=== PATIENT | male | born 1990 | race Caucasian/White ===

== ENCOUNTER 2024-09-14 10:10 | Emergency (ER) | payer MEDICAID, SELFPAY ==
[2024-09-14 10:18] VITALS: PULSE 103; RESP 18; BMI 21.5
[2024-09-14 11:02] VITALS: RESP 20; TEMP 37.2; O2SAT 111
[2024-09-14] MEDS: HALOPERIDOL LACT INJ 5 MG/ML VIAL 10 MG IM (11:17)
[2024-09-14] MEDS: SODIUM CHLORIDE 0.9% 1000 ML 1,000 ML 999 ML IV (11:17)
[2024-09-14 11:19] VITALS: BP 116/91; RESP 20; TEMP 37.2; O2SAT 99
[2024-09-14 11:25] LABS: Basophils # (Auto) 0.1 Thou/mm3 (0.0-0.2); Basophils % (Auto) 2 % (0-2.5); Eosinophils % (Auto) 0 % (0-10); Hematocrit 41.4 % (41.0-53.0); Hemoglobin 14.3 g/dL (13.5-16.0); Immature Granulocytes % (Auto) 0 % (0-0); Immature Granulocytes Auto 0.01 Thou/mm3 (0.00-0.00); Lymphocytes # (Auto) 3.3 Thou/mm3 (1.0-4.8); Lymphocytes % (Auto) 43 % (10-50); Mean Corpuscular HGB Conc 34.5 g/dl (31.0-37.0); Mean Corpuscular Hemoglobin 30.3 pg (25.0-35.0); Mean Corpuscular Volume 88 fL (80-100); Monocytes # (Auto) 0.4 Thou/mm3 (0.0-0.8); Monocytes % (Auto) 5 % (0-12); Neutrophils # (Auto) 3.8 Thou/mm3 (1.8-7.7); Neutrophils % (Auto) 50 % (37-80); Nucleated Red Blood Cell % 0 /100 WBC (0); Platelet Count 365 Thou/mm3 (140-440); RDW Standard Deviation 45.9 fL (35.1-43.9); Red Blood Count 4.72 Miln/mm3 (4.50-5.90); White Blood Count 7.6 Thou/mm3 (3.8-10.6)
[2024-09-14 11:54] LABS: Alanine Aminotransferase 53 U/L (10-49); Albumin, Serum 4.9 gm/dL (3.5-5.0); Albumin/Globulin Ratio 1.5 (1.2-2.2); Alkaline Phosphatase 125 U/L (46-116); Anion Gap 15 (7-16); Aspartate Amino Transferase 69 U/L (0-34); BUN/Creatinine Ratio 14 Ratio (12-20); Bilirubin,Total 0.7 mg/dL (0.3-1.2); Blood Urea Nitrogen 10 mg/dL (9-23); Calcium 9.8 mg/dL (8.3-10.6); Calcium (Corrected) 9.8 mg/dL (8.5-10.1); Carbon Dioxide 19.5 mMol/L (20.0-31.0); Chloride 100 mMol/L (98-107); Creatinine (Component) 0.7 mg/dL (0.6-1.3); Estimated Creatinine Clearance 141.7 mL/min (>60); Globulin 3.2 gm/dL (2.3-3.5); Glucose 130 mg/dL (74-106); Lipase 22 U/L (12-53); Osmolality,Calculated 269 (275-295); Potassium 4.8 mMol/L (3.4-5.1); Sodium 134 mMol/L (136-145); Total Protein 8.1 gm/dL (5.7-8.2); eGFR > 60 See Note
--- NOTE | 2024-09-14 12:03 | PD.EDADULT ---
ED General RME/HPI General Chief complaint: Nausea/Vomiting/Diarrhea Stated complaint: VOMITING Time Seen by Provider: 09/14/24 10:34 Arrival date/time: 09/14/24 10:10 RME / HPI RME / HPI narrative: Mr. Shook presents to the emergency department with a history of cyclic/cannabis induced hyperemesis, insulin-dependent diabetes, chronic prescription opioid dependence, who presents to the emergency department with recurrence of his nausea and vomiting. He notes a significant number of emesis that is uncountable. Emesis is bilious and nonbloody, not coffee-ground. He has an implantable glucose device and his blood sugars have been ranging from 100-120 today. He states he is stopping marijuana as well. Related Data Home Medications ?Medication ?Instructions ?Recorded ?Confirmed insulin glargine 100 unit/mL (3 5 unit subcut BID 03/22/23 09/14/24 mL) subcutaneous pen (Basaglar KwikPen U-100 Insulin) insulin aspart U-100 100 unit/mL See Rx Instructions .Route .COMPLEX 05/23/23 09/14/24 (3 mL) subcutaneous pen (Novolog FlexPen U-100 Insulin aspart) Allergies Allergy/AdvReac Type Severity Reaction Status Date / Time ketorolac [From Toradol] Allergy Verified 08/04/24 12:53 tramadol Allergy Verified 08/04/24 12:53 Review of Systems Review of Systems Systems Reviewed: All systems reviewed, normal except as documented ED Exam Narrative Physical exam: GENERAL APPEARANCE: AxOx4, generally well-appearing, no acute distress. HEENT: NC, AT. MMM. EOMI, clear conjunctiva, oropharynx clear. NECK: Supple without lymphadenopathy. No stiffness or restricted ROM. HEART: Normal rate and regular rhythm, normal S1/S1, no m/r/g LUNGS: CTAB, moving air well. No crackles or wheezes are heard. ABDOMEN: Soft, nontender, nondistended with good bowel sounds heard. BACK: No midline C/T/L spine pain or deformity, No CVAT, no obvious deformity. EXTREMITIES: Without cyanosis, clubbing or edema. MUSCULOSKELETAL: FROM of all major joints, no chest tenderness NEUROLOGICAL: Grossly nonfocal. Alert and oriented, moving all 4 extremities. CN not formally tested but appear grossly intact. Observed to ambulate with normal gait. Skin: Warm and dry without any rash. Course Course Course Narrative: Patient remained clinically stable here in the emergency department without signs of acute distress, he was given an IM shot of Haldol, with resolution of his nausea and vomiting. He expressed dissatisfaction for not receiving pain medications and is signing out AMA. Advised him the dangers as we do not know his electrolyte profile or any critical derangements at this point and expresses understanding of the risks. Quality Measures none Orders Category Date Time Status EKG (ED ONLY) *Do not use* NOW Care 09/14/24 10:54 Active EKG (ED Only) Stat Exams 09/14/24 10:53 Ordered CBC Stat Lab 09/14/24 11:05 Completed Comprehensive Metabolic Panel Stat Lab 09/14/24 11:05 Completed Lipase Stat Lab 09/14/24 11:05 Completed Urinalysis Stat Lab 09/14/24 10:53 Ordered Urine Culture Stat Lab 09/14/24 10:53 Ordered Haloperidol Lactate [Haldol Inj] Med 09/14/24 11:02 Discontinued 10 mg IM X1 ONE Sodium Chloride 0.9% 1000 ml [Ns] 1,000 ml Med 09/14/24 11:02 Discontinued IV 999 mls/hr Vital Signs Vital signs: Vital Signs Temperature 99 F 09/14/24 11:02 Respiratory Rate 20 09/14/24 11:02 Pulse Oximetry (%) 111 H 09/14/24 11:02 Oxygen Delivery Method Room Air 09/14/24 11:02 [facility] Patient data External records reviewed:: [facility] previous records Clinical information provided by:: patient Social determinants that could affect healthcare access:: substance use Patient has the following chronic illnesses:: Cannabis induced hyperemesis, insulin-dependent diabetes How is presenting disease/condition affected by chronic disease/condition?: exacerbated by Evaluation data The following diagnostics were reviewed and interpreted by me:: other (specify) (Patient AMA) Lab and/or radiology exams considered but not ordered:: Patient AMA Interpretation Summary: Patient AMA Medications Medications considered but not ordered:: Patient AMA Medication administrations:: Medication Administration History Discontinued Medications Haloperidol Lactate (Haloperidol Lact Inj 5 Mg/Ml Vial) 10 mg IM X1 ONE Stop: 09/14/24 11:03 Last Admin: 09/14/24 11:17 Dose: 10 mg Documented By: ARF Sodium Chloride (Ns) 1,000 mls @ 999 mls/hr IV .Q1H1M ONE Stop: 09/14/24 12:02 Last Admin: 09/14/24 11:17 Dose: 999 mls/hr Documented By: ARF Above Consultations Consultation(s) initiated? (list below): No Diagnosis Differential Diagnosis ED Complaint MDM: Cannabis induced hyperemesis, acute dehydration, KWABENA, hyperglycemia Most likely diagnosis given after review of the tests above:: Workup in progress Admission Indicated Admission indicated?: not indicated (Patient AMA) Explain why admission is indicated or not indicated:: Patient AMA Admission Request Was there a request for admission?: No Disposition Plan Disposition Plan: other (specify) (Patient AMA) Medical Decision Making Differential Diagnosis Differential Diagnosis: Cannabis induced hyperemesis, acute dehydration, KWABENA, hyperglycemia Lab Data 09/14/24 11:05 09/14/24 11:05 Labs: Lab Results 09/14/24 Range/Units 11:05 WBC 7.6 (3.8-10.6) Thou/mm3 RBC 4.72 (4.50-5.90) Miln/mm3 Hgb 14.3 (13.5-16.0) g/dL Hct 41.4 (41.0-53.0) % MCV 88 (80-100) fL MCH 30.3 (25.0-35.0) pg MCHC 34.5 (31.0-37.0) g/dl RDW Std Deviation 45.9 H (35.1-43.9) fL Plt Count 365 D (140-440) Thou/mm3 Neut % (Auto) 50 (37-80) % Lymph % (Auto) 43 (10-50) % [place] % (Auto) 5 (0-12) % Eos % (Auto) 0 (0-10) % Baso % (Auto) 2 (0-2.5) % Neut # (Auto) 3.8 (1.8-7.7) Thou/mm3 Lymph # (Auto) 3.3 (1.0-4.8) Thou/mm3 [place] # (Auto) 0.4 (0.0-0.8) Thou/mm3 Eos # (Auto) 0.0 (0.0-0.5) Thou/mm3 Baso # (Auto) 0.1 (0.0-0.2) Thou/mm3 Immature Gran # (Auto) 0.01 H (0.00-0.00) Thou/mm3 Absolute Nucleated RBC 0.00 (0.00-0.00) Thou/mm3 Immature Gran % 0 (0-0) % Nucleated RBC % 0 (0) /100 WBC Sodium 134 L (136-145) mMol/L Potassium 4.8 (3.4-5.1) mMol/L Chloride 100 (98-107) mMol/L Carbon Dioxide 19.5 L (20.0-31.0) mMol/L Anion Gap 15 (7-16) BUN 10 (9-23) mg/dL Creatinine 0.7 (0.6-1.3) mg/dL Estim Creat Clear Calc 141.7 (>60) mL/min eGFR > 60 (60 - ) See Note BUN/Creatinine Ratio 14 (12-20) Ratio Glucose 130 H (74-106) mg/dL Calculated Osmolality 269 L (275-295) Calcium 9.8 (8.3-10.6) mg/dL Corrected Calcium 9.8 (8.5-10.1) mg/dL Total Bilirubin 0.7 (0.3-1.2) mg/dL AST 69 H (0-34) U/L ALT 53 H (10-49) U/L Alkaline Phosphatase 125 H (46-116) U/L Total Protein 8.1 (5.7-8.2) gm/dL Albumin 4.9 (3.5-5.0) gm/dL Globulin 3.2 (2.3-3.5) gm/dL Albumin/Globulin Ratio 1.5 (1.2-2.2) Lipase 22 (12-53) U/L Discharge Plan Plan Patient Disposition: Left Against Medical Advice Prescriptions/Referrals Prescriptions/Med Rec: No Action insulin glargine [Basaglar KwikPen U-100 Insulin] 100 unit/mL (3 mL) insulin pen 5 unit SUBCUT BID Patient Comments: INJECT 30 UNITS SUBCUTANEOUSLY EVERY DAY AT BEDTIME insulin aspart U-100 [Novolog FlexPen U-100 Insulin] 100 unit/mL (3 mL) Insulin Pen See Rx Instructions .ROUTE .COMPLEX Rx Instructions: Flex pen Problem List Clinical Impression: Cannabinoid hyperemesis syndrome, Cyclic vomiting syndrome Patient/Caregiver Discharge Instructions Print Language: South African
== END 2024-09-14 12:01 | disposition left against medical advice (07) ==
PROVIDERS: Emergency Provider Emergency Medicine
DX: R11.15 Cyclical vomiting syndrome unrelated to migraine (principal); F12.90 Cannabis use, unspecified, uncomplicated
CPT/HCPCS: 36415; 80053; 81001; 83690; 85025; 87086; 96372; 99283; J1630; J7030

== ENCOUNTER 2024-09-17 15:48 | Emergency (ER) | payer MEDICAID, SELFPAY ==
[2024-09-17 15:52] VITALS: BP 140/96; PULSE 98; RESP 19; TEMP 36.9; O2SAT 100
--- NOTE | 2024-09-17 16:02 | XR_ITS ---
Examination: AP chest single view Technique one AP portable upright chest single view Exam date and time: September 17, 2024 1645 hours Comparison October 17, 2023 INDICATIONS: Onset shortness of breath today FINDINGS: Normal heart size Lungs are clear. The osseous structures are intact IMPRESSION: No active disease
--- NOTE | 2024-09-17 16:02 | EKG_ITS ---
[facility] Test Date: 2024-09-17 Pat Name: KARIS SORENSON Department: Room: - Gender: Male [employer]: : 1990 Requested By: Kush Pedro Order Number: [id number] Reading MD: Kush Pedro Measurements Intervals [place] Rate: 107 P: 73 ND: 124 QRS: 72 QRSD: 85 T: 28 QT: 338 QTc: 451 Interpretive Statements SINUS TACHYCARDIA NONSPECIFIC T-WAVE ABNORMALITY ABNORMAL RHYTHM ECG Compared to ECG 08/02/2024 21:46:17 T-wave abnormality now present Sinus rhythm no longer present /store/S0/[id number].pdf
--- NOTE | 2024-09-17 16:02 | XR_ITS ---
Examination: CT brain head without contrast. 2-D sagittal coronal reconstructions Date and time of exam:September 17, 2024 1844 hours Comparison December 23, 2023 INDICATIONS: Altered mental status today, history head injury December 23, 2023 after falling CTDI: vol (mGy):47.2 DLP: (mGycm):1034 Technique: Multiple CT axial sections of the brain have been obtained, 5 mm slice thickness. Contrast has not been administered. 2-D sagittal, coronal reconstructions have been obtained Low dose protocols were performed. One or more of the following dose reduction techniques were used; automated exposure control, adjustment of the mA and/or KV according to patient size, use of iterative reconstruction technique. Findings: No significant ventricular enlargement. Intra-axial or extra-axial hemorrhage density is not seen. No mass effect or midline shift Basal cisterns are not remarkable. Fourth ventricle is midline. Cranial vault intact. Impression: Negative for acute hemorrhage, mass effect or midline shift Advise clinical correlation follow-up accordingly
[2024-09-17 16:26] LABS: Base Excess -2 (-3-3); HCO3 23 mEq/L (20-26); Inspired Oxygen, FIO2 21 %; O2 Saturation 97 % (91-98); PCO2 37 mmHg (32.0-48.0); PO2 95 mmHg (83-108); pH, Arterial 7.39 (7.35-7.45)
[2024-09-17 16:28] VITALS: BMI 22.3
--- NOTE | 2024-09-17 16:33 | PD.EDALCOH ---
ED Alcohol RME/HPI General Chief Complaint: Altered Mental Status Stated Complaint: AMS Time Seen by Provider: 09/17/24 15:51 Arrival date/time: 09/17/24 15:48 RME / HPI RME / HPI narrative: This section includes all my notes and documentations, including HPI, PE, MDM, Procedure Notes, and PLAN. Kush Brantley MD HPI: 33 year old male with history of chronic back pain, s/p back surgery, IDDM, cannabis induced hyperemesis, opioid dependence, depression, anxiety, alcohol abuse presents to the ED BIBA from home for altered mental status today. Per medics report, on scene patient was a GCS of 12 and at baseline is a GCS of 15. Patients girlfriend stated the patient was vomiting last night and this morning was not acting his usual self. Mother also reports patient has been more depressed recently. While in the ED patient reports he last drank 3 days ago and denies any suicidal ideation. No other complaints reported. 1735: Obtained additional history from patients mother Emily. States patient was recently at rehab facility after back surgery 4 months ago and has been home for 2 weeks. States since arriving home patient is drinking a 2L bottle of [place] whiskey daily. Additionally reports patient had made a comments on being done with life and mother expressed concerns of patient possibly harming himself. ROS: Can't obtain from the patient due to current clinical condition. Physical Exam: General: Obtunded. Eyes: Conjunctivae and lids clear. EOMI. PERRL. ENT: No nasal congestion. Neck: Supple. Heart: Sinus tachycardia noted. Lungs: No respiratory distress. Good air movement. No rhonchi, wheezing, rales. Abdomen: Soft. Legs: No clubbing, cyanosis, edema. Skin: Warm and dry. Neuro: Obtunded. Cranial Nerves II-XII grossly intact. No peripheral motor deficits. I ordered IV fluid and thiamine and diagnostic tests. At 6 PM on 09/17/2024, the care of the patient was transferred to Dr. Escalante. Kush Brantley MD Related Data Home Medications ?Medication ?Instructions ?Recorded ?Confirmed insulin glargine 100 unit/mL (3 5 unit subcut BID 03/22/23 09/18/24 mL) subcutaneous pen (Basaglar KwikPen U-100 Insulin) insulin aspart U-100 100 unit/mL See Rx Instructions .Route .COMPLEX 05/23/23 09/18/24 (3 mL) subcutaneous pen (Novolog FlexPen U-100 Insulin aspart) gabapentin 600 mg tablet 600 mg TID 09/18/24 09/18/24 Allergies Allergy/AdvReac Type Severity Reaction Status Date / Time ketorolac [From Toradol] Allergy Verified 08/04/24 12:53 tramadol Allergy Verified 08/04/24 12:53 ED Exam Narrative Physical exam: As noted in HPI Course Quality Measures none Orders Category Date Time Status EKG (ED ONLY) *Do not use* NOW Care 09/17/24 16:02 Completed Saline [Insert IV] NOW Care 09/17/24 16:[address] head/brain wo con Stat Exams 09/17/24 16:02 Completed EKG (ED Only) Stat Exams 09/17/24 16:02 Draft XR chest 1V portable Stat Exams 09/17/24 16:02 Completed ABG [Arterial Blood Gas] Stat Lab 09/17/24 16:39 Ordered Acetaminophen Stat Lab 09/17/24 16:23 Completed Alcohol, Blood Medical Stat Lab 09/17/24 16:23 Completed Ammonia Stat Lab 09/17/24 16:23 Completed Amylase Stat Lab 09/17/24 16:23 Completed CBC Stat Lab 09/17/24 16:23 Completed CK [Creatine Kinase] Stat Lab 09/17/24 16:23 Completed CMP [Comprehensive Metabolic Panel] Stat Lab 09/17/24 16:23 Completed Drug Screen,Urine Stat Lab 09/17/24 17:44 Completed Lipase Stat Lab 09/17/24 16:23 Completed Magnesium Stat Lab 09/17/24 16:23 Completed PT [Prothrombin Time with INR] Stat Lab 09/17/24 16:23 Completed PTT [Partial Thromboplastin Time] Stat Lab 09/17/24 16:23 Completed Salicylate Stat Lab 09/17/24 16:23 Completed Troponin I Stat Lab 09/17/24 16:23 Completed UA [Urinalysis] Stat Lab 09/17/24 17:44 Completed LORazepam [Ativan Inj] Med 09/17/24 23:42 Discontinued 2 mg IVP X1 ONE LORazepam [Ativan Inj] Med 09/18/24 05:03 Discontinued 2 mg IVP X1 ONE LORazepam [Ativan Inj] Med 09/18/24 07:47 Discontinued 2 mg IVP X1 ONE NALOXONE INJ (Syringe) [Narcan Inj (Syringe)] Med 09/17/24 16:04 Discontinued 0.4 mg IV X1 ONE Ondansetron Inj [Zofran Inj] Med 09/17/24 16:00 Discontinued 4 mg IV X1 ONE Ondansetron Inj [Zofran Inj] Med 09/17/24 23:42 Discontinued 4 mg IV X1 ONE Sodium Chloride 0.9% 1000 ml [Ns] 1,000 ml Med 09/17/24 16:00 Discontinued IV 999 mls/hr Sodium Chloride 0.9% 1000 ml [Ns] 1,000 ml Med 09/17/24 17:48 Discontinued IV 999 mls/hr Sodium Chloride 0.9% 1000 ml [Ns] 1,000 ml Med 09/17/24 17:49 Discontinued IV 999 mls/hr Thiamine Inj [Vitamin B-1 Inj] 100 mg Med 09/17/24 16:02 Discontinued Sodium Chloride 0.9% [Ns] 100 ml IV X1 Late Tray Request Routine Oth 09/18/24 08:36 Active Vital Signs Vital signs: Vital Signs Temperature 98.5 F 09/17/24 15:52 Pulse Rate 98 09/17/24 15:52 Respiratory Rate 19 09/17/24 15:52 Blood Pressure 140/96 H 09/17/24 15:52 Pulse Oximetry (%) 100 09/17/24 15:52 Oxygen Delivery Method Nasal Cannula 09/17/24 15:52 Oxygen Flow Rate 4 09/17/24 15:52 Discharge Plan Plan Patient Disposition: HOME (Self Care) Prescriptions/Referrals Prescriptions/Med Rec: No Action insulin glargine [Basaglar KwikPen U-100 Insulin] 100 unit/mL (3 mL) insulin pen 5 unit SUBCUT BID Patient Comments: INJECT 30 UNITS SUBCUTANEOUSLY EVERY DAY AT BEDTIME insulin aspart U-100 [Novolog FlexPen U-100 Insulin] 100 unit/mL (3 mL) Insulin Pen See Rx Instructions .ROUTE .COMPLEX Rx Instructions: Flex pen gabapentin 600 mg tablet 600 mg TID Patient Comments: take 1 tablet by mouth three times a day Referrals: Peter Gottlieb MD [Primary Care Provider] - In 1 week Problem List Clinical Impression: Alcohol abuse, Alcohol use disorder, Alcoholic intoxication Patient/Caregiver Discharge Instructions Discharge Activity: activity as tolerated Education Materials: Addiction Ask These Questions, Addiction: Getting Help Print Language: Persian Stand Alone Forms: Colleen Award Info., Patient Portal Info Letter Alcohol MDM Narrative MDM Narrative: ITammie am scribing for and in the presence of Dr. Brantley. Patient data External records reviewed:: [facility] previous records (I reviewed ED Visit on 09/14/2024 and patient left against medical advise ) Clinical information provided by:: patient and EMS Social determinants that could affect healthcare access:: alcohol use Patient has the following chronic illnesses:: chronic back pain, s/p back surgery, IDDM, cannabis induced hyperemesis, opioid dependence, depression, anxiety, alcohol abuse How is presenting disease/condition affected by chronic disease/condition?: exacerbated by Evaluation data The following diagnostics were reviewed and interpreted by me:: lab results, radiology exam(s) and EKG tracing(s) (My interpretation of the EKG is: Sinus tachycardia (107 bpm) with nonspecific ST-T changes. Kush Brantley MD) Lab and/or radiology exams considered but not ordered:: None Interpretation Summary: Ordering Physician: Kush Brantley MD Date of Service: 09/17/24 Procedure(s): XR chest 1V portable Accession Number(s): [id number] cc: Kush Brantley MD; Mateo Zhang MD~ Examination: AP chest single view Technique one AP portable upright chest single view Exam date and time: September 17, 2024 1645 hours Comparison October 17, 2023 INDICATIONS: Onset shortness of breath today FINDINGS: Normal heart size Lungs are clear. The osseous structures are intact IMPRESSION: No active disease Dictated By: Mateo Zhang MD Signed By: <Electronically signed by Mateo Zhang MD in OV> 09/17/24 1723 Medications / Prescriptions Medications or Prescriptions considered but not ordered:: None Medication administrations:: Medication Administration History Discontinued Medications Sodium Chloride (Ns) 1,000 mls @ 999 mls/hr IV .Q1H1M ONE Stop: 09/17/24 17:00 Last Infusion: 09/17/24 19:00 Dose: Infused Documented By: Admin: 09/17/24 16:43 Dose: 999 mls/hr Documented By: AM Thiamine HCl 100 mg/ Sodium (Chloride) 101 mls @ 202 mls/hr IV X1 ONE Stop: 09/17/24 16:31 Last Infusion: 09/17/24 19:00 Dose: Infused Documented By: Admin: 09/17/24 16:55 Dose: 202 mls/hr Documented By: AM Sodium Chloride (Ns) 1,000 mls @ 999 mls/hr IV .Q1H1M ONE Stop: 09/17/24 18:48 Last Infusion: 09/17/24 19:30 Dose: Infused Documented By: Admin: 09/17/24 18:23 Dose: 999 mls/hr Documented By: BEULAH Sodium Chloride (Ns) 1,000 mls @ 999 mls/hr IV .Q1H1M ONE Stop: 09/17/24 18:49 Last Infusion: 09/17/24 19:30 Dose: Infused Documented By: Admin: 09/17/24 18:24 Dose: 999 mls/hr Documented By: BEULAH Lorazepam (Lorazepam 2 Mg/Ml Vial) 2 mg IVP X1 ONE Stop: 09/17/24 23:43 Last Admin: 09/17/24 23:48 Dose: 2 mg Documented By: CALISTA Lorazepam (Lorazepam 2 Mg/Ml Vial) 2 mg IVP X1 ONE Stop: 09/18/24 05:04 Last Admin: 09/18/24 05:07 Dose: 2 mg Documented By: CALISTA Comments: VIAL WAS SCANNED BUT SAID ERROR WHEN SCANNING. VIAL WAS THEN DISCARDED BEFORE IT COULD BE SCANNED AGAIN. Lorazepam (Lorazepam 2 Mg/Ml Vial) 2 mg IVP X1 ONE Stop: 09/18/24 07:48 Last Admin: 09/18/24 07:56 Dose: 2 mg Documented By: RAJIV Naloxone HCl (Naloxone Inj 1 Mg/Ml Syringe 2 Ml) 0.4 mg IV X1 ONE Stop: 09/17/24 16:05 Last Admin: 09/17/24 16:55 Dose: 0.4 mg Documented By: AM Ondansetron HCl (Ondansetron Inj 2 Mg/Ml Inj 2 Ml) 4 mg IV X1 ONE; Protocol Stop: 09/17/24 16:01 Last Admin: 09/17/24 16:55 Dose: 4 mg Documented By: AM Ondansetron HCl (Ondansetron Inj 2 Mg/Ml Inj 2 Ml) 4 mg IV X1 ONE; Protocol Stop: 09/17/24 23:43 Last Admin: 09/17/24 23:48 Dose: 4 mg Documented By: CALISTA See above Consultations Consultation(s) initiated? (list below): No Diagnosis Most likely diagnosis given after review of the tests above:: Alcohol intoxication Admission Indicated Admission indicated?: not indicated Explain why admission is indicated or not indicated:: Patient signed out to Dr. Escalante pending head CT, labs, and final disposition. Admission Request Was there a request for admission?: No Disposition Plan Disposition Plan: other (specify) (Signed out to Dr. Escalante. )
[2024-09-17 16:34] LABS: Allen Test Performed/OK; Puncture Site Right Radial
[2024-09-17] MEDS: SODIUM CHLORIDE 0.9% 1000 ML 1,000 ML 999 ML IV ×3 (16:43→18:24)
[2024-09-17 16:54] LABS: Basophils # (Auto) 0.1 Thou/mm3 (0.0-0.2); Basophils % (Auto) 1 % (0-2.5); Eosinophils % (Auto) 0 % (0-10); Hematocrit 46.1 % (41.0-53.0); Hemoglobin 16.2 g/dL (13.5-16.0); Immature Granulocytes % (Auto) 0 % (0-0); Immature Granulocytes Auto 0.02 Thou/mm3 (0.00-0.00); Lymphocytes # (Auto) 3.9 Thou/mm3 (1.0-4.8); Lymphocytes % (Auto) 53 % (10-50); Mean Corpuscular HGB Conc 35.1 g/dl (31.0-37.0); Mean Corpuscular Hemoglobin 30.8 pg (25.0-35.0); Mean Corpuscular Volume 88 fL (80-100); Monocytes # (Auto) 0.3 Thou/mm3 (0.0-0.8); Monocytes % (Auto) 4 % (0-12); Neutrophils % (Auto) 41 % (37-80); Nucleated Red Blood Cell % 0 /100 WBC (0); Platelet Count 301 Thou/mm3 (140-440); RDW Standard Deviation 45.3 fL (35.1-43.9); Red Blood Count 5.26 Miln/mm3 (4.50-5.90); White Blood Count 7.2 Thou/mm3 (3.8-10.6)
[2024-09-17] MEDS: ONDANSETRON INJ 2 MG/ML INJ 2 ML 4 MG IV ×2 (16:55→23:48)
[2024-09-17] MEDS: THIAMINE INJ 100 MG in SODIUM CHLORIDE 0.9% 100 ML 202 MG IV (16:55)
[2024-09-17] MEDS: NALOXONE INJ 1 MG/ML SYRINGE 2 ML 0.4 MG IV (16:55)
[2024-09-17 17:14] LABS: Ammonia < 10 uMol/L (11-32)
[2024-09-17 17:21] LABS: INR 1.1 (0.9-1.3); Partial Thromboplastin Time 26.4 Seconds (22.0-36.0); Prothrombin Time 12.4 Seconds (9.0-12.2)
[2024-09-17 17:27] LABS: Acetaminophen < 2.0 mcg/mL (10.0-20.0); Alanine Aminotransferase 75 U/L (10-49); Albumin, Serum 5.2 gm/dL (3.5-5.0); Albumin/Globulin Ratio 1.4 (1.2-2.2); Alkaline Phosphatase 129 U/L (46-116); Amylase 42 U/L (30-118); Anion Gap 14 (7-16); Aspartate Amino Transferase 133 U/L (0-34); BUN/Creatinine Ratio 9 Ratio (12-20); Bilirubin,Total 0.5 mg/dL (0.3-1.2); Blood Urea Nitrogen 8 mg/dL (9-23); Calcium 9.3 mg/dL (8.3-10.6); Calcium (Corrected) 9.3 mg/dL (8.5-10.1); Carbon Dioxide 23.7 mMol/L (20.0-31.0); Chloride 101 mMol/L (98-107); Creatine Kinase 301 U/L (34-171); Creatinine (Component) 0.9 mg/dL (0.6-1.3); Estimated Creatinine Clearance 117.6 mL/min (>60); Globulin 3.6 gm/dL (2.3-3.5); Glucose 140 mg/dL (74-106); Lipase 37 U/L (12-53); Magnesium 2.2 mg/dL (1.6-2.6); Osmolality,Calculated 277 (275-295); Potassium 5.6 mMol/L (3.4-5.1); Salicylate < 3.0 mg/dL; Sodium 139 mMol/L (136-145); Total Protein 8.8 gm/dL (5.7-8.2); Troponin I < 0.002 ng/mL (0.0-0.045); eGFR > 60 See Note
[2024-09-17 17:47] LABS: Alcohol, Blood Medical 486.5 mg/dL (0-10.0)
[2024-09-17 18:03] LABS: Collection Type, Urine Clean Catch; Squamous Epithelial Cell,Urine 0 /hpf (0-5)
[2024-09-17 18:15] VITALS: BP 133/88; PULSE 104; RESP 19; TEMP 37; O2SAT 97
[2024-09-17 18:27] LABS: Bilirubin,Urine Negative (Negative); Blood,Urine Negative (Negative); Clarity,Urine Clear (Clear/Hazy); Color,Urine Yellow (Lt Yel-Yel); Glucose, Urine Negative (Negative); Hyaline Casts,Urine < 1 /hpf (0-1); Ketones,Urine 1+ (Negative); Leukocyte Esterase,Urine Negative (Negative); Nitrite,Urine Negative (Negative); Protein,Urine 1+ (Neg - Trace); RBC,Urine 1 /hpf (0-3); Specific Gravity,Urine 1.026 (1.001-1.035); Urobilinogen,Urine Negative mg/dL (0.0-1.0); WBC,Urine 1 /hpf (0-5)
[2024-09-17 18:35] LABS: Amphetamine/Methamp Scrn,U Negative (Negative); Barbiturate Screen,Urine Negative (Negative); Benzodiazepines Screen,Urine Negative (Negative); Benzoylecgonine Screen, Ur Negative (Negative); Fentanyl Screen,Urine Negative (Negative); Opiate Screen,Urine Negative (Negative); THC Screen,Urine Negative (Negative)
--- NOTE | 2024-09-17 18:58 | EDNOTE_ITS ---
Emergency Room Addendum Addendum Narrative: 6:[address] Escalante's note: This patient was left over to me and I went there and examined the patient myself. Patient is alert awake oriented to person and place but speaks very slowly probably secondary to his alcohol level which is at 486. He denies taking any overdose of medications but he does feel suicidal and he says that he drinks to kill himself. When I told him that he had to stay here overnight and be evaluated by the psych team, he said that he is not suicidal anymore. His female friend is here and she witnessed that he change his mind immediately after he was informed that he needed to stay in the hospital. Looking at his old history, patient is a diabetic and he has been here for DKA. Today he is not in DKA because his ABG is normal and also his CO2 and anion gap are all within normal limits. He denies using illicit drugs. He is getting 2 bags of normal saline IV wide open. He will be in observation status until in the morning to have evaluation by the social security benefits interviewer. At 11:38 PM, the nurse tells me that the patient is vomiting and also he is very agitated and tremors. I ordered 4 mg of Zofran IV and also 2 mg of Ativan IV.
[2024-09-17 20:01] VITALS: BP 122/87; PULSE 99; RESP 18; O2SAT 97
[2024-09-17 22:22] VITALS: PULSE 100; RESP 18; TEMP 37; O2SAT 97
--- NOTE | 2024-09-17 22:23 | PC.NURSE ---
PT KEEPS TAKING OFF BP CUFF AND CHEST LEADS AND ASKING WHY HES HERE. PRIMARY RN SAVANAH MADE AWARE.
[2024-09-17] MEDS: LORazepam 2 MG/ML VIAL IVP (23:48)
--- NOTE | 2024-09-17 23:52 | PC.NURSE ---
Pt noted to be having tremors, is restless, and vomiting. MD ordered zofran and ativan.
[2024-09-17 23:57] VITALS: BP 120/79; PULSE 90; RESP 18; O2SAT 96
[2024-09-18 02:31] VITALS: BP 126/88; PULSE 77; RESP 18; O2SAT 98
--- NOTE | 2024-09-18 04:30 | PC.NURSE ---
Pt able to eat a sandwich and drink water. Pt still unsure of why he was brought here to the hospital. Re-explained to pt as well as the plan of care- for pt to talk to social media intern.
[2024-09-18 04:33] VITALS: PULSE 91; RESP 19; TEMP 36.8; O2SAT 99
--- NOTE | 2024-09-18 05:00 | PC.NURSE ---
Pt noted to be having tremors once again, c/o nausea, is restless. MD Escalante informed and additional dose of ativan ordered. Pt stating he needs to have BM, bedside commode set up in room.
[2024-09-18] MEDS: LORazepam 2 MG/ML VIAL IVP ×2 (05:07→07:56)
[2024-09-18 06:05] VITALS: BP 125/79; PULSE 104; RESP 17; O2SAT 97
--- NOTE | 2024-09-18 06:54 | EDNOTE_ITS ---
Emergency Room Addendum Addendum Narrative: 0600: Care assumed from Dr. Escalante, the previous shift emergency physician. Past medical, surgical, social and family history reviewed. Vitals and home medications reviewed. I will assume the care of the patient at this time, pending mental health evaluation. Please refer to the emergency department record for history and examination from initial visit.? EMS notes reviewed by me. Patient was BIBA for altered mental status. Nursing notes reviewed by me. Vital signs reviewed by me. [facility] medical records reviewed by me. Per EMR review, patient has history of chronic back pain, s/p back surgery, IDDM, cannabis induced hyperemesis, opioid dependence, depression, anxiety, alcohol abuse. Patients mother reported the patient is drinking 2L of Zect[place]. 0925: Notified by our 7th grade social studies teacher that the patient has been evaluated and at this time is denying any SI or HI. States patient will be provided with resources. We reviewed all the results, analysis, and treatment plans. Patient is amenable to discharge. Strict return precautions were outlined. Patient was discharged in stable condition. DISPOSITION: Home DIAGNOSIS: Alcohol abuse, alcohol intoxication
[2024-09-18 07:29] VITALS: BP 131/82; PULSE 110; RESP 18; TEMP 37.1; O2SAT 98
--- NOTE | 2024-09-18 07:42 | PC.NURSE ---
pt appears to be withdrawing at this time. Pt shaking visibly and diaphoretic as well as tachy on tele. Requested Ativan from provider who gave a verbal order for 2mg
[2024-09-18 10:09] VITALS: BP 132/80; PULSE 102; RESP 16; TEMP 36.9
--- NOTE | 2024-09-18 17:03 | PC.CC ---
Pt Shemar Shook is a 33 yr old male to ED for AMS. Pt reporting SI to ED attending at time of assessment. Pt held in ED overnight for evaluation this AM. ASW met with pt at bedside, introducing self and role in pt care. At time of encounter pt is noted to be sitting on gurney. Pt presents with flat affect, fails to keep eye contact, speaks in clear even tone. Pt appears to be unkempt with greasy hair, is unshaven. At this time pt is denying SI/HI. Pt is denying A/VH. Pt denies ever being on 5150 hold and denies voluntary/involuntary psychiatric hospitalization. Pt denies any MH hx other than anxiety. Pt reports that he was dx with anxiety 1 yr ago. Pt denies being enrolled in traditional services. Pt denies being prescribed medication for hx of anxiety. Pt confirms long hx of alcoholism. Pt denies drinking in the last 6 days. Pt denied consuming alcohol even after ASW informed pt of his alcohol level from his labs. ASW assessed if pt is interested in community resources for AOD services. Pt confirmed that he is interested. Pt lives at home alone. Per pt he is currently unemployed following a back injury requiring surgical intervention. Pt identifies his mother Emily Fallon [phone] as surrogate DM and main support person. [id number]-Case consulted with TEACHER COUNSELOR Janeen Carrasquillo, pt will be cleared with resources. ASW completed [facility] AOD referral. ASW provided pt with AOD resource pamphlet. ASW provided pt with Community resource guide for local AOD and MH services. Pt receptive to resources provided at this time.
--- NOTE | 2024-09-22 19:32 | PC.CC ---
Pts chart accessed to update crisis log.
== END 2024-09-18 10:07 | disposition home or self-care (01) ==
PROVIDERS: Emergency Medicine; Emergency Provider Emergency Medicine; PCP Family Medicine
DX: F10.129 Alcohol abuse with intoxication, unspecified (principal); R06.02 Shortness of breath; Y90.8 Blood alcohol level of 240 mg/100 ml or more
CPT/HCPCS: 36415; 36600; 70450; 71045; 80053; 80307; 80320; 80329; 81001; 82140; 82150; 82550; 82803; 83690; 83735; 84484; 85025; 85610; 85730; 93005; 96127; 96365; 96366; 96375; 99284; J2060; J2310; J2405; J3411; J7030; J7050; G0480

== ENCOUNTER 2024-09-18 15:26 | Inpatient (IN) | payer MEDICAID, SELFPAY ==
[2024-09-18 15:43] VITALS: BP 145/85; PULSE 105; RESP 21; TEMP 37.1; O2SAT 97
--- NOTE | 2024-09-18 16:14 | EDNOTE_ITS ---
ED Psych RME/HPI General Chief Complaint: Psychiatric Symptoms Stated Complaint: 5150 Time Seen by Provider: 09/18/24 18:16 Arrival date/time: 09/18/24 15:26 Limitations: no limitations RME / HPI RME / HPI Narrative: 33 year old male with history of chronic back pain, s/p back surgery, IDDM, cannabis induced hyperemesis, opioid dependence, depression, anxiety, alcohol abuse presents to the ED BIB [facility] on a 5150 hold for danger to self. Per officer, mother on scene reported the patient was making suicidal statements. While in the ED patient declines SI or HI. States he drank too much . When asked who called 911 he responds my mom . No other complaints reported. I took over the care from Dr. Cabrera at 6 PM on 09/18/2024, see his notes for complete H&P and ED course. Treatment by me included Ativan periodically for alcohol withdrawal. He remained stable. At 6 AM on 09/19/2024, the care of the patient was transferred to Dr. Cabrera. Kush Brantley MD Related Data Home Medications ?Medication ?Instructions ?Recorded ?Confirmed insulin glargine 100 unit/mL (3 5 unit subcut BID 03/22/23 09/18/24 mL) subcutaneous pen (Basaglar KwikPen U-100 Insulin) insulin aspart U-100 100 unit/mL See Rx Instructions .Route .COMPLEX 05/23/23 09/18/24 (3 mL) subcutaneous pen (Novolog FlexPen U-100 Insulin aspart) gabapentin 600 mg tablet 600 mg TID 09/18/24 09/18/24 Allergies Allergy/AdvReac Type Severity Reaction Status Date / Time ketorolac [From Toradol] Allergy Verified 08/04/24 12:53 tramadol Allergy Verified 08/04/24 12:53 Review of Systems Review of Systems Systems Reviewed: All systems reviewed, normal except as documented Past Medical History Past Medical History NEUROLOGIC: Positive Seizures CARDIAC: Positive Cardiac Disorders and Hypertension GASTROINTESTINAL: Positive Gastrointestinal Disorders and Pancreatitis ENDOCRINE: Positive Diabetes Mellitus Type 1 PSYCHO/SOCIAL: Positive Depression and Anxiety Family History FAMILY HISTORY: Negative Family Psychiatric Problems, Family Respiratory Disorders, Family Cardiac Disorders or Family Gastrointestinal Problems Surgical History SURGICAL: Positive Abdominal Surgery Social History SMOKING STATUS: Current every day smoker SUBSTANCE USE: does not use ED Exam General Limitations: Present no limitations General appearance: Present alert and appears intoxicated (patient has a nasal voice, mumbling speech ) Head Head exam: Present atraumatic, normocephalic and normal inspection Eye Eye exam: Present normal appearance, PERRL and EOMI ENT ENT exam: Present normal exam, normal oropharynx and mucous membranes moist Neck Neck exam: Present normal inspection, full ROM and trachea midline Chest Chest inspection: Present normal inspection and symmetric chest wall rise Respiratory Respiratory exam: Present normal lung sounds bilaterally Cardiovascular Cardiovascular exam: Present regular rate, normal rhythm and normal heart sounds Abdominal Exam Abdominal exam: Present soft and normal bowel sounds Extremities Exam Extremities exam: Present normal inspection and full ROM Back Exam Back exam: Present normal inspection and full ROM Neurological Exam Neurological exam: Present alert, oriented X3 and CN II-XII intact Psychiatric Psychiatric exam: Present normal mood; Absent homicidal ideation or suicidal ideation Skin Skin exam: Present warm, dry, intact and normal color Course Course Course Narrative: 1800: Patient signed out to Dr. Brantley pending medical clearance for mental health evaluation and placement if indicated. Quality Measures none Orders Category Date Time Status Saline [Insert IV] NOW Care 09/18/24 18:17 Active Straight [In and Out Catheter] X1 Care 09/18/24 18:17 Active Acetaminophen Stat Lab 09/18/24 16:41 Completed Alcohol, Blood Medical Stat Lab 09/18/24 16:41 Completed CBC Stat Lab 09/18/24 16:41 Completed CMP [Comprehensive Metabolic Panel] Stat Lab 09/18/24 16:41 Completed Drug Screen,Urine Stat Lab 09/18/24 17:33 Completed Magnesium Stat Lab 09/18/24 16:41 Completed Salicylate Stat Lab 09/18/24 16:41 Completed LORazepam [Ativan Inj] Med 09/19/24 00:12 Discontinued 2 mg IVP X1 ONE LORazepam [Ativan Inj] Med 09/19/24 04:13 Discontinued 2 mg IVP X1 ONE LORazepam [Ativan] Med 09/18/24 17:12 Discontinued 2 mg PO X1 ONE Ondansetron Inj [Zofran Inj] Med 09/18/24 18:18 Discontinued 4 mg IV X1 ONE Thiamine Inj [Vitamin B-1 Inj] 100 mg Med 09/18/24 18:18 Discontinued Sodium Chloride 0.9% [Ns] 100 ml IV X1 Vital Signs Vital signs: Vital Signs Temperature 98.8 F 09/18/24 15:43 Pulse Rate 105 H 09/18/24 15:43 Respiratory Rate 21 H 09/18/24 15:43 Blood Pressure 145/85 H 09/18/24 15:43 Pulse Oximetry (%) 97 09/18/24 15:43 Oxygen Delivery Method Room Air 09/18/24 15:43 Pulse ox is 97% on room air which is adequate. Psych MDM Narrative MDM Narrative:: Tammie Manrique am scribing for and in the presence of Dr. Cabrera. Patient data External records reviewed:: [facility] previous records (I reviewed ED visit from yesterday 09/17/2024) Clinical information provided by:: patient and law enforcement ([employer] ) Social determinants that could affect healthcare access:: alcohol use Patient has the following chronic illnesses:: chronic back pain, s/p back surgery, IDDM, cannabis induced hyperemesis, opioid dependence, depression, anxiety, alcohol abuse How is presenting disease/condition affected by chronic disease/condition?: exacerbated by Evaluation data The following diagnostics were reviewed and interpreted by me:: lab results Lab and/or radiology exams considered but not ordered:: None Interpretation Summary: CBC within normal limits. Remainder of labs pending on sign out. Medications / Prescriptions Medications or Prescriptions considered but not ordered:: None Medication administrations:: Medication Administration History Discontinued Medications Thiamine HCl 100 mg/ Sodium (Chloride) 101 mls @ 202 mls/hr IV X1 ONE Stop: 09/18/24 18:47 Last Infusion: 09/18/24 19:45 Dose: Infused Documented By: Admin: 09/18/24 19:10 Dose: 202 mls/hr Documented By: RD Lorazepam (Lorazepam 0.5 Mg Tablet) 2 mg PO X1 ONE Stop: 09/18/24 17:13 Last Admin: 09/18/24 17:41 Dose: 2 mg Documented By: TM Lorazepam (Lorazepam 2 Mg/Ml Vial) 2 mg IVP X1 ONE Stop: 09/19/24 00:13 Last Admin: 09/19/24 00:36 Dose: 2 mg Documented By: EE Lorazepam (Lorazepam 2 Mg/Ml Vial) 2 mg IVP X1 ONE Stop: 09/19/24 04:14 Ondansetron HCl (Ondansetron Inj 2 Mg/Ml Inj 2 Ml) 4 mg IV X1 ONE; Protocol Stop: 09/18/24 18:19 Last Admin: 09/18/24 19:10 Dose: 4 mg Documented By: MANUELITO See above Consultations Consultation(s) initiated? (list below): No Diagnosis Psych Differential Diagnosis: acute psychosis, suicidal ideation, bipolar disorder, depression, drug-induced psychotic disorder and acute anxiety Most likely diagnosis given after review of the tests above:: Alcohol intoxication Admission Indicated Admission indicated?: not indicated Admission Request Was there a request for admission?: No Disposition Plan Disposition Plan: other (specify) (Patient signed out pending medical clearance for mental health evaluation and placement if indicated. ) Discharge Plan Prescriptions/Referrals Prescriptions/Med Rec: No Action insulin glargine [Basaglar KwikPen U-100 Insulin] 100 unit/mL (3 mL) insulin pen 5 unit SUBCUT BID Patient Comments: INJECT 30 UNITS SUBCUTANEOUSLY EVERY DAY AT BEDTIME insulin aspart U-100 [Novolog FlexPen U-100 Insulin] 100 unit/mL (3 mL) Insulin Pen See Rx Instructions .ROUTE .COMPLEX Rx Instructions: Flex pen gabapentin 600 mg tablet 600 mg TID Patient Comments: take 1 tablet by mouth three times a day Referrals: No Primary/Family,Physician [Primary Care Provider] - In 1 week Problem List Clinical Impression: Alcohol withdrawal, Suicidal risk Patient/Caregiver Discharge Instructions Print Language: Icelandic
--- NOTE | 2024-09-18 16:40 | PC.CC ---
Pt Shemar Shook is a 33 yr old male to ED on 5150 hold placed by [facility] for DTS. From hold pts mother contacted local law enforcement advising that pt is making suicidal statements. Pts mother reporting that pt has a hx of anxiety/depression, PTSD and Bipolar disorder. Pt evaluated this AM by ASW and denied any SI/HI, admitted to hx of anxiety. Pt provided with resources [facility] AOD program. ASW faxed referral for AOD program services. Pt provided with resource guide for local MH services and local AOD services. At this time pt is pending medical clearance. Pt has a long hx of alcoholism and withdrawals.
[2024-09-18 16:49] LABS: Basophils # (Auto) 0.1 Thou/mm3 (0.0-0.2); Basophils % (Auto) 1 % (0-2.5); Eosinophils % (Auto) 0 % (0-10); Hematocrit 34.3 % (41.0-53.0); Hemoglobin 12.2 g/dL (13.5-16.0); Immature Granulocytes % (Auto) 0 % (0-0); Immature Granulocytes Auto 0.03 Thou/mm3 (0.00-0.00); Lymphocytes # (Auto) 2.8 Thou/mm3 (1.0-4.8); Lymphocytes % (Auto) 33 % (10-50); Mean Corpuscular HGB Conc 35.6 g/dl (31.0-37.0); Mean Corpuscular Hemoglobin 30.7 pg (25.0-35.0); Mean Corpuscular Volume 86 fL (80-100); Monocytes # (Auto) 0.7 Thou/mm3 (0.0-0.8); Monocytes % (Auto) 8 % (0-12); Neutrophils # (Auto) 4.8 Thou/mm3 (1.8-7.7); Neutrophils % (Auto) 57 % (37-80); Nucleated Red Blood Cell % 0 /100 WBC (0); Platelet Count 208 Thou/mm3 (140-440); RDW Standard Deviation 43.5 fL (35.1-43.9); Red Blood Count 3.97 Miln/mm3 (4.50-5.90); White Blood Count 8.3 Thou/mm3 (3.8-10.6)
[2024-09-18 17:06] LABS: Alanine Aminotransferase 44 U/L (10-49); Albumin, Serum 4.8 gm/dL (3.5-5.0); Albumin/Globulin Ratio 1.7 (1.2-2.2); Alkaline Phosphatase 113 U/L (46-116); Anion Gap 15 (7-16); Aspartate Amino Transferase 59 U/L (0-34); BUN/Creatinine Ratio 7 Ratio (12-20); Bilirubin,Total 1.1 mg/dL (0.3-1.2); Blood Urea Nitrogen 5 mg/dL (9-23); Calcium 9.5 mg/dL (8.3-10.6); Calcium (Corrected) 9.5 mg/dL (8.5-10.1); Carbon Dioxide 23.3 mMol/L (20.0-31.0); Chloride 100 mMol/L (98-107); Creatinine (Component) 0.7 mg/dL (0.6-1.3); Globulin 2.8 gm/dL (2.3-3.5); Glucose 214 mg/dL (74-106); Osmolality,Calculated 278 (275-295); Potassium 3.4 mMol/L (3.4-5.1); Sodium 138 mMol/L (136-145); Total Protein 7.6 gm/dL (5.7-8.2); eGFR > 60 See Note
[2024-09-18 17:25] VITALS: BP 138/89; PULSE 106; RESP 20; TEMP 36.9; O2SAT 96
[2024-09-18] MEDS: LORazepam 0.5 MG TABLET 2 MG PO (17:41)
[2024-09-18 17:58] LABS: Amphetamine/Methamp Scrn,U Negative (Negative); Barbiturate Screen,Urine Negative (Negative); Benzodiazepines Screen,Urine Negative (Negative); Benzoylecgonine Screen, Ur Negative (Negative); Fentanyl Screen,Urine Negative (Negative); Opiate Screen,Urine Negative (Negative); THC Screen,Urine Negative (Negative)
[2024-09-18 18:58] LABS: Acetaminophen < 2.0 mcg/mL (10.0-20.0); Alcohol, Blood Medical 318.8 mg/dL (0-10.0); Magnesium 1.8 mg/dL (1.6-2.6); Salicylate < 3.0 mg/dL
[2024-09-18] MEDS: THIAMINE INJ 100 MG in SODIUM CHLORIDE 0.9% 100 ML 202 MG IV (19:10)
[2024-09-18] MEDS: ONDANSETRON INJ 2 MG/ML INJ 2 ML 4 MG IV (19:10)
[2024-09-18 19:35] VITALS: BP 137/94; PULSE 99; RESP 17; TEMP 36.7; O2SAT 99
[2024-09-18 23:55] VITALS: BP 132/89; PULSE 109; RESP 17; TEMP 36.6; O2SAT 98
--- NOTE | 2024-09-19 00:27 | PC.NURSE ---
PT AWAKE AND WALKING IN THE ROOM, PT ASKING FOR FOOD. PT GIVEN A SANDWICH AND JELLO WITH CUP OF WATER. PT EATING ON SIDE OF BED WITHOUT ANY ISSUES.
[2024-09-19] MEDS: LORazepam 2 MG/ML VIAL IVP ×3 (00:36→09:39)
[2024-09-19 04:22] VITALS: BP 127/88; PULSE 197; RESP 19; TEMP 36.6; O2SAT 99
--- NOTE | 2024-09-19 06:45 | PC.NURSE ---
pt up and ambulating to the rest room with sitter following. pt ambulating slowly with a steady gait.
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
--- NOTE | 2024-09-19 09:35 | PC.NURSE ---
pt has n/v, not able to tolerate PO meds at this time.
[2024-09-19] MEDS: PHENobarbital Inj 130 MG, SODIUM CHLORIDE 0.9% FLUSH 12 ML IVP (09:47)
[2024-09-19] MEDS: TAMSULOSIN HCL 0.4 MG CAPSULE PO (10:45)
[2024-09-19] MEDS: GABAPENTIN 300 MG CAPSULE PO ×3 (10:45→22:17)
[2024-09-19] MEDS: FOLIC ACID 1 MG TABLET PO ×2 (10:45→20:14)
[2024-09-19] MEDS: MULTIVITAMINS TABLET 1 TAB PO (10:45)
--- NOTE | 2024-09-19 11:13 | PC.NURSE ---
hospitalist at bedside to see pt
[2024-09-19] MEDS: THIAMINE 100 MG TABLET PO ×2 (12:05→20:14)
[2024-09-19] MEDS: PANTOPRAZOLE 40 MG TABLET PO (12:05)
[2024-09-19 12:06] VITALS: BP 174/95; PULSE 103; RESP 19; TEMP 36.9; O2SAT 97
[2024-09-19] MEDS: chlordiazePOXIDE HCl 25 MG CAPSULE 50 MG PO ×2 (12:06→22:17)
[2024-09-19] MEDS: HEPARIN SOD INJ 5000 UNIT/ML VIAL SC ×2 (12:08→20:16)
[2024-09-19] MEDS: LORazepam 0.5 MG TABLET 1 MG PO ×2 (12:30→16:25)
[2024-09-19 12:37] VITALS: BP 143/88
--- NOTE | 2024-09-19 12:42 | PC.NURSE ---
pt waking up and fighting vent. called dr Carlson. new orders received to give versed 5mg ivp and increase drip to 5mg/hr
--- NOTE | 2024-09-19 13:23 | PC.NURSE ---
report given to mónica on med/tele floor. pt to go to room 356
--- NOTE | 2024-09-19 13:30 | ESHP_ITS ---
<Statement entered by Willam Deshpande DO - 09/19/24 17:30> Senior attestation: Patient was examined and case was reviewed with team including attending physician. Note reviewed, I agree with most of its contents and agree with the patient's care. Patient is a 33 year old male with history of chronic back pain s/p surgical repair, IDDM, polysubstance use, depression, and anxiety who presented to the ED with concerns of self harm, was placed on 5150 hold. Patient was initially discharged from ED a day prior with plans to follow up with alcohol rehab center on 09/21, however today returned and was found to have blood alcohol level of 318.8, although patient states his last drink was 3+ days ago. While in ED, patient began to develop symptoms of alcohol withdrawal, received medical management for these symptoms. Our team will admit the patient and begin librium with CIWA protocol for alcohol withdrawal concern, will start home gabapentin at reduced dose. Due to 5150 hold and concerns of suicide or self harm, will order one-to-one sitter and place suicidal precautions. Will start ISS for patient's history of diabetes mellitus. Willam Deshpande DO PGY-3 Documentation for date of: 09/19/24 HPI History of Present Illness Chief complaint: Alcohol withdrawal History of present illness: Mr. Shook is a 33-year-old male with past medical history of chronic back pain status post back surgery, insulin-dependent diabetes mellitus, cannabis induced hyperemesis, opiate dependence, depression, anxiety, alcohol use who was brought in by ambulance to [facility] on a 5150 hold for danger to self. Per EMS mother on scene reported that the patient was making suicidal statements, patient declined suicidal ideation or homicidal ideation in the ED. Patient's blood alcohol level on presentation to the ED was 318.8, patient was on hold in ED when he started having symptoms of alcohol withdrawal and medical management required for symptoms. Patient admits to alcohol use, per chart review patient drinking about 2 L of [place] whiskey daily for the last 2 weeks, patient reports his last drink was more than 3 days ago. He does report history of severe alcohol withdrawal in past, patient is anxious and tremulous in the ED and will be admitted for alcohol withdrawal. ED Course: ED Vitals: On presentation BP 145/85, P105, RR 21, temp 98.8, O2 sat 97 on room air ED Labs: ED labs significant for RBC 3.97, hemoglobin 12.2, hematocrit 34.3, BUN 5, glucose 214, AST 59, blood alcohol level 318 ED Imaging: No imaging done in ED ED Treatment: Patient placed on 5150 hold,Patient was given Ativan 2 mg 5 times in ED, thiamine and sodium chloride IV, Zofran 4 mg x 1 and phenobarbital IVP x 1 in ED Review of Systems Review of Systems Narrative Review of Systems: ROS: -CONSTITUTIONAL: Denies weight loss, fever and chills. Positive for anxiety. -HEENT: Denies changes in vision and hearing. -RESPIRATORY: Denies SOB and cough. -CV: Denies palpitations and Chest Pain. -GI: Denies abdominal pain,constipation and diarrhea. Positive for nausea and vomiting -: Denies dysuria and urinary frequency. -MSK: Denies myalgia and joint pain. -SKIN: Denies rash and pruritus. -NEUROLOGICAL: Denies headache and syncope. -PSYCHIATRIC: Denies anxiety and positive for depression. Currently on 5150 hold Exam Vital Signs Temp Pulse Resp BP Pulse Ox O2 Del Method 98.5 F 103 H 19 143/88 H 97 Room Air 09/19/24 12:06 09/19/24 12:06 09/19/24 12:06 09/19/24 12:37 09/19/24 12:06 09/19/24 12:06 Narrative Exam Physical Exam General: Awake and in no acute distress. Conversational and non-toxic appearing. Anxious at times, low affect. HEENT: Normocephalic, atraumatic, mucous membranes moist. Heart: Tachycardic, regular rhythm, no murmurs. Lungs: Clear to auscultation with no wheezing or crackles. Abdomen: Soft, nondistended, nontender, positive bowel sounds. Neurologic: Alert and oriented x3, no gross neurological deficit, and patient able to move all 4 extremities. Extremities: No edema. Skin: No rash or ecchymoses. Results: Labs 09/20/24 05:56 09/20/24 05:56 Labs: Short CBC 09/18/24 Range/Units 16:41 WBC 8.3 (3.8-10.6) Thou/mm3 Hgb 12.2 L D (13.5-16.0) g/dL Hct 34.3 L D (41.0-53.0) % Plt Count 208 D (140-440) Thou/mm3 BMP 09/18/24 16:41 Sodium 138 Potassium 3.4 D Chloride 100 Carbon Dioxide 23.3 BUN 5 L Creatinine 0.7 Glucose 214 H D Calcium 9.5 Liver Function 09/18/24 Range/Units 16:41 Total Bilirubin 1.1 D (0.3-1.2) mg/dL AST 59 H (0-34) U/L ALT 44 (10-49) U/L Alkaline Phosphatase 113 (46-116) U/L Albumin 4.8 (3.5-5.0) gm/dL Quality Measures Quality Measures VTE prophylaxis Medications Home Medications and Allergies Home Medications ?Medication ?Instructions ?Recorded ?Confirmed ?Type insulin glargine 100 unit/mL (3 5 unit subcut BID 03/22/23 09/18/24 History mL) subcutaneous pen (Basaglar KwikPen U-100 Insulin) insulin aspart U-100 100 unit/mL See Rx Instructions .Route .COMPLEX 05/23/23 09/18/24 History (3 mL) subcutaneous pen (Novolog FlexPen U-100 Insulin aspart) gabapentin 600 mg tablet 600 mg TID 09/18/24 09/18/24 History Allergies Allergy/AdvReac Type Severity Reaction Status Date / Time ketorolac [From Toradol] Allergy Verified 08/04/24 12:53 tramadol Allergy Verified 08/04/24 12:53 Visit Medications Acetaminophen (Acetaminophen 325 Mg Tablet) 650 mg PO Q6H PRN PRN Reason: pain and Fever >101.5 Stop: 10/19/24 11:18 Chlordiazepoxide HCl (Chlordiazepoxide Hcl 25 Mg Capsule) 50 mg PO BID SOTO Stop: 09/20/24 11:29 Last Admin: 09/19/24 12:06 Dose: 50 mg Dextrose (Dextrose 50%-Water Inj 50 Ml Syringe) 25 ml IV Q15MIN PRN PRN Reason: BG 50-70 responsive npo pt Stop: 10/19/24 13:14 Dextrose (Dextrose 50%-Water Inj 50 Ml Syringe) 50 ml IV Q15MIN PRN PRN Reason: BG <50 OR BG <70 & pt unresponsive Stop: 10/19/24 13:14 Folic Acid (Folic Acid 1 Mg Tablet) 1 mg PO BID [facility] Stop: 09/24/24 20:59 Gabapentin (Gabapentin 300 Mg Capsule) 300 mg PO TID [facility] Stop: 10/19/24 13:59 Glucagon (Glucagon Inj 1 Mg Vial) 1 mg IM Q15MIN PRN PRN Reason: BG <70, and no IV access Heparin Sodium (Porcine) (Heparin Sod Inj 5000 Unit/Ml Vial) 5,000 unit SC Q12HR [facility] Stop: 10/03/24 11:29 Last Admin: 09/19/24 12:08 Dose: 5,000 unit Magnesium Sulfate (Magnesium Sulfate Ivpb) 2 gm in 50 mls @ 25 mls/hr IV X1 ONE Stop: 09/19/24 14:42 Insulin Glargine (Insulin Glargine (Lantus) 5 Unit/0.05 Ml (Per 5 Units)) 5 unit SC BID [facility] Stop: 10/19/24 20:59 Insulin Human Lispro (Insulin Lispro (Admelog) 1 Unit/0.01 Ml Unit) 0 unit SC AC [facility]; Protocol Stop: 10/19/24 16:59 Lorazepam (Lorazepam 0.5 Mg Tablet) 0.5 mg PO Q4HR PRN PRN Reason: CIWA Score 2-6 Stop: 09/24/24 11:18 Lorazepam (Lorazepam 0.5 Mg Tablet) 1 mg PO Q4HR PRN PRN Reason: CIWA SCORE 7-11 Stop: 09/24/24 11:18 Last Admin: 09/19/24 12:30 Dose: 1 mg Lorazepam (Lorazepam 0.5 Mg Tablet) 2 mg PO Q4HR PRN PRN Reason: CIWA SCORE 12-15 Stop: 09/24/24 11:18 Lorazepam (Lorazepam 2 Mg/Ml Vial) 1 mg IV X1 PRN PRN Reason: Breakthrough Agitation Ondansetron HCl (Ondansetron Inj 2 Mg/Ml Inj 2 Ml) 4 mg IV Q6H PRN; Protocol PRN Reason: NAUSEA OR VOMITING Stop: 10/19/24 11:18 Pantoprazole Sodium (Pantoprazole 40 Mg Tablet) 40 mg PO QDAY [facility] Stop: 10/19/24 11:29 Last Admin: 09/19/24 12:05 Dose: 40 mg Sennosides (Senna Tablet) 1 tab PO QDAY PRN; Protocol PRN Reason: constipation Stop: 10/19/24 11:18 Thiamine HCl (Thiamine 100 Mg Tablet) 100 mg PO BID [facility] Stop: 09/24/24 11:29 Last Admin: 09/19/24 12:05 Dose: 100 mg Discontinued Medications Phenobarbital Sodium 130 mg/ (Sodium Chloride 12 ml) 0 mg IVP X1 ONE Stop: 09/19/24 08:19 Last Admin: 09/19/24 09:47 Dose: 130 mg Folic Acid (Folic Acid 1 Mg Tablet) 1 mg PO X1 ONE Stop: 09/19/24 08:18 Last Admin: 09/19/24 10:45 Dose: 1 mg Gabapentin (Gabapentin 300 Mg Capsule) 300 mg PO X1 ONE Stop: 09/19/24 08:20 Last Admin: 09/19/24 10:45 Dose: 300 mg Thiamine HCl 100 mg/ Sodium (Chloride) 101 mls @ 202 mls/hr IV X1 ONE Stop: 09/18/24 18:47 Last Infusion: 09/18/24 19:45 Dose: Infused Lorazepam (Lorazepam 0.5 Mg Tablet) 2 mg PO X1 ONE Stop: 09/18/24 17:13 Last Admin: 09/18/24 17:41 Dose: 2 mg Lorazepam (Lorazepam 2 Mg/Ml Vial) 2 mg IVP X1 ONE Stop: 09/19/24 00:13 Last Admin: 09/19/24 00:36 Dose: 2 mg Lorazepam (Lorazepam 2 Mg/Ml Vial) 2 mg IVP X1 ONE Stop: 09/19/24 04:14 Last Admin: 09/19/24 04:21 Dose: 2 mg Lorazepam (Lorazepam 2 Mg/Ml Vial) 2 mg IVP X1 ONE Stop: 09/19/24 09:21 Last Admin: 09/19/24 09:39 Dose: 2 mg Midazolam HCl (Midazolam Inj 1 Mg/Ml Vial 2 Ml) 5 mg IV X1 ONE Stop: 09/19/24 12:46 Last Admin: 09/19/24 12:49 Dose: Not Given Multivitamins (Multivitamins Tablet) 1 tab PO X1 ONE Stop: 09/19/24 09:46 Last Admin: 09/19/24 10:45 Dose: 1 tab Multivitamins/Minerals (Multivitamin 15 Ml Udc) 15 ml PO X1 ONE Stop: 09/19/24 08:18 Last Admin: 09/19/24 10:45 Dose: Not Given Ondansetron HCl (Ondansetron Inj 2 Mg/Ml Inj 2 Ml) 4 mg IV X1 ONE; Protocol Stop: 09/18/24 18:19 Last Admin: 09/18/24 19:10 Dose: 4 mg Potassium Chloride (Potassium Chloride 10% 20 Meq/15 Ml Udc) 20 meq PO X1 ONE Stop: 09/19/24 13:19 Tamsulosin HCl (Tamsulosin Hcl 0.4 Mg Capsule) 0.4 mg PO X1 ONE Stop: 09/19/24 08:20 Last Admin: 09/19/24 10:45 Dose: 0.4 mg Assessment & Plan Plan Assessment and plan: Summary: Mr. Shook is a 33-year-old male with past medical history of chronic back pain status post back surgery, insulin-dependent diabetes mellitus, cannabis induced hyperemesis, opiate dependence, depression, anxiety, alcohol use who was brought in by ambulance to [facility] on a 5150 hold for danger to self. Patient admitted for alcohol withdrawal management. # Alcohol withdrawal # Alcohol use # Transaminitis # Normocytic anemia -Per chart review, patient's mother reported that patient has been drinking 2 L of [place] whiskey on a daily basis for the last 2 weeks, patient CIWA score elevated in ED. -Patient was given Ativan 2 mg 5 times in ED, thiamine and sodium chloride IV, Zofran 4 mg x 1 and phenobarbital IVP x 1 in ED, blood alcohol level 318.8 on presentation in ED yesterday. Plan: -Started on Librium 50 mg twice daily, will transition to Librium 50 mg once tomorrow -CIWA protocol, Ativan as needed -Started on folic acid, thiamine and multivitamin -Encourage oral hydration -Monitor CIWA score -Seizure precautions, aspiration precautions -Referral to secondary social studies teacher # Suicidal ideation # 5150 DTS -Patient was placed on 5150 hold by EMS for suicidal ideation, patient denies any suicidal ideation in the ED. Plan: -One-to-one observation -Suicide precautions -Referral to secondary social studies teacher -Consider crisis evaluation once medically cleared # Insulin-dependent diabetes mellitus type 1 -Patient is on glargine 5 units twice daily at home, resumed -Lispro sliding scale -Hypoglycemia protocol in place -Follow hemoglobin A1c in a.m. -Carb consistent low diet # Chronic back pain # Depression # Anxiety -Patient is on gabapentin 600 mg 3 times daily at home -Started on gabapentin 300 mg 3 times daily -Patient is on no medication for depression and anxiety DVT prophylaxis: Heparin GI prophylaxis: Not indicated Diet: Carb consistent low, cardiac Lines: Peripheral IV Code status: Full code Case discussed with Attending Dr. Sparks and Dr. Deshpande PGY3. Bull Velazco PGY1 Attending Provider Attestation/Addendum Face to face evaluation was performed by me. I have personally seen and examined the patient. I discussed the assessment and plan with the entire medicine team. I reviewed available medical records, imaging studies, laboratory results. I agree with the above subjective data, objective findings, assessment and plan except as corrected by me or noted below Alcohol dependence syndrome with withdrawal, shaking, Suicidal ideations per admission/family. Sitter type 1 diabetes on insulin therapy history of depression -Admitted for alcohol withdrawal signs and symptoms. Continue sitter. Benzodiazepines scheduled and as needed. Plan to do crisis evaluation once medically stable. Monitor glucose levels and initiate insulin therapy
--- NOTE | 2024-09-19 14:09 | PC.NURSE ---
Noted on tele monitor at nurse's station that patient's tele monitor box was no longer transmitting, upon inspection box was found to be missing one battery
--- NOTE | 2024-09-19 14:19 | XR_ITS ---
Examination: Abdomen AP single view Technique: AP portable supine abdomen, single view Exam date and time: September 19, 2024 1445 hrs. Indications: Ingested foreign body today Findings: The film does not include the right lateral abdomen Surgical appearance clip in the left upper abdomen Orthopedic hardware No free air Impression: Anterior surgical clips left upper abdomen, clinical correlation advised Suspicious for pancreatic calcifications
[2024-09-19 14:20] VITALS: BMI 22.4
--- NOTE | 2024-09-19 14:22 | XR_ITS ---
Examination: AP lateral chest 2 views Technique: Upright AP lateral chest 2 views Exam date and time: September 19, 2024 1450 hrs. Indications: Ingested foreign body today. Findings: No opaque foreign body visualized Normal epiglottis Impression: No opaque foreign body visualized
--- NOTE | 2024-09-19 14:22 | XR_ITS ---
Examination: PA lateral chest 2 views Technique: Upright PA lateral chest 2 views Exam date and time: September 19, 2024 1445 hrs. Comparison September 17, 2024 Indications: Suspicion foreign body Findings: Normal heart size Lungs are clear. No opaque foreign body visualized Impression: No opaque foreign body visualized
[2024-09-19] MEDS: POTASSIUM CHLORIDE 10% 20 MEQ/15 ML UDC PO (15:18)
[2024-09-19] MEDS: Magnesium Sulfate 2 GM Ivpb 2 GM/50 ML BAG IV (15:18)
[2024-09-19] MEDS: SODIUM CHLORIDE 0.9% 1000 ML 1,000 ML 75 ML IV (15:20)
[2024-09-19 16:00] VITALS: BP 137/86; PULSE 90; RESP 18; TEMP 36.1; O2SAT 97
[2024-09-19 16:18] VITALS: PULSE 100; RESP 18; RESP 99
--- NOTE | 2024-09-19 17:22 | XR_ITS ---
Examination: Abdomen AP single view Technique: AP portable supine abdomen, single view Exam date and time: September 19, 2024 1728 hrs. Indications: History rectal foreign body Impression: No opaque foreign body in the rectum noted Orthopedic hardware lower lumbar spine Moderate air and stool throughout the colon Impression: No opaque foreign body seen
[2024-09-19] MEDS: INSULIN LISPRO (AdmeLOG) 1 UNIT/0.01 ML UNIT SC (17:43)
[2024-09-19 20:00] VITALS: BP 126/89; PULSE 106; RESP 18; TEMP 37; O2SAT 96
--- NOTE | 2024-09-19 20:10 | PC.NURSE ---
Dr. Robert notified regarding CIWA of 19 and Ativan PRN orders go until CIWA 15. He stated to give the 2mg of Ativan that is ordered PRN.
[2024-09-19] MEDS: LORazepam 0.5 MG TABLET 2 MG PO (20:13)
[2024-09-19] MEDS: ONDANSETRON INJ 2 MG/ML INJ 2 ML 4 MG IV (20:15)
[2024-09-19] MEDS: INSULIN GLARGINE (Lantus) 5 UNIT/0.05 ML (PER 5 UNITS) SC (22:18)
[2024-09-20] VITALS (8 sets, daily range): BP systolic 123–135; BP diastolic 87–95; PULSE 76–97; RESP 15–99; TEMP 36.6–36.9; O2SAT 96–99
[2024-09-20] MEDS: LORazepam 0.5 MG TABLET 2 MG PO (00:23)
[2024-09-20] MEDS: GABAPENTIN 300 MG CAPSULE PO ×3 (05:05→21:16)
[2024-09-20] MEDS: LORazepam 0.5 MG TABLET PO ×2 (05:06→13:30)
[2024-09-20 06:21] LABS: Basophils # (Auto) 0.1 Thou/mm3 (0.0-0.2); Basophils % (Auto) 1 % (0-2.5); Eosinophils # (Auto) 0.5 Thou/mm3 (0.0-0.5); Eosinophils % (Auto) 7 % (0-10); Hematocrit 32.8 % (41.0-53.0); Hemoglobin 11.3 g/dL (13.5-16.0); Immature Granulocytes % (Auto) 0 % (0-0); Immature Granulocytes Auto 0.01 Thou/mm3 (0.00-0.00); Lymphocytes # (Auto) 2.2 Thou/mm3 (1.0-4.8); Lymphocytes % (Auto) 34 % (10-50); Mean Corpuscular HGB Conc 34.5 g/dl (31.0-37.0); Mean Corpuscular Hemoglobin 30.5 pg (25.0-35.0); Mean Corpuscular Volume 88 fL (80-100); Monocytes # (Auto) 0.5 Thou/mm3 (0.0-0.8); Monocytes % (Auto) 8 % (0-12); Neutrophils # (Auto) 3.1 Thou/mm3 (1.8-7.7); Neutrophils % (Auto) 49 % (37-80); Nucleated Red Blood Cell % 0 /100 WBC (0); Platelet Count 154 Thou/mm3 (140-440); RDW Standard Deviation 43.7 fL (35.1-43.9); Red Blood Count 3.71 Miln/mm3 (4.50-5.90); White Blood Count 6.3 Thou/mm3 (3.8-10.6)
[2024-09-20 06:32] LABS: Anion Gap 8 (7-16); BUN/Creatinine Ratio 7 Ratio (12-20); Blood Urea Nitrogen < 5 mg/dL (9-23); Calcium 9.4 mg/dL (8.3-10.6); Carbon Dioxide 24.9 mMol/L (20.0-31.0); Chloride 104 mMol/L (98-107); Creatinine (Component) 0.7 mg/dL (0.6-1.3); Estimated Creatinine Clearance 131.4 mL/min (>60); Glucose 275 mg/dL (74-106); Osmolality,Calculated 281 (275-295); Potassium 3.8 mMol/L (3.4-5.1); Sodium 137 mMol/L (136-145); eGFR > 60 See Note
[2024-09-20 07:12] LABS: Glucose Estimated Average 134 mg/dL (80-131); Hemoglobin A1C 6.3 % Hgb (4.8-6.0)
[2024-09-20] MEDS: INSULIN LISPRO (AdmeLOG) 1 UNIT/0.01 ML UNIT SC ×3 (07:29→17:39)
[2024-09-20] MEDS: INSULIN GLARGINE (Lantus) 5 UNIT/0.05 ML (PER 5 UNITS) SC ×2 (09:19→20:34)
[2024-09-20] MEDS: HEPARIN SOD INJ 5000 UNIT/ML VIAL SC ×2 (09:19→20:35)
[2024-09-20] MEDS: MULTIVITAMINS TABLET 1 TAB PO (09:20)
[2024-09-20] MEDS: chlordiazePOXIDE HCl 25 MG CAPSULE 50 MG PO (09:20)
[2024-09-20] MEDS: FOLIC ACID 1 MG TABLET PO ×2 (09:20→20:35)
[2024-09-20] MEDS: THIAMINE 100 MG TABLET PO ×2 (09:21→20:35)
[2024-09-20] MEDS: PANTOPRAZOLE 40 MG TABLET PO (09:21)
--- NOTE | 2024-09-20 12:41 | ESPR_ITS ---
<Statement entered by Willam Deshpande DO - 09/20/24 15:10> Senior attestation: Patient was examined and case was reviewed with team including attending physician. Note reviewed, I agree with most of its contents and agree with the patient's care. Patient was medically cleared, pending CRISIS team evaluation. Following CRISIS evaluation, psychiatric hold has been continued and CRISIS team/case management seeking LPS psychiatric placement. Willam Deshpande DO PGY-3 Documentation for date of: 09/20/24 Subjective Subjective Interval history: Patient seen at bedside Overnight patient was given milligram Ativan and CIWA score was 19. Patient CIWA in a.m. was 2, patient received 50 mg of chlordiazepoxide. Discontinued Librium, patient medically clear for psychiatry evaluation. Patient's [address], possible placement at psychiatry facility. Will continue to monitor patient, will monitor CIWA protocol, continue suicide precautions. Continue one-to-one observation Exam Vital Signs Temp Pulse Resp BP Pulse Ox O2 Del Method 97.9 F 87 18 135/94 H 97 Room Air 09/20/24 11:59 09/20/24 11:59 09/20/24 11:59 09/20/24 11:59 09/20/24 11:59 09/20/24 11:59 Narrative Exam Physical Exam General: Awake and in no acute distress. Conversational and non-toxic appearing. Anxious at times, low affect. HEENT: Normocephalic, atraumatic, mucous membranes moist. Heart: Tachycardic, regular rhythm, no murmurs. Lungs: Clear to auscultation with no wheezing or crackles. Abdomen: Soft, nondistended, nontender, positive bowel sounds. Neurologic: Alert and oriented x3, no gross neurological deficit, and patient able to move all 4 extremities. Extremities: No edema. Skin: No rash or ecchymoses. Objective Labs 09/20/24 05:56 09/20/24 05:56 Labs: Laboratory Results - last 24 hr 09/20/24 05:56 WBC 6.3 RBC 3.71 L Hgb 11.3 L Hct 32.8 L MCV 88 MCH 30.5 MCHC 34.5 RDW Std Deviation 43.7 Plt Count 154 D Neut % (Auto) 49 Lymph % (Auto) 34 [place] % (Auto) 8 Eos % (Auto) 7 Baso % (Auto) 1 Neut # (Auto) 3.1 Lymph # (Auto) 2.2 [place] # (Auto) 0.5 Eos # (Auto) 0.5 Baso # (Auto) 0.1 Immature Gran # (Auto) 0.01 H Absolute Nucleated RBC 0.00 Immature Gran % 0 Nucleated RBC % 0 Sodium 137 Potassium 3.8 Chloride 104 Carbon Dioxide 24.9 Anion Gap 8 BUN < 5 L Creatinine 0.7 Estim Creat Clear Calc 131.4 eGFR > 60 BUN/Creatinine Ratio 7 L Glucose [address] Glu mg/dL 134 H Hemoglobin A1c 6.3 H Calculated Osmolality 281 Calcium 9.4 Magnesium 2.0 Quality Measures Quality Measures VTE prophylaxis Assessment & Plan Assessment Current Active Medications: Generic Name Dose Route Start Last Admin Trade Name Freq PRN Reason Stop Dose Admin Acetaminophen 650 mg 09/19/24 11:19 Acetaminophen 325 Mg Tablet PO 10/19/24 11:18 Q6H PRN pain and Fever >101.5 Dextrose 25 ml 09/19/24 13:15 Dextrose 50%-Water Inj 50 Ml Syringe IV 10/19/24 13:14 Q15MIN PRN BG 50-70 responsive npo pt Dextrose 50 ml 09/19/24 13:15 Dextrose 50%-Water Inj 50 Ml Syringe IV 10/19/24 13:14 Q15MIN PRN BG <50 OR BG <70 & pt unresponsive Folic Acid 1 mg 09/19/24 21:00 09/20/24 09:20 Folic Acid 1 Mg Tablet PO 09/24/24 20:59 1 mg BID SOTO Administration Gabapentin 300 mg 09/19/24 14:00 09/20/24 05:05 Gabapentin 300 Mg Capsule PO 10/19/24 13:59 300 mg TID SOTO Administration Glucagon 1 mg 09/19/24 13:15 Glucagon Inj 1 Mg Vial IM Q15MIN PRN BG <70, and no IV access Heparin Sodium (Porcine) 5,000 unit 09/19/24 11:30 09/20/24 09:19 Heparin Sod Inj 5000 Unit/Ml Vial SC 10/03/24 11:29 5,000 unit Q12HR SOTO Administration Insulin Glargine 5 unit 09/19/24 21:00 09/20/24 09:19 Insulin Glargine (Lantus) 5 Unit/0.05 Ml (Per 5 Units) SC 10/19/24 20:59 5 unit BID SOTO Administration Insulin Human Lispro 0 unit 09/19/24 17:00 09/20/24 11:21 Insulin Lispro (Admelog) 1 Unit/0.01 Ml Unit SC 10/19/24 16:59 2 unit AC SOTO Administration Protocol Lorazepam 0.5 mg 09/19/24 11:19 09/20/24 05:06 Lorazepam 0.5 Mg Tablet PO 09/24/24 11:18 0.5 mg Q4HR PRN Administration CIWA Score 2-6 Lorazepam 1 mg 09/19/24 11:19 09/19/24 16:25 Lorazepam 0.5 Mg Tablet PO 09/24/24 11:18 1 mg Q4HR PRN Administration CIWA SCORE 7-11 Lorazepam 2 mg 09/19/24 11:19 09/20/24 00:23 Lorazepam 0.5 Mg Tablet PO 09/24/24 11:18 2 mg Q4HR PRN Administration CIWA SCORE 12-15 Lorazepam 1 mg 09/19/24 11:19 Lorazepam 2 Mg/Ml Vial IV X1 PRN Breakthrough Agitation Multivitamins 1 tab 09/20/24 09:00 09/20/24 09:20 Multivitamins Tablet PO 10/20/24 08:59 1 tab QDAY SOTO Administration Ondansetron HCl 4 mg 09/19/24 11:19 09/19/24 20:15 Ondansetron Inj 2 Mg/Ml Inj 2 Ml IV 10/19/24 11:18 4 mg Q6H PRN Administration NAUSEA OR VOMITING Protocol Pantoprazole Sodium 40 mg 09/19/24 11:30 09/20/24 09:21 Pantoprazole 40 Mg Tablet PO 10/19/24 11:29 40 mg QDAY SOTO Administration Sennosides 1 tab 09/19/24 11:19 Senna Tablet PO 10/19/24 11:18 QDAY PRN constipation Protocol Thiamine HCl 100 mg 09/19/24 11:30 09/20/24 09:21 Thiamine 100 Mg Tablet PO 09/24/24 11:29 100 mg BID SOTO Administration Plan Assessment and plan: Summary: Mr. Shook is a 33-year-old male with past medical history of chronic back pain status post back surgery, insulin-dependent diabetes mellitus, cannabis induced hyperemesis, opiate dependence, depression, anxiety, alcohol use who was brought in by ambulance to [facility] on a 5150 hold for danger to self. Patient admitted for alcohol withdrawal management. # Alcohol withdrawal # Alcohol use # Transaminitis # Normocytic anemia -Per chart review, patient's mother reported that patient has been drinking 2 L of [place] whiskey on a daily basis for the last 2 weeks, patient CIWA score elevated in ED. -Patient was given Ativan 2 mg 5 times in ED, thiamine and sodium chloride IV, Zofran 4 mg x 1 and phenobarbital IVP x 1 in ED, blood alcohol level 318.8 on presentation in ED yesterday. -09/20 patient medically clear for psychiatric evaluation, per crisis evaluation patient's 5150 hold will be continued and possible placement to a psychiatric facility. Plan: -Last dose Librium 50 mg in a.m. given -CIWA protocol, Ativan as needed -Continue folic acid, thiamine and multivitamin -Encourage oral hydration -Monitor CIWA score -Seizure precautions, aspiration precautions -Referral to long term care social worker # Suicidal ideation # 5150 DTS -Patient was placed on 5150 hold by EMS for suicidal ideation, patient denies any suicidal ideation in the ED. -Patient medically clear for psychiatric evaluation,per crisis evaluation patient's 5150 hold will be continued and possible placement to a psychiatric facility. Plan: -Continue one-to-one observation -Continue suicide precautions -Referral to long term care social worker -Possible placement to a psychiatric facility # Insulin-dependent diabetes mellitus type 1 -Hemoglobin A1c 6.3 -Patient is on glargine 5 units twice daily at home, resumed -Scheduled lispro 3 units 3 times daily -Lispro sliding scale -Hypoglycemia protocol in place -Carb consistent low diet # Chronic back pain # Depression # Anxiety -Patient is on gabapentin 600 mg 3 times daily at home -Started on gabapentin 300 mg 3 times daily -Patient is on no medication for depression and anxiety DVT prophylaxis: Heparin GI prophylaxis: Not indicated Diet: Carb consistent low, cardiac Lines: Peripheral IV Code status: Full code Case discussed with Attending Dr. Sparks and Dr. Deshpande PGY3. Bull Velazco PGY1
--- NOTE | 2024-09-20 13:16 | PC.SS ---
Associate Pastor (ALAYNA) Nadia informed by Dr. Sparks that patient was medically cleared for mental health evaluation. SW met with patient [id number] to discuss mental health evaluation. SW introduced self, role and reason for visit. Patient appeared alert and oriented to self, place and situation. Patient was guarded, his mood was irritable and behavior was disinhibited. Patient's thought process was logical and linear. Patient reported that on 09/18/2024, he did not have a recollection of his actions due to [place] [employer]'s (PPD) officers slammed me to the ground; I hit myself in the head; and they handcuffed me. SW informed patient that based on [facility]-1801 written by [employer] Officer Radha Culp, patient's mother called due to making suicidal statements and gestures; in addition, Officer Radha Culp reported that patient expressively told him, I want to blow my brains out. Per Officer Radha Culp, patient suffers from PTSD, depression, bipolar disorder and anxiety. At the time, based on the information patient was psychiatrically detained for being a danger to self. Patient reported that he cannot understand how his actions were misinterpreted by his mother and officers. Patient reported that all he had call his mother for was to assist him with packing clothes for alcohol rehab at [facility]. Patient reported that he had spoken to Keith from [facility] and he was supposed to be accepted on 09/21/2024. Patient reported that he has only been diagnosed with PTSD and Anxiety. Patient was taking ativan, which was prescribed by Dr. Tripp and discontinued in March of 2024. Patient reported that he follows up with [facility] for his psychiatric care; his psychiatrist is Dr. Aguilar and has a therapist. Patient was scheduled for telehealth therapy on , 09/17/2024; however, he missed it due to being at the hospital. ALAYNA reviewed patient's chart and he has been in the ED: 09/14/2024 for vomiting; 09/17/2024 for AMS; 09/18/2024 for a 5150. Patient denied taking any current medication at this time. When SW asked about his alcohol usage; patient became defensive and reported, I only drink 4 to 5 whiskey drinks. Patient denied drinking daily. Although, patient's alcohol level on 09/18/2024 was high, which made Dr. Cabrera request for an inpatient admission for [facility]. Finally, patient self-admitted to abusing alcohol, specifically whiskey for the last four months. Patient reported that he is motivated to change the relationship with his son, Rashawn. Even though, he has no relationship with his son. Patient reported that he makes an attempt to text him daily with no response. Patient became tearful and reported, it breaks my heart that he does not speak to me. Patient reported that some of his other goals are to start a business, do laundry, read more books, travel the world. When asked about his finances, patient reported that his mother, Emily, father and step-father financially support him by paying for his rent, food, and utilities. Patient applied for SSDI and currently is waiting for Social Security Administration to make a decision. Patient reported that he became injured at work on 03/28/2020. 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 During this time, patient lost his job, income, his ex- filed for divorce, and lastly, lost the custody of his son. Patient denied being suicidal, homicidal, A/h or V/h. When asked patient about his possible discharge plan, he reported that he is wanting to go home, shower and attend [facility] tomorrow. Patient provided verbal consent for SW to speak to his mother, Emily for collateral information. At 1208 PM, ALAYNA obtained colleteral information from patient's mother, Emily. ALAYNA introduced self, role and reason for phone call. Emily reported that on 09/18/2024, she decided to call 9-- due to patient making suicidal statements, reporting that I do not have anything to live for; in addition to gesturing a gun under his chin and pulling the trigger. Emily reported that patient has been isolating for the last four months, refuses to go to dinner at her house, does not want to see his son, has groceries delivered at home, and has attempted to attend substance use rehab at least 5 times with no success. Patient will often leave AMA. What was concerning to Emily was the hopelessness in her son and finding a noose knot rope at home during the last 4 months. Emily reported that patient becomes impulsive when using alcohol, and since he resides alone, she is afraid that he will kill himself. Emily reported that after patient was unable to continue with his profession of being a welder repair, his world collapsed. Patient is now using alcohol to suppress his emotions. Emily denied any any knowledge of patient attempting suicide before. At 1311, ALAYNA met with RN-Jenny who reported that patient disappeared a tele monitor battery. He reported that if he would have swallowed it, then he would be foaming at the mouth. Patient is on a 1:1 for suicide risk. At 12:42 PM, ALAYNA discussed case with DANDRE-Janeen Carrasquillo. At this time, patient meets criteria for danger to self due to being impulsive with his actions, excessive alcohol use to suppress his emotions and feeling, unable to follow through with treatment, and not having a safe discharge plan. Patient meets criteria for 5150 hold for danger to self.
[2024-09-20] MEDS: SENNA TABLET 1 TAB PO (13:34)
--- NOTE | 2024-09-20 13:38 | ESDS_ITS ---
Addendum Discharge Addendum Date of report being addended: 09/20/24 Narrative: Face to face evaluation was performed by me. I have personally seen and examined the patient. I discussed the assessment and plan with the entire medicine team. I reviewed available medical records, imaging studies, laboratory results. I agree with the above subjective data, objective findings, assessment and plan except as corrected by me or noted below Alcohol dependence syndrome with withdrawal, shaking, Suicidal ideations per admission/family. Sitter type 1 diabetes on insulin therapy history of depression -Patient stable, alert and oriented. No shaking during our evaluation. He wants to go home so he can go to his tomorrow's appointment for possible alcohol rehabilitation admission. He states that if he misses tomorrow's appointment there is another 7-8 months old apparently. dairy machine operator farmworker following. Mother had concerns patient seems to be having high risk of uncontrolled depression and possible suicidal thoughts/ideation so crisis evaluation to be performed today patient seems to be medically appropriate for that. If he qualifies plan to do inpatient psychiatric admission, follow social services aide/crisis evaluation. If he is cleared from crisis evaluation standpoint then he can be discharged home and follow-up with his PCP as well as possible alcohol rehabilitation as he has appointment tomorrow.
--- NOTE | 2024-09-20 15:54 | PC.NURSE ---
Patient requested to speak to mental health professional or oncology social work. tax services intern spoke to patient at bedside.
--- NOTE | 2024-09-20 15:59 | PC.NURSE ---
Patient refused oral rehydration solution, patient is drink unsweetened ice tea patient states he feels like that's enough .
--- NOTE | 2024-09-20 17:31 | PC.NURSE ---
Noted on tele monitor at nurse's station that patient's tele monitor box was no longer transmitting, upon inspection box was found to be missing one battery.
[2024-09-20] MEDS: INSULIN LISPRO (AdmeLOG) 1 UNIT/0.01 ML UNIT 3 UNIT SC (17:38)
[2024-09-20] MEDS: LORazepam 0.5 MG TABLET 1 MG PO (20:35)
[2024-09-21] VITALS (7 sets, daily range): BP systolic 122–131; BP diastolic 82–90; PULSE 88–103; RESP 15–97; TEMP 36.5–36.8; O2SAT 96–100
[2024-09-21] MEDS: LORazepam 0.5 MG TABLET 2 MG PO ×3 (00:23→20:16)
--- NOTE | 2024-09-21 01:03 | PC.NURSE ---
Addendum entered by Juice Bonilla RN 09/21/24 01:32: Fax number is [phone]. Original Note: Anahi from [facility] called stating that they will be able to take this patient, Shemar Shook. They need two items faxed to them in order to facilitate this process: medical clearance and three CIWA scores that are 3 hours apart, which are each less than 8.
[2024-09-21 08:01] LABS: Basophils % (Auto) 1 % (0-2.5); Eosinophils # (Auto) 0.7 Thou/mm3 (0.0-0.5); Eosinophils % (Auto) 9 % (0-10); Hematocrit 33.9 % (41.0-53.0); Hemoglobin 11.7 g/dL (13.5-16.0); Immature Granulocytes % (Auto) 0 % (0-0); Immature Granulocytes Auto 0.02 Thou/mm3 (0.00-0.00); Lymphocytes # (Auto) 2.6 Thou/mm3 (1.0-4.8); Lymphocytes % (Auto) 34 % (10-50); Mean Corpuscular HGB Conc 34.5 g/dl (31.0-37.0); Mean Corpuscular Hemoglobin 30.5 pg (25.0-35.0); Mean Corpuscular Volume 88 fL (80-100); Monocytes # (Auto) 0.5 Thou/mm3 (0.0-0.8); Monocytes % (Auto) 7 % (0-12); Neutrophils # (Auto) 3.8 Thou/mm3 (1.8-7.7); Neutrophils % (Auto) 49 % (37-80); Nucleated Red Blood Cell % 0 /100 WBC (0); Platelet Count 144 Thou/mm3 (140-440); Red Blood Count 3.84 Miln/mm3 (4.50-5.90); White Blood Count 7.6 Thou/mm3 (3.8-10.6)
[2024-09-21] MEDS: HEPARIN SOD INJ 5000 UNIT/ML VIAL SC ×2 (08:18→20:16)
[2024-09-21] MEDS: INSULIN GLARGINE (Lantus) 5 UNIT/0.05 ML (PER 5 UNITS) SC ×2 (08:18→20:50)
[2024-09-21] MEDS: PANTOPRAZOLE 40 MG TABLET PO (08:19)
[2024-09-21] MEDS: MULTIVITAMINS TABLET 1 TAB PO (08:19)
[2024-09-21] MEDS: THIAMINE 100 MG TABLET PO ×2 (08:19→20:16)
[2024-09-21] MEDS: FOLIC ACID 1 MG TABLET PO ×2 (08:21→20:16)
[2024-09-21 08:28] LABS: Anion Gap 8 (7-16); BUN/Creatinine Ratio 13 Ratio (12-20); Blood Urea Nitrogen 8 mg/dL (9-23); Carbon Dioxide 26.3 mMol/L (20.0-31.0); Chloride 103 mMol/L (98-107); Creatinine (Component) 0.6 mg/dL (0.6-1.3); Estimated Creatinine Clearance 153.2 mL/min (>60); Glucose 160 mg/dL (74-106); Magnesium 1.8 mg/dL (1.6-2.6); Osmolality,Calculated 275 (275-295); Potassium 3.6 mMol/L (3.4-5.1); Sodium 137 mMol/L (136-145); eGFR > 60 See Note
[2024-09-21] MEDS: INSULIN LISPRO (AdmeLOG) 1 UNIT/0.01 ML UNIT SC ×4 (08:29→20:49)
[2024-09-21] MEDS: INSULIN LISPRO (AdmeLOG) 1 UNIT/0.01 ML UNIT 3 UNIT SC ×3 (08:29→18:00)
--- NOTE | 2024-09-21 09:56 | PC.SS ---
Addendum entered by AYAAN Gardner 09/21/24 13:03: Updated packet sent to LPS facilities via [email or web address]. Pending response. Original Note: SS update: patient is pending LPS placement as he is on a 5150 hold for DTS.
[2024-09-21] MEDS: LORazepam 0.5 MG TABLET 1 MG PO (10:19)
--- NOTE | 2024-09-21 11:42 | PC.SS ---
Addendum entered by AYAAN Gardner 09/21/24 15:30: Spoke with Krystal from [facility]- informed them patient still needs LPS placement. They will review packet. Provided them call back number . Addendum entered by AYAAN Gardner 09/21/24 11:46: Contacted [facility] for Psychiatry . Spoke with Yoli from [facility] informs no bed available at this time. Original Note: AYAAN faxed clinicals to [facility] for their review. .
[2024-09-21] MEDS: GABAPENTIN 300 MG CAPSULE PO ×2 (13:46→22:46)
--- NOTE | 2024-09-21 14:37 | PD.RESPRO ---
Documentation for date of: 09/21/24 Subjective Subjective Interval history: Overnight events, lab/imaging results, and notes reviewed. Patient examined bedside, reports feeling unhappy but states he does not have intentions of self-harm at this time. Patient was noted have mild tremors today, has received Ativan as part of CIWA protocol, will add librium 25mg BID. Patient has been medically cleared, CRISIS and case management team following, patient pending placement for psychiatric treatment. Exam Vital Signs Temp Pulse Resp BP Pulse Ox O2 Del Method 98.1 F 91 16 131/89 H 100 Room Air 09/21/24 08:00 09/21/24 08:00 09/21/24 08:00 09/21/24 08:00 09/21/24 08:00 09/21/24 08:00 Narrative Exam General: AOx3, cooperative, slight tearful in conversation HEENT: Atraumatic/normocephalic, SWATI Heart: RRR, S1 and S2 without clicks or murmurs Lungs: Clear on auscultation bilaterally, no difficulty breathing Abdomen: Soft, nontender. Skin: Intact, no cyanosis or edema noted Neuro: No focal neurological deficits noted Objective Labs 09/21/24 07:34 09/21/24 07:34 Labs: Laboratory Results - last 24 hr 09/21/24 07:34 WBC 7.6 RBC 3.84 L Hgb 11.7 L Hct 33.9 L MCV 88 MCH 30.5 MCHC 34.5 RDW Std Deviation 43.0 Plt Count 144 Neut % (Auto) 49 Lymph % (Auto) 34 Douglas % (Auto) 7 Eos % (Auto) 9 Baso % (Auto) 1 Neut # (Auto) 3.8 Lymph # (Auto) 2.6 Douglas # (Auto) 0.5 Eos # (Auto) 0.7 H Baso # (Auto) 0.0 Immature Gran # (Auto) 0.02 H Absolute Nucleated RBC 0.00 Immature Gran % 0 Nucleated RBC % 0 Sodium 137 Potassium 3.6 Chloride 103 Carbon Dioxide 26.3 Anion Gap 8 BUN 8 L Creatinine 0.6 Estim Creat Clear Calc 153.2 eGFR > 60 BUN/Creatinine Ratio 13 Glucose 160 H D Calculated Osmolality 275 Calcium 10.0 Magnesium 1.8 Quality Measures Quality Measures VTE prophylaxis (heparin subcutaneously) Assessment & Plan Assessment Current Active Medications: Generic Name Dose Route Start Last Admin Trade Name Freq PRN Reason Stop Dose Admin Acetaminophen 650 mg 09/19/24 11:19 Acetaminophen 325 Mg Tablet PO 10/19/24 11:18 Q6H PRN pain and Fever >101.5 Chlordiazepoxide HCl 25 mg 09/21/24 14:45 Chlordiazepoxide Hcl 25 Mg Capsule PO 09/22/24 09:00 BID SOTO Dextrose 25 ml 09/19/24 13:15 Dextrose 50%-Water Inj 50 Ml Syringe IV 10/19/24 13:14 Q15MIN PRN BG 50-70 responsive npo pt Dextrose 50 ml 09/19/24 13:15 Dextrose 50%-Water Inj 50 Ml Syringe IV 10/19/24 13:14 Q15MIN PRN BG <50 OR BG <70 & pt unresponsive Folic Acid 1 mg 09/19/24 21:00 09/21/24 08:21 Folic Acid 1 Mg Tablet PO 09/24/24 20:59 1 mg BID SOTO Administration Gabapentin 300 mg 09/19/24 14:00 09/21/24 13:46 Gabapentin 300 Mg Capsule PO 10/19/24 13:59 300 mg TID SOTO Administration Glucagon 1 mg 09/19/24 13:15 Glucagon Inj 1 Mg Vial IM Q15MIN PRN BG <70, and no IV access Heparin Sodium (Porcine) 5,000 unit 09/19/24 11:30 09/21/24 08:18 Heparin Sod Inj 5000 Unit/Ml Vial SC 10/03/24 11:29 5,000 unit Q12HR SOTO Administration Insulin Glargine 5 unit 09/19/24 21:00 09/21/24 08:18 Insulin Glargine (Lantus) 5 Unit/0.05 Ml (Per 5 Units) SC 10/19/24 20:59 5 unit BID SOTO Administration Insulin Human Lispro 0 unit 09/19/24 17:00 09/21/24 12:20 Insulin Lispro (Admelog) 1 Unit/0.01 Ml Unit SC 10/19/24 16:59 4 unit AC SOTO Administration Protocol Insulin Human Lispro 3 unit 09/20/24 17:00 09/21/24 12:19 Insulin Lispro (Admelog) 1 Unit/0.01 Ml Unit SC 10/20/24 16:59 3 unit AC SOTO Administration Lorazepam 0.5 mg 09/19/24 11:19 09/20/24 13:30 Lorazepam 0.5 Mg Tablet PO 09/24/24 11:18 0.5 mg Q4HR PRN Administration CIWA Score 2-6 Lorazepam 1 mg 09/19/24 11:19 09/21/24 10:19 Lorazepam 0.5 Mg Tablet PO 09/24/24 11:18 1 mg Q4HR PRN Administration CIWA SCORE 7-11 Lorazepam 2 mg 09/19/24 11:19 09/21/24 12:20 Lorazepam 0.5 Mg Tablet PO 09/24/24 11:18 2 mg Q4HR PRN Administration CIWA SCORE 12-15 Lorazepam 1 mg 09/19/24 11:19 Lorazepam 2 Mg/Ml Vial IV X1 PRN Breakthrough Agitation Multivitamins 1 tab 09/20/24 09:00 09/21/24 08:19 Multivitamins Tablet PO 10/20/24 08:59 1 tab QDAY SOTO Administration Ondansetron HCl 4 mg 09/19/24 11:19 09/19/24 20:15 Ondansetron Inj 2 Mg/Ml Inj 2 Ml IV 10/19/24 11:18 4 mg Q6H PRN Administration NAUSEA OR VOMITING Protocol Pantoprazole Sodium 40 mg 09/19/24 11:30 09/21/24 08:19 Pantoprazole 40 Mg Tablet PO 10/19/24 11:29 40 mg QDAY SOTO Administration Sennosides 1 tab 09/19/24 11:19 09/20/24 13:34 Senna Tablet PO 10/19/24 11:18 1 tab QDAY PRN Administration constipation Protocol Thiamine HCl 100 mg 09/19/24 11:30 09/21/24 08:19 Thiamine 100 Mg Tablet PO 09/24/24 11:29 100 mg BID SOTO Administration Plan Mr. Shook is a 33-year-old male with past medical history of chronic back pain status post back surgery, insulin-dependent diabetes mellitus, cannabis induced hyperemesis, opiate dependence, depression, anxiety, alcohol use who was brought in by ambulance to [facility] on a 5150 hold for danger to self. Patient admitted for alcohol withdrawal management. #Suicidal ideation #5150 Hold per CRISIS team -Patient was placed on 5150 hold by EMS for suicidal ideation, patient denies any suicidal ideation in the ED. -Patient medically clear for psychiatric evaluation,per crisis evaluation patient's 5150 hold will be continued and possible placement to a psychiatric facility. Plan: -Continue one-to-one observation -Continue suicide precautions -Referral to social sciences chair -Possible placement to a psychiatric facility per CRISIS team #Alcohol withdrawal #Alcohol use #Transaminitis #History of Normocytic anemia -Per chart review, patient's mother reported that patient has been drinking 2 L of [place] whiskey on a daily basis for the last 2 weeks, patient CIWA score elevated in ED. -Patient was given Ativan 2 mg 5 times in ED, thiamine and sodium chloride IV, Zofran 4 mg x 1 and phenobarbital IVP x 1 in ED, blood alcohol level 318.8 on presentation in ED -09/20 patient medically clear for psychiatric evaluation, per crisis evaluation patient's 5150 hold will be continued and possible placement to a psychiatric facility. Plan: -Librium 25mg BID added 09/21 -CIWA protocol, Ativan as needed -Continue folic acid, thiamine and multivitamin -Encourage oral hydration -Monitor CIWA score -Seizure precautions, aspiration precautions -Referral to social sciences chair #History of Insulin-dependent diabetes mellitus type 1 -Hemoglobin A1c 6.3 -Patient is on glargine 5 units twice daily at home, resumed -Scheduled lispro 3 units 3 times daily -Lispro sliding scale -Hypoglycemia protocol in place -Carb consistent low diet # Chronic back pain #History of Depression #History of Anxiety -Patient is on gabapentin 600 mg 3 times daily at home -Started on gabapentin 300 mg 3 times daily -Patient is on no medication for depression and anxiety DVT prophylaxis: Heparin GI prophylaxis: Not indicated Diet: Carb consistent low, cardiac Lines: Peripheral IV Code status: Full code Patient case discussed with attending physician Dr. Dianne Deshpande DO PGY-3 Attending Provider Attestation/Addendum I have discussed and was present for the essential components of the history, physical examination, diagnosis, and treatment plan with the resident. I agree with the patient's care as documented by the resident and amended herein by me. Jh Dean DO. Patient seen and evaluated this AM. Vital signs stable, patient afebrile overnight, CBC and BMP largely unremarkable. Nurse reports that the patient CIWA score was 15 this morning, patient was tremulous at time of bedside visit. Will restart Librium 25 mg twice daily and continue as needed Ativan. Patient remains on 5150 hold, pending inpatient psychiatric facility. The patient's mother was also at bedside. Patient was restarted on home gabapentin however reduce the dosage to 300 mg 3 times daily. Although this document has been carefully reviewed, there may still be some phonetic and other typographical errors. These errors are purely grammatical due to imperfections in the software program and should not be construed in any way to compromise the substance of the patient's medical care during this visit.
[2024-09-21] MEDS: chlordiazePOXIDE HCl 25 MG CAPSULE PO ×2 (16:24→22:46)
[2024-09-21] MEDS: ACETAMINOPHEN 325 MG TABLET 650 MG PO (16:24)
--- NOTE | 2024-09-21 18:20 | PC.CC ---
1817-ASW spoke with Beauty with [facility]-call made earlier by Krystal was to confirm pt still needed placement. Per Beauty at this time pt remains in queue pending review. Beauty states adult beds are available and call will be received if able to accommodate pt.
[2024-09-21] MEDS: NICOTINE PATCH 14 MG/24 HR PATCH.TD24 TOP (20:52)
[2024-09-22] VITALS (8 sets, daily range): BP systolic 114–136; BP diastolic 86–97; PULSE 91–107; RESP 18–99; TEMP 36.4–37.2; O2SAT 96–99; BMI 22.3
[2024-09-22] MEDS: ACETAMINOPHEN 325 MG TABLET 650 MG PO ×2 (00:58→15:14)
[2024-09-22] MEDS: LORazepam 0.5 MG TABLET PO ×3 (00:58→20:40)
[2024-09-22] MEDS: GABAPENTIN 300 MG CAPSULE PO ×3 (05:16→21:11)
[2024-09-22 05:44] LABS: Basophils # (Auto) 0.1 Thou/mm3 (0.0-0.2); Basophils % (Auto) 1 % (0-2.5); Eosinophils # (Auto) 0.6 Thou/mm3 (0.0-0.5); Eosinophils % (Auto) 6 % (0-10); Hematocrit 33.3 % (41.0-53.0); Hemoglobin 11.6 g/dL (13.5-16.0); Immature Granulocytes % (Auto) 0 % (0-0); Immature Granulocytes Auto 0.03 Thou/mm3 (0.00-0.00); Lymphocytes # (Auto) 2.7 Thou/mm3 (1.0-4.8); Lymphocytes % (Auto) 29 % (10-50); Mean Corpuscular HGB Conc 34.8 g/dl (31.0-37.0); Mean Corpuscular Hemoglobin 31.2 pg (25.0-35.0); Mean Corpuscular Volume 90 fL (80-100); Monocytes # (Auto) 0.6 Thou/mm3 (0.0-0.8); Monocytes % (Auto) 7 % (0-12); Neutrophils # (Auto) 5.5 Thou/mm3 (1.8-7.7); Neutrophils % (Auto) 58 % (37-80); Nucleated Red Blood Cell % 0 /100 WBC (0); Platelet Count 159 Thou/mm3 (140-440); RDW Standard Deviation 43.4 fL (35.1-43.9); Red Blood Count 3.72 Miln/mm3 (4.50-5.90); White Blood Count 9.5 Thou/mm3 (3.8-10.6)
[2024-09-22] MEDS: INSULIN LISPRO (AdmeLOG) 1 UNIT/0.01 ML UNIT 3 UNIT SC ×3 (08:14→16:46)
[2024-09-22] MEDS: INSULIN LISPRO (AdmeLOG) 1 UNIT/0.01 ML UNIT SC ×4 (08:15→20:46)
[2024-09-22] MEDS: INSULIN GLARGINE (Lantus) 5 UNIT/0.05 ML (PER 5 UNITS) SC ×2 (08:15→20:45)
[2024-09-22] MEDS: THIAMINE 100 MG TABLET PO ×2 (08:16→20:40)
[2024-09-22] MEDS: FOLIC ACID 1 MG TABLET PO ×2 (08:16→20:40)
[2024-09-22] MEDS: HEPARIN SOD INJ 5000 UNIT/ML VIAL SC ×2 (08:16→20:43)
[2024-09-22] MEDS: chlordiazePOXIDE HCl 25 MG CAPSULE PO (08:16)
[2024-09-22] MEDS: MULTIVITAMINS TABLET 1 TAB PO (08:16)
[2024-09-22] MEDS: PANTOPRAZOLE 40 MG TABLET PO (08:16)
[2024-09-22 09:15] LABS: Anion Gap 7 (7-16); BUN/Creatinine Ratio 13 Ratio (12-20); Blood Urea Nitrogen 12 mg/dL (9-23); Calcium 9.7 mg/dL (8.3-10.6); Carbon Dioxide 24.3 mMol/L (20.0-31.0); Chloride 99 mMol/L (98-107); Creatinine (Component) 0.9 mg/dL (0.6-1.3); Estimated Creatinine Clearance 102.2 mL/min (>60); Glucose 330 mg/dL (74-106); Magnesium 1.7 mg/dL (1.6-2.6); Osmolality,Calculated 273 (275-295); Sodium 130 mMol/L (136-145); eGFR > 60 See Note
--- NOTE | 2024-09-22 10:35 | CHAP ---
Spent time with patient giving rehabilitation counsellor and encouragement and prayer.
--- NOTE | 2024-09-22 11:18 | PC.SS ---
Updated packet sent to the following facilities: [facility] - [facility], [facility]
--- NOTE | 2024-09-22 11:51 | PC.SS ---
WINE CONSULTANT, Student contacted the following facilities: [facility]-In review [facility]- for review [facility]-No beds available at the time [facility]-At [facility] 18+-In review [facility]-In review [facility] - [facility]al Health-No answer [facility]-SS will re-fax [facility]-Left Voicemail [facility]-No beds available [facility]-No beds available [facility], [facility]-At capacity [facility]In review [facility]-At [facility] - [facility] Health-In review [facility] -Declined [facility]-In Review [facility]-No answer, not able to leave [facility], [facility]-SS will re-fax [facility]-For review [facility]-Left Voicemail [facility]-In review [facility]-In review
[2024-09-22] MEDS: SENNA TABLET 1 TAB PO (15:14)
--- NOTE | 2024-09-22 15:58 | PC.SS ---
Patient requested to speak with social worker psychiatric, provided patient with an update in regards to pending placement. Explained to the patient the process of the hold. Spoke to patient's mother, Emily Fallon as patient called her during this contact. Patient gave verbal consent to update his mother on the current status. Patient's hold to tomorrow, 09/23/24 at 12:42pm. If patient remains in house and no LPS placement has accepted, patient is to be re-evaluated tomorrow prior to hold expiring to determine if patient continues meeting criteria for a 5150 hold or if appropriate for safety plan.
--- NOTE | 2024-09-22 16:13 | ESPR_ITS ---
<Statement entered by John Mathur MD - 09/27/24 16:32> I reviewed above note and agree with findings and plans. I have also personally examined the patient with medicine team and went over assessment and plan with medical team including technology intern and resident physician. Documentation for date of: 09/22/24 Subjective Subjective Interval history: Overnight events, lab/imaging results, and notes reviewed. Patient examined bedside, does not have medical complains today but does express interest in leaving hospital. Reports he does not have any thoughts of self-harm, is asking to be able to walk around hospital or be provided with pencil/pen. Has been explained of the 5150 hold and placement for psychiatric evaluation/management, pending acceptance to facility at this time. 5150 hold noted to 09/23, CRISIS team will re-evaluate prior to hold expiration. Exam Vital Signs Temp Pulse Resp BP Pulse Ox O2 Del Method 98.6 F 107 H 20 114/88 H 99 Room Air 09/22/24 12:00 09/22/24 12:00 09/22/24 12:00 09/22/24 12:00 09/22/24 12:00 09/22/24 12:00 Narrative Exam General: AOx3, cooperative, slight tearful in conversation HEENT: Atraumatic/normocephalic, SWATI Heart: RRR, S1 and S2 without clicks or murmurs Lungs: Clear on auscultation bilaterally, no difficulty breathing Abdomen: Soft, nontender. Skin: Intact, no cyanosis or edema noted Neuro: No focal neurological deficits noted Objective Labs 09/22/24 05:18 09/22/24 08:13 Labs: Laboratory Results - last 24 hr 09/22/24 09/22/24 05:18 08:13 WBC 9.5 RBC 3.72 L Hgb 11.6 L Hct 33.3 L MCV 90 MCH 31.2 MCHC 34.8 RDW Std Deviation 43.4 Plt Count 159 Neut % (Auto) 58 Lymph % (Auto) 29 Johnson % (Auto) 7 Eos % (Auto) 6 Baso % (Auto) 1 Neut # (Auto) 5.5 Lymph # (Auto) 2.7 Johnson # (Auto) 0.6 Eos # (Auto) 0.6 H Baso # (Auto) 0.1 Immature Gran # (Auto) 0.03 H Absolute Nucleated RBC 0.00 Immature Gran % 0 Nucleated RBC % 0 Sodium 130 L Potassium 4.0 Chloride 99 Carbon Dioxide 24.3 Anion Gap 7 BUN 12 Creatinine 0.9 Estim Creat Clear Calc 102.2 eGFR > 60 BUN/Creatinine Ratio 13 Glucose 330 H D Calculated Osmolality 273 L Calcium 9.7 Magnesium 1.7 Quality Measures Quality Measures VTE prophylaxis (heparin subcutaneously) Assessment & Plan Assessment Current Active Medications: Generic Name Dose Route Start Last Admin Trade Name Freq PRN Reason Stop Dose Admin Acetaminophen 650 mg 09/19/24 11:19 09/22/24 15:14 Acetaminophen 325 Mg Tablet PO 10/19/24 11:18 650 mg Q6H PRN Administration pain and Fever >101.5 Dextrose 25 ml 09/19/24 13:15 Dextrose 50%-Water Inj 50 Ml Syringe IV 10/19/24 13:14 Q15MIN PRN BG 50-70 responsive npo pt Dextrose 50 ml 09/19/24 13:15 Dextrose 50%-Water Inj 50 Ml Syringe IV 10/19/24 13:14 Q15MIN PRN BG <50 OR BG <70 & pt unresponsive Folic Acid 1 mg 09/19/24 21:00 09/22/24 08:16 Folic Acid 1 Mg Tablet PO 09/24/24 20:59 1 mg BID SOTO Administration Gabapentin 300 mg 09/19/24 14:00 09/22/24 15:02 Gabapentin 300 Mg Capsule PO 10/19/24 13:59 300 mg TID SOTO Administration Glucagon 1 mg 09/19/24 13:15 Glucagon Inj 1 Mg Vial IM Q15MIN PRN BG <70, and no IV access Heparin Sodium (Porcine) 5,000 unit 09/19/24 11:30 09/22/24 08:16 Heparin Sod Inj 5000 Unit/Ml Vial SC 10/03/24 11:29 5,000 unit Q12HR SOTO Administration Insulin Glargine 5 unit 09/19/24 21:00 09/22/24 08:15 Insulin Glargine (Lantus) 5 Unit/0.05 Ml (Per 5 Units) SC 10/19/24 20:59 5 unit BID SOTO Administration Insulin Human Lispro 3 unit 09/20/24 17:00 09/22/24 11:58 Insulin Lispro (Admelog) 1 Unit/0.01 Ml Unit SC 10/20/24 16:59 3 unit AC SOTO Administration Insulin Human Lispro 0 unit 09/21/24 20:30 09/22/24 11:59 Insulin Lispro (Admelog) 1 Unit/0.01 Ml Unit SC 10/21/24 20:29 4 unit ACHS SOTO Administration Protocol Lorazepam 0.5 mg 09/19/24 11:19 09/22/24 05:15 Lorazepam 0.5 Mg Tablet PO 09/24/24 11:18 0.5 mg Q4HR PRN Administration CIWA Score 2-6 Lorazepam 1 mg 09/19/24 11:19 09/21/24 10:19 Lorazepam 0.5 Mg Tablet PO 09/24/24 11:18 1 mg Q4HR PRN Administration CIWA SCORE 7-11 Lorazepam 2 mg 09/19/24 11:19 09/21/24 20:16 Lorazepam 0.5 Mg Tablet PO 09/24/24 11:18 2 mg Q4HR PRN Administration CIWA SCORE 12-15 Lorazepam 1 mg 09/19/24 11:19 Lorazepam 2 Mg/Ml Vial IV X1 PRN Breakthrough Agitation Multivitamins 1 tab 09/20/24 09:00 09/22/24 08:16 Multivitamins Tablet PO 10/20/24 08:59 1 tab QDAY SOTO Administration Ondansetron HCl 4 mg 09/19/24 11:19 09/19/24 20:15 Ondansetron Inj 2 Mg/Ml Inj 2 Ml IV 10/19/24 11:18 4 mg Q6H PRN Administration NAUSEA OR VOMITING Protocol Pantoprazole Sodium 40 mg 09/19/24 11:30 09/22/24 08:16 Pantoprazole 40 Mg Tablet PO 10/19/24 11:29 40 mg QDAY SOTO Administration Sennosides 1 tab 09/19/24 11:19 09/22/24 15:14 Senna Tablet PO 10/19/24 11:18 1 tab QDAY PRN Administration constipation Protocol Thiamine HCl 100 mg 09/19/24 11:30 09/22/24 08:16 Thiamine 100 Mg Tablet PO 09/24/24 11:29 100 mg BID SOTO Administration Plan Mr. Shook is a 33-year-old male with past medical history of chronic back pain status post back surgery, insulin-dependent diabetes mellitus, cannabis induced hyperemesis, opiate dependence, depression, anxiety, alcohol use who was brought in by ambulance to [facility] on a 5150 hold for danger to self. Patient admitted for alcohol withdrawal management. #Suicidal ideation #5150 Hold per CRISIS team -Patient was placed on 5150 hold by EMS for suicidal ideation, patient denies any suicidal ideation in the ED. -Patient medically clear for psychiatric evaluation,per crisis evaluation patient's 5150 hold will be continued and possible placement to a psychiatric facility. Plan: -Continue one-to-one observation -Continue suicide precautions -Referral to vp digital marketing social media and crm -Possible placement to a psychiatric facility per CRISIS team #Alcohol withdrawal #Alcohol use #Transaminitis #History of Normocytic anemia -Per chart review, patient's mother reported that patient has been drinking 2 L of Cando whiskey on a daily basis for the last 2 weeks, patient CIWA score elevated in ED. -Patient was given Ativan 2 mg 5 times in ED, thiamine and sodium chloride IV, Zofran 4 mg x 1 and phenobarbital IVP x 1 in ED, blood alcohol level 318.8 on presentation in ED -09/20 patient medically clear for psychiatric evaluation, per crisis evaluation patient's 5150 hold will be continued and possible placement to a psychiatric facility. Plan: -Librium 25mg BID added 09/21 and complete on 09/22 -CIWA protocol, Ativan as needed -Continue folic acid, thiamine and multivitamin -Encourage oral hydration -Monitor CIWA score -Seizure precautions, aspiration precautions -Referral to vp digital marketing social media and crm #History of Insulin-dependent diabetes mellitus type 1 -Hemoglobin A1c 6.3 -Patient is on glargine 5 units twice daily at home, resumed -Scheduled lispro 3 units 3 times daily -Lispro sliding scale -Hypoglycemia protocol in place -Carb consistent low diet #Chronic back pain #History of Depression #History of Anxiety -Patient is on gabapentin 600 mg 3 times daily at home -Started on gabapentin 300 mg 3 times daily -Patient is on no medication for depression and anxiety DVT prophylaxis: Heparin GI prophylaxis: Not indicated Diet: Carb consistent low, cardiac Lines: Peripheral IV Code status: Full code Patient case discussed with attending physician Dr. Kareen Deshpande, DO PGY-3
[2024-09-23] VITALS: BP 126/91; PULSE 94; RESP 18; TEMP 36.3; O2SAT 97
--- NOTE | 2024-09-23 00:58 | PC.NURSE ---
Patient refusing Ativan at this time and is just demanding food and asks to speak to the charge nurse. Charge nurse made aware and will be going to see the patient.
[2024-09-23 04:00] VITALS: BP 134/90; PULSE 86; RESP 19; TEMP 36.5; O2SAT 96
[2024-09-23] MEDS: LIDOCAINE 5% 1 PATCH TOP (05:29)
[2024-09-23 07:36] LABS: Anion Gap 8 (7-16); BUN/Creatinine Ratio 18 Ratio (12-20); Blood Urea Nitrogen 14 mg/dL (9-23); Calcium 9.6 mg/dL (8.3-10.6); Carbon Dioxide 25.2 mMol/L (20.0-31.0); Chloride 100 mMol/L (98-107); Creatinine (Component) 0.8 mg/dL (0.6-1.3); Estimated Creatinine Clearance 114.9 mL/min (>60); Glucose 259 mg/dL (74-106); Osmolality,Calculated 275 (275-295); Sodium 133 mMol/L (136-145); eGFR > 60 See Note
[2024-09-23] MEDS: INSULIN LISPRO (AdmeLOG) 1 UNIT/0.01 ML UNIT 3 UNIT SC ×2 (07:38→11:59)
[2024-09-23] MEDS: INSULIN LISPRO (AdmeLOG) 1 UNIT/0.01 ML UNIT SC ×2 (07:38→12:00)
[2024-09-23 08:00] VITALS: BP 121/86; PULSE 93; RESP 18; TEMP 36.1; O2SAT 98
--- NOTE | 2024-09-23 09:10 | CHAP ---
Visited briefly with patient giving encouragement and prayer.
[2024-09-23 09:55] LABS: Basophils # (Auto) 0.1 Thou/mm3 (0.0-0.2); Basophils % (Auto) 1 % (0-2.5); Eosinophils # (Auto) 0.4 Thou/mm3 (0.0-0.5); Eosinophils % (Auto) 4 % (0-10); Hematocrit 33.4 % (41.0-53.0); Hemoglobin 11.5 g/dL (13.5-16.0); Immature Granulocytes % (Auto) 0 % (0-0); Immature Granulocytes Auto 0.04 Thou/mm3 (0.00-0.00); Lymphocytes # (Auto) 2.7 Thou/mm3 (1.0-4.8); Lymphocytes % (Auto) 29 % (10-50); Mean Corpuscular HGB Conc 34.4 g/dl (31.0-37.0); Mean Corpuscular Hemoglobin 31.3 pg (25.0-35.0); Mean Corpuscular Volume 91 fL (80-100); Monocytes # (Auto) 0.8 Thou/mm3 (0.0-0.8); Monocytes % (Auto) 9 % (0-12); Neutrophils # (Auto) 5.2 Thou/mm3 (1.8-7.7); Neutrophils % (Auto) 57 % (37-80); Nucleated Red Blood Cell % 0 /100 WBC (0); Platelet Count 172 Thou/mm3 (140-440); RDW Standard Deviation 44.2 fL (35.1-43.9); Red Blood Count 3.68 Miln/mm3 (4.50-5.90); White Blood Count 9.3 Thou/mm3 (3.8-10.6)
[2024-09-23] MEDS: INSULIN GLARGINE (Lantus) 5 UNIT/0.05 ML (PER 5 UNITS) SC (10:22)
[2024-09-23] MEDS: FOLIC ACID 1 MG TABLET PO (10:22)
[2024-09-23] MEDS: THIAMINE 100 MG TABLET PO (10:22)
[2024-09-23] MEDS: PANTOPRAZOLE 40 MG TABLET PO (10:22)
[2024-09-23] MEDS: MULTIVITAMINS TABLET 1 TAB PO (10:22)
[2024-09-23 11:00] VITALS: BP 127/95; PULSE 97; RESP 18; TEMP 36.4; O2SAT 98
[2024-09-23] MEDS: LORazepam 0.5 MG TABLET 1 MG PO (11:37)
--- NOTE | 2024-09-23 12:27 | PC.SS ---
Patient is a 33- year-old male admitted for alcohol withdrawal. Patient is currently on a 5150 hold for DTS, no accepting LPS facility at this time. Patient?s hold to on 09/23/24 at 1242. The purpose of this contact is to re-evaluate the patient for mental health. David met with patient [id number] to complete assessment. ASW introduced self, role, and reason for assessment. ASW disclosed limits of confidentiality to the patient. Patient appeared alert and oriented to self, place, and situation. During this encounter, the patient was pleasant and cooperative. Patient made appropriate eye contact throughout the assessment. Today, the patient is currently denying Suicidal Ideation and Homicidal Ideation. Patient denies having Visual Hallucinations and Audio Hallucinations. Patient reported he is feeling better today. Patient reports being remorseful of the actions that brought him in to the ED, however patient has poor recollection of what occurred due to high alcohol level. Patient became tearful during encounter. Patient informs he has a history with alcohol use. Patient informs he was scheduled to go in on 09/21/24, with [facility], however was admitted at the hospital. Patient has a history of anxiety and PTSD. Patient prescribed with Ativan prescribed by PCP and was discontinued in March 2024. Patient informs he follows up with psychiatrist and therapist outpatient with [facility]. Patient was asked what the discharge plan would look like if able to go home today. Patient informs he would go home and shower. Patient reports being independent with everyday living activities. Patient has stable housing. Confirmed demographic information on face sheet. ASW discussed safety planning with patient to which the patient was open to. ASW spoke with patient?s mother, Emily Fallon, with patient gave verbal consent and she informed she was unable to safety plan with the patient at this time. Patient informs support network is his girlfriend, Jennifer Antunez, however indicated Jennifer unavailable at this time away with family due to the Holiday. Upon clinical consultation with RANCH MANAGER, KARLAJaneen Carrasquillo patient does not meet criteria for 5150-hold. Discharge plan includes of the patient being discharged back to his residence, transportation to be provided and appropriate services in place with outpatient services once discharged from the hospital. Patient was referred to [facility] with soonest available appointment for 09/30/24 at 1pm. Patient was also referred to [facility]. Copy of referrals placed in patient?s chart. Patient was provided with all of the information to referred services. In addition, the patient was provided with community resources along with crisis contact number and warm line information. Patient was explained of the importance to follow up with mental health and AOD services. Patient is cleared to discharge with referred services in place and resources provided. Bed side nurse and Dr. Deshpande were updated on the discharge plan.
--- NOTE | 2024-09-23 14:08 | PC.NURSE ---
pt last ciwa scored at a 10. dr Deshpande informed. ok for discharge per DR Deshpande.
[2024-09-23] MEDS: GABAPENTIN 300 MG CAPSULE PO (14:12)
[2024-09-23 14:56] VITALS: BP 128/81; PULSE 99; RESP 18; TEMP 36.4; O2SAT 98
--- NOTE | 2024-09-23 16:13 | PC.NURSE ---
pt ask for his blood sugar to be check post discharge instructions. blood sugar was [address] made aware. placed orders for insulin coverage. pt refused coverage and continues to leave hospital. risk and benefits explained.
--- NOTE | 2024-09-23 16:26 | ESDS_ITS ---
<Statement entered by John Mathur MD - 09/27/24 16:33> I reviewed above note and agree with findings and plans. I have also personally examined the patient with medicine team and went over assessment and plan with medical team including chief internal auditor and resident physician. Planned Discharge Date 09/23/24 DS: Providers Provider Date of admission: 09/19/24 11:19 Primary care physician: Physician No Primary/Family Admitting Provider: Baljit Sparks MD Attending Provider on Admission: John Mathur MD Consults: 09/19/24 15:43 Health [facility] Referral - Nutrition Routine Comment: Positive screening for nutrition needs. [facility] Referral - Transportation Routine Comment: Positive screening for transportation needs. 09/20/24 11:09 Referral Psych Eval Urgent Comment: Medically Clear for Discharge Attending Provider on DC: John Mathur MD Discharging Provider: Willam Deshpande DO DS: Diagnosis Problem List Completed Was Problem List Reviewed/Reconciled?: Yes Hospital Course Hospital Course Hospital course: Patient is a 33 year old male with history of chronic back pain s/p surgical repair, IDDM, polysubstance use, depression, and anxiety who presented to the ED with concerns of self harm, was placed on 5150 hold prior to evalulation of hospital team. Patient was initially discharged from ED a day prior with plans to follow up with alcohol rehab center on 09/21, however returned and was found to have blood alcohol level of 318.8, although patient states his last drink was 3+ days prior. While in ED, patient began to develop symptoms of alcohol withdrawal, received medical management for these symptoms. Of note, patient's mother reported to hospital staff that she was unable to help care for patient. Patient was admitted and started on librium with WA protocol for alcohol withdrawal concern, home gabapentin at reduced dose was started for history of pain. Due to 5150 hold and concerns of suicide and/or self harm, one-to-one sitter and suicidal precautions were initiated. Patient was also started on ISS with standing home insulin doses for his history of diabetes mellitus. [facility] Crisis Team along with social worker health services / case management team continued to follow up with patient and through hospital course continued 5150 as seen fit given risks of suicide or self harm. Attempts were made to place patient in [facility] psychiatric evaluation/management facilities, however patient was unsuccessful in acquiring placement. Through hospital course, patient's CIWA and alcohol withdrawal symptoms continued to improve, and librium was tapered off. On 09/23/2024, [facility] social worker health services and case management evaluated patient and deemed that a 5150 hold was no longer necessary. Patient was agreeable to discharge home, was provided with substance abuse and mental health resources case management. At time of discharge orders, patient was clinically stable with glucose < 250, however after discharge while waiting for transportation, patient was noted to eat snacks and had requested an additional finger stick glucose, which was read at 371. Patient was explained risks of untreated hyperglycemia, offered insulin lispro x1 with glucose recheck, however declined and preferred to go home where he states he has his insulin medication, advised to take his insulin medication immediately. Patient was advised to follow up with PCP within 1 week, follow up with psychologist and/or psychiatrist, and counseled on substance cessation. Patient was advised to seek immediate medical attention and call [phone] if he had any thoughts of self harm, suicide, harm to others, or any other clinical symptoms. Patient was agreeable to plan. Problem list: #Suicidal ideation, 5150 hold per CRISIS team #Alcohol withdrawal #History of alcohol use #History of transaminitis #History of insulin-dependent diabetes mellitus #History of back pain #History of depression #History of anxiety Patient case discussed with attending physician Dr. Kareen Deshpande, DO PGY-3 Status at Discharge Overall status at discharge: patient is back to baseline Time Spent with Patient Time attestation: Total time spent providing and/or coordinating discharge services: Time spent: Greater than 30 minutes Exam Vital Signs Temp Pulse Resp BP Pulse Ox O2 Del Method 97.5 F 99 18 128/81 98 Room Air 09/23/24 14:56 09/23/24 14:56 09/23/24 14:56 09/23/24 14:56 09/23/24 14:56 09/23/24 14:56 Narrative Exam General: AOx3, cooperative, slight tearful in conversation HEENT: Atraumatic/normocephalic, SWATI Heart: RRR, S1 and S2 without clicks or murmurs Lungs: Clear on auscultation bilaterally, no difficulty breathing Abdomen: Soft, nontender. Skin: Intact, no cyanosis or edema noted Neuro: No focal neurological deficits noted Discharge Plan Plan Patient Disposition: HOME (Self Care) Patient condition on transfer: Stable Prescriptions/Referrals Prescriptions/Med Rec: Continued insulin glargine [Basaglar KwikPen U-100 Insulin] 100 unit/mL (3 mL) insulin pen 5 unit SUBCUT BID Patient Comments: INJECT 30 UNITS SUBCUTANEOUSLY EVERY DAY AT BEDTIME insulin aspart U-100 [Novolog FlexPen U-100 Insulin] 100 unit/mL (3 mL) Insulin Pen See Rx Instructions .ROUTE .COMPLEX Rx Instructions: Flex pen gabapentin 600 mg tablet 600 mg TID Patient Comments: take 1 tablet by mouth three times a day Referrals: No Primary/Family,Physician [Primary Care Provider] - Patient/Caregiver Discharge Instructions Discharge Activity: activity as tolerated Other Discharge Activity Instructions:: Advised follow up with PCP within 1 week of discharge Advised patient to follow up with his psychologist Resources provided by Crisis, case management, and social work team. Advised to follow up with substance abuse and mental health resources and referrals Counseled on substance cessation Advised to seek immediate medical attention for any thoughts of self harm, or any new or worsening clinical symptoms. Education Materials: ED Alcohol Withdrawal Print Language: Arabic Stand Alone Forms: Colleen Award Info., Patient Portal Info Letter Discharge Order Discharge Orders: Discharge (Routine); Ordered 09/23/24 Ordered By: Willam Deshpande Quality Discharge Quality Measures VTE prophylaxis (Heparin subcutaneously)
== END 2024-09-23 15:26 | disposition home or self-care (01) | DRG 773 ==
LOC: SERX 09-19 08:27 → SERHOLD 09-19 12:02 → S3NX 09-19 13:50
PROVIDERS: Emergency Medicine; Student in an Organized Health Care Education/Training Program; Admitting Provider Internal Medicine; Emergency Provider Emergency Medicine; Visit Provider Internal Medicine
DX: F10.239 Alcohol dependence with withdrawal, unspecified (principal); E10.9 Type 1 diabetes mellitus without complications; G89.29 Other chronic pain; M54.9 Dorsalgia, unspecified; F32.A Depression, unspecified; F41.9 Anxiety disorder, unspecified; Y90.8 Blood alcohol level of 240 mg/100 ml or more; F11.20 Opioid dependence, uncomplicated; R45.851 Suicidal ideations; D64.9 Anemia, unspecified; F17.200 Nicotine dependence, unspecified, uncomplicated; Z79.4 Long term (current) use of insulin; Z79.899 Other long term (current) drug therapy
CPT/HCPCS: 36415; 70360; 71046; 74018; 80048; 80053; 80307; 80320; 80329; 83036; 83735; 85025; 93225; 96127; 96365; 96372; 96375; 96376; 99285; A4216; J1643; J1815; J2060; J2405; J2560; J3411; J3475; J7030; J7050; A9270; G0480; J1644

== ENCOUNTER → 2025-08-25 | Outpatient (CLI) | payer OTHER, SELFPAY ==
--- NOTE | 2025-08-25 07:30 | XR_ITS ---
Examination: CT lumbar spine, without contrast. 2-D sagittal reconstructions. 2-D coronal reconstructions. 3-D reconstructions. Date and time of exam: August 25, 2025, 0746 hours, comparison November 18, 2023 INDICATIONS: Lower back pain with numbness in the legs beginning 4 years ago CTDI: vol (mGy): 12.7 DLP: (mGycm): 447 Technique: Multiple 1.25 mm axial sections of the lumbar spine without intravenous contrast have been obtained. 2-D sagittal and coronal reconstructions have been obtained. 3-D reconstructions have been obtained. Low dose protocols were performed. One or more of the following dose reduction techniques were used; automated exposure control, adjustment of the mA and/or KV according to patient size, use of iterative reconstruction technique. Findings: Transpedicular lumbar fusion L4-S1 with anatomic alignment Moderate osteopenia No lumbar fracture Lytic area involving the T11 vertebral body, axial image 17, involving the left posterior vertebral body pedicle and transverse process measuring at least 30 mm in AP dimension No focal lumbar disc protrusion IMPRESSION: Transpedicular lumbar fusion L4-S1 with anatomic alignment Large osteolytic lesion T11 vertebral body, recommend MRI thoracic spine follow-up pre and postcontrast
--- NOTE | 2025-08-25 08:45 | XR_ITS ---
EXAMINATION: Ultrasound bilateral hips 6 months TECHNIQUE: Grayscale sonographic images soft tissue hips Date and time: August 25, 2025, 0805 hours INDICATIONS: Hip joint pain and popping 6 months FINDINGS: No hip effusions, no soft tissue mass cystic or solid noted IMPRESSION: Negative examination
== END | disposition home or self-care (01) ==
DX: M89.58 Osteolysis, other site (principal); R10.20 Pelvic and perineal pain unspecified side
CPT/HCPCS: 72131; 76882

== ENCOUNTER 2025-08-26 06:30 | Emergency (ER) | payer OTHER, SELFPAY ==
[2025-08-26 06:36] VITALS: PULSE 87; RESP 16; O2SAT 96; BMI 20.7
[2025-08-26 06:40] VITALS: BP 116/77; PULSE 77; RESP 16; TEMP 37; O2SAT 100
--- NOTE | 2025-08-26 06:46 | PD.EDFALL ---
ED Fall Injury RME/HPI General Chief Complaint: Head Injury Stated Complaint: BACK PAIN Time Seen by Provider: 08/26/25 06:46 Arrival date/time: 08/26/25 06:30 Related Data Home Medications ?Medication ?Instructions ?Recorded ?Confirmed insulin glargine 100 unit/mL (3 5 unit subcut BID 03/22/23 09/18/24 mL) subcutaneous pen (Basaglar KwikPen U-100 Insulin) insulin aspart U-100 100 unit/mL See Rx Instructions .Route .COMPLEX 05/23/23 09/18/24 (3 mL) subcutaneous pen (Novolog FlexPen U-100 Insulin aspart) gabapentin 600 mg tablet 600 mg TID 09/18/24 09/18/24 Allergies Allergy/AdvReac Type Severity Reaction Status Date / Time ketorolac (From Toradol) Allergy Verified 08/26/25 06:35 tramadol Allergy Verified 08/26/25 06:35 Course Quality Measures none Orders Category Date Time Status EKG (ED ONLY) *Do not use* NOW Care 08/26/25 06:48 Completed IV [Insert IV] NOW Care 08/26/25 06:[address] cervical spine wo con Stat Exams 08/26/25 06:[address] chest abdomen pelvis wo Stat Exams 08/26/25 06:[address] head/brain wo con Stat Exams 08/26/25 06:[address] lumbar spine wo con Stat Exams 08/26/25 06:[address] thoracic spine wo con Stat Exams 08/26/25 06:49 Completed EKG (ED Only) Stat Exams 08/26/25 06:48 Ordered US abdomen limited Stat Exams 08/26/25 08:14 Completed XR chest 1V portable Stat Exams 08/26/25 06:48 Completed XR shoulder RT min 2V Stat Exams 08/26/25 07:25 Completed Alcohol, Blood Medical Stat Lab 08/26/25 07:07 Completed Amylase Stat Lab 08/26/25 07:07 Completed Bilirubin,Direct Stat Lab 08/26/25 07:07 Completed CBC Stat Lab 08/26/25 07:07 Completed CK [Creatine Kinase] Stat Lab 08/26/25 07:07 Completed CMP [Comprehensive Metabolic Panel] Stat Lab 08/26/25 07:07 Completed D-Dimer Stat Lab 08/26/25 07:07 Completed Drug Screen,Urine Stat Lab 08/26/25 08:16 Completed Lipase Stat Lab 08/26/25 07:07 Completed Magnesium Stat Lab 08/26/25 07:07 Completed PT [Prothrombin Time with INR] Stat Lab 08/26/25 07:07 Completed PTT [Partial Thromboplastin Time] Stat Lab 08/26/25 07:07 Completed TSH [Thyroid Stimulating Hormone] Stat Lab 08/26/25 07:07 Completed Troponin I Stat Lab 08/26/25 07:07 Completed UA, C/S IF [Urinalysis, C/S if Indicated] Stat Lab 08/26/25 08:15 Completed Morphine* Inj Med 08/26/25 07:10 Discontinued 4 mg IV X1 ONE Ondansetron Odt [Zofran Odt] Med 08/26/25 08:14 Discontinued 4 mg PO X1 ONE Ringers Lactated 1000 ml [Lactated Ringers] 1,000 ml Med 08/26/25 08:15 Active IV 500 mls/hr Sodium Chloride 0.9% 1000 ml [Ns] 1,000 ml Med 08/26/25 06:48 Discontinued IV 999 mls/hr Vital Signs Vital signs: Vital Signs Temperature 98.6 F 08/26/25 06:40 Pulse Rate 77 08/26/25 06:40 Respiratory Rate 16 08/26/25 06:40 Blood Pressure 116/77 08/26/25 06:40 Pulse Oximetry (%) 100 08/26/25 06:40 Oxygen Delivery Method Room Air 08/26/25 06:40 Fall MDM Narrative MDM Narrative:: This section includes all my notes and documentations, including HPI, PE, and ED course. Kush Brantley MD HPI: 34-year-old male here after falling at home about an hour ago. In the bathroom, he had severe back pain. Which probably caused him to pass out and/or fall. He hit the back of his head on the wall or floor. Woke up about an hour later on the floor in supine position. ROS: All negative except as documented in HPI. Physical Exam: General: Alert and oriented. No acute distress. Eyes: Conjunctivae and lids clear. EOMI. PERRL. ENT: In the occipital area, quarter sized scalp hematoma noted. Neck: Supple. No tenderness. Heart: RRR. Lungs: No respiratory distress. Good air movement. No rhonchi, wheezing, rales. Chest: No tenderness. Abdomen: Soft and nontender. Normal bowel sounds. No distension. No rebound or guarding. Back: No tenderness. Skin: Warm and dry. Neuro: Alert and oriented X 3. Cranial Nerves II-XII grossly intact. No peripheral motor deficits. Musculoskeletal: All major joints and bones are not tender with no limited ROM. I reviewed EMS and half-way notes. I reviewed all diagnostic test results: My interpretation of the EKG is sinus rhythm with no acute ST?T changes. My interpretation of the chest x-ray is: NAD. My review of the CT reports is: NAD. Blood tests and urine tests remarkable for serum alcohol 286.9. At this point, diagnoses include: Alcohol intoxication Fall Scalp contusion Chronic low back pain Treatment here included: IVF Zofran 4 mg IV Morphine 4 mg IV He felt much better. Recommended outpatient care. Patient discharged to [facility] who is present. Based on my best medical judgment, made decision no further evaluation or treatment indicated at this time. Patient understands and agrees to the discharge instructions customized and printed, see below. Discharge instructions from Dr. Brantley: 1. After extensive evaluation, fortunately there is no very serious injury.? Such as brain injury or broken neck or broken back or other broken bone or internal organ injury. Your diagnoses include alcohol intoxication and scalp contusion, and chronic low back pain. 2. Activity as tolerated.? Expect to have aches and pain for a couple of weeks, maybe worse in the next couple of days before improving. 3. Ibuprofen and Tylenol as needed. 4. See a private doctor on 08/27/2025 for recheck and repeat exam to make sure we didn't miss any serious underlying injury. Ask to review all test results and official radiology reports, to make sure you receive all necessary follow-ups and monitoring. Ask for help with MRI of your back. Ask for help to quit alcohol, to prevent more serious even fatal injuries and illnesses. 5. Seek immediate medical care with severe and persistent headache, persistent vomiting, being extremely drowsy when you should be completely alert and awake, or with any concerns. Kush Brantley MD Patient data External records reviewed:: [facility] previous records and EMS form Clinical information provided by:: patient and EMS Social determinants that could affect healthcare access:: alcohol use Patient has the following chronic illnesses:: Chronic alcohol use Chronic low back pain How is presenting disease/condition affected by chronic disease/condition?: exacerbated by Evaluation data The following diagnostics were reviewed and interpreted by me:: lab results, radiology exam(s) and EKG tracing(s) (My interpretation of the EKG is: Sinus rhythm (79 bpm) with nonspecific ST-T changes. Kush Brantley MD) Lab and/or radiology exams considered but not ordered:: None Interpretation Summary: I reviewed all diagnostic test results: My interpretation of the EKG is sinus rhythm with no acute ST?T changes. My interpretation of the chest x-ray is: NAD. My review of the CT reports is: NAD. Blood tests and urine tests remarkable for serum alcohol 286.9. Medications / Prescriptions Medications or Prescriptions considered but not ordered:: None Medication administrations:: Medication Administration History Lactated Ringer's (Lactated Ringers) 1,000 mls @ 500 mls/hr IV .Q2H ONE Stop: 08/26/25 10:14 Last Admin: 08/26/25 09:04 Dose: 500 mls/hr Documented By: BY Discontinued Medications Sodium Chloride (Ns) 1,000 mls @ 999 mls/hr IV .Q1H1M ONE Stop: 08/26/25 07:48 Last Infusion: 08/26/25 08:20 Dose: Infused Documented By: Admin: 08/26/25 07:19 Dose: 999 mls/hr Documented By: BY Morphine Sulfate (Morphine Sulf Inj 4 Mg/Ml Vial) 4 mg IV X1 ONE Stop: 08/26/25 07:11 Last Admin: 08/26/25 07:17 Dose: 4 mg Documented By: BY Ondansetron HCl (Ondansetron Odt 4 Mg Tabrap) 4 mg PO X1 ONE; Protocol Stop: 08/26/25 08:15 Last Admin: 08/26/25 09:04 Dose: 4 mg Documented By: BY Treatment here included: IVF Zofran 4 mg IV Morphine 4 mg IV Consultations Consultation(s) initiated? (list below): No Diagnosis Fall Differential Diagnosis: syncope, compression fracture, concussion with loss of consciousness and concussion without loss of consciousness Most likely diagnosis given after review of the tests above:: At this point, diagnoses include: Alcohol intoxication Fall Scalp contusion Chronic low back pain Admission Indicated Admission indicated?: not indicated Explain why admission is indicated or not indicated:: With significant improvement and no condition needing emergent intervention, there was no indication for admission. Admission Request Was there a request for admission?: No Disposition Plan Disposition Plan: Discharge Discharge Attestation Discharge Attestation: The patient and all family members were given an opportunity to ask questions and understood the discharge instructions. Discharge instructions specifically effects, indications for sooner follow up or return to the emergency department, and the expected course of current diagnosis. Patient condition: Stable Discharge Plan Plan Patient Disposition: HOME (Self Care) Prescriptions/Referrals Prescriptions/Med Rec: No Action insulin glargine [Basaglar KwikPen U-100 Insulin] 100 unit/mL (3 mL) insulin pen 5 unit SUBCUT BID Patient Comments: INJECT 30 UNITS SUBCUTANEOUSLY EVERY DAY AT BEDTIME insulin aspart U-100 [Novolog FlexPen U-100 Insulin] 100 unit/mL (3 mL) Insulin Pen See Rx Instructions .ROUTE .COMPLEX Rx Instructions: Flex pen gabapentin 600 mg tablet 600 mg TID Patient Comments: take 1 tablet by mouth three times a day Referrals: Peter Gottlieb MD [Primary Care Provider, Family Practice] - In 1 week Problem List Clinical Impression: Alcohol intoxication, Fall, Scalp contusion, Chronic low back pain Patient/Caregiver Discharge Instructions Discharge Activity: activity as tolerated Education Materials: ED Chronic Pain, ED Alcohol Intoxication, ED Head Injury (Adult) Additional Instructions: Discharge instructions from Dr. Brantley: 1. After extensive evaluation, fortunately there is no very serious injury.? Such as brain injury or broken neck or broken back or other broken bone or internal organ injury. Your diagnoses include alcohol intoxication and scalp contusion, and chronic low back pain. 2. Activity as tolerated.? Expect to have aches and pain for a couple of weeks, maybe worse in the next couple of days before improving. 3. Ibuprofen and Tylenol as needed. 4. See a private doctor on 08/27/2025 for recheck and repeat exam to make sure we didn't miss any serious underlying injury. Ask to review all test results and official radiology reports, to make sure you receive all necessary follow-ups and monitoring. Ask for help with MRI of your back. Ask for help to quit alcohol, to prevent more serious even fatal injuries and illnesses. 5. Seek immediate medical care with severe and persistent headache, persistent vomiting, being extremely drowsy when you should be completely alert and awake, or with any concerns. Print Language: [place] Island[place] Stand Alone Forms: [facility] Award Info., Patient Portal Info Letter
--- NOTE | 2025-08-26 06:48 | XR_ITS ---
EXAMINATION: AP chest single view TECHNIQUE: AP portable semiupright chest single view Date and time: August 26, 2025, 0655 hours, comparison 09/19/2024 INDICATIONS: Patient fell today with injury to the chest, chest pain back pain FINDINGS: Normal heart size No pneumothorax. Clavicles visualized ribs appear intact IMPRESSION: No pneumothorax pulmonary contusion or hemothorax
--- NOTE | 2025-08-26 06:48 | XR_ITS ---
Examination: CT chest, without intravenous contrast. CT abdomen, without intravenous contrast. CT pelvis, without intravenous contrast. 2-D sagittal and coronal reconstructions. 3-D reconstructions. Date and time of exam: August 26, 2025, 0822 hours INDICATIONS: Ground-level fall today with injury to the chest and abdomen, chest pain abdomen pain CTDI vol (mgy) 4.38 DLP (MGycm) 335 Technique: Multiple CT images, 3.0 mm slice thickness, obtained chest, abdomen, pelvis, with the high-resolution 64 slice scanner.. Sagittal and coronal 2-D reconstructions are obtained. 3-D reconstructions Low dose protocols were performed. One or more of the following dose reduction techniques were used; automated exposure control, adjustment of the mA and/or KV according to patient size, use of iterative reconstruction technique. Findings: Thoracic aorta pulmonary arteries appear intact No hemopericardium No pneumothorax pulmonary contusion or hemothorax The manubrium and the body of the sternum intact No thoracic or lumbar vertebral body compression fracture Large osteolytic lesion T11 again noted, please see the CT lumbar spine report August 25, 2025 Ribs appear intact Severe diffuse fatty infiltration throughout the liver, no focal liver splenic or renal lacerations Minute bilateral renal calcifications Pancreatic calcifications Aorta intact, no free blood in the abdomen Cholelithiasis Negative for pneumoperitoneum Urinary bladder intact Large amounts of stool in the rectum Hips bones of the pelvis intact Lumbar fusion L4-L5 with anatomic alignment IMPRESSION: Thoracic aorta pulmonary arteries intact No pneumothorax pulmonary contusion or hemothorax Severe diffuse fatty infiltration throughout the liver No abdominal parenchymal laceration, no perinephric hematoma Cholelithiasis Numerous pancreatic calcifications seen with prior episodes of pancreatitis Abdominal aorta intact No free blood in the abdomen or pelvis Urinary bladder intact Osseous structures appear intact
--- NOTE | 2025-08-26 06:49 | XR_ITS ---
Examination: CT cervical spine without contrast 2-D sagittal reconstructions 2-D coronal reconstructions 3-D reconstructions. Exam date and time: August 26, 2025, 0814 hours INDICATIONS: Patient fell this morning with injury to the neck, neck pain CTDI:vol (mGy) 14.2 DLP: (mGycm) 331 Technique: Multiple 2 mm axial sections of the cervical spine have been obtained. The coronal and sagittal reconstructions have been obtained. 3-D reconstructions have been obtained. Low dose protocols were performed. One or more of the following dose reduction techniques were used; automated exposure control, adjustment of the mA and/or KV according to patient size, use of iterative reconstruction technique. Findings: Axial sections demonstrate intact base of the skull. C1 exhibit satisfactory relationship to the odontoid. No acute cervical vertebral body fracture seen. Alignment posterior spinous processes satisfactory. Impression: No acute cervical fracture.
--- NOTE | 2025-08-26 06:49 | XR_ITS ---
Examination: CT brain head without contrast. 2-D sagittal coronal reconstructions Date and time of exam: August 26, 2025, 0814 hours INDICATIONS: Ground-level fall today with injury to head, head pain neck pain CTDI: vol (mGy): 49 DLP: (mGycm): 961 Technique: Multiple CT axial sections of the brain have been obtained, 5 mm slice thickness. Contrast has not been administered. 2-D sagittal, coronal reconstructions have been obtained Low dose protocols were performed. One or more of the following dose reduction techniques were used; automated exposure control, adjustment of the mA and/or KV according to patient size, use of iterative reconstruction technique. Findings: No significant ventricular enlargement. Intra-axial or extra-axial hemorrhage density is not seen. No mass effect or midline shift Basal cisterns are not remarkable. Fourth ventricle is midline. Cranial vault intact. Impression: Negative for acute hemorrhage, mass effect or midline shift
--- NOTE | 2025-08-26 06:49 | XR_ITS ---
Examination: CT lumbar spine, without contrast. 2-D sagittal reconstructions. 2-D coronal reconstructions. 3-D reconstructions. Date and time of exam: August 26, 2025, 0824 hours INDICATIONS: Ground-level fall today with injury to the lower back, lower back pain CTDI: vol (mGy): 14.6 DLP: (mGycm): 526 Technique: Multiple 1.25 mm axial sections of the lumbar spine without intravenous contrast have been obtained. 2-D sagittal and coronal reconstructions have been obtained. 3-D reconstructions have been obtained. Low dose protocols were performed. One or more of the following dose reduction techniques were used; automated exposure control, adjustment of the mA and/or KV according to patient size, use of iterative reconstruction technique. Findings: Adequate alignment lumbar vertebral bodies on the lateral view No lumbar vertebral body compression fracture. Lumbar fusion L4-L5 with anatomic alignment Lumbar pedicles, laminae, transverse and posterior spinous processes intact Again noted large osteolytic lesion T11 involving the left posterior aspect of the vertebral body extending into the pedicle and lamina IMPRESSION: No acute lumbar fracture Again noted large osteolytic lesion T11 vertebral body, recommend elective MRI thoracic spine follow-up pre and postcontrast
--- NOTE | 2025-08-26 06:49 | XR_ITS ---
Examination: CT thoracic spine, without contrast. 2-D sagittal reconstructions. 2-D coronal reconstructions. 3-D reconstructions. Date and time of exam: August 26, 2025, 0824 hours INDICATIONS: Patient fell today with injury to the mid back, mid back pain CTDI: vol (mGy): 19.6 DLP: (mGycm): 770 Technique: Multiple 1.25 mm axial sections of the thoracic spine without intravenous contrast have been obtained. 2-D sagittal and coronal reconstructions have been obtained. 3-D reconstructions have been obtained. Low dose protocols were performed. One or more of the following dose reduction techniques were used; automated exposure control, adjustment of the mA and/or KV according to patient size, use of iterative reconstruction technique. Findings: Satisfactory line midthoracic vertebral bodies No thoracic vertebral body compression fracture Thoracic pedicles laminae and posterior spinous processes appear intact Again noted large osteolytic lesion involving the posterior left T11 vertebral body extending into the left pedicle and lamina IMPRESSION: No acute thoracic fracture Again noted large osteolytic lesion involving the posterior left T11 vertebral body extending into the left pedicle and lamina, recommend elective MRI thoracic spine follow-up, pre and postcontrast
[2025-08-26] MEDS: MORPHINE SULF INJ 4 MG/ML VIAL IV (07:17)
[2025-08-26] MEDS: SODIUM CHLORIDE 0.9% 1000 ML 1,000 ML 999 ML IV (07:19)
--- NOTE | 2025-08-26 07:25 | XR_ITS ---
Examination: Shoulder, right, 3 views Technique: Shoulder AP internal rotation, AP external rotation, Y view shoulder, 3 views Exam date and time : August 26, 2025, 0749 hours INDICATIONS: Patient fell today with into the shoulder, shoulder pain. FINDINGS: Moderate osteopenia No shoulder fracture or dislocation. Mild shoulder calcific tendinitis IMPRESSION: No acute shoulder fracture
[2025-08-26 07:28] VITALS: BP 101/72; PULSE 71; RESP 16; O2SAT 99
--- NOTE | 2025-08-26 07:29 | PC.NURSE ---
patient is refusing a straight cath at this time
[2025-08-26 07:33] LABS: Basophils # (Auto) 0.1 Thou/mm3 (0.0-0.2); Basophils % (Auto) 1 % (0-2.5); Lymphocytes % (Auto) 32 % (10-50); Mean Corpuscular Volume 88 fL (80-100); Neutrophils % (Auto) 57 % (37-80); Nucleated Red Blood Cell # 0.00 Thou/mm3 (0.00-0.00); Nucleated Red Blood Cell % 0 /100 WBC (0)
[2025-08-26 07:35] LABS: Eosinophils # (Auto) 0.0 Thou/mm3 (0.0-0.5); Eosinophils % (Auto) 0 % (0-10); Hematocrit 33.2 % (41.0-53.0); Hemoglobin 11.7 g/dL (13.5-16.0); Immature Granulocytes Auto 0.03 Thou/mm3 (0.00-0.00); Lymphocytes # (Auto) 1.8 Thou/mm3 (1.0-4.8); Mean Corpuscular HGB Conc 35.2 g/dl (31.0-37.0); Mean Corpuscular Hemoglobin 31.0 pg (25.0-35.0); Monocytes # (Auto) 0.5 Thou/mm3 (0.0-0.8); Monocytes % (Auto) 9 % (0-12); Neutrophils # (Auto) 3.2 Thou/mm3 (1.8-7.7); RDW Standard Deviation 41.1 fL (35.1-43.9); Red Blood Count 3.78 Miln/mm3 (4.50-5.90); White Blood Count 5.7 Thou/mm3 (3.8-10.6)
[2025-08-26 08:06] LABS: Alanine Aminotransferase 86 U/L (10-49); Albumin, Serum 5.1 gm/dL (3.5-5.0); Albumin/Globulin Ratio 1.8 (1.2-2.2); Alcohol, Blood Medical 286.9 mg/dL (0-10.0); Alkaline Phosphatase 106 U/L (46-116); Anion Gap 25 (7-16); Aspartate Amino Transferase 340 U/L (0-34); BUN/Creatinine Ratio 11 Ratio (12-20); Bilirubin,Direct 1.6 mg/dL (0.0-0.3); Bilirubin,Total 2.1 mg/dL (0.3-1.2); Blood Urea Nitrogen 8 mg/dL (9-23); Calcium 9.6 mg/dL (8.3-10.6); Calcium (Corrected) 9.6 mg/dL (8.5-10.1); Carbon Dioxide 18.7 mMol/L (20.0-31.0); Chloride 92 mMol/L (98-107); Creatine Kinase 131 U/L (34-171); Creatinine (Component) 0.7 mg/dL (0.6-1.3); Estimated Creatinine Clearance 135.7 mL/min (>60); Globulin 2.9 gm/dL (2.3-3.5); Glucose 167 mg/dL (74-106); Magnesium 1.7 mg/dL (1.6-2.6); Osmolality,Calculated 274 (275-295); Potassium 3.5 mMol/L (3.4-5.1); Sodium 136 mMol/L (136-145); Thyroid Stimulating Hormone 2.14 uIU/mL (0.55-4.78); Total Protein 8.0 gm/dL (5.7-8.2); Troponin I < 0.002 ng/mL (0.0-0.045); eGFR > 60 See Note
--- NOTE | 2025-08-26 08:14 | XR_ITS ---
Examination: Abdomen sonogram, Limited Date and time of exam: August 26, 2025, 0847 hours INDICATIONS: Abdominal pain beginning several days ago Technique: Real-time kay scale transabdominal sonographic images of the upper abdomen obtained. Findings: Cholelithiasis, normal gallbladder wall 0.2 cm Normal common bile duct 0.4 cm Pancreatic head 2.3 cm Liver 19 cm fatty infiltration Normal hepatopetal portal venous flow Patent IVC IMPRESSION: Cholelithiasis, negative for cholecystitis
[2025-08-26 08:31] LABS: Collection Type, Urine Clean Catch
[2025-08-26 08:59] LABS: INR 1.1 (0.9-1.3); Partial Thromboplastin Time 26.0 Seconds (22.0-36.0); Prothrombin Time 11.8 Seconds (9.0-12.2)
[2025-08-26 09:03] LABS: Bacteria,Urine Rare; Bilirubin,Urine 2+ (Negative); Blood,Urine Negative (Negative); Clarity,Urine Clear (Clear/Hazy); Color,Urine Drk-Yellow (Lt Yel-Yel); Culture Indicated,Urine Not Indicated; Glucose, Urine 3+ (Negative); Hyaline Casts,Urine < 1 /hpf (0-1); Ketones,Urine 4+ (Negative); Leukocyte Esterase,Urine Negative (Negative); Nitrite,Urine Negative (Negative); PH,Urine 6.5 (5.0-7.0); Protein,Urine 2+ (Neg - Trace); RBC,Urine 2 /hpf (0-3); Specific Gravity,Urine 1.033 (1.001-1.035); Squamous Epithelial Cell,Urine < 1 /hpf (0-5); Urobilinogen,Urine OVER mg/dL (0.0-1.0); WBC,Urine 1 /hpf (0-5)
[2025-08-26] MEDS: ONDANSETRON ODT 4 MG TABRAP PO (09:04)
[2025-08-26] MEDS: RINGERS LACTATED 1000 ML 1,000 ML 500 ML IV (09:04)
[2025-08-26 09:07] LABS: Amylase 50 U/L (30-118); Lipase 61 U/L (12-53)
[2025-08-26 09:16] LABS: D-Dimer 752 ng/mL (<600)
[2025-08-26 09:20] LABS: Amphetamine/Methamp Scrn,U Negative (Negative); Barbiturate Screen,Urine Negative (Negative); Benzodiazepines Screen,Urine Negative (Negative); Benzoylecgonine Screen, Ur Negative (Negative); Fentanyl Screen,Urine Negative (Negative); Opiate Screen,Urine Positive (Negative); THC Screen,Urine Negative (Negative)
[2025-08-26 09:32] LABS: Platelet Count 72 Thou/mm3 (140-440)
[2025-08-26 09:33] LABS: Slide Review Platelets confirmed
[2025-08-26 10:05] VITALS: BP 113/79; PULSE 82; RESP 18; O2SAT 98
== END 2025-08-26 10:03 | disposition home or self-care (01) ==
PROVIDERS: Emergency Provider Emergency Medicine; PCP Family Medicine
DX: S00.03XA Contusion of scalp, initial encounter (principal); W22.01XA Walked into wall, initial encounter; Y90.9 Presence of alcohol in blood, level not specified; W19.XXXA Unspecified fall, initial encounter; F10.129 Alcohol abuse with intoxication, unspecified; G89.29 Other chronic pain; Y92.009 Unspecified place in unspecified non-institutional (private) residence as the place of occurrence of the external cause
CPT/HCPCS: 36415; 70450; 71045; 71250; 72125; 72128; 72131; 73030; 74176; 76705; 80053; 80307; 80320; 81001; 82150; 82248; 82550; 83690; 83735; 84443; 84484; 85025; 85379; 85610; 85730; 93005; 96360; 99285; J2270; J7030; J7120; Q0162; G0480

== ENCOUNTER 2025-08-28 13:25 | Inpatient (IN) | payer MEDICAID, SELFPAY ==
[2025-08-28] VITALS (23 sets, daily range): BP systolic 110–161; BP diastolic 65–119; PULSE 81–125; RESP 11–98; TEMP 36.8–37.2; O2SAT 90–100; BMI 19.5
--- NOTE | 2025-08-28 13:48 | EDNOTE_ITS ---
<Statement entered by Jaqui San MD - 08/29/25 14:20> As co-signing physician, I was present and available for consult prn. I concur with the plan and care as documented by the midlevel provider. Nausea/Vomit./Diarrhea-RME/HPI General Chief complaint: Nausea/Vomiting/Diarrhea Stated complaint: N/VOMTING,WEAKNESS Time Seen by Provider: 08/28/25 13:31 Arrival date/time: 08/28/25 13:25 34-year-old male patient with significant history of diabetes mellitus, came in for evaluation regarding generalized body weakness. Patient has been having worsening generalized body weakness, nausea vomiting, cannot take anything down for the last 3 days. Patient also complained he had difficulty ambulating due to generalized weakness. Cannot take anything down due to vomiting. Also complained of abdominal pain, described as dull ache, severity moderate diffuse in character. No diarrhea no constipation. Patient gave himself insulin this morning. According to EMS patient blood sugar was noted about 300 prior to ER visit. He was admitted here before for DKA. Last alcohol intake was 3 days ago. Related Data Home Medications ?Medication ?Instructions ?Recorded ?Confirmed insulin glargine 100 unit/mL (3 5 unit subcut BID 02/2609/18/24 mL) subcutaneous pen (Basaglar KwikPen U-100 Insulin) insulin aspart U-100 100 unit/mL See Rx Instructions . Route .COMPLEX 05/23/23 09/18/24 (3 mL) subcutaneous pen (Novolog FlexPen U-100 Insulin aspart) gabapentin 600 mg tablet 600 mg TID 09/18/24 09/18/24 Allergies Allergy/AdvReac Type Severity Reaction Status Date / Time ketorolac (From Toradol) Allergy Verified 08/26/25 06:35 tramadol Allergy Verified 08/26/25 06:35 Review of Systems Review of Systems Narrative Review of Systems: Review of system reviewed and within normal limits except mentioned in HPI ED Exam Narrative Physical exam: VITAL SIGNS: Reviewed. GENERAL APPEARANCE: Alert and interactive, follows commands, no acute distress, HEAD AND FACE: Non-traumatic. ENT: PERRL, pink conjunctivitis, eyelid no trauma, Mucous membrane dry NECK: Supple, nontender, no nuchal rigidity. CHEST: No tenderness, no crepitus, no paradoxical movement, no retractions. LUNGS: Clear, well ventilated, symmetric, no rales, no wheezing, no ronchi, no stridor, good breath sounds bilaterally. HEART: Tachycardic, no murmur, no gallops. ABDOMEN: Soft, positive bowel sounds, nondistended, no guarding, diffuse tenderness, no rebound, no masses, RECTAL: Deferred. GENITAL: Deferred. NEUROLOGICAL: Gross motor function intact sensory function intact, Appropriate for age. MUSCULOSKELETAL: low back nontender, full range of motion. EXTREMITIES: Nontender, full range of motion. SKIN: Color pink, dry, no rash, no lacerations, no abrasions, no contusions. LYMPHATICS: Deferred. Course Quality Measures none Orders Category Date Time Status Admit to Inpatient Status Routine Admission 08/28/25 17:19 Active Patient Condition Routine Admission 08/28/25 17:19 Ordered Aspiration precautions NOW Care 08/28/25 17:21 Active Bedside Blood Glucose Q1H Care 08/28/25 17:28 Active Bedside Blood Glucose STAT Care 08/28/25 13:45 Active COVID-19 Screening Questionnaire NOW Care 08/28/25 15:29 Active Manager Interventional Q4H Care 08/28/25 17:28 Active Manager Interventional STAT Care 08/28/25 13:45 Active DKA Protocol QSHIFT Care 08/28/25 13:45 Active Decision to Admit X1 Care 08/28/25 15:29 Completed EKG (ED ONLY) *Do not use* NOW Care 08/28/25 13:45 Completed In and Out Catheter X1 Care 08/28/25 13:45 Active Insert IV STAT Care 08/28/25 13:45 Active Intake and Output Q1H Care 08/28/25 17:30 Ordered Intake and Output Q1H Care 08/28/25 18:30 Ordered Intake and Output Q1H Care 08/28/25 19:30 Ordered Intake and Output Q1H Care 08/28/25 20:30 Ordered Intake and Output Q1H Care 08/28/25 21:30 Ordered Intake and Output Q1H Care 08/28/25 22:30 Ordered Intake and Output Q1H Care 08/28/25 23:30 Ordered Intake and Output Routine Care 08/28/25 13:45 Ordered NPO NOW Care 08/28/25 17:21 Active Notify provider NEEDED Care 08/28/25 13:45 Active Notify provider NEEDED Care 08/28/25 17:19 Active Seizure precautions NEEDED Care 08/28/25 17:21 Active Strict Intake and Output Routine Care 08/28/25 17:20 Ordered Referral Registered Dietitian Routine Cons 08/28/25 13:45 Active Diet NPO (NOW) Diet 08/28/25 17:21 Active EKG (ED Only) Stat Exams 08/28/25 13:45 Ordered US gall bladder Stat Exams 08/28/25 15:19 Completed Alcohol, Blood Medical Stat Lab 08/28/25 15:20 Completed Arterial Blood Gas Stat Lab 08/28/25 15:10 Completed Beta Hydroxybutyrate DAILY Lab 08/30/25 09:00 Ordered Beta Hydroxybutyrate DAILY Lab 08/31/25 09:00 Ordered Beta Hydroxybutyrate DAILY Lab 09/01/25 09:00 Ordered Beta Hydroxybutyrate Stat Lab 08/28/25 13:50 Completed Blood Culture (Lab) Stat Lab 08/28/25 15:20 Received CBC Stat Lab 08/28/25 13:50 Completed Comprehensive Metabolic Panel Stat Lab 08/28/25 13:50 Completed Glycohemoglobin w (eAG) Stat Lab 08/28/25 13:50 Completed Lactate (Lactic Acid) Q4H Lab 08/28/25 21:30 Ordered Lactate (Lactic Acid) Q4 Lab 08/29/25 01:30 Ordered Lactate (Lactic Acid) Q4 Lab 08/29/25 04:30 Ordered Lactate (Lactic Acid) Q4 Lab 08/29/25 08:30 Ordered Lactate (Lactic Acid) Q4H Lab 08/29/25 12:30 Ordered Lactate (Lactic Acid) Q4 Lab 08/29/25 16:30 Ordered Lactate (Lactic Acid) Q4 Lab 08/29/25 20:30 Ordered Lactate (Lactic Acid) Q4 Lab 08/30/25 00:30 Ordered Lactate (Lactic Acid) Q4H Lab 08/30/25 04:30 Ordered Lactate (Lactic Acid) Q4H Lab 08/30/25 08:30 Ordered Lactate (Lactic Acid) Q4H Lab 08/30/25 12:30 Ordered Lactate (Lactic Acid) Q4H Lab 08/30/25 16:30 Ordered Lactate (Lactic Acid) Stat Lab 08/28/25 13:50 Completed Lactic Acid, 3 HR Stat Lab 08/28/25 17:30 Completed Lipase Stat Lab 08/28/25 15:20 Completed Magnesium Q4H Lab 08/28/25 21:30 Ordered Magnesium Q4H Lab 08/29/25 01:30 Ordered Magnesium Q4H Lab 08/29/25 04:30 Ordered Magnesium Q4H Lab 08/29/25 08:30 Ordered Magnesium Q4H Lab 08/29/25 12:30 Ordered Magnesium Q4H Lab 08/29/25 16:30 Ordered Magnesium Q4H Lab 08/29/25 20:30 Ordered Magnesium Q4H Lab 08/30/25 00:30 Ordered Magnesium Q4H Lab 08/30/25 04:30 Ordered Magnesium Q4H Lab 08/30/25 08:30 Ordered Magnesium Q4H Lab 08/30/25 12:30 Ordered Magnesium Q4H Lab 08/30/25 16:30 Ordered Magnesium Stat Lab 08/28/25 13:50 Completed Phosphorous Q4H Lab 08/29/25 01:30 Ordered Phosphorous Q4H Lab 08/29/25 04:30 Ordered Phosphorous Q4H Lab 08/29/25 08:30 Ordered Phosphorous Q4H Lab 08/29/25 12:30 Ordered Phosphorous Q4H Lab 08/29/25 16:30 Ordered Phosphorous Q4H Lab 08/29/25 20:30 Ordered Phosphorous Q4H Lab 08/30/25 00:30 Ordered Phosphorous Q4H Lab 08/30/25 04:30 Ordered Phosphorous Q4H Lab 08/30/25 08:30 Ordered Phosphorous Q4H Lab 08/30/25 12:30 Ordered Phosphorous Q4H Lab 08/30/25 16:30 Ordered Phosphorous Stat Lab 08/28/25 13:50 Completed Renal Function Panel Q4H Lab 08/28/25 21:30 Ordered Renal Function Panel Q4H Lab 08/29/25 01:30 Ordered Renal Function Panel Q4H Lab 08/29/25 04:30 Ordered Renal Function Panel Q4H Lab 08/29/25 08:30 Ordered Renal Function Panel Q4H Lab 08/29/25 12:30 Ordered Renal Function Panel Q4H Lab 08/29/25 16:30 Ordered Renal Function Panel Q4H Lab 08/29/25 20:30 Ordered Renal Function Panel Q4H Lab 08/30/25 00:30 Ordered Renal Function Panel Q4H Lab 08/30/25 04:30 Ordered Renal Function Panel Q4H Lab 08/30/25 08:30 Ordered Renal Function Panel Q4H Lab 08/30/25 12:30 Ordered Renal Function Panel Q4H Lab 08/30/25 16:30 Ordered Urinalysis, C/S if Indicated Stat Lab 08/28/25 15:41 Completed Acetaminophen Tab [Tylenol Tab] Med 08/28/25 17:19 Active 650 mg PO Q6H PRN Dextrose 5%-Lactated Ringers [D5-Lr] 1,000 ml Med 08/28/25 13:45 Active Pot Chl Additive [KCl Additive] 40 meq IV 250 mls/hr Dextrose 5%-Lactated Ringers [D5-Lr] 1,000 ml Med 08/28/25 13:45 Active IV 250 mls/hr Dextrose 5%-Water [D5w] 500 ml Med 08/28/25 17:34 Discontinued Sodium Bicarb 8.4% 50ml Vial* 88.23 meq IV 100 mls/hr Dextrose 5%-Water [D5w] 500 ml Med 08/28/25 17:46 Discontinued Sodium Bicarb 8.4% 50ml Vial* 88.23 meq IV 999 mls/hr Dextrose 50% Syr [D50w Syringe Abboject] Med 08/28/25 13:45 Active 25 ml IV [id number] PRN Famotidine Inj [Pepcid Inj] Med 08/28/25 13:48 Discontinued 20 mg IVP X1 ONE Folic Acid Med 08/28/25 21:00 Active 1 mg PO BID Heparin Inj Med 08/28/25 17:30 Active 5,000 unit SC Q12HR Insulin Reg 100 Units/100 ml [Myxredlin] Med 08/28/25 14:44 Active 100 unit in 100 ml IV 0.1 unit/kg/hr KCL 20 mEq/L in D5-LR Med 08/28/25 13:45 Active 20 meq in 1,000 ml IV 250 mls/hr LORazepam [Ativan Inj] Med 08/28/25 14:50 Discontinued 2 mg IVP X1 ONE Magnesium Sulfate 2 GM Ivpb [Magnesium Sulfate Ivpb] Med 08/28/25 13:45 Active 2 gm in 50 ml IV 25 mls/hr Metoclopramide Inj [Reglan Inj] Med 08/28/25 17:19 Active 10 mg IVP Q6H PRN Metoclopramide Inj [Reglan Inj] Med 08/28/25 14:50 Discontinued 10 mg IVP X1 ONE Midazolam Inj [Versed Inj] Med 08/28/25 17:37 Active 1 mg IVP Q4H PRN Midazolam Inj [Versed Inj] Med 08/28/25 17:37 Active 2 mg IVP Q4H PRN Midazolam Inj [Versed Inj] Med 08/28/25 17:37 Active 5 mg IVP Q4H PRN Morphine* Inj Med 08/28/25 14:50 Discontinued 4 mg IVP X1 ONE Ondansetron Inj [Zofran Inj] Med 08/28/25 13:48 Discontinued 4 mg IVP X1 ONE PHENobarbital Inj 130 mg Med 08/28/25 14:50 Discontinued Sodium Chloride 0.9% Flush [NS Flush] 12 ml IVP X1 POT PHOS 15 mMol in NS 250 ML [Pot Phos 15 mMol in NS Med 08/28/25 13:45 Active 250 ml] 15 mmol in 250 ml IV PRN POTASSIUM CHL 10 mEq IVPB [Kcl Ivpb] Med 08/28/25 13:45 Active 10 meq in 100 ml IV 100 mls/hr POTASSIUM CHL 10 mEq IVPB [Kcl Ivpb] Med 08/28/25 13:45 Active 10 meq in 100 ml IV PRN Pantoprazole Inj [Protonix Inj] Med 08/29/25 09:00 Active 40 mg IVP QDAY Ringers Lactated 1000 ml [Lactated Ringers] 1,000 ml Med 08/28/25 13:45 Active Pot Chl Additive [KCl Additive] 20 meq IV 250 mls/hr Ringers Lactated 1000 ml [Lactated Ringers] 1,000 ml Med 08/28/25 13:45 Active Pot Chl Additive [KCl Additive] 40 meq IV 250 mls/hr Ringers Lactated 1000 ml [Lactated Ringers] 1,000 ml Med 08/28/25 13:48 Discontinued IV 999 mls/hr Ringers Lactated 1000 ml [Lactated Ringers] 1,000 ml Med 08/28/25 13:48 Discontinued IV 999 mls/hr Ringers Lactated 1000 ml [Lactated Ringers] 1,000 ml Med 08/28/25 14:43 Discontinued IV 999 mls/hr Sodium Bicarb 8.4% SYR Med 08/28/25 13:45 Active 50 ml IV Q4HR PRN Sodium Chloride 0.9% 250 ml [Ns] 250 ml Med 08/28/25 13:45 Active Sod Phos Additive [NaPhos Additive] 15 mmol IV 62.5 mls/hr Thiamine [Vitamin B-1] Med 08/28/25 21:00 Active 100 mg PO BID Code Status Routine Oth 08/28/25 17:19 Ordered EKG (RT) Routine RT 08/28/25 17:24 Ordered Oxygen Delivery PRN RT 08/28/25 17:19 Active Vital Signs Vital signs: Vital Signs Temperature 98.2 F 08/28/25 13:29 Pulse Rate 120 H 08/28/25 13:29 Respiratory Rate 20 08/28/25 13:29 Blood Pressure 110/65 08/28/25 13:29 Pulse Oximetry (%) 98 08/28/25 13:29 Oxygen Delivery Method Room Air 08/28/25 13:29 Nausea/Vomiting/Diarrhea MDM Narrative MDM Narrative:: 34-year-old male patient with significant history of diabetes mellitus, came in for evaluation regarding generalized body weakness. Patient has been having worsening generalized body weakness, nausea vomiting, cannot take anything down for the last 3 days. Patient also complained he had difficulty ambulating due to generalized weakness. Cannot take anything down due to vomiting. Also complained of abdominal pain, described as dull ache, severity moderate diffuse in character. No diarrhea no constipation. Patient gave himself insulin this morning. According to EMS patient blood sugar was noted about 300 prior to ER visit. He was admitted here before for DKA. Last alcohol intake was 3 days ago. CIWAA score 18 Patient's laboratory workup is significant for diabetic ketoacidosis. Lactic acid was also noted to be 6.0, total bili 5.1, AST of 220, ALT of 86, alkaline phos of 117 total protein 9.2. Beta-hydroxybutyrate was noted to be above 6.4. I personally reviewed and interpreted the x-ray of this patient. There is no acute abnormalities found, no infiltrates no pneumothorax no hemothorax normal chest x-ray. Review of other structures was without significant abnormal findings also. I additionally reviewed the radiologist report and agree with the interpretation. Patient was given total of 3 L IV LR, IV Pepcid, Reglan, Zofran, phenobarbital IV for alcohol withdrawal, Ativan, and morphine. Patient was started on insulin drip. I did an ultrasound of the gallbladder and showed cholelithiasis with no sign of acute cholecystitis however common bile duct is dilated 0.8. On multiple evaluation patient was noted to be drowsy and sleepy after patient received Ativan or morphine. Discussed the case with hospitalist, and admitted the patient to ICU. Patient data External records reviewed:: None Clinical information provided by:: patient Social determinants that could affect healthcare access:: alcohol use Patient has the following chronic illnesses:: Chronic alcoholism, diabetes mellitus, poor medication compliance How is presenting disease/condition affected by chronic disease/condition?: exacerbated by Evaluation data The following diagnostics were reviewed and interpreted by me:: lab results, radiology exam(s) and EKG tracing(s) Lab and/or radiology exams considered but not ordered:: None Interpretation Summary: See MDM Medications / Prescriptions Medications / Prescriptions considered but not ordered:: None Medication administrations:: Medication Administration History Acetaminophen (Acetaminophen 325 Mg Tablet) 650 mg PO Q6H PRN PRN Reason: Fever >100.4 or pain 1-3 Stop: 09/27/25 17:18 Dextrose (Dextrose 50%-Water Inj 50 Ml Syringe) 25 ml IV PRNMRX1 PRN PRN Reason: Blood Sugar - Low Folic Acid (Folic Acid 1 Mg Tablet) 1 mg PO BID [facility] Stop: 09/02/25 20:59 Heparin Sodium (Porcine) (Heparin Sod Inj 5000 Unit/Ml Vial) 5,000 unit SC Q12HR [facility] Stop: 09/11/25 17:29 Last Admin: 08/28/25 18:05 Dose: 5,000 unit Documented By: MARIFER Co-signed By: HERMELINDA Potassium Chloride (Kcl Ivpb) 10 meq in 100 mls @ 100 mls/hr IV .Q1H PRN PRN Reason: IF POTASSIUM LESS THAN 3.3 Stop: 09/27/25 13:44 Magnesium Sulfate (Magnesium Sulfate Ivpb) 2 gm in 50 mls @ 25 mls/hr IV .Q2H PRN PRN Reason: PER DKA PROTOCOL Stop: 09/27/25 13:44 Dextrose/Lactated Ringer's (D5-Lr) 1,000 mls @ 250 mls/hr IV .Q4H PRN PRN Reason: PER PROTOCOL Stop: 09/27/25 13:44 Potassium Chloride 20 meq/ (Lactated Ringer's) 1,010 mls @ 250 mls/hr IV .Q4H3M PRN PRN Reason: K LEVEL 3.3 TO 5.3mM/L Stop: 09/27/25 13:44 Last Infusion: 08/28/25 19:08 Dose: 0 mls/hr Documented By: Admin: 08/28/25 18:55 Dose: 250 mls/hr Documented By: VL Potassium Chloride 40 meq/ (Lactated Ringer's) 1,020 mls @ 250 mls/hr IV .Q4H5M PRN PRN Reason: K LEVEL < 3.3 mM/L Stop: 09/27/25 13:44 Potassium Chloride 40 meq/ (Dextrose/Lactated Ringer's) 1,020 mls @ 250 mls/hr IV .Q4H5M PRN PRN Reason: K LEVEL < 3.3mM/L Stop: 09/27/25 13:44 Last Admin: 08/28/25 19:09 Dose: 250 mls/hr Documented By: CVL Potassium Cl/Dextrose/Lact Ringer's (Kcl 20 Meq/L In D5-Lr) 20 meq in 1,000 mls @ 250 mls/hr IV .Q4H PRN PRN Reason: K LEVEL 3.3 TO 5.3 mM/L Potassium Chloride (Kcl Ivpb) 10 meq in 100 mls @ 50 mls/hr IV PRN PRN PRN Reason: K LEVEL 3.3 to 5.3 & BG > 200 Stop: 09/27/25 13:44 Potassium Phosphate (Pot Phos 15 Mmol In Ns 250 Ml) 15 mmol in 250 mls @ 62.5 mls/hr IV PRN PRN PRN Reason: Phosphate <= 1mg/dL Stop: 09/27/25 13:44 Sodium Phosphate 15 mmol/ (Sodium Chloride) 255 mls @ 62.5 mls/hr IV .Q4H5M PRN PRN Reason: Phosphate <= 1mg/dL and K> than 5.3 Stop: 09/27/25 13:44 Insulin Human Regular (Myxredlin) 100 unit in 100 mls @ 6.169 mls/hr IV .[id number] PRN; Protocol PRN Reason: PER PROTOCOL Stop: 09/27/25 14:43 Last Titration: 08/28/25 18:40 Dose: 0.1 unit/kg/hr, 6.169 mls/hr Documented By: MARIFER Co-signed By: MI Titration: 08/28/25 17:39 Dose: 0.025 unit/kg/hr, 1.542 mls/hr Documented By: VL Co-signed By: KUNAL Titration: 08/28/25 16:14 Dose: 0.1 unit/kg/hr, 6.169 mls/hr Documented By: VL Co-signed By: KUNAL Admin: 08/28/25 15:08 Dose: 0.1 unit/kg/hr, 6.169 mls/hr Documented By: VL Co-signed By: MI Magnesium Sulfate (Magnesium Sulfate Ivpb) 4 gm in 50 mls @ 12.5 mls/hr IV X1 ONE Stop: 08/28/25 23:27 Last Admin: 08/28/25 20:00 Dose: 12.5 mls/hr Documented By: NAFISA Potassium Phosphate (Pot Phos 15 Mmol In Ns 250 Ml) 15 mmol in 250 mls @ 62.5 mls/hr IV Q4H [facility] Stop: 08/29/25 03:54 Metoclopramide HCl (Metoclopramide Inj 5 Mg/Ml Vial 2 Ml) 10 mg IVP Q6H PRN; Protocol PRN Reason: NAUSEA OR VOMITING Stop: 09/27/25 17:18 Midazolam HCl (Midazolam Inj 1 Mg/Ml Vial 2 Ml) 5 mg IVP Q4H PRN PRN Reason: CIWA 12-15 Stop: 09/02/25 17:36 Midazolam HCl (Midazolam Inj 1 Mg/Ml Vial 2 Ml) 1 mg IVP Q4H PRN PRN Reason: CIWA 2-6 Stop: 09/02/25 17:36 Midazolam HCl (Midazolam Inj 1 Mg/Ml Vial 2 Ml) 2 mg IVP Q4H PRN PRN Reason: CIWA 7-11 Stop: 09/02/25 17:36 Pantoprazole Sodium (Pantoprazole Inj 40 Mg Vial) 40 mg IVP QDAY [facility] Stop: 09/28/25 08:59 Sodium Bicarbonate (Sodium Bicarb Inj 8.4% Syr 50 Ml Syringe) 50 ml IV Q4HR PRN PRN Reason: For ph <= to 7.0 Stop: 09/27/25 13:44 Thiamine HCl (Thiamine 100 Mg Tablet) 100 mg PO BID [facility] Stop: 09/02/25 20:59 Discontinued Medications Phenobarbital Sodium 130 mg/ (Sodium Chloride 12 ml) 0 mg IVP X1 ONE Stop: 08/28/25 14:51 Last Admin: 08/28/25 15:52 Dose: 130 mg Documented By: VL Famotidine (Famotidine Inj 10 Mg/Ml Vial 2 Ml) 20 mg IVP X1 ONE Stop: 08/28/25 13:49 Last Admin: 08/28/25 13:57 Dose: 20 mg Documented By: VL Lactated Ringer's (Lactated Ringers) 1,000 mls @ 999 mls/hr IV .Q1H1M ONE Stop: 08/28/25 14:48 Last Infusion: 08/28/25 14:46 Dose: Infused Documented By: Admin: 08/28/25 13:56 Dose: 999 mls/hr Documented By: VL Lactated Ringer's (Lactated Ringers) 1,000 mls @ 999 mls/hr IV .Q1H1M ONE Stop: 08/28/25 14:48 Last Infusion: 08/28/25 15:52 Dose: Infused Documented By: Admin: 08/28/25 14:46 Dose: 999 mls/hr Documented By: VL Lactated Ringer's (Lactated Ringers) 1,000 mls @ 999 mls/hr IV .Q1H1M ONE Stop: 08/28/25 15:43 Last Infusion: 08/28/25 16:54 Dose: Infused Documented By: Admin: 08/28/25 15:53 Dose: 999 mls/hr Documented By: VL Sodium Bicarbonate 88.23 meq/ (Dextrose) 588.23 mls @ 100 mls/hr IV .Q5H53M [facility] Stop: 08/28/25 23:26 Last Admin: 08/28/25 18:09 Dose: Not Given Documented By: MARIFER Non-Admin Reason: Cancelled by Provider Sodium Bicarbonate 88.23 meq/ (Dextrose) 588.23 mls @ 999 mls/hr IV .Q36M [facility] Stop: 08/28/25 18:21 Last Infusion: 08/28/25 18:40 Dose: Infused Documented By: Admin: 08/28/25 17:59 Dose: 999 mls/hr Documented By: MARIFER Lorazepam (Lorazepam 2 Mg/Ml Vial) 2 mg IVP X1 ONE Stop: 08/28/25 14:51 Last Admin: 08/28/25 14:58 Dose: 2 mg Documented By: VL Metoclopramide HCl (Metoclopramide Inj 5 Mg/Ml Vial 2 Ml) 10 mg IVP X1 ONE; Protocol Stop: 08/28/25 14:51 Last Admin: 08/28/25 14:55 Dose: 10 mg Documented By: VL Morphine Sulfate (Morphine Sulf Inj 4 Mg/Ml Vial) 4 mg IVP X1 ONE Stop: 08/28/25 14:51 Last Admin: 08/28/25 14:59 Dose: 4 mg Documented By: VL Ondansetron HCl (Ondansetron Inj 2 Mg/Ml Inj 2 Ml) 4 mg IVP X1 ONE; Protocol Stop: 08/28/25 13:49 Last Admin: 08/28/25 13:56 Dose: 4 mg Documented By: MARIFER See MDM Consultations Consultation(s) initiated? (list below): No Diagnosis Nausea Differential Diagnosis: gastroenteritis, dehydration and other (Diabetic ketoacidosis, alcohol withdrawal symptoms) Most likely diagnosis given after review of the tests above:: Diverticulitis acidosis, alcohol withdrawal syndrome Admission Indicated Admission indicated?: not indicated Admission Request Was there a request for admission?: No Disposition Plan Disposition Plan: Admit Critical Care Time Critical Care Time Critical Care Time: Yes Total Critical Care Time (min.): 45 Attestation: Critical Care Time The very real possibility of a deterioration of this patient's condition required the highest level of my preparedness for sudden, emergent intervention for the following systems: Cardiac and Metabolic. I provided critical care s ervices, which included medication orders, frequent re-evaluations of the patient's condition and response to treatment, ordering and reviewing test results, and discussing the case with various consultants including: nursing staff, hospitalist, and more. The critical care time associated with the care of this patient was 45 minutes. Discharge Plan Plan Patient Disposition: Admit Acute Care w/in Hospital Problem List Clinical Impression: Diabetic ketoacidosis, Withdrawal symptoms, alcohol, Transaminitis
[2025-08-28] MEDS: ONDANSETRON INJ 2 MG/ML INJ 2 ML 4 MG IVP (13:56)
[2025-08-28] MEDS: RINGERS LACTATED 1000 ML 1,000 ML 999 ML IV ×3 (13:56→15:53)
[2025-08-28] MEDS: FAMOTIDINE INJ 10 MG/ML VIAL 2 ML 20 MG IVP (13:57)
[2025-08-28 14:16] LABS: Lactate (Lactic Acid) 6.0 mMol/L (0.4-2.0)
[2025-08-28 14:17] LABS: Basophils # (Auto) 0.0 Thou/mm3 (0.0-0.2); Basophils % (Auto) 0 % (0-2.5); Eosinophils # (Auto) 0.0 Thou/mm3 (0.0-0.5); Eosinophils % (Auto) 0 % (0-10); Hematocrit 35.6 % (41.0-53.0); Hemoglobin 12.0 g/dL (13.5-16.0); Immature Granulocytes Auto 0.07 Thou/mm3 (0.00-0.00); Lymphocytes # (Auto) 0.7 Thou/mm3 (1.0-4.8); Lymphocytes % (Auto) 7 % (10-50); Mean Corpuscular HGB Conc 33.7 g/dl (31.0-37.0); Mean Corpuscular Hemoglobin 30.9 pg (25.0-35.0); Mean Corpuscular Volume 92 fL (80-100); Monocytes # (Auto) 0.9 Thou/mm3 (0.0-0.8); Monocytes % (Auto) 10 % (0-12); Neutrophils # (Auto) 7.7 Thou/mm3 (1.8-7.7); Neutrophils % (Auto) 82 % (37-80); Nucleated Red Blood Cell # 0.00 Thou/mm3 (0.00-0.00); Nucleated Red Blood Cell % 0 /100 WBC (0); Platelet Count 108 Thou/mm3 (140-440); RDW Standard Deviation 44.2 fL (35.1-43.9); Red Blood Count 3.88 Miln/mm3 (4.50-5.90); White Blood Count 9.3 Thou/mm3 (3.8-10.6)
[2025-08-28 14:21] LABS: Beta Hydroxybutyrate > 6.4 mmol/L (<0.6)
[2025-08-28 14:35] LABS: Glucose Estimated Average 169 mg/dL (80-131); Hemoglobin A1C 7.5 % Hgb (4.8-6.0)
[2025-08-28 14:37] LABS: Alanine Aminotransferase 86 U/L (10-49); Alkaline Phosphatase 117 U/L (46-116); Anion Gap 32 (7-16); Aspartate Amino Transferase 220 U/L (0-34); BUN/Creatinine Ratio 10 Ratio (12-20); Bilirubin,Total 5.1 mg/dL (0.3-1.2); Blood Urea Nitrogen 15 mg/dL (9-23); Calcium 10.9 mg/dL (8.3-10.6); Chloride 85 mMol/L (98-107); Creatinine (Component) 1.5 mg/dL (0.6-1.3); Estimated Creatinine Clearance 59.4 mL/min (>60); Glucose 333 mg/dL (74-106); Magnesium 2.1 mg/dL (1.6-2.6); Osmolality,Calculated 269 (275-295); Phosphorous 4.2 mg/dL (2.4-5.1); Potassium 4.2 mMol/L (3.4-5.1); Sodium 127 mMol/L (136-145); Total Protein 9.2 gm/dL (5.7-8.2); eGFR > 60 See Note
[2025-08-28 14:40] LABS: Carbon Dioxide < 10.0 mMol/L (20.0-31.0)
[2025-08-28 14:48] LABS: Albumin, Serum 5.9 gm/dL (3.5-5.0); Albumin/Globulin Ratio 1.8 (1.2-2.2); Calcium (Corrected) 10.9 mg/dL (8.5-10.1); Globulin 3.3 gm/dL (2.3-3.5)
[2025-08-28] MEDS: METOCLOPRAMIDE INJ 5 MG/ML VIAL 2 ML 10 MG IVP (14:55)
[2025-08-28] MEDS: LORazepam 2 MG/ML VIAL IVP (14:58)
[2025-08-28] MEDS: MORPHINE SULF INJ 4 MG/ML VIAL IVP (14:59)
[2025-08-28] MEDS: INSULIN REG 100 UNITS/100 ML 100 UNIT/100 ML BAG 6.169 UNIT IV (15:08)
[2025-08-28 15:18] LABS: Base Excess -19 (-3-3); HCO3 7 mEq/L (20-26); Inspired Oxygen, FIO2 21 %; O2 Saturation 50 % (91-98); PCO2 19 mmHg (32.0-48.0)
--- NOTE | 2025-08-28 15:19 | XR_ITS ---
Examination: Abdomen sonogram, Limited Date and time of exam: August 28, 2025, 1652 hours INDICATIONS: Elevated total bilirubin on laboratory examination today. Technique: Real-time kay scale transabdominal sonographic images of the upper abdomen obtained. Findings: Gallbladder sagittal dimension 11 cm No gallstones Normal gallbladder wall 0.2 cm Common bile duct abnormally enlarged 0.8 cm although no definite stones Pancreatic head 1.9 cm Liver 18.9 cm fatty rotation irregular contour Normal hepatopetal portal venous flow Patent IVC IMPRESSION: Abnormally enlarged common bile duct 0.8 cm, consider MRCP follow-up to exclude common bile duct stones and/or stricture
[2025-08-28 15:22] LABS: Allen Test Not Performed; PO2 31 mmHg (83-108); Puncture Site Right Radial; pH, Arterial 7.19 (7.35-7.45)
[2025-08-28 15:45] LABS: Collection Type, Urine Clean Catch; Squamous Epithelial Cell,Urine 0 /hpf (0-5)
[2025-08-28] MEDS: PHENobarbital Inj 130 MG, SODIUM CHLORIDE 0.9% FLUSH 12 ML IVP (15:52)
[2025-08-28 16:03] LABS: Alcohol, Blood Medical < 3.0 mg/dL (0-10.0)
[2025-08-28 16:04] LABS: Bilirubin,Urine Negative (Negative); Blood,Urine 3+ (Negative); Color,Urine Yellow (Lt Yel-Yel); Culture Indicated,Urine Not Indicated; Glucose, Urine 4+ (Negative); Hyaline Casts,Urine 1 /hpf (0-1); Ketones,Urine 4+ (Negative); Leukocyte Esterase,Urine Negative (Negative); Nitrite,Urine Negative (Negative); PH,Urine 6.0 (5.0-7.0); Protein,Urine 1+ (Neg - Trace); RBC,Urine 71 /hpf (0-3); Specific Gravity,Urine 1.016 (1.001-1.035); Urobilinogen,Urine 2.0 mg/dL (0.0-1.0); WBC,Urine < 1 /hpf (0-5)
[2025-08-28 16:14] LABS: Clarity,Urine Hazy (Clear/Hazy)
--- NOTE | 2025-08-28 16:20 | PC.NURSE ---
PATIENT WAS BIBA FROM HOME FOR NAUSEA/VOMITING AND ABDOMINAL PAIN FOR THE PAST 2-3 DAYS. PATIENT IS TYPE 1 DIABETIC, INSULIN DEPENDENT. HAD NOT BEEN TAKING HIS INSULIN RECENTLY. PATIENT WAS JUST IN ED TWO DAYS AGO FOR FALL AFTER HE WAS INTOXICATED. PATIENT WAS DISCHARGED AND TODAY HAD WELFARE CHECK SENT TO HIS HOUSE. PATIENT WAS TACHYPNEIC ON ARRIVAL TO ED. PATIENT'S BLOOD SUGAR WAS 353. PATIENT WAS PLACE ON DKA PROTOCOL. PATIENT STARTED ON INSULIN DRIP. PATIENT STATED HIS LAST DRINK WAS 3 DAYS AGO. PATIENT'S VITAL SIGNS NOW STABLE. PATIENT WAS EVALUATED BY ICU TEAM OF RESIDENTS, PER ICU RESIDENTS PATIENT HAD ULTRASOUND OF GALLBLADDER WHEN HE WAS HERE TWO DAYS AGO. PATIENT WILL NEED REPEAT ULTRASOUND OF GALLBLADDER BEFORE BEING CONSIDERED FOR ADMISSION TO ICU, PATIENT MAY NEED TRANSFER FOR ERCP. PATIENT IS AWARE OF PLAN OF CARE. VITALS ARE STABLE. PLAN OF CARE ONGOING
[2025-08-28 16:28] LABS: Lipase 119 U/L (12-53)
[2025-08-28 17:08] LABS: Reflex Lactate? Y
--- NOTE | 2025-08-28 17:08 | PC.NURSE ---
CALLED PHARMACY TO BRING MAINTENANCE FLUIDS FOR DKA PROTOCOL.
--- NOTE | 2025-08-28 17:35 | ESHP_ITS ---
<Statement entered by Mike Davalos MD - 08/28/25 19:08> I have reviewed the note and agree with the resident's assessment & plan with exceptions as below. I have personally reviewed labs, imaging, home meds/prior records, examined the patient, formulated and discussed management plan with my attending. 34-year-old male with past medical history of chronic back pain status post back surgery, IDDM, depression, anxiety, and alcohol use was admitted to the ICU on 08/28/2025 due to DKA. Patient stated that around 3 days ago he started having intractable nausea and vomiting as well as diarrhea. He stated that his last administered dose of insulin was yesterday as he lost his insulin supply today. Patient was also recently seen in the hospital in the ER on 08/26/2025 due to alcohol intoxication. Initially patient was normotensive and afebrile, mildly tachycardic. Initial labs were relevant for high anion gap metabolic acidosis with bicarb of less than 10, beta-hydroxybutyrate of greater than 6.4, ABG pH 7.19, pCO2 19, and HCO3 of 7. On assessment patient did not seem tachypneic and was breathing comfortably therefore did not require immediate intubation at the time. Patient is alcohol levels were less than 3 and states his last drink was delayed that he came in on 08/26/2025. Patient's bilirubin was 2.1 on 08/26/2025 and today was 5.1 with some icteric sclera, at that time abdominal ultrasound also showed cholelithiasis there for new gallbladder ultrasound was ordered today, no fever or RUQ pain. Otherwise no other complaints at this time. In summary: Patient will be admitted to the ICU for management of DKA #DKA #Lactic acidosis Initial anion gap of 32, bicarb less than 10, potassium 4.2, lactic acid 6 ABG showed pH of 7.19, pCO2 19, pO2 31, and HCO3 of 7. Beta hydroxy was greater than 6.4 Lipase was 119 Plan: Patient was started on DKA protocol 1 500 mL liter bag of sodium bicarb bolus x 1 Follow-up on repeat labs #Hyperbilirubinemia #Transaminitis #Enlarged common bile duct Patient's common bile duct was 0.8 cm on gallbladder ultrasound Alkaline phosphatase slightly elevated to 117, AST 220, ALT 86 Patient did not have any clinical signs of cholangitis without any fevers, right upper quadrant pain, or hemodynamic instability, but did have icteric sclera Could be secondary to biliary system distention in the setting of starvation versus alcohol use Plan: Will get repeat imaging in 48 hours once patient started on p.o. intake If patient deteriorates or spikes any fevers will consider starting Zosyn versus meropenem Monitor closely for now Mike Davalos PGY2 Disclaimer: Even though this this note was dictated by speech recognition and even though it was carefully revised there may still be minor errors in jewelry model maker due to voice recognition software. Documentation for date of: 08/28/25 HPI History of Present Illness Chief complaint: Generalized Weakness History of present illness: Mr. Shook is a 34 year old male with a history of insulin-dependent T2DM, chronic back pain s/p back surgery x2, cannabis induced hyperemesis, opiate dependence, depression, anxiety, and alcohol use disorder who presented to [facility] ED on 08/28 for generalized weakness and nausea/vomiting. Patient was admitted to ICU for management of DKA and alcohol withdrawal. Patient was seen after administration of morphine for his back pain, so some history was obtained via chart review and patient's stepfather at bedside as the patient could not clearly give proper history. According to the patient's stepfather, the patient had been having generalized weakness for about a year, however it did acutely worsen over the past 3 days. Additionally, the patient stepfather noted that starting about 4 months ago, the patient had been losing a significant amount of weight. According to the patient, about 4 months ago he was about 170 pounds, but now he is about 130 pounds. The patient does not feel as if anything significantly changed around this time, and notes that he does seem to be eating small bites as needed. The patient does endorse a history of alcohol use, but is unsure of how much he drinks. Patient believes that his last drink was about 3 days ago on 08/25. The patient is noted to have had a recent fall at home on 08/26, which resulted in severe back pain, prompting him to have loss of consciousness. The patient does also note worsening nausea/vomiting as well as epigastric abdominal pain in addition to his back pain. Patient noted that he does take insulin at home and took his insulin this morning, however he often forgets to take his insulin at home. ED course: Initial vitals were significant for heart rate of 120. Initial labs significant for hemoglobin 12.0, platelet count 108, sodium 127, chloride 85, bicarb less than 10, anion gap 25, creatinine 1.5, glucose 333, hemoglobin A1c 7.5, lactic acid 6.0, corrected calcium 10.9, total bilirubin 5.1, AST 220, ALT 86, alk phos 117, and lipase 119 Beta-hydroxybutyrate noted to be over 6.4 ABG significant for pH 7.19, pCO2 19, pO2 31, and bicarb 7 Urinalysis shows 4+ glucose, 4+ ketones, 3+ blood, and 71 urine RBC Ethyl alcohol less than 3.0 Patient was given ondansetron 4 mg IVP x 1 for nausea/vomiting, but then later required metoclopramide 10 mg IVP x 1 CIWA score noted to be 18 Patient was given lorazepam 2 mg IVP x 1 and morphine sulfate 4 mg IVP x 1 Patient was given 3 L LR bolus and started on regular insulin drip at 0.1 units/kg/h Past Surgical History: Spinal surgery x 2 Current Medication(s): Pending med rec Allergies: Per EMR, tramadol Family History: Non-contributory Review of Systems Review of Systems Systems Reviewed: All systems reviewed, normal except as documented Exam Vital Signs Temp Pulse Resp BP Pulse Ox O2 Del Method 98.7 F 92 19 135/98 H 100 Room Air 08/28/25 16:01 08/28/25 16:01 08/28/25 16:01 08/28/25 16:01 08/28/25 16:08/28/25 16:01 Narrative Exam Physical Exam: General: Sleepy, no acute distress. Oriented to self and location but believed time to be 2025. Skin: Warm, dry, intact. Head: Normocephalic, atraumatic. Eye: Slightly icteric conjunctiva, PERRL. Throat: Oral mucosa dry. No obvious lesions in oropharynx. Cardiovascular: Regular rate and rhythm, no murmur, +S1/S2. Respiratory: Lungs are clear to auscultation, respirations unlabored, no crackles, no wheezing. Gastrointestinal: Soft, nontender, non-distended. No guarding or rebound tenderness. Extremities: No edema, no cyanosis, no clubbing. Lower extremities lacking in muscle mass. Results: Labs 08/30/25 04:55 08/30/25 04:55 Labs: Short CBC 08/28/25 Range/Units 13:50 WBC 9.3 D (3.8-10.6) Thou/mm3 Hgb 12.0 L (13.5-16.0) g/dL Hct 35.6 L (41.0-53.0) % Plt Count 108 L D (140-440) Thou/mm3 BMP 08/28/25 13:50 Sodium 127 L Potassium 4.2 D Chloride 85 L Carbon Dioxide < 10.0 L* BUN 15 Creatinine 1.5 H D Glucose 333 H D Calcium 10.9 H Liver Function 08/28/25 Range/Units 13:50 Total Bilirubin 5.1 H D (0.3-1.2) mg/dL AST 220 H (0-34) U/L ALT 86 H (10-49) U/L Alkaline Phosphatase 117 H (46-116) U/L Albumin 5.9 H D (3.5-5.0) gm/dL Urine 08/28/25 Range/Units 15:41 Urine Color Yellow (Lt Yel-Yel) Urine Clarity Hazy (Clear/Hazy) Urine pH 6.0 (5.0-7.0) Ur Specific [place] 1.016 (1.001-1.035) Urine Protein 1+ A (Neg - Trace) Urine Glucose (UA) 4+ A (Negative) ABG Interpretation ABG results: 08/28/25 15:10 ABG pH 7.19 L* ABG pCO2 19 L* ABG pO2 31 L* ABG HCO3 7 L* ABG O2 Saturation 50 L ABG Base Excess -19 L Quality Measures Quality Measures VTE prophylaxis Medications Home Medications and Allergies Home Medications ?Medication ?Instructions ?Recorded ?Confirmed ?Type insulin glargine 100 unit/mL (3 20 unit subcut BID 08/29/25 History mL) subcutaneous pen (Basaglar KwikPen U-100 Insulin) insulin aspart U-100 100 unit/mL See Rx Instructions . Route .COMPLEX 05/23/23 08/29/25 History (3 mL) subcutaneous pen (Novolog FlexPen U-100 Insulin aspart) gabapentin 600 mg tablet 600 mg PO TID 09/18/2408/29 History fluoxetine 20 mg capsule 20 mg PO DAILY 08/29/2512/22 History lamotrigine 25 mg tablet 25 mg PO Q12H 08/29/2508/29 History tamsulosin 0.4 mg capsule 0.4 mg PO Q24H 08/29/2512/22 History Allergies Allergy/AdvReac Type Severity Reaction Status Date / Time ketorolac (From Toradol) Allergy Verified 08/26/25 06:35 tramadol Allergy Verified 08/26/25 06:35 Visit Medications Dextrose (Dextrose 50%-Water Inj 50 Ml Syringe) 25 ml IV [id number] PRN PRN Reason: Blood Sugar - Low Potassium Chloride (Kcl Ivpb) 10 meq in 100 mls @ 100 mls/hr IV .Q1H PRN PRN Reason: IF POTASSIUM LESS THAN 3.3 Stop: 09/27/25 13:44 Magnesium Sulfate (Magnesium Sulfate Ivpb) 2 gm in 50 mls @ 25 mls/hr IV .Q2H PRN PRN Reason: PER DKA PROTOCOL Stop: 09/27/25 13:44 Dextrose/Lactated Ringer's (D5-Lr) 1,000 mls @ 250 mls/hr IV .Q4H PRN PRN Reason: PER PROTOCOL Stop: 09/27/25 13:44 Potassium Chloride 20 meq/ (Lactated Ringer's) 1,010 mls @ 250 mls/hr IV .Q4H3M PRN PRN Reason: K LEVEL 3.3 TO 5.3mM/L Stop: 09/27/25 13:44 Potassium Chloride 40 meq/ (Lactated Ringer's) 1,020 mls @ 250 mls/hr IV .Q4H5M PRN PRN Reason: K LEVEL < 3.3 mM/L Stop: 09/27/25 13:44 Potassium Chloride 40 meq/ (Dextrose/Lactated Ringer's) 1,020 mls @ 250 mls/hr IV .Q4H5M PRN PRN Reason: K LEVEL < 3.3mM/L Stop: 09/27/25 13:44 Potassium Cl/Dextrose/Lact Ringer's (Kcl 20 Meq/L In D5-Lr) 20 meq in 1,000 mls @ 250 mls/hr IV .Q4H PRN PRN Reason: K LEVEL 3.3 TO 5.3 mM/L Potassium Chloride (Kcl Ivpb) 10 meq in 100 mls @ 50 mls/hr IV PRN PRN PRN Reason: K LEVEL 3.3 to 5.3 & BG > 200 Stop: 09/27/25 13:44 Potassium Phosphate (Pot Phos 15 Mmol In Ns 250 Ml) 15 mmol in 250 mls @ 62.5 mls/hr IV PRN PRN PRN Reason: Phosphate <= 1mg/dL Stop: 09/27/25 13:44 Sodium Phosphate 15 mmol/ (Sodium Chloride) 255 mls @ 62.5 mls/hr IV .Q4H5M PRN PRN Reason: Phosphate <= 1mg/dL and K> than 5.3 Stop: 09/27/25 13:44 Insulin Human Regular (Myxredlin) 100 unit in 100 mls @ 6.169 mls/hr IV .[id number] PRN; Protocol PRN Reason: PER PROTOCOL Stop: 09/27/25 14:43 Last Titration: 08/28/25 16:14 Dose: 0.1 unit/kg/hr, 6.169 mls/hr Sodium Bicarbonate (Sodium Bicarb Inj 8.4% Syr 50 Ml Syringe) 50 ml IV Q4HR PRN PRN Reason: For ph <= to 7.0 Stop: 09/27/25 13:44 Discontinued Medications Phenobarbital Sodium 130 mg/ (Sodium Chloride 12 ml) 0 mg IVP X1 ONE Stop: 08/28/25 14:51 Last Admin: 08/28/25 15:52 Dose: 130 mg Famotidine (Famotidine Inj 10 Mg/Ml Vial 2 Ml) 20 mg IVP X1 ONE Stop: 08/28/25 13:49 Last Admin: 08/28/25 13:57 Dose: 20 mg Lactated Ringer's (Lactated Ringers) 1,000 mls @ 999 mls/hr IV .Q1H1M ONE Stop: 08/28/25 14:48 Last Infusion: 08/28/25 14:46 Dose: Infused Lactated Ringer's (Lactated Ringers) 1,000 mls @ 999 mls/hr IV .Q1H1M ONE Stop: 08/28/25 14:48 Last Infusion: 08/28/25 15:52 Dose: Infused Lactated Ringer's (Lactated Ringers) 1,000 mls @ 999 mls/hr IV .Q1H1M ONE Stop: 08/28/25 15:43 Last Infusion: 08/28/25 16:54 Dose: Infused Lorazepam (Lorazepam 2 Mg/Ml Vial) 2 mg IVP X1 ONE Stop: 08/28/25 14:51 Last Admin: 08/28/25 14:58 Dose: 2 mg Metoclopramide HCl (Metoclopramide Inj 5 Mg/Ml Vial 2 Ml) 10 mg IVP X1 ONE; Protocol Stop: 08/28/25 14:51 Last Admin: 08/28/25 14:55 Dose: 10 mg Morphine Sulfate (Morphine Sulf Inj 4 Mg/Ml Vial) 4 mg IVP X1 ONE Stop: 08/28/25 14:51 Last Admin: 08/28/25 14:59 Dose: 4 mg Ondansetron HCl (Ondansetron Inj 2 Mg/Ml Inj 2 Ml) 4 mg IVP X1 ONE; Protocol Stop: 08/28/25 13:49 Last Admin: 08/28/25 13:56 Dose: 4 mg Assessment & Plan Plan Mr. Shook is a 34 year old male with a history of insulin-dependent T2DM, chronic back pain s/p back surgery x2, cannabis induced hyperemesis, opiate dependence, depression, anxiety, and alcohol use disorder who presented to [facility] ED on 08/28 for generalized weakness and nausea/vomiting. Patient was admitted to ICU for management of DKA and alcohol withdrawal. NEURO #Alcohol withdrawal Patient noted to have a significant history of alcohol use disorder that required hospitalization in the past. Patient is unsure how much alcohol he drinks currently, but notes that his last alcohol drink was about 3 days ago on 08/25. In ED, the patient was noted to have CIWA score of 18, prompting administration of Ativan and phenobarbital. On admission, patient was noted to have significant bilateral upper extremity tremors. Dx: Ethyl alcohol less than 3.0 on 08/28 Rx: CIWA protocol with midazolam every 4 hours as needed dose dependent on CIWA score Seizure precautions as needed Thiamine 100 mg p.o. twice daily, stop date 09/02 Folic acid 1 mg p.o. twice daily, stop date 09/02 student services dean referral for alcohol use disorder CXR ordered 08/28 to rule out possible aspiration #Acute encephalopathy 2/2 opiates Patient's mentation noted to be altered and poorly responsive compared to his baseline as per german. Likely secondary to opiate given in ED as per patient seemed drowsy, but possible contributions from DKA and alcohol withdrawal. Rx: Will continue to monitor, plan to intubate if GCS less than 8 and/or if significant respiratory distress with impending respiratory fatigue CARDIO #No active problems PULM #No active problems GI #Enlarged common bile duct #Hyperbilirubinemia Patient noted to have epigastric abdominal pain and history of cholelithiasis without cholecystitis. Icteric sclera noted on admission. Lower suspicion for choledocolithiasis as cause of enlarged CBD given US gallbladder negative for gallstones and patient did not present with a septic picture. DDx: Starvation induced CBD dilation, Choledocolithiasis Dx: Ultrasound gallbladder taken 08/28 noted abnormally enlarged CBD 0.8 cm Rx: Will order repeat ultrasound gallbladder on 08/30 RRx: If patient condition deteriorates, will order MRCP to further investigate dilated CBD & start Zosyn vs meropenem #Transaminitis Patient does have a history of alcohol abuse. Initial labs to support an alcoholic hepatitis picture given AST to AST at a 2:1 ratio. DDx: Alcoholic hepatitis, viral hepatitis Dx: Initial labs showed AST 220, ALT 86, ALP 117, and lipase 119 MELD Score (calculated from coagulation panel 08/26): 18 points - 6% estimated 3 month mortality Maddrey Score (calculated from coagulation panel 08/26): 3.3 points - good prognosis Ultrasound gallbladder taken 08/28 does show a liver measuring 18.9 cm with fatty infiltration and irregular contour Rx: Continue to monitor RRx: If worsening, will consider viral hepatitis panel, noted that panel from 09/2022 negative NEPHRO #HAGMA, likely 2/2 DKA and #Lactic acidosis, likely 2/2 starvation #Pseudohyponatremia, likely 2/2 hyperglycemic hyperosmolarity DDx: Ethylene glycol toxicity, salicylate toxicity Dx: Initial labs on admission significant for sodium 127, chloride 85, bicarb less than 10, anion gap 25, and lactic acid 6.0 Sodium corrected for hyperglycemia estimated to be 133 Patient endorsed losing 40 pounds over the last 4 months without any endorsed changes in diet, however patient does endorse generalized poor appetite, which is possible source of lactic acidosis Beta-hydroxybutyrate noted to be over 6.4 on 08/28 ABG 08/28 significant for pH 7.19, pCO2 19, pO2 31, and bicarb 7 Rx: 1 L sodium bicarb given on 08/28 Will continue to monitor Referral to registered dietitian ordered on 08/28 Thiamine 100 mg p.o. twice daily, stop date 09/02 Folic acid 1 mg p.o. twice daily, stop date 09/02 #KWABENA, likely prerenal Dx: Patient noted to have creatinine of 1.5 on admission on 08/28, noted that his baseline creatinine is 0.7 Rx: Patient was given 3 L LR in ED Will continue to monitor with renal function labs every 4 hours RRx: If renal function continues to worsen despite adequate hydration, will consider nephrology consultation URO #No active problems HEME #Anemia, chronic, normocytic DDx: Mixed anemia, anemia of chronic disease, iron deficiency anemia Dx: Hemoglobin on admission 08/28 noted to be 12.0, which appears to be baseline for the patient MCV on admission noted to be 92 Rx: Will continue to monitor with daily labs Will transfuse if hemoglobin less than 7 per protocol Patient to follow-up outpatient after resolution of acute illness ENDO #DKA #Insulin dependent T2DM Patient does have a history of insulin-dependent type 2 diabetes mellitus and does take insulin at home, however he is not always compliant. Patient does endorse worsening of his generalized weakness over the past 3 days. Dx: Beta-hydroxybutyrate noted to be over 6.4 on 08/28 Initial labs on 08/28 noted glucose of 333 and hemoglobin A1c of 7.5% Anion gap of 25 on 08/28 on admission Urinalysis shows 4+ glucose, 4+ ketones, 3+ blood, and 71 urine RBC Rx: DKA protocol 500 mL of sodium HCO3 bolus x 1 on 08/28 Will trend beta-hydroxybutyrate daily Will trend renal function every 4 hours Patient NPO #Hypercalcemia DDx: Hypercalcemia secondary to hemoconcentration, hyperparathyroidism, hypercalcemia of malignancy (less likely given only minor increase of serum calcium) Dx: Corrected calcium 10.9 on initial labs 08/28 Rx: Will continue to monitor Will recommend further outpatient workup if patient remains stable ID #No active problems MSK #Chronic back pain Patient does have a history of chronic back pain and has received surgery to his spine twice. Rx: Will continue to monitor Acetaminophen 650 mg as needed for pain 1-3 RRx: If patient's pain becomes intolerable, we will consider stronger analgesics, will avoid tramadol given allergy noted on EMR SKIN #No active problems DVT prophylaxis: Heparin GI prophylaxis: Protonix Diet: NPO Gaffney: N/A Lines: Peripheral IV Antibiotics: N/A CODE STATUS: FULL Vent Status: N/A Reason for ICU care: DKA Patient plan of care was discussed with the attending commissioner public works, Dr. Wood and senior resident Dr. Bragg (PGY-2). Ac Flannery, PGY-1 Attending Provider Attestation/Addendum Patient was last seen on date of service. I was contacted by the above resident in regards to the patient being admitted to the ICU which is appropriate. Patient with multiple metabolic derangements including presence of diabetic ketoacidosis likely lactic acidosis secondary to alcohol use. Patient with component of hepatitis likely secondary to alcohol use no imaging suggestive of CBD dilation a potential etiology related to include choledocholithiasis though no stone was identified. CBD dilation should be further evaluated if he does not improve with serial imaging in coming days or if biochemical markers of liver function testing show worsening despite cessation of alcohol exposure patient is not a candidate for steroids for alcoholic hepatitis at this point but is need antibiotics for biliary infection. I remain available overnight for any questions or concerns that may arise and we will see the patient formally tomorrow during rounds with housestaff.
[2025-08-28 17:37] LABS: Lactic Acid, 3 HR 2.7 mMol/L (0.4-2.0)
--- NOTE | 2025-08-28 17:41 | PC.NURSE ---
PER JONATAN BOJORQUEZ GIVE SODIUM BICARB FLUID THAT IS ORDERED BEFORE STARTING THE LR/POTASSIUM MAINTENANCE FLUIDS
[2025-08-28] MEDS: Sodium Bicarb 8.4% 50ml Vial* 88.23 MEQ in DEXTROSE 5%-WATER 500 ML 999 MEQ IV (17:59)
[2025-08-28] MEDS: HEPARIN SOD INJ 5000 UNIT/ML VIAL SC (18:05)
--- NOTE | 2025-08-28 18:21 | XR_ITS ---
EXAMINATION: AP chest single view TECHNIQUE: AP portable upright chest single view Date and time: August 28, 2025, 1833 hours, comparison August 26, 2025 INDICATIONS: Difficulty breathing tachypnea nausea vomiting today FINDINGS: Normal heart size The lungs are clear. The osseous structures are intact IMPRESSION: No active disease
[2025-08-28 18:42] LABS: Albumin, Serum 4.8 gm/dL (3.5-5.0); Anion Gap 25 (7-16); BUN/Creatinine Ratio 18 Ratio (12-20); Blood Urea Nitrogen 16 mg/dL (9-23); Calcium 9.5 mg/dL (8.3-10.6); Calcium (Corrected) 9.5 mg/dL (8.5-10.1); Chloride 96 mMol/L (98-107); Creatinine (Component) 0.9 mg/dL (0.6-1.3); Estimated Creatinine Clearance 99.0 mL/min (>60); Glucose 130 mg/dL (74-106); Magnesium 1.6 mg/dL (1.6-2.6); Osmolality,Calculated 267 (275-295); Phosphorous 1.1 mg/dL (2.4-5.1); Potassium 3.3 mMol/L (3.4-5.1); Sodium 132 mMol/L (136-145); eGFR > 60 See Note
[2025-08-28 18:54] LABS: Carbon Dioxide 11.3 mMol/L (20.0-31.0)
[2025-08-28] MEDS: POT CHL ADDITIVE 20 MEQ in RINGERS LACTATED 1000 ML 1,000 ML 250 MEQ IV (18:55)
[2025-08-28 18:59] LABS: Phosphorous 1.1 mg/dL (2.4-5.1)
[2025-08-28] MEDS: POT CHL ADDITIVE 40 MEQ in DEXTROSE 5%-LACTATED RINGERS 1,000 ML 250 MEQ IV ×2 (19:09→23:04)
[2025-08-28] MEDS: Magnesium Sulfate 4 GM Ivpb 4 GM/50 ML BAG IV (20:00)
[2025-08-28] MEDS: POT PHOS 15 mMol in NS 250 ML 15 MMOL/250 ML BAG 62.5 MMOL IV ×2 (20:11→23:04)
[2025-08-28] MEDS: THIAMINE 100 MG TABLET PO (20:26)
[2025-08-28] MEDS: FOLIC ACID 1 MG TABLET PO (20:26)
[2025-08-28 20:30] LABS: INR 1.3 (0.9-1.3); Prothrombin Time 14.0 Seconds (9.0-12.2)
[2025-08-28 21:50] LABS: Base Excess, Venous 2 (-3-3); Lactate (Lactic Acid) 2.2 mMol/L (0.4-2.0); O2 Saturation, Venous 101 % (96-97); PCO2, Venous 21 mmHg (36-56); PO2, Venous 174 mmHg (15-58); pH, Venous 7.64 (7.33-7.66)
[2025-08-28 22:21] LABS: Albumin, Serum 4.5 gm/dL (3.5-5.0); Anion Gap 16 (7-16); BUN/Creatinine Ratio 8 Ratio (12-20); Blood Urea Nitrogen 7 mg/dL (9-23); Calcium 9.3 mg/dL (8.3-10.6); Calcium (Corrected) 9.3 mg/dL (8.5-10.1); Carbon Dioxide 18.8 mMol/L (20.0-31.0); Chloride 95 mMol/L (98-107); Creatinine (Component) 0.9 mg/dL (0.6-1.3); Estimated Creatinine Clearance 99.0 mL/min (>60); Glucose 182 mg/dL (74-106); Magnesium 2.3 mg/dL (1.6-2.6); Osmolality,Calculated 263 (275-295); Potassium 3.4 mMol/L (3.4-5.1); Sodium 130 mMol/L (136-145); eGFR > 60 See Note
[2025-08-28 22:31] LABS: Phosphorous 0.8 mg/dL (2.4-5.1)
[2025-08-29] VITALS (19 sets, daily range): BP systolic 106–136; BP diastolic 73–96; PULSE 75–107; RESP 6–100; TEMP 36.6–36.9; O2SAT 97–100
[2025-08-29 00:48] LABS: Reflex Lactate? Y
[2025-08-29 01:40] LABS: Albumin, Serum 4.7 gm/dL (3.5-5.0); BUN/Creatinine Ratio 11 Ratio (12-20); Blood Urea Nitrogen 9 mg/dL (9-23); Calcium 9.4 mg/dL (8.3-10.6); Calcium (Corrected) 9.4 mg/dL (8.5-10.1); Carbon Dioxide 22.7 mMol/L (20.0-31.0); Creatinine (Component) 0.8 mg/dL (0.6-1.3); Estimated Creatinine Clearance 111.4 mL/min (>60); Glucose 115 mg/dL (74-106); Magnesium 2.2 mg/dL (1.6-2.6); Phosphorous 1.0 mg/dL (2.4-5.1); eGFR > 60 See Note
[2025-08-29] MEDS: METOCLOPRAMIDE INJ 5 MG/ML VIAL 2 ML 10 MG IVP (01:43)
[2025-08-29] MEDS: MIDAZOLAM INJ 1 MG/ML VIAL 2 ML IVP ×2 (01:43→08:33)
[2025-08-29 01:45] LABS: Lactate (Lactic Acid) 2.3 mMol/L (0.4-2.0)
[2025-08-29 01:51] LABS: Anion Gap 16 (7-16); Chloride 95 mMol/L (98-107); Osmolality,Calculated 267 (275-295); Potassium 3.6 mMol/L (3.4-5.1); Sodium 134 mMol/L (136-145)
[2025-08-29] MEDS: KCL 20 mEq/L in D5-LR 20 MEQ/1,000 ML BAG 250 MEQ IV (03:20)
[2025-08-29] MEDS: POTASSIUM CHL 10 mEq IVPB 10 MEQ/100 ML BAG 50 MEQ IV (03:23)
[2025-08-29] MEDS: POT PHOS 15 mMol in NS 250 ML 15 MMOL/250 ML BAG 62.5 MMOL IV ×3 (04:03→11:13)
[2025-08-29 04:43] LABS: Reflex Lactate? Y
[2025-08-29] MEDS: MORPHINE SULF INJ 4 MG/ML VIAL 1 MG IVP (05:12)
[2025-08-29 05:35] LABS: Lactate (Lactic Acid) 2.1 mMol/L (0.4-2.0)
[2025-08-29] MEDS: RINGERS LACTATED 500 ML 500 ML 999 ML IV ×2 (05:48→14:21)
[2025-08-29] MEDS: ONDANSETRON INJ 2 MG/ML INJ 2 ML 4 MG IVP (05:54)
[2025-08-29 05:58] LABS: Basophils # (Auto) 0.0 Thou/mm3 (0.0-0.2); Basophils % (Auto) 0 % (0-2.5); Eosinophils # (Auto) 0.0 Thou/mm3 (0.0-0.5); Eosinophils % (Auto) 0 % (0-10); Hematocrit 29.7 % (41.0-53.0); Hemoglobin 10.7 g/dL (13.5-16.0); Immature Granulocytes Auto 0.02 Thou/mm3 (0.00-0.00); Lymphocytes # (Auto) 1.2 Thou/mm3 (1.0-4.8); Lymphocytes % (Auto) 15 % (10-50); Mean Corpuscular HGB Conc 36.0 g/dl (31.0-37.0); Mean Corpuscular Hemoglobin 31.2 pg (25.0-35.0); Mean Corpuscular Volume 87 fL (80-100); Monocytes # (Auto) 0.7 Thou/mm3 (0.0-0.8); Monocytes % (Auto) 10 % (0-12); Neutrophils # (Auto) 5.5 Thou/mm3 (1.8-7.7); Neutrophils % (Auto) 74 % (37-80); Nucleated Red Blood Cell # 0.03 Thou/mm3 (0.00-0.00); Nucleated Red Blood Cell % 0 /100 WBC (0); Platelet Count 101 Thou/mm3 (140-440); RDW Standard Deviation 39.4 fL (35.1-43.9); Red Blood Count 3.43 Miln/mm3 (4.50-5.90); White Blood Count 7.5 Thou/mm3 (3.8-10.6)
[2025-08-29 06:06] LABS: Albumin, Serum 4.8 gm/dL (3.5-5.0); Anion Gap 16 (7-16); BUN/Creatinine Ratio 7 Ratio (12-20); Blood Urea Nitrogen < 5 mg/dL (9-23); Calcium 9.5 mg/dL (8.3-10.6); Calcium (Corrected) 9.5 mg/dL (8.5-10.1); Carbon Dioxide 25.3 mMol/L (20.0-31.0); Chloride 93 mMol/L (98-107); Creatinine (Component) 0.7 mg/dL (0.6-1.3); Estimated Creatinine Clearance 127.3 mL/min (>60); Glucose 113 mg/dL (74-106); Magnesium 1.8 mg/dL (1.6-2.6); Osmolality,Calculated 266 (275-295); Phosphorous 1.2 mg/dL (2.4-5.1); Potassium 3.4 mMol/L (3.4-5.1); Sodium 134 mMol/L (136-145); eGFR > 60 See Note
[2025-08-29 07:57] LABS: Base Excess, Venous 5 (-3-3); Lactate (Lactic Acid) 2.0 mMol/L (0.4-2.0); O2 Saturation, Venous 100 % (96-97); PCO2, Venous 37 mmHg (36-56); PO2, Venous 168 mmHg (15-58); pH, Venous 7.50 (7.33-7.66)
[2025-08-29 08:06] LABS: Beta Hydroxybutyrate 2.3 mmol/L (<0.6)
[2025-08-29] MEDS: Magnesium Sulfate 2 GM Ivpb 2 GM/50 ML BAG IV (08:09)
[2025-08-29] MEDS: POT CHL ADDITIVE 20 MEQ in DEXTROSE 5%-LACTATED RINGERS 1,000 ML 250 MEQ IV (08:13)
[2025-08-29] MEDS: FOLIC ACID 1 MG TABLET PO ×2 (08:16→20:21)
[2025-08-29] MEDS: TAMSULOSIN HCL 0.4 MG CAPSULE PO (08:16)
[2025-08-29] MEDS: HEPARIN SOD INJ 5000 UNIT/ML VIAL SC ×2 (08:16→20:22)
[2025-08-29] MEDS: THIAMINE 100 MG TABLET PO ×2 (08:16→20:21)
--- NOTE | 2025-08-29 08:21 | ESPR_ITS ---
<Statement entered by Mike Davalos MD - 08/29/25 17:38> I have reviewed the note and agree with the resident's assessment & plan with exceptions as below. I have personally reviewed labs, imaging, home meds/prior records, examined the patient, formulated and discussed management plan with my attending Patient was seen and examined at bedside this morning. No acute overnight events. Patient's anion gap closed and lactic acid down trended after additional 500 cc bolus overnight. Patient does not have any further episodes of nausea or vomiting. His gap is closed 23 transition to insulin degludec subcu 10 units daily and along with insulin lispro 2 units 3 times daily with meals and sliding scale on top. Lactic did slightly uptrend, gave another 500 cc bolus of LR and if continues to uptrend consider tach deficiency as patient does have a history of alcohol use and also has been having poor nutrition. LFTs and T bilirubin down trended and patient does not have any right upper quadrant pain or did not spike any fevers. Sclera still mildly icteric. Would recommend gallbladder ultrasound tomorrow if not the next day. At this time patient was stable enough to be downgraded to medical floors. Mike Davalos PGY2 Disclaimer: Even though this this note was dictated by speech recognition and even though it was carefully revised there may still be minor errors in black top spreader machine operator due to voice recognition software. Documentation for date of: 08/29/25 Subjective Subjective Interval history: Mr. Shook is a 34 year old male with a history of insulin-dependent T2DM, chronic back pain s/p back surgery x2, cannabis induced hyperemesis, opiate dependence, depression, anxiety, and alcohol use disorder who presented to [facility] ED on 08/28 for generalized weakness and nausea/vomiting. Patient was admitted to ICU for management of DKA and alcohol withdrawal. Patient was seen after administration of morphine for his back pain, so some history was obtained via chart review and patient's stepfather at bedside as the patient could not clearly give proper history. According to the patient's stepfather, the patient had been having generalized weakness for about a year, however it did acutely worsen over the past 3 days. Additionally, the patient stepfather noted that starting about 4 months ago, the patient had been losing a significant amount of weight. According to the patient, about 4 months ago he was about 170 pounds, but now he is about 130 pounds. The patient does not feel as if anything significantly changed around this time, and notes that he does seem to be eating small bites as needed. The patient does endorse a history of alcohol use, but is unsure of how much he drinks. Patient believes that his last drink was about 3 days ago on 08/25. The patient is noted to have had a recent fall at home on 08/26, which resulted in severe back pain, prompting him to have loss of consciousness. The patient does also note worsening nausea/vomiting as well as epigastric abdominal pain in addition to his back pain. Patient noted that he does take insulin at home and took his insulin this morning, however he often forgets to take his insulin at home. ED course: Initial vitals were significant for heart rate of 120. Initial labs significant for hemoglobin 12.0, platelet count 108, sodium 127, chloride 85, bicarb less than 10, anion gap 25, creatinine 1.5, glucose 333, hemoglobin A1c 7.5, lactic acid 6.0, corrected calcium 10.9, total bilirubin 5.1, AST 220, ALT 86, alk phos 117, and lipase 119 Beta-hydroxybutyrate noted to be over 6.4 ABG significant for pH 7.19, pCO2 19, pO2 31, and bicarb 7 Urinalysis shows 4+ glucose, 4+ ketones, 3+ blood, and 71 urine RBC Ethyl alcohol less than 3.0 Patient was given ondansetron 4 mg IVP x 1 for nausea/vomiting, but then later required metoclopramide 10 mg IVP x 1 CIWA score noted to be 18 Patient was given lorazepam 2 mg IVP x 1 and morphine sulfate 4 mg IVP x 1 Patient was given 3 L LR bolus and started on regular insulin drip at 0.1 units/kg/h Past Surgical History: Spinal surgery x 2 Current Medication(s): Pending med rec Allergies: Per EMR, tramadol Family History: Non-contributory Interval History: 08/29/2025 No acute events overnight. Anion gap decreased to 16, however consistently remained at 16 overnight. Potassium phosphate was started and patient was given 500 mL of LR in light of electrolyte abnormalities overnight. Patient feels better this morning and is much more coherent with his speech. The patient mentions how he is usually very consistent with his insulin at home, and takes 20 units of long-acting insulin and has a short acting insulin on board, usually taking up to 70 units total daily. Patient does not report any pain this morning and does not seem to be in any acute distress. The patient still feels weak but does endorse improvement in his nausea and vomiting. The other complaint the patient has today is that he would really like to have something to eat. When asked about if he has had any changes in his diet given the concern for his 40 pound weight loss over the last 4 months, the patient noted that he did try a carnivore diet about 4 months ago, and continued for 2 months until reverting back to his regular high-protein diet due to significant constipation on a carnivore diet. During this 4-month period, the patient does not note any decrease in appetite and has only recently been experiencing his nausea and vomiting has made it difficult to eat. Will plan to downgrade the patient today if patient is able to achieve closing of his anion gap x 2 in addition to tolerating oral intake. Can discontinue Protonix if tolerating oral diet over the next 24 hours. The patient required 14 units of insulin over the past 24 hours, so insulin degludec 10 units was given subcutaneously in preparation for downgrading the patient to medical floors. Will continue to recommend ultrasound of his gallbladder to be repeated on 08/30 as well as recommending physical therapy to work with the patient given reported frequent falls at home and generalized weakness. Exam Vital Signs Temp Pulse Resp BP Pulse Ox O2 Del Method 98.2 F 88 17 120/84 100 Room Air 08/29/25 08:00 08/29/25 08:00 08/29/25 08:00 08/29/25 08:00 08/29/25 08:00 08/29/25 08:00 Narrative Exam Physical Exam: General: Alert, no acute distress. Skin: Warm, dry, intact. Head: Normocephalic, atraumatic. Eye: Icteric conjunctiva, PERRL. Throat: Oral mucosa dry. No obvious lesions in oropharynx. Cardiovascular: Regular rate and rhythm, no murmur, +S1/S2. Respiratory: Lungs are clear to auscultation, respirations unlabored, no crackles, no wheezing. Gastrointestinal: Soft, nontender, non-distended. No guarding or rebound tenderness. Extremities: No edema, no cyanosis, no clubbing. 2+ radial pulse bilaterally, 2+ pedal pulse bilaterally. Lower extremities lacking in muscle mass. Neuro: No focal deficits observed. Conversant, moving all extremities. No overt cerebellar signs/incoordination. Psychiatric: Cooperative, appropriate affect. Objective Labs 08/30/25 04:55 08/30/25 04:55 Labs: Laboratory Results - last 24 hr 08/28/25 08/28/25 08/28/25 13:50 15:10 15:20 WBC 9.3 D RBC 3.88 L Hgb 12.0 L Hct 35.6 L MCV 92 MCH 30.9 MCHC 33.7 RDW Std Deviation 44.2 H Plt Count 108 L D Neut % (Auto) 82 H Lymph % (Auto) 7 L Mcduff[place] % (Auto) 10 Eos % (Auto) 0 Baso % (Auto) 0 Neut # (Auto) 7.7 Lymph # (Auto) 0.7 L Mcduffie # (Auto) 0.9 H Eos # (Auto) 0.0 Baso # (Auto) 0.0 Immature Gran # (Auto) 0.07 H Absolute Nucleated RBC 0.00 Immature Gran % 1 H Nucleated RBC % 0 PT 14.0 H INR 1.3 Puncture Site Right Radial ABG pH 7.19 L* ABG pCO2 19 L* ABG pO2 31 L* ABG HCO3 7 L* ABG O2 Saturation 50 L ABG Base Excess -19 L VBG pH VBG pCO2 VBG pO2 VBG O2 Sat (Emmanuel) VBG Base Excess FiO2 21 Sodium 127 L Potassium 4.2 D Chloride 85 L Carbon Dioxide < 10.0 L* Anion Gap 32 H BUN 15 Creatinine 1.5 H D Estim Creat Clear Calc 59.4 L eGFR > 60 BUN/Creatinine Ratio 10 L Glucose [address] Glu mg/dL 169 H Hemoglobin A1c 7.5 H Calculated Osmolality 269 L Lactic Acid 6.0 H* Calcium 10.9 H Corrected Calcium 10.9 H Phosphorus 4.2 Magnesium 2.1 Total Bilirubin 5.1 H D Direct Bilirubin AST 220 H ALT 86 H Alkaline Phosphatase 117 H Total Protein 9.2 H Albumin 5.9 H D Globulin 3.3 Albumin/Globulin Ratio 1.8 Lipase 119 H D Beta-Hydroxybutyrate/Acetoacetate > 6.4 H Ur Collection Type Urine Color Urine Clarity Urine pH Ur Specific [place] Urine Protein Urine Glucose (UA) Urine Ketones Urine Blood Urine Nitrite Urine Bilirubin Urine Urobilinogen (Auto) Ur Leukocyte Esterase Urine RBC Urine WBC Ur Squamous Epith Cells Urine Bacteria Hyaline Casts Ur Culture Indicated? Ethyl Alcohol < 3.0 08/28/25 08/28/25 08/28/25 15:41 17:30 17:30 WBC RBC Hgb Hct MCV MCH MCHC RDW Std Deviation Plt Count Neut % (Auto) Lymph % (Auto) [place]duff[place] % (Auto) Eos % (Auto) Baso % (Auto) Neut # (Auto) Lymph # (Auto) Mcduffie # (Auto) Eos # (Auto) Baso # (Auto) Immature Gran # (Auto) Absolute Nucleated RBC Immature Gran % Nucleated RBC % PT INR Puncture Site ABG pH ABG pCO2 ABG pO2 ABG HCO3 ABG O2 Saturation ABG Base Excess VBG pH VBG pCO2 VBG pO2 VBG O2 Sat (Emmanuel) VBG Base Excess FiO2 Sodium 132 L Potassium 3.3 L D Chloride 96 L Carbon Dioxide 11.3 L* Anion Gap 25 H BUN 16 Creatinine 0.9 D Estim Creat Clear Calc 99.0 eGFR > 60 BUN/Creatinine Ratio 18 Glucose [address] Glu mg/dL Hemoglobin A1c Calculated Osmolality 267 L Lactic Acid 2.7 H Calcium 9.5 Corrected Calcium 9.5 Phosphorus 1.1 L 1.1 L Magnesium 1.6 Total Bilirubin Direct Bilirubin AST ALT Alkaline Phosphatase Total Protein Albumin 4.8 D Globulin Albumin/Globulin Ratio Lipase Beta-Hydroxybutyrate/Acetoacetate Ur Collection Type Clean Catch Urine Color Yellow Urine Clarity Hazy Urine pH 6.0 Ur Specific [place] 1.016 Urine Protein 1+ A Urine Glucose (UA) 4+ A Urine Ketones 4+ A Urine Blood 3+ A Urine Nitrite Negative Urine Bilirubin Negative Urine Urobilinogen (Auto) 2.0 Ur Leukocyte Esterase Negative Urine RBC 71 H Urine WBC < 1 Ur Squamous Epith Cells 0 Urine Bacteria None Hyaline Casts 1 Ur Culture Indicated? Not Indicated Ethyl Alcohol 08/28/25 08/29/25 08/29/25 21:40 01:31 PST 05:22 WBC 7.5 RBC 3.43 L Hgb 10.7 L Hct 29.7 L MCV 87 MCH 31.2 MCHC 36.0 RDW Std Deviation 39.4 Plt Count 101 L Neut % (Auto) 74 Lymph % (Auto) 15 [place]duff[place] % (Auto) 10 Eos % (Auto) 0 Baso % (Auto) 0 Neut # (Auto) 5.5 Lymph # (Auto) 1.2 [place]duffie # (Auto) 0.7 Eos # (Auto) 0.0 Baso # (Auto) 0.0 Immature Gran # (Auto) 0.02 H Absolute Nucleated RBC 0.03 H Immature Gran % 0 Nucleated RBC % 0 PT INR Puncture Site ABG pH ABG pCO2 ABG pO2 ABG HCO3 ABG O2 Saturation ABG Base Excess VBG pH 7.64 VBG pCO2 21 L VBG pO2 174 H VBG O2 Sat (Emmanuel) 101 H VBG Base Excess 2 FiO2 Sodium 130 L 134 L 134 L Potassium 3.4 3.6 3.4 Chloride 95 L 95 L 93 L Carbon Dioxide 18.8 L 22.7 25.3 Anion Gap 16 16 16 BUN 7 L 9 < 5 L Creatinine 0.9 0.8 0.7 Estim Creat Clear Calc 99.0 111.4 127.3 eGFR > 60 > 60 > 60 BUN/Creatinine Ratio 8 L 11 L 7 L Glucose 182 H D 115 H D [address] Glu mg/dL Hemoglobin A1c Calculated Osmolality 263 L 267 L 266 L Lactic Acid 2.2 H 2.3 H 2.1 H Calcium 9.3 9.4 9.5 Corrected Calcium 9.3 9.4 9.5 Phosphorus 0.8 L* 1.0 L 1.2 L Magnesium 2.3 2.2 1.8 Total Bilirubin Direct Bilirubin AST ALT Alkaline Phosphatase Total Protein Albumin 4.5 4.7 4.8 Globulin Albumin/Globulin Ratio Lipase Beta-Hydroxybutyrate/Acetoacetate Ur Collection Type Urine Color Urine Clarity Urine pH Ur Specific [place] Urine Protein Urine Glucose (UA) Urine Ketones Urine Blood Urine Nitrite Urine Bilirubin Urine Urobilinogen (Auto) Ur Leukocyte Esterase Urine RBC Urine WBC Ur Squamous Epith Cells Urine Bacteria Hyaline Casts Ur Culture Indicated? Ethyl Alcohol 08/29/25 07:41 WBC RBC Hgb Hct MCV MCH MCHC RDW Std Deviation Plt Count Neut % (Auto) Lymph % (Auto) [place]duff[place] % (Auto) Eos % (Auto) Baso % (Auto) Neut # (Auto) Lymph # (Auto) [place]duffie # (Auto) Eos # (Auto) Baso # (Auto) Immature Gran # (Auto) Absolute Nucleated RBC Immature Gran % Nucleated RBC % PT INR Puncture Site ABG pH ABG pCO2 ABG pO2 ABG HCO3 ABG O2 Saturation ABG Base Excess VBG pH 7.50 VBG pCO2 37 D VBG pO2 168 H VBG O2 Sat (Emmanuel) 100 H VBG Base Excess 5 H FiO2 Sodium Potassium Chloride Carbon Dioxide Anion Gap BUN Creatinine Estim Creat Clear Calc eGFR BUN/Creatinine Ratio Glucose Estimated Ave Glu mg/dL Hemoglobin A1c Calculated Osmolality Lactic Acid 2.0 Calcium Corrected Calcium Phosphorus Magnesium Total Bilirubin Cancelled Direct Bilirubin Cancelled AST Cancelled ALT Cancelled Alkaline Phosphatase Cancelled Total Protein Cancelled Albumin Cancelled Globulin Albumin/Globulin Ratio Lipase Beta-Hydroxybutyrate/Acetoacetate 2.3 H Ur Collection Type Urine Color Urine Clarity Urine pH Ur Specific [place] Urine Protein Urine Glucose (UA) Urine Ketones Urine Blood Urine Nitrite Urine Bilirubin Urine Urobilinogen (Auto) Ur Leukocyte Esterase Urine RBC Urine WBC Ur Squamous Epith Cells Urine Bacteria Hyaline Casts Ur Culture Indicated? Ethyl Alcohol ABG Interpretation ABG results: 08/28/25 08/28/25 08/29/25 15:10 21:40 07:41 ABG pH 7.19 L* ABG pCO2 19 L* ABG pO2 31 L* ABG HCO3 7 L* ABG O2 Saturation 50 L ABG Base Excess -19 L VBG pH 7.64 7.50 VBG pCO2 21 L 37 D VBG pO2 174 H 168 H VBG Base Excess 2 5 H Quality Measures Quality Measures VTE prophylaxis Assessment & Plan Assessment Current Active Medications: Generic Name Dose Route Start Last Admin Trade Name Freq PRN Reason Stop Dose Admin Acetaminophen 650 mg 08/28/25 17:19 Acetaminophen 325 Mg Tablet PO 09/27/25 17:18 Q6H PRN Fever >100.4 or pain 1-3 Dextrose 25 ml 08/28/25 13:45 Dextrose 50%-Water Inj 50 Ml Syringe IV [id number] PRN Blood Sugar - Low Folic Acid 1 mg 08/28/25 21:00 08/29/25 08:16 Folic Acid 1 Mg Tablet PO 09/02/25 20:59 1 mg BID SOTO Administration Heparin Sodium (Porcine) 5,000 unit 08/28/25 17:30 08/29/25 08:16 Heparin Sod Inj 5000 Unit/Ml Vial SC 09/11/25 17:29 5,000 unit Q12HR SOTO Administration Potassium Chloride 10 meq in 100 mls @ 100 mls/hr 08/28/25 13:45 Kcl Ivpb IV 09/27/25 13:44 .Q1H PRN IF POTASSIUM LESS THAN 3.3 Magnesium Sulfate 2 gm in 50 mls @ 25 mls/hr 08/28/25 13:45 Magnesium Sulfate Ivpb IV 09/27/25 13:44 .Q2H PRN PER DKA PROTOCOL Dextrose/Lactated Ringer's 1,000 mls @ 250 mls/hr 08/28/25 13:45 D5-Lr IV 09/27/25 13:44 .Q4H PRN PER PROTOCOL Potassium Chloride 20 meq/ 1,010 mls @ 250 mls/hr 08/28/25 13:45 08/28/25 19:08 Lactated Ringer's IV 09/27/25 13:44 0 mls/hr .Q4H3M PRN Infusion K LEVEL 3.3 TO 5.3mM/L Potassium Chloride 40 meq/ 1,020 mls @ 250 mls/hr 08/28/25 13:45 Lactated Ringer's IV 09/27/25 13:44 .Q4H5M PRN K LEVEL < 3.3 mM/L Potassium Chloride 40 meq/ 1,020 mls @ 250 mls/hr 08/28/25 13:45 08/28/25 23:04 Dextrose/Lactated Ringer's IV 09/27/25 13:44 250 mls/hr .Q4H5M PRN Administration K LEVEL < 3.3mM/L Potassium Chloride 10 meq in 100 mls @ 50 mls/hr 08/28/25 13:45 08/29/25 03:23 Kcl Ivpb IV 09/27/25 13:44 50 mls/hr PRN PRN Administration K LEVEL 3.3 to 5.3 & BG > 200 Potassium Phosphate 15 mmol in 250 mls @ 62.5 mls/hr 08/28/25 13:45 Pot Phos 15 Mmol In Ns 250 Ml IV 09/27/25 13:44 PRN PRN Phosphate <= 1mg/dL Sodium Phosphate 15 mmol/ 255 mls @ 62.5 mls/hr 08/28/25 13:45 Sodium Chloride IV 09/27/25 13:44 .Q4H5M PRN Phosphate <= 1mg/dL and K> than 5.3 Insulin Human Regular 100 unit in 100 mls @ 6.169 mls/hr 08/28/25 14:44 08/29/25 06:00 Myxredlin IV 09/27/25 14:43 0.05 unit/kg/hr .[id number] PRN 3.084 mls/hr PER PROTOCOL Titration Protocol 0.1 UNIT/KG/HR Potassium Phosphate 15 mmol in 250 mls @ 62.5 mls/hr 08/29/25 06:08 08/29/25 08:09 Pot Phos 15 Mmol In Ns 250 Ml IV 08/29/25 14:07 62.5 mls/hr Q4H SOTO Administration Potassium Chloride 20 meq/ 1,010 mls @ 250 mls/hr 08/29/25 07:56 08/29/25 08:13 Dextrose/Lactated Ringer's IV 250 mls/hr .Q4H3M PRN Administration K LEVEL 3.3 TO 5.3 mM/L Metoclopramide HCl 10 mg 08/28/25 17:19 08/29/25 01:43 PDT Metoclopramide Inj 5 Mg/Ml Vial 2 Ml IVP 09/27/25 17:18 10 mg Q6H PRN Administration NAUSEA OR VOMITING Protocol Midazolam HCl 5 mg 08/29/25 04:27 Midazolam Inj 1 Mg/Ml Vial 2 Ml IVP 09/02/25 17:36 Q2H PRN CIWA 12-15 Midazolam HCl 1 mg 08/29/25 04:27 Midazolam Inj 1 Mg/Ml Vial 2 Ml IVP 09/02/25 17:36 Q2H PRN CIWA 2-6 Midazolam HCl 2 mg 08/29/25 04:27 Midazolam Inj 1 Mg/Ml Vial 2 Ml IVP 09/02/25 17:36 Q2H PRN CIWA 7-11 Pantoprazole Sodium 40 mg 08/29/25 09:00 08/29/25 08:16 Pantoprazole Inj 40 Mg Vial IVP 09/28/25 08:59 40 mg QDAY SOTO Administration Sodium Bicarbonate 50 ml 08/28/25 13:45 Sodium Bicarb Inj 8.4% Syr 50 Ml Syringe IV 09/27/25 13:44 Q4HR PRN For ph <= to 7.0 Tamsulosin HCl 0.4 mg 08/29/25 09:00 08/29/25 08:16 Tamsulosin Hcl 0.4 Mg Capsule PO 09/28/25 08:59 0.4 mg QDAY SOTO Administration Thiamine HCl 100 mg 08/28/25 21:00 08/29/25 08:16 Thiamine 100 Mg Tablet PO 09/02/25 20:59 100 mg BID SOTO Administration Plan Mr. Shook is a 34 year old male with a history of insulin-dependent T2DM, chronic back pain s/p back surgery x2, cannabis induced hyperemesis, opiate dependence, depression, anxiety, and alcohol use disorder who presented to [facility] ED on 08/28 for generalized weakness and nausea/vomiting. Patient was admitted to ICU for management of DKA and alcohol withdrawal. NEURO #Alcohol withdrawal Patient noted to have a significant history of alcohol use disorder that required hospitalization in the past. Patient is unsure how much alcohol he drinks currently, but notes that his last alcohol drink was about 3 days ago on 08/25. In ED, the patient was noted to have CIWA score of 18, prompting administration of Ativan and phenobarbital. On admission, patient was noted to have significant bilateral upper extremity tremors. Dx: Ethyl alcohol less than 3.0 on 08/28 CXR ordered 08/28 to rule out possible aspiration, negative for acute findings Rx: CIWA protocol with midazolam every 2 hours as needed dose dependent on CIWA score Seizure precautions as needed Thiamine 100 mg p.o. twice daily, stop date 09/02 Folic acid 1 mg p.o. twice daily, stop date 09/02 supervisor gate services referral for alcohol use disorder Will recommend PT evaluation given recurrent falls at home and generalized weakness #Acute encephalopathy 2/2 opiates, resolved Patient's mentation noted to be altered and poorly responsive compared to his baseline as per stepfather. Likely secondary to opiate given in ED as per patient seemed drowsy, but possible contributions from DKA and alcohol withdrawal. Rx: Will continue to monitor, plan to intubate if GCS less than 8 and/or if significant respiratory distress with impending respiratory fatigue RRx: Encephalopathy resolved 08/29 in the AM after opiate dose minimized CARDIO #No active problems PULM #No active problems GI #Enlarged common bile duct #Hyperbilirubinemia, improving Patient noted to have epigastric abdominal pain and history of cholelithiasis without cholecystitis. Icteric sclera noted on admission. Lower suspicion for choledocolithiasis as cause of enlarged CBD given US gallbladder negative for gallstones and patient did not present with a septic picture. DDx: Starvation induced CBD dilation, Choledocolithiasis Dx: Ultrasound gallbladder taken 08/28 noted abnormally enlarged CBD 0.8 cm Rx: Will order repeat ultrasound gallbladder on 08/30 RRx: If patient condition deteriorates, will order MRCP to further investigate dilated CBD & start Zosyn vs meropenem #Transaminitis, improving Patient does have a history of alcohol abuse. Initial labs to support an alcoholic hepatitis picture given AST to AST at a 2:1 ratio. DDx: Alcoholic hepatitis, viral hepatitis Dx: Initial labs showed AST 220, ALT 86, ALP 117, and lipase 119 MELD Score (calculated from coagulation panel 08/26): 18 points - 6% estimated 3 month mortality Maddrey Score (calculated from coagulation panel 08/26): 3.3 points - good prognosis Ultrasound gallbladder taken 08/28 does show a liver measuring 18.9 cm with fatty infiltration and irregular contour Rx: Continue to monitor RRx: If worsening, will consider viral hepatitis panel, noted that panel from 09/2022 negative NEPHRO #HAGMA, likely 2/2 DKA, resolved and #Lactic acidosis, likely 2/2 starvation, resolved #Pseudohyponatremia, likely 2/2 hyperglycemic hyperosmolarity DDx: Ethylene glycol toxicity, salicylate toxicity Dx: Initial labs on admission significant for sodium 127, chloride 85, bicarb less than 10, anion gap 25, and lactic acid 6.0 Sodium corrected for hyperglycemia estimated to be 133 Patient endorsed losing 40 pounds over the last 4 months without any endorsed changes in diet, however patient does endorse generalized poor appetite, which is possible source of lactic acidosis Beta-hydroxybutyrate noted to be over 6.4 on 08/28 ABG 08/28 significant for pH 7.19, pCO2 19, pO2 31, and bicarb 7 Rx: 1 L sodium bicarb given on 08/28 Will continue to monitor Referral to registered dietitian ordered on 08/28 Thiamine 100 mg p.o. twice daily, stop date 09/02 Folic acid 1 mg p.o. twice daily, stop date 09/02 #KWABENA, likely prerenal, resolved Dx: Patient noted to have creatinine of 1.5 on admission on 08/28, noted that his baseline creatinine is 0.7 Rx: Patient was given 3 L LR in ED Will continue to monitor with renal function labs every 4 hours Patient was given 1 L LR overnight 08/28 RRx: If renal function continues to worsen despite adequate hydration, will consider nephrology consultation URO #BPH? Patient reports that he takes tamsulosin daily at home, however he does not endorse any difficulty with urination and states that he has never had his prostate examined. Patient is not entirely sure why he is on tamsulosin. Rx: Tamsulosin 0.[address] chest/abdomen/pelvis on 08/26 showed urinary bladder intact without abnormalities of prostate noted HEME #Anemia, chronic, normocytic DDx: Mixed anemia, anemia of chronic disease, iron deficiency anemia Dx: Hemoglobin on admission 08/28 noted to be 12.0, which appears to be baseline for the patient MCV on admission noted to be 92 Rx: Will continue to monitor with daily labs Will transfuse if hemoglobin less than 7 per protocol Patient to follow-up outpatient after resolution of acute illness ENDO #DKA, improving #Insulin dependent T2DM Patient does have a history of insulin-dependent type 2 diabetes mellitus and does take insulin at home, however he is not always compliant. Patient does endorse worsening of his generalized weakness over the past 3 days. Dx: Beta-hydroxybutyrate noted to be over 6.4 on 08/28 Initial labs on 08/28 noted glucose of 333 and hemoglobin A1c of 7.5% Anion gap of 25 on 08/28 on admission Urinalysis shows 4+ glucose, 4+ ketones, 3+ blood, and 71 urine RBC Rx: DKA protocol 500 mL of sodium HCO3 bolus x 1 on 08/28 Will trend beta-hydroxybutyrate daily Will trend renal function every 4 hours Patient on consistent carbohydrate low diet Insulin degludec 10 units sub-Q daily, first dose administered 11:12 on 08/29 Insulin lispro 2 units sub-Q three times daily with meals Metoclopramide 10 mg IVP every 6 hours as needed for nausea/vomitting RRx: Patient received 14 units of insulin via insulin gtt Will discontinue insulin gtt 2 hours after administering insulin degludec and anion gap closes x2 #Hypercalcemia DDx: Hypercalcemia secondary to hemoconcentration, hyperparathyroidism, hypercalcemia of malignancy (less likely given only minor increase of serum calcium) Dx: Corrected calcium 10.9 on initial labs 08/28 Rx: Will continue to monitor Will recommend further outpatient workup if patient remains stable ID #No active problems MSK #Chronic back pain Patient does have a history of chronic back pain and has received surgery to his spine twice. Rx: Will continue to monitor Acetaminophen 650 mg as needed for pain 1-3 Morphine 1 mg IVP x1 was given on 08/28 overnight RRx: If patient's pain becomes intolerable, we will consider stronger analgesics, will avoid tramadol given allergy noted on EMR SKIN #No active problems DVT prophylaxis: Heparin GI prophylaxis: Protonix Diet: Carbohydrate consistent low Gaffney: N/A Lines: Peripheral IV Antibiotics: N/A CODE STATUS: FULL Vent Status: N/A Reason for ICU care: DKA Patient plan of care was discussed with the attending cardiac surgeon, Dr. Wood and senior resident Dr. Bragg (PGY-2). Ac Flannery, PGY-1 Attending Provider Attestation/Addendum Patient seen and examined with the above resident, Ac Flannery DO. I agree with the findings, assessment, and plan of care as document except for any differences below. Patient admitted yesterday with combination of alcohol intoxication/withdrawal with metabolic encephalopathy including presence of diabetic ketoacidosis. Patient with ability to be transitioned off insulin drip this afternoon and tolerating p.o. diet. He has returned back to baseline with clearance of underlying lactic acidosis secondary to alcohol metabolism. Patient's renal failure continues to improve after aggressive volume resuscitation. Patient remains hemodynamically stable will be transferred to medicine for ongoing management prior to discharge in the coming 24 to 48 hours. Patient also with significant calling lithiasis and ductal dilation but no evidence of cholangitis or pancreatitis suggesting passing of the stone into the common bile duct and out into the GI tract. LFTs likely elevated secondary to alcohol abuse and mild alcoholic hepatitis not warranting steroid therapy. Patient biochemistry analysis if fails to improve should warrant further investigation by imaging with MRCP but this can be delineated by the medicine team. Total critical care time: I personally spent 40 minutes for review of physiologic parameters, directing plan of care throughout the day, coordination of care with other specialties, and counseling patient at bedside. This is exclusive of time spent teaching of staff or performing any separate billable procedures. Patient remains at significant risk for further morbidity and mortality warranting close monitoring and care only available in the ICU. Critical care services required for diabetic ketoacidosis, alcohol withdrawal syndrome/intoxication, lactic acidosis/metabolic acidosis, acute kidney injury secondary to prerenal azotemia, and alcoholic hepatitis.
[2025-08-29 08:29] LABS: Reflex Lactate? Y
[2025-08-29 08:35] LABS: Alanine Aminotransferase 51 U/L (10-49); Albumin, Serum 4.2 gm/dL (3.5-5.0); Alkaline Phosphatase 76 U/L (46-116); Anion Gap 12 (7-16); Aspartate Amino Transferase 145 U/L (0-34); BUN/Creatinine Ratio 8 Ratio (12-20); Bilirubin,Direct 2.6 mg/dL (0.0-0.3); Bilirubin,Total 3.4 mg/dL (0.3-1.2); Blood Urea Nitrogen < 5 mg/dL (9-23); Calcium 8.9 mg/dL (8.3-10.6); Calcium (Corrected) 8.9 mg/dL (8.5-10.1); Carbon Dioxide 25.8 mMol/L (20.0-31.0); Chloride 96 mMol/L (98-107); Creatinine (Component) 0.6 mg/dL (0.6-1.3); Estimated Creatinine Clearance 148.5 mL/min (>60); Glucose 102 mg/dL (74-106); Magnesium 1.6 mg/dL (1.6-2.6); Osmolality,Calculated 265 (275-295); Phosphorous 1.4 mg/dL (2.4-5.1); Potassium 3.4 mMol/L (3.4-5.1); Sodium 134 mMol/L (136-145); Total Protein 6.3 gm/dL (5.7-8.2); eGFR > 60 See Note
--- NOTE | 2025-08-29 10:34 | PC.SS ---
Addendum entered by AYAAN Vogel 08/29/25 10:37: SS update: new patient from yesterday, DKA, alert and oriented, will possibly downgrade today. Original Note: Patient is a 34 year old male presenting to the hospital for DKA. MARKETING TRAINEE made contact with patient at bedside. MARKETING TRAINEE introduced self, role, and reason for visit. Patient confirmed demographic information. Patient stated that in case he is unable to make medical decisions on his own he would like his mother Emily Fallon to make them PH: [phone]. Patient stated that he has a cane and does not use any other DME. Patient stated that he has type 1 diabetes, his PCP is Dr. Bull CASTILLO last appointment was 3 months ago, his workers comp. doctor is Dr. Lopez last appointment was six weeks ago and his next appointment is 08/31/25. Patient?s pharmacy is [facility] on [address]. Patient stated that once medically clear he would like to return home. Patient stated that he may need transportation, SS will stand by if additional needs come up. PCP: Dr. Bull CASTILLO Decision maker: Emily [phone] d/c: home
[2025-08-29] MEDS: INSULIN DEGLUDEC 5 UNIT/0.05 ML (PER 5 UNITS) 10 UNIT SC (11:12)
[2025-08-29 13:14] LABS: Lactate (Lactic Acid) 2.6 mMol/L (0.4-2.0)
[2025-08-29 13:53] LABS: Albumin, Serum 3.9 gm/dL (3.5-5.0); Anion Gap 13 (7-16); BUN/Creatinine Ratio 7 Ratio (12-20); Blood Urea Nitrogen < 5 mg/dL (9-23); Calcium 8.6 mg/dL (8.3-10.6); Calcium (Corrected) 8.7 mg/dL (8.5-10.1); Carbon Dioxide 27.4 mMol/L (20.0-31.0); Chloride 94 mMol/L (98-107); Creatinine (Component) 0.7 mg/dL (0.6-1.3); Estimated Creatinine Clearance 127.3 mL/min (>60); Glucose 145 mg/dL (74-106); Magnesium 1.8 mg/dL (1.6-2.6); Osmolality,Calculated 268 (275-295); Phosphorous 1.8 mg/dL (2.4-5.1); Potassium 3.3 mMol/L (3.4-5.1); Sodium 134 mMol/L (136-145); eGFR > 60 See Note
--- NOTE | 2025-08-29 14:33 | ESPR_ITS ---
<Statement entered by Missael Turk MD - 08/29/25 16:12> Mr. Shook is a 34-year-old male with past medical history of insulin-dependent type 2 diabetes, of chronic back pain s/s/p back surgery, depression, anxiety, and alcohol use disorder was admitted to the ICU on 08/28/25 for management of DKA and was started on insulin drip. Patient is now off of insulin drip and blood glucose is 145. Patient is noncompliant with his insulin. In the ICU patient was given degludec 10 units with lispro 2 AC as well as sliding scale. For alcohol withdrawal patient was started on CIWA protocol and initial CIWA on admission was 18 however this morning patient CIWA is less than 3. Patient was seen and examined by me personally. I have directly supervised and reviewed documentation by the team resident and agree with its findings. ------- Plan of care was discussed with the attending, Dr. Burke Turk, PGY-2 Documentation for date of: 08/29/25 Subjective Subjective Interval history: Mr. Shook is a 34 year old male with a history of insulin-dependent T2DM, chronic back pain s/p back surgery x2, cannabis induced hyperemesis, opiate dependence, depression, anxiety, and alcohol use disorder who presented to [facility] ED on 08/28 for generalized weakness and nausea/vomiting. Patient was admitted to ICU for management of DKA and alcohol withdrawal. In the ED, patient initially had an a gap of 25 and glucose of 333. AST 220 ALT 86. Beta hydroxybutyrate was over 6.4. ABG showed a pH of 7.19 pCO2 19, pO2 31, and bicarb 7. The patient had a CIWA score of 18 and was given lorazepam. He received a 3 L LR bolus and was started on DKA protocol with a regular insulin drip at 0.1 units/kg/h. The patient's anion gap closed and he is stable to downgrade to floors. He mentions that he takes insulin at home when he has access to it. He did have elevated bilirubin and a liver ultrasound showed an enlarged common bile duct. His lactic acid is 2.6 on downgrade and he will get 1 more liter of LR. Patient mentions that he had 325 mL of whiskey the day before admission, and since then had not had a drink in 6 months. Exam Vital Signs Temp Pulse Resp BP Pulse Ox O2 Del Method 98 F 95 13 113/76 100 Room Air 08/29/25 12:00 08/29/25 14:00 08/29/25 14:00 08/29/25 14:00 08/29/25 14:00 08/29/25 12:00 Narrative Exam General: Awake and in no acute distress. Conversational and non-toxic appearing. Neurologic: GCS 15. Alert and oriented x3, no gross neurological deficit, and patient able to move all 4 extremities. HEENT: Normocephalic, atraumatic, mucous membranes moist. Pupils reactive to light. Heart: Regular rate and rhythm, normal S1 and S2, no murmurs. Lungs: Clear to auscultation bilaterally with no wheezing or crackles. Abdomen: Soft, nondistended, nontender, positive bowel sounds. No guarding or rebound tenderness. Extremities: No edema. 2+ radial and dorsalis pedis pulses bilaterally. Skin: Warm. Dry. No rash or ecchymoses. Objective Labs 08/29/25 05:22 08/29/25 12:51 Labs: Laboratory Results - last 24 hr 08/28/25 08/28/25 08/28/25 13:50 15:20 15:41 WBC RBC Hgb Hct MCV MCH MCHC RDW Std Deviation Plt Count Neut % (Auto) Lymph % (Auto) [place] % (Auto) Eos % (Auto) Baso % (Auto) Neut # (Auto) Lymph # (Auto) [place] # (Auto) Eos # (Auto) Baso # (Auto) Immature Gran # (Auto) Absolute Nucleated RBC Immature Gran % Nucleated RBC % PT 14.0 H INR 1.3 VBG pH VBG pCO2 VBG pO2 VBG O2 Sat (Emmanuel) VBG Base Excess Sodium Potassium Chloride Carbon Dioxide Anion Gap BUN Creatinine Estim Creat Clear Calc eGFR BUN/Creatinine Ratio Glucose Calculated Osmolality Lactic Acid Calcium Corrected Calcium Phosphorus Magnesium Total Bilirubin Direct Bilirubin AST ALT Alkaline Phosphatase Total Protein Albumin Lipase 119 H D Beta-Hydroxybutyrate/Acetoacetate Ur Collection Type Clean Catch Urine Color Yellow Urine Clarity Hazy Urine pH 6.0 Ur Specific [place] 1.016 Urine Protein 1+ A Urine Glucose (UA) 4+ A Urine Ketones 4+ A Urine Blood 3+ A Urine Nitrite Negative Urine Bilirubin Negative Urine Urobilinogen (Auto) 2.0 Ur Leukocyte Esterase Negative Urine RBC 71 H Urine WBC < 1 Ur Squamous Epith Cells 0 Urine Bacteria None Hyaline Casts 1 Ur Culture Indicated? Not Indicated Ethyl Alcohol < 3.0 08/28/25 08/28/25 08/28/25 17:30 17:30 21:40 WBC RBC Hgb Hct MCV MCH MCHC RDW Std Deviation Plt Count Neut % (Auto) Lymph % (Auto) [place] % (Auto) Eos % (Auto) Baso % (Auto) Neut # (Auto) Lymph # (Auto) [place] # (Auto) Eos # (Auto) Baso # (Auto) Immature Gran # (Auto) Absolute Nucleated RBC Immature Gran % Nucleated RBC % PT INR VBG pH 7.64 VBG pCO2 21 L VBG pO2 174 H VBG O2 Sat (Emmanuel) 101 H VBG Base Excess 2 Sodium 132 L 130 L Potassium 3.3 L D 3.4 Chloride 96 L 95 L Carbon Dioxide 11.3 L* 18.8 L Anion Gap 25 H 16 BUN 16 7 L Creatinine 0.9 D 0.9 Estim Creat Clear Calc 99.0 99.0 eGFR > 60 > 60 BUN/Creatinine Ratio 18 8 L Glucose 130 H D 182 H D Calculated Osmolality 267 L 263 L Lactic Acid 2.7 H 2.2 H Calcium 9.5 9.3 Corrected Calcium 9.5 9.3 Phosphorus 1.1 L 1.1 L 0.8 L* Magnesium 1.6 2.3 Total Bilirubin Direct Bilirubin AST ALT Alkaline Phosphatase Total Protein Albumin 4.8 D 4.5 Lipase Beta-Hydroxybutyrate/Acetoacetate Ur Collection Type Urine Color Urine Clarity Urine pH Ur Specific [place] Urine Protein Urine Glucose (UA) Urine Ketones Urine Blood Urine Nitrite Urine Bilirubin Urine Urobilinogen (Auto) Ur Leukocyte Esterase Urine RBC Urine WBC Ur Squamous Epith Cells Urine Bacteria Hyaline Casts Ur Culture Indicated? Ethyl Alcohol 08/29/25 08/29/25 08/29/25 01:31 PST 05:22 07:41 WBC 7.5 RBC 3.43 L Hgb 10.7 L Hct 29.7 L MCV 87 MCH 31.2 MCHC 36.0 RDW Std Deviation 39.4 Plt Count 101 L Neut % (Auto) 74 Lymph % (Auto) 15 [place] % (Auto) 10 Eos % (Auto) 0 Baso % (Auto) 0 Neut # (Auto) 5.5 Lymph # (Auto) 1.2 [place] # (Auto) 0.7 Eos # (Auto) 0.0 Baso # (Auto) 0.0 Immature Gran # (Auto) 0.02 H Absolute Nucleated RBC 0.03 H Immature Gran % 0 Nucleated RBC % 0 PT INR VBG pH 7.50 VBG pCO2 37 D VBG pO2 168 H VBG O2 Sat (Emmanuel) 100 H VBG Base Excess 5 H Sodium 134 L 134 L 134 L Potassium 3.6 3.4 3.4 Chloride 95 L 93 L 96 L Carbon Dioxide 22.7 25.3 25.8 Anion Gap 16 16 12 BUN 9 < 5 L < 5 L Creatinine 0.8 0.7 0.6 Estim Creat Clear Calc 111.4 127.3 148.5 eGFR > 60 > 60 > 60 BUN/Creatinine Ratio 11 L 7 L 8 L Glucose 115 H D 113 H 102 Calculated Osmolality 267 L 266 L 265 L Lactic Acid 2.3 H 2.1 H 2.0 Calcium 9.4 9.5 8.9 Corrected Calcium 9.4 9.5 8.9 Phosphorus 1.0 L 1.2 L 1.4 L Magnesium 2.2 1.8 1.6 Total Bilirubin 3.4 H D Direct Bilirubin AST ALT Alkaline Phosphatase Total Protein Albumin 4.7 4.8 Lipase Beta-Hydroxybutyrate/Acetoacetate Ur Collection Type Urine Color Urine Clarity Urine pH Ur Specific [place] Urine Protein Urine Glucose (UA) Urine Ketones Urine Blood Urine Nitrite Urine Bilirubin Urine Urobilinogen (Auto) Ur Leukocyte Esterase Urine RBC Urine WBC Ur Squamous Epith Cells Urine Bacteria Hyaline Casts Ur Culture Indicated? Ethyl Alcohol 08/29/25 08/29/25 08/29/25 07:41 07:41 07:41 WBC RBC Hgb Hct MCV MCH MCHC RDW Std Deviation Plt Count Neut % (Auto) Lymph % (Auto) [place] % (Auto) Eos % (Auto) Baso % (Auto) Neut # (Auto) Lymph # (Auto) [place] # (Auto) Eos # (Auto) Baso # (Auto) Immature Gran # (Auto) Absolute Nucleated RBC Immature Gran % Nucleated RBC % PT INR VBG pH VBG pCO2 VBG pO2 VBG O2 Sat (Emmanuel) VBG Base Excess Sodium Potassium Chloride Carbon Dioxide Anion Gap BUN Creatinine Estim Creat Clear Calc eGFR BUN/Creatinine Ratio Glucose Calculated Osmolality Lactic Acid Calcium Corrected Calcium Phosphorus Magnesium Total Bilirubin Cancelled Direct Bilirubin 2.6 H Cancelled AST 145 H Cancelled ALT 51 H Alkaline Phosphatase Total Protein Albumin Lipase Beta-Hydroxybutyrate/Acetoacetate Ur Collection Type Urine Color Urine Clarity Urine pH Ur Specific [place] Urine Protein Urine Glucose (UA) Urine Ketones Urine Blood Urine Nitrite Urine Bilirubin Urine Urobilinogen (Auto) Ur Leukocyte Esterase Urine RBC Urine WBC Ur Squamous Epith Cells Urine Bacteria Hyaline Casts Ur Culture Indicated? Ethyl Alcohol 08/29/25 08/29/25 08/29/25 07:41 07:41 07:41 WBC RBC Hgb Hct MCV MCH MCHC RDW Std Deviation Plt Count Neut % (Auto) Lymph % (Auto) [place] % (Auto) Eos % (Auto) Baso % (Auto) Neut # (Auto) Lymph # (Auto) [place] # (Auto) Eos # (Auto) Baso # (Auto) Immature Gran # (Auto) Absolute Nucleated RBC Immature Gran % Nucleated RBC % PT INR VBG pH VBG pCO2 VBG pO2 VBG O2 Sat (Emmanuel) VBG Base Excess Sodium Potassium Chloride Carbon Dioxide Anion Gap BUN Creatinine Estim Creat Clear Calc eGFR BUN/Creatinine Ratio Glucose Calculated Osmolality Lactic Acid Calcium Corrected Calcium Phosphorus Magnesium Total Bilirubin Direct Bilirubin AST ALT Cancelled Alkaline Phosphatase 76 D Cancelled Total Protein 6.3 Cancelled Albumin 4.2 D Lipase Beta-Hydroxybutyrate/Acetoacetate Ur Collection Type Urine Color Urine Clarity Urine pH Ur Specific [place] Urine Protein Urine Glucose (UA) Urine Ketones Urine Blood Urine Nitrite Urine Bilirubin Urine Urobilinogen (Auto) Ur Leukocyte Esterase Urine RBC Urine WBC Ur Squamous Epith Cells Urine Bacteria Hyaline Casts Ur Culture Indicated? Ethyl Alcohol 08/29/25 08/29/25 07:41 12:51 WBC RBC Hgb Hct MCV MCH MCHC RDW Std Deviation Plt Count Neut % (Auto) Lymph % (Auto) [place] % (Auto) Eos % (Auto) Baso % (Auto) Neut # (Auto) Lymph # (Auto) [place] # (Auto) Eos # (Auto) Baso # (Auto) Immature Gran # (Auto) Absolute Nucleated RBC Immature Gran % Nucleated RBC % PT INR VBG pH VBG pCO2 VBG pO2 VBG O2 Sat (Emmanuel) VBG Base Excess Sodium 134 L Potassium 3.3 L Chloride 94 L Carbon Dioxide 27.4 Anion Gap 13 BUN < 5 L Creatinine 0.7 Estim Creat Clear Calc 127.3 eGFR > 60 BUN/Creatinine Ratio 7 L Glucose 145 H Calculated Osmolality 268 L Lactic Acid 2.6 H Calcium 8.6 Corrected Calcium 8.7 Phosphorus 1.8 L Magnesium 1.8 Total Bilirubin Direct Bilirubin AST ALT Alkaline Phosphatase Total Protein Albumin Cancelled 3.9 Lipase Beta-Hydroxybutyrate/Acetoacetate 2.3 H Ur Collection Type Urine Color Urine Clarity Urine pH Ur Specific [place] Urine Protein Urine Glucose (UA) Urine Ketones Urine Blood Urine Nitrite Urine Bilirubin Urine Urobilinogen (Auto) Ur Leukocyte Esterase Urine RBC Urine WBC Ur Squamous Epith Cells Urine Bacteria Hyaline Casts Ur Culture Indicated? Ethyl Alcohol ABG Interpretation ABG results: 08/28/25 08/28/25 08/29/25 15:10 21:40 07:41 ABG pH 7.19 L* ABG pCO2 19 L* ABG pO2 31 L* ABG HCO3 7 L* ABG O2 Saturation 50 L ABG Base Excess -19 L VBG pH 7.64 7.50 VBG pCO2 21 L 37 D VBG pO2 174 H 168 H VBG Base Excess 2 5 H Quality Measures Quality Measures VTE prophylaxis Assessment & Plan Assessment Current Active Medications: Generic Name Dose Route Start Last Admin Trade Name Freq PRN Reason Stop Dose Admin Acetaminophen 650 mg 08/28/25 17:19 Acetaminophen 325 Mg Tablet PO 09/27/25 17:18 Q6H PRN Fever >100.4 or pain 1-3 Dextrose 25 ml 08/29/25 10:47 Dextrose 50%-Water Inj 50 Ml Syringe IV 09/28/25 10:46 Q15MIN PRN BG 50-70 responsive npo pt Dextrose 50 ml 08/29/25 10:47 Dextrose 50%-Water Inj 50 Ml Syringe IV 09/28/25 10:46 Q15MIN PRN BG <50 OR BG <70 & pt unresponsive Folic Acid 1 mg 08/28/25 21:00 08/29/25 08:16 Folic Acid 1 Mg Tablet PO 09/02/25 20:59 1 mg BID SOTO Administration Glucagon 1 mg 08/29/25 10:47 Glucagon Inj 1 Mg Vial IM Q15MIN PRN BG <70, and no IV access Heparin Sodium (Porcine) 5,000 unit 08/28/25 17:30 08/29/25 08:16 Heparin Sod Inj 5000 Unit/Ml Vial SC 09/11/25 17:29 5,000 unit Q12HR SOTO Administration Potassium Chloride 10 meq in 100 mls @ 100 mls/hr 08/28/25 13:45 Kcl Ivpb IV 09/27/25 13:44 .Q1H PRN IF POTASSIUM LESS THAN 3.3 Magnesium Sulfate 2 gm in 50 mls @ 25 mls/hr 08/28/25 13:45 Magnesium Sulfate Ivpb IV 09/27/25 13:44 .Q2H PRN PER DKA PROTOCOL Dextrose/Lactated Ringer's 1,000 mls @ 250 mls/hr 08/28/25 13:45 D5-Lr IV 09/27/25 13:44 .Q4H PRN PER PROTOCOL Potassium Chloride 20 meq/ 1,010 mls @ 250 mls/hr 08/28/25 13:45 08/28/25 19:08 Lactated Ringer's IV 09/27/25 13:44 0 mls/hr .Q4H3M PRN Infusion K LEVEL 3.3 TO 5.3mM/L Potassium Chloride 40 meq/ 1,020 mls @ 250 mls/hr 08/28/25 13:45 Lactated Ringer's IV 09/27/25 13:44 .Q4H5M PRN K LEVEL < 3.3 mM/L Potassium Chloride 40 meq/ 1,020 mls @ 250 mls/hr 08/28/25 13:45 08/28/25 23:04 Dextrose/Lactated Ringer's IV 09/27/25 13:44 250 mls/hr .Q4H5M PRN Administration K LEVEL < 3.3mM/L Potassium Chloride 10 meq in 100 mls @ 50 mls/hr 08/28/25 13:45 08/29/25 03:23 Kcl Ivpb IV 09/27/25 13:44 50 mls/hr PRN PRN Administration K LEVEL 3.3 to 5.3 & BG > 200 Potassium Phosphate 15 mmol in 250 mls @ 62.5 mls/hr 08/28/25 13:45 Pot Phos 15 Mmol In Ns 250 Ml IV 09/27/25 13:44 PRN PRN Phosphate <= 1mg/dL Sodium Phosphate 15 mmol/ 255 mls @ 62.5 mls/hr 08/28/25 13:45 Sodium Chloride IV 09/27/25 13:44 .Q4H5M PRN Phosphate <= 1mg/dL and K> than 5.3 Insulin Human Regular 100 unit in 100 mls @ 6.169 mls/hr 08/28/25 14:44 08/29/25 13:13 Myxredlin IV 09/27/25 14:43 0 unit/kg/hr .[id number] PRN 0 mls/hr PER PROTOCOL Titration Protocol 0.1 UNIT/KG/HR Potassium Chloride 20 meq/ 1,010 mls @ 250 mls/hr 08/29/25 07:56 08/29/25 13:00 Dextrose/Lactated Ringer's IV Infused .Q4H3M PRN Infusion K LEVEL 3.3 TO 5.3 mM/L Lactated Ringer's 500 mls @ 999 mls/hr 08/29/25 14:12 08/29/25 14:21 Lactated Ringers IV 08/29/25 14:42 999 mls/hr .Q31M ONE Administration Potassium Phosphate 15 mmol in 250 mls @ 62.5 mls/hr 08/29/25 14:15 Pot Phos 15 Mmol In Ns 250 Ml IV 08/29/25 22:14 Q4H [facility] Insulin Degludec 10 unit 08/29/25 11:00 08/29/25 11:12 Insulin Degludec 5 Unit/0.05 Ml (Per 5 Units) SC 09/28/25 10:59 10 unit QDAY SOTO Administration Insulin Human Lispro 0 unit 08/29/25 11:30 08/29/25 11:13 Insulin Lispro (Admelog) 1 Unit/0.01 Ml Unit SC 09/28/25 11:29 Not Given AC [facility] Protocol Insulin Human Lispro 2 unit 08/29/25 12:00 08/29/25 11:13 Insulin Lispro (Admelog) 1 Unit/0.01 Ml Unit SC 09/28/25 11:59 Not Given TIDWM SOTO Metoclopramide HCl 10 mg 08/28/25 17:19 08/29/25 01:43 PDT Metoclopramide Inj 5 Mg/Ml Vial 2 Ml IVP 09/27/25 17:18 10 mg Q6H PRN Administration NAUSEA OR VOMITING Protocol Midazolam HCl 5 mg 08/29/25 04:27 Midazolam Inj 1 Mg/Ml Vial 2 Ml IVP 09/02/25 17:36 Q2H PRN CIWA 12-15 Midazolam HCl 1 mg 08/29/25 04:27 08/29/25 08:33 Midazolam Inj 1 Mg/Ml Vial 2 Ml IVP 09/02/25 17:36 1 mg Q2H PRN Administration CIWA 2-6 Midazolam HCl 2 mg 08/29/25 04:27 Midazolam Inj 1 Mg/Ml Vial 2 Ml IVP 09/02/25 17:36 Q2H PRN CIWA 7-11 Pantoprazole Sodium 40 mg 08/29/25 09:00 08/29/25 08:16 Pantoprazole Inj 40 Mg Vial IVP 09/28/25 08:59 40 mg QDAY SOTO Administration Sodium Bicarbonate 50 ml 08/28/25 13:45 Sodium Bicarb Inj 8.4% Syr 50 Ml Syringe IV 09/27/25 13:44 Q4HR PRN For ph <= to 7.0 Tamsulosin HCl 0.4 mg 08/29/25 09:00 08/29/25 08:16 Tamsulosin Hcl 0.4 Mg Capsule PO 09/28/25 08:59 0.4 mg QDAY SOTO Administration Thiamine HCl 100 mg 08/28/25 21:00 08/29/25 08:16 Thiamine 100 Mg Tablet PO 09/02/25 20:59 100 mg BID SOTO Administration Plan Summary: Mr. Shook is a 34 year old male with a history of insulin-dependent T2DM, chronic back pain s/p back surgery x2, cannabis induced hyperemesis, opiate dependence, depression, anxiety, and alcohol use disorder who presented to [facility] ED on 08/28 for generalized weakness and nausea/vomiting. Patient was admitted to ICU for management of DKA and alcohol withdrawal. His anion gap resolved and he was downgraded to floors on 08/29/2025. #Alcohol withdrawal * Patient noted to have a significant history of alcohol use disorder that required hospitalization in the past. Patient mentions that his last alcoholic drink was the day before admission. * He also mentions that he had been drinking 4-6 beers daily after a back injury 5 years ago, but has not had a drink in the last 6 months. * In ED, the patient was noted to have CIWA score of 18, prompting administration of Ativan and phenobarbital. On admission, patient was noted to have significant bilateral upper extremity tremors. Plan: * CIWA protocol: Versed 1 mg for CIWA score 2-6, 2 mg for CIWA score 7-11, 5 mg for CIWA score 12-15. * Seizure precautions as needed * Thiamine 100 mg p.o. twice daily, stop date 09/02, follow-up lab result * Folic acid 1 mg p.o. twice daily, stop date 09/02 * director dental services referral for alcohol use disorder #Enlarged common bile duct #Hyperbilirubinemia (Improving) #Transaminitis (Improving) * Patient noted to have epigastric abdominal pain and history of cholelithiasis without cholecystitis. * Icteric sclera noted on admission. Sclera anicteric on downgrade. * Lower suspicion for choledocolithiasis as cause of enlarged CBD given US gallbladder negative for gallstones and patient did not present with a septic picture. * Patient mentions that due to vomiting he has not eaten in about 80 hours, consider starvation induced CBD dilation * Ultrasound gallbladder taken 08/28 noted abnormally enlarged CBD 0.8 cm * Patient does have a history of alcohol abuse. Initial labs to support an alcoholic hepatitis picture given AST to AST at a 2:1 ratio. Initial labs showed AST 220, ALT 86, ALP 117, and lipase 119. * MELD score 17 on downgrade, 6% 3-month mortality Plan: * MRCP ordered #HAGMA, likely 2/2 DKA (Resolved) and #Lactic acidosis, likely 2/2 starvation ketoacidosis vs. Thiamine deficiency #Pseudohyponatremia, likely 2/2 hyperglycemic hyperosmolarity * Initial labs on admission significant for sodium 127, chloride 85, bicarb less than 10, anion gap 25, and lactic acid 6.0. Sodium corrected for hyperglycemia estimated to be 133. * Patient endorsed losing 40 pounds over the last 4 months without any endorsed changes in diet, however patient does endorse generalized poor appetite, which is possible source of lactic acidosis * Beta-hydroxybutyrate noted to be over 6.4 on 08/28, decreased to 2.3. * ABG 08/28 significant for pH 7.19, pCO2 19, pO2 31, and bicarb 7 * Suspicion for thiamine deficiency leading to lactic acidosis in the presence of alcohol use * Patient is still currently-low neutropenic, expected to improve given that his blood sugar is in the 100s Plan: * 1 L sodium bicarb given on 08/28 * Referral to registered dietitian ordered on 08/28 * Thiamine 100 mg p.o. twice daily, stop date 09/02, pending Lab Value * Folic acid 1 mg p.o. twice daily, stop date 09/02 #DKA, (Improving) #Insulin dependent T2DM * Patient does have a history of insulin-dependent type 2 diabetes mellitus and does take insulin at home, however he is not always compliant. * Sugars in the mid 100s * Lactic acid 2.6 on downgrade * BHB downtrending * Initial labs on 08/28 noted glucose of 333 and hemoglobin A1c of 7.5% * Anion gap of 25 on 08/28 on admission, resolved * Urinalysis shows 4+ glucose, 4+ ketones, 3+ blood, and 71 urine RBC Plan: * Insulin sliding scale * Insulin degludec 10 units sub-Q daily, first dose administered 11:12 on 08/29 * Insulin lispro 2 units sub-Q three times daily with meals * Will trend beta-hydroxybutyrate daily * Patient on consistent carbohydrate low diet * Metoclopramide 10 mg IVP every 6 hours as needed for nausea/vomitting #Hypercalcemia (Resolved) * Corrected calcium 10.9 on initial labs 08/28 * Current calcium 8.6 Plan: * Will continue to monitor #Chronic Back Pain * Patient does have a history of chronic back pain and has received surgery to his spine twice. Plan: * Follow-up thoracic MRI * Acetaminophen 650 mg as needed for pain 1-3 * If patient's pain becomes intolerable, we will consider stronger analgesics, will avoid tramadol given allergy noted on EMR #KWABENA, likely prerenal (Resolved) * Patient noted to have creatinine of 1.5 on admission on 08/28, noted that his baseline creatinine is 0.7 * Patient was given 3 L LR in ED * Patient's creatinine is back to baseline Plan: * Continue to monitor with daily labs #Anemia, chronic, normocytic * Hemoglobin on admission 08/28 noted to be 12.0, which appears to be baseline for the patient * MCV on admission noted to be 92 * Hemoglobin 10.7 on downgrade Plan: * Will continue to monitor with daily labs * Will transfuse if hemoglobin less than 7 per protocol * Patient to follow-up outpatient after resolution of acute illness #BPH? * Patient reports that he takes tamsulosin daily at home, however he does not endorse any difficulty with urination and states that he has never had his prostate examined. Patient is not entirely sure why he is on tamsulosin. Plan: * Tamsulosin 0.4 mg daily * CT chest/abdomen/pelvis on 08/26 showed urinary bladder intact without abnormalities of prostate noted #Acute encephalopathy secondary to opiates, (Resolved) * Patient's mentation noted to be altered and poorly responsive compared to his baseline as per stepfather. * Likely secondary to opiate given in ED as per patient seemed drowsy, but consider possible contributions from DKA and alcohol withdrawal. Plan: * Will continue to monitor, plan to intubate if GCS less than 8 and/or if significant respiratory distress with impending respiratory fatigue * Encephalopathy resolved 08/29 in the AM after opiate dose minimized Hospital Maintenance: DVT ppx: Heparin GI ppx: Protonix Diet: Carb consistent IV lines: Peripheral Code status: Full code Dispo: Downgraded to floors on 08/29/2025. MRCP and MRI of thoracic spine ordered. Will continue to monitor for alcohol withdrawal and lactic acidosis. Patient was seen and discussed with my attending physician Dr. Burke STALLINGS and my senior resident Dr. Burke STALLINGS PGY-2. James Funez DO PGY-1. Attending Provider Attestation/Addendum I Shahram Turk MD reviewed the note and agree with the resident's assessment & plan with modifications/additions/exceptions as below. I have personally reviewed labs, imaging, home meds/prior records, examined the patient, formulated and discussed management plan with the IM team. 34-year-old male with history of type I DM, EtOH use disorder with evidence of pancreatitis and pancreatic calcifications, cannabis induced hyperemesis, chronic back pain with prior fusion depression, anxiety presented to ED with generalized weakness nausea and vomiting along with 40 pound unintentional weight loss over the past 4 months and progressively worsening lower back pain. Patient noted to be in DKA and was admitted to ICU and was subsequently transition to basal and preprandial insulin following resolution of DKA. Extensive imaging performed revealed osteolytic lesion in T11 and mildly enlarged CBD. In the setting of significantly elevated T. bili and LFTs and presence of lactic acidosis will get MRCP for evaluation of possible malignancy versus CBD occlusion. Will also obtain MRI thoracic spine for further delineation of lytic lesion. If no significant findings reveal, will do stanley scan to evaluate for potential malignancy. Patient was also noted to be in alcohol withdrawal and admission and is currently on CIWA protocol.
[2025-08-29 16:10] LABS: Reflex Lactate? Y
[2025-08-29] MEDS: INSULIN LISPRO (AdmeLOG) 1 UNIT/0.01 ML UNIT SC (17:21)
[2025-08-29] MEDS: INSULIN LISPRO (AdmeLOG) 1 UNIT/0.01 ML UNIT 2 UNIT SC ×2 (17:22→20:32)
--- NOTE | 2025-08-29 18:07 | PC.NURSE ---
Pt expressed desire for sleep aid, stated many medications that did not work in the past. MD notified.
[2025-08-29] MEDS: DiphenhydrAMINE ELIX 25 MG/10 ML UDC 12.5 MG PO (20:20)
--- NOTE | 2025-08-29 20:30 | PC.NURSE ---
Patient refused bed alarm, states he's been ambulating fine with no issue. Safety issue discussed, expressed full understanding. Call light at bedside.
--- NOTE | 2025-08-30 | XR_ITS ---
MRI abdomen, without contrast. MRCP Date and time of exam: 08/30/2025 at 3:01 p.m. INDICATION: Dilated CBD. History of chronic back pain, surgery, IDDM, depression, anxiety, alcohol and DKA. Technique: Multiple axial and coronal images of the abdomen have been obtained with the Siemens 1.5T MRI scanner. Images obtained included T1 weighted transverse images, T2-weighted transverse images, T2-weighted transverse images fat-suppressed, T2 weighted haste fat suppressed transverse images, T1 weighted images, in and out of phase images, T2-weighted coronal images, breath hold, T2 weighted haze coronal images as well as T2 weighted coronal thick slab images, MRCP. COMPARISON: Gallbladder ultrasound 08/28/2025. CT CT chest abdomen and pelvis 08/26/2025 Findings: LOWER THORAX: Unremarkable. Normal heart size. No pericardial effusion. No pleural effusions. ABDOMEN: Image quality is partially degraded by patient motion. Redemonstration of diffuse hepatomegaly and signal changes consistent with severe hepatic steatosis, correlating with severe hepatic steatosis on prior CT. No liver mass identified. Very distended gallbladder is redemonstrated. No gallbladder wall thickening. Trace nonspecific pericholecystic fluid. Small dependently layering calculi are present, calcified on prior CT. No significant bile duct dilatation is observed. The common bile duct in the pancreatic head measures 3.5 mm (image 26, series 4001). No evidence for choledocholithiasis. The pancreas is heterogeneous, consistent with chronic pancreatitis sequela. Multiple pancreatic calcifications are seen to better advantage on prior CT. At the pancreatic body, there is irregular and ductal dilatation to approximately 8 mm which could be due to postinflammatory stricture or calcification. No contour deforming pancreatic mass. Elsewhere, no diffuse main pancreatic ductal dilatation. There are very small peripheral cystic changes are present which could represent sidebranch IPMNs, measuring under centimeter in size. No infiltrative mass. No evidence for acute pancreatitis. No regional organized fluid collections. The spleen is small and round in appearance with very T2 hypointense signal which could be due to hemosiderin deposition. Similar but very small nodule located posterior to the spleen could represent a very small accessory spleen (image 17, series 4001). The adrenal glands and kidneys appear normal by MRI. No hydronephrosis or mass. Very small bilateral renal calculi are seen to better advantage on prior CT. Normal caliber abdominal aorta. urner syndrome noted. No ascites. No bowel dilatation concerning for obstruction. No acute inflammatory thickening of bowel. OTHER: No acute osseous abnormality. Bilateral pedicle screw and ricco fixation and interbody devices are present at L4-L5. IMPRESSION: No evidence for abnormal bile duct dilatation. No evidence for choledocholithiasis or mass along the course of the common bile duct. Distended gallbladder with very small calculi but no evidence for acute cholecystitis. 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 No evidence for acute pancreatitis, infiltrative mass or organized collection. A follow-up MRCP in 1 year could be obtained to ensure stability. Redemonstration of hepatomegaly and severe hepatic steatosis.
[2025-08-30 05:40] LABS: Basophils # (Auto) 0.0 Thou/mm3 (0.0-0.2); Basophils % (Auto) 0 % (0-2.5); Eosinophils # (Auto) 0.1 Thou/mm3 (0.0-0.5); Eosinophils % (Auto) 1 % (0-10); Hematocrit 25.2 % (41.0-53.0); Hemoglobin 9.0 g/dL (13.5-16.0); Immature Granulocytes Auto 0.02 Thou/mm3 (0.00-0.00); Lymphocytes # (Auto) 1.4 Thou/mm3 (1.0-4.8); Lymphocytes % (Auto) 23 % (10-50); Mean Corpuscular HGB Conc 35.7 g/dl (31.0-37.0); Mean Corpuscular Hemoglobin 31.3 pg (25.0-35.0); Mean Corpuscular Volume 88 fL (80-100); Monocytes # (Auto) 1.0 Thou/mm3 (0.0-0.8); Monocytes % (Auto) 15 % (0-12); Neutrophils # (Auto) 3.9 Thou/mm3 (1.8-7.7); Neutrophils % (Auto) 61 % (37-80); Nucleated Red Blood Cell # 0.08 Thou/mm3 (0.00-0.00); Nucleated Red Blood Cell % 1 /100 WBC (0); Platelet Count 106 Thou/mm3 (140-440); RDW Standard Deviation 41.2 fL (35.1-43.9); Red Blood Count 2.88 Miln/mm3 (4.50-5.90); White Blood Count 6.4 Thou/mm3 (3.8-10.6)
[2025-08-30 06:00] VITALS: BP 122/85; PULSE 71; RESP 20; TEMP 36.3; O2SAT 97; BMI 18.9
[2025-08-30 06:06] LABS: Alanine Aminotransferase 45 U/L (10-49); Albumin, Serum 4.0 gm/dL (3.5-5.0); Albumin/Globulin Ratio 1.9 (1.2-2.2); Alkaline Phosphatase 76 U/L (46-116); Anion Gap 14 (7-16); Aspartate Amino Transferase 132 U/L (0-34); BUN/Creatinine Ratio 8 Ratio (12-20); Bilirubin,Total 3.8 mg/dL (0.3-1.2); Blood Urea Nitrogen < 5 mg/dL (9-23); Calcium 9.2 mg/dL (8.3-10.6); Calcium (Corrected) 9.2 mg/dL (8.5-10.1); Carbon Dioxide 27.4 mMol/L (20.0-31.0); Chloride 93 mMol/L (98-107); Creatinine (Component) 0.6 mg/dL (0.6-1.3); Estimated Creatinine Clearance 148.5 mL/min (>60); Globulin 2.1 gm/dL (2.3-3.5); Glucose 144 mg/dL (74-106); Osmolality,Calculated 268 (275-295); Potassium 3.3 mMol/L (3.4-5.1); Sodium 134 mMol/L (136-145); Total Protein 6.1 gm/dL (5.7-8.2); eGFR > 60 See Note
[2025-08-30] MEDS: INSULIN LISPRO (AdmeLOG) 1 UNIT/0.01 ML UNIT SC ×2 (07:29→11:49)
[2025-08-30] MEDS: INSULIN LISPRO (AdmeLOG) 1 UNIT/0.01 ML UNIT 2 UNIT SC ×3 (07:30→17:59)
[2025-08-30 07:59] VITALS: PULSE 79; RESP 20; RESP 98
[2025-08-30] MEDS: HEPARIN SOD INJ 5000 UNIT/ML VIAL SC ×2 (08:11→20:07)
[2025-08-30] MEDS: INSULIN DEGLUDEC 5 UNIT/0.05 ML (PER 5 UNITS) 10 UNIT SC (08:11)
[2025-08-30] MEDS: THIAMINE 100 MG TABLET PO ×2 (08:13→20:06)
[2025-08-30] MEDS: FOLIC ACID 1 MG TABLET PO ×2 (08:13→20:06)
[2025-08-30] MEDS: TAMSULOSIN HCL 0.4 MG CAPSULE PO (08:13)
[2025-08-30 09:39] LABS: Lactate (Lactic Acid) 1.4 mMol/L (0.4-2.0)
[2025-08-30 10:00] VITALS: BMI 18.9
--- NOTE | 2025-08-30 11:32 | PC.SS ---
SS follow up note; SS me with patient and patient's family at bedside to discuss discharge plan. Patient does not want to discharge to SNF, however family is wanting patient to discharge to SNF. After further speaking with patient he is agreeable to discharge to SNF. SS informed patient's family that SS will submit for Acute rehab and SNF. SS was contacted patient's worker comp case maker, Janeen who provided her contact information [phone]. as well as Anika who is the one who will approve for auth, [id number], . SS will submit via [employer] platform and provide choices to patient's mother.
--- NOTE | 2025-08-30 12:43 | PC.SS ---
Addendum entered by Leann Rosas 08/30/25 13:53: SS followed up with patients mother, Emily to present SNF and Acute rehab choices. Patient's mother, Emily reported she would like patient to discharge to Acute Rehab. SS informed patient's mother, Emily that the only Acute Rehab facility that accepted was [facility]. Mother agreeable to have patient discharge [facility]. SS Contacted [employer] and she informed SS she will submit for auth. SS will stand by for further needs. Original Note: SS sent out SNF and Acute Rehab and SNF facilities. SS will follow up with patient's mother and provide SNF choices.
[2025-08-30 14:00] VITALS: BP 111/74; PULSE 83; RESP 18; TEMP 36.2; O2SAT 96
--- NOTE | 2025-08-30 14:41 | ESPR_ITS ---
<Statement entered by Missael Turk MD - 08/30/25 16:04> Pt is seen at bedside, does not have any no complaints. Pt underwent PT evaluation and was recommended SNF however patient initially refused to go to SNF but after discussion with family patient agreed. Authorization for SNF is pending. Due to elevated T. bili 3.8 and gallbladder ultrasound on nov showed abnormally enlarged common bile duct and recommended further imaging therefore MRCP was ordered. Blood glucose today is 144 therefore we will continue degludec 10 units daily with lispro 2 units 3 times daily with meals. Patient was seen and examined by me personally. I have directly supervised and reviewed documentation by the team resident and agree with its findings. ------- Plan of care was discussed with the attending, Dr. Cady Turk, PGY-2 Documentation for date of: 08/30/25 Subjective Subjective Interval history: Patient seen and examined at bedside. Glucose was just below [address] engineer freight hours, patient received 2 units of lispro at the time. Glucose was 157 befor the patient ate breakfast this morning. Will continue current insulin regimen. Patient going for MRCP today. PT saw the patient and recommended SNF upon discharge. Exam Vital Signs Temp Pulse Resp BP Pulse Ox O2 Del Method 97.4 F 71 20 122/85 H 97 Room Air 08/30/25 06:00 08/30/25 06:00 08/30/25 06:00 08/30/25 06:00 08/30/25 06:00 08/30/25 06:00 Narrative Exam General: Awake and in no acute distress. Conversational and non-toxic appearing. Neurologic: GCS 15. Alert and oriented x3, no gross neurological deficit, and patient able to move all 4 extremities. HEENT: Normocephalic, atraumatic, mucous membranes moist. Pupils reactive to light. Heart: Regular rate and rhythm, normal S1 and S2, no murmurs. Lungs: Clear to auscultation bilaterally with no wheezing or crackles. Abdomen: Soft, nondistended, nontender, positive bowel sounds. No guarding or rebound tenderness. Extremities: No edema. 2+ radial and dorsalis pedis pulses bilaterally. Skin: Warm. Dry. No rash or ecchymoses. Objective Labs 08/30/25 04:55 08/30/25 04:55 Labs: Laboratory Results - last 24 hr 08/29/25 08/30/25 08/30/25 16:32 04:55 09:32 WBC 6.4 RBC 2.88 L Hgb 9.0 L Hct 25.2 L MCV 88 MCH 31.3 MCHC 35.7 RDW Std Deviation 41.2 Plt Count 106 L Neut % (Auto) 61 Lymph % (Auto) 23 [place] % (Auto) 15 H Eos % (Auto) 1 Baso % (Auto) 0 Neut # (Auto) 3.9 Lymph # (Auto) 1.4 [place] # (Auto) 1.0 H Eos # (Auto) 0.1 Baso # (Auto) 0.0 Immature Gran # (Auto) 0.02 H Absolute Nucleated RBC 0.08 H Immature Gran % 0 Nucleated RBC % 1 H Sodium Cancelled 134 L Potassium Cancelled 3.3 L Chloride Cancelled 93 L Carbon Dioxide Cancelled 27.4 Anion Gap Cancelled 14 BUN Cancelled < 5 L Creatinine Cancelled 0.6 Estim Creat Clear Calc Cancelled 148.5 eGFR Cancelled > 60 BUN/Creatinine Ratio Cancelled 8 L Glucose Cancelled 144 H Calculated Osmolality Cancelled 268 L Lactic Acid 1.4 Calcium Cancelled 9.2 Corrected Calcium Cancelled 9.2 Phosphorus Cancelled Magnesium Cancelled Total Bilirubin 3.8 H AST 132 H ALT 45 Alkaline Phosphatase 76 Total Protein 6.1 Albumin Cancelled 4.0 Globulin 2.1 L Albumin/Globulin Ratio 1.9 ABG Interpretation ABG results: 08/28/25 08/28/25 08/29/25 15:10 21:40 07:41 ABG pH 7.19 L* ABG pCO2 19 L* ABG pO2 31 L* ABG HCO3 7 L* ABG O2 Saturation 50 L ABG Base Excess -19 L VBG pH 7.64 7.50 VBG pCO2 21 L 37 D VBG pO2 174 H 168 H VBG Base Excess 2 5 H Quality Measures Quality Measures VTE prophylaxis Assessment & Plan Assessment Current Active Medications: Generic Name Dose Route Start Last Admin Trade Name Freq PRN Reason Stop Dose Admin Acetaminophen 650 mg 08/28/25 17:19 Acetaminophen 325 Mg Tablet PO 09/27/25 17:18 Q6H PRN Fever >100.4 or pain 1-3 Dextrose 25 ml 08/29/25 10:47 Dextrose 50%-Water Inj 50 Ml Syringe IV 09/28/25 10:46 Q15MIN PRN BG 50-70 responsive npo pt Dextrose 50 ml 08/29/25 10:47 Dextrose 50%-Water Inj 50 Ml Syringe IV 09/28/25 10:46 Q15MIN PRN BG <50 OR BG <70 & pt unresponsive Folic Acid 1 mg 08/28/25 21:00 08/30/25 08:13 Folic Acid 1 Mg Tablet PO 09/02/25 20:59 1 mg BID SOTO Administration Glucagon 1 mg 08/29/25 10:47 Glucagon Inj 1 Mg Vial IM Q15MIN PRN BG <70, and no IV access Heparin Sodium (Porcine) 5,000 unit 08/28/25 17:30 08/30/25 08:11 Heparin Sod Inj 5000 Unit/Ml Vial SC 09/11/25 17:29 5,000 unit Q12HR SOTO Administration Insulin Degludec 10 unit 08/29/25 11:00 08/30/25 08:11 Insulin Degludec 5 Unit/0.05 Ml (Per 5 Units) SC 09/28/25 10:59 10 unit QDAY SOTO Administration Insulin Human Lispro 0 unit 08/29/25 11:30 08/30/25 11:49 Insulin Lispro (Admelog) 1 Unit/0.01 Ml Unit SC 09/28/25 11:29 1 unit AC SOTO Administration Protocol Insulin Human Lispro 2 unit 08/29/25 12:00 08/30/25 11:49 Insulin Lispro (Admelog) 1 Unit/0.01 Ml Unit SC 09/28/25 11:59 2 unit TIDWM SOTO Administration Metoclopramide HCl 10 mg 08/28/25 17:19 08/29/25 01:43 PDT Metoclopramide Inj 5 Mg/Ml Vial 2 Ml IVP 09/27/25 17:18 10 mg Q6H PRN Administration NAUSEA OR VOMITING Protocol Midazolam HCl 5 mg 08/29/25 04:27 Midazolam Inj 1 Mg/Ml Vial 2 Ml IVP 09/02/25 17:36 Q2H PRN CIWA 12-15 Midazolam HCl 1 mg 08/29/25 04:27 08/29/25 08:33 Midazolam Inj 1 Mg/Ml Vial 2 Ml IVP 09/02/25 17:36 1 mg Q2H PRN Administration CIWA 2-6 Midazolam HCl 2 mg 08/29/25 04:27 Midazolam Inj 1 Mg/Ml Vial 2 Ml IVP 09/02/25 17:36 Q2H PRN CIWA 7-11 Pantoprazole Sodium 40 mg 08/29/25 09:00 08/30/25 08:12 Pantoprazole Inj 40 Mg Vial IVP 09/28/25 08:59 40 mg QDAY SOTO Administration Tamsulosin HCl 0.4 mg 08/29/25 09:00 08/30/25 08:13 Tamsulosin Hcl 0.4 Mg Capsule PO 09/28/25 08:59 0.4 mg QDAY SOTO Administration Thiamine HCl 100 mg 08/28/25 21:00 08/30/25 08:13 Thiamine 100 Mg Tablet PO 09/02/25 20:59 100 mg BID SOTO Administration Plan Summary: Mr. Shook is a 34 year old male with a history of insulin-dependent T2DM, chronic back pain s/p back surgery x2, cannabis induced hyperemesis, opiate dependence, depression, anxiety, and alcohol use disorder who presented to [facility] ED on 08/28 for generalized weakness and nausea/vomiting. Patient was admitted to ICU for management of DKA and alcohol withdrawal. His anion gap resolved and he was downgraded to floors on 08/29/2025. #Alcohol withdrawal * Patient noted to have a significant history of alcohol use disorder that required hospitalization in the past. Patient mentions that his last alcoholic drink was the day before admission. * He also mentions that he had been drinking 4-6 beers daily after a back injury 5 years ago, but has not had a drink in the last 6 months. * In ED, the patient was noted to have CIWA score of 18, prompting administration of Ativan and phenobarbital. On admission, patient was noted to have significant bilateral upper extremity tremors. * Patient's CIWA score has been 0-1 Plan: * CIWA protocol: Versed 1 mg for CIWA score 2-6, 2 mg for CIWA score 7-11, 5 mg for CIWA score 12-15. * Seizure precautions as needed * Thiamine 100 mg p.o. twice daily, stop date 09/02, follow-up lab result * Folic acid 1 mg p.o. twice daily, stop date 09/02 * animal services officer referral for alcohol use disorder #Enlarged common bile duct #Fatty Liver likely secondary to alcohol use #Hyperbilirubinemia #Transaminitis (Improving) * Patient noted to have epigastric abdominal pain and history of cholelithiasis without cholecystitis. * Icteric sclera noted on admission. Sclera anicteric on downgrade. * Lower suspicion for choledocolithiasis as cause of enlarged CBD given US gallbladder negative for gallstones and patient did not present with a septic picture. * Patient mentions that due to vomiting he had not eaten in about 80 hours prior to coming to the hospital, consider starvation induced CBD dilation * Ultrasound gallbladder taken 08/28 noted abnormally enlarged CBD 0.8 cm * Also showed the liver to be 18.9 cm with fatty infiltration and irregular contour, consider alcoholic use * Patient does have a history of alcohol abuse. Initial labs to support an alcoholic hepatitis picture given AST to AST at a 2:1 ratio. Initial labs showed AST 220, ALT 86, ALP 117, and lipase 119. Plan: * MRCP ordered #HAGMA, likely 2/2 DKA (Resolved) and #Lactic acidosis, likely 2/2 starvation ketoacidosis vs. Thiamine deficiency #Pseudohyponatremia, likely 2/2 hyperglycemic hyperosmolarity * Initial labs on admission significant for sodium 127, chloride 85, bicarb less than 10, anion gap 25, and lactic acid 6.0. Sodium corrected for hyperglycemia estimated to be 133. * Patient endorsed losing 40 pounds over the last 4 months without any endorsed changes in diet, however patient does endorse generalized poor appetite, which is possible source of lactic acidosis * Beta-hydroxybutyrate noted to be over 6.4 on 08/28, decreased to 2.3. * ABG 08/28 significant for pH 7.19, pCO2 19, pO2 31, and bicarb 7 * Suspicion for thiamine deficiency leading to lactic acidosis in the presence of alcohol use * Anion gap and lactic acidosis have resolved * Sodium still slightly low at 134 despite a glucose around 140-160, likely due to decreased oral intake and recent nausea and vomiting Plan: * Referral to registered dietitian ordered on 08/28 * Thiamine 100 mg p.o. twice daily, stop date 09/02, pending Lab Value * Folic acid 1 mg p.o. twice daily, stop date 09/02 #DKA, (Resolved) #Insulin dependent T2DM * Patient does have a history of insulin-dependent type 2 diabetes mellitus and does take insulin at home, however he is not always compliant. * Sugars in the mid 100s * Lactic acid 2.6 on downgrade * BHB downtrending * Initial labs on 08/28 noted glucose of 333 and hemoglobin A1c of 7.5% * Anion gap of 25 on 08/28 on admission, resolved * Urinalysis shows 4+ glucose, 4+ ketones, 3+ blood, and 71 urine RBC Plan: * Insulin sliding scale * Insulin degludec 10 units sub-Q daily, first dose administered 11:12 on 08/29 * Insulin lispro 2 units sub-Q three times daily with meals * Patient on consistent carbohydrate low diet with snacks * Metoclopramide 10 mg IVP every 6 hours as needed for nausea/vomitting #Hypercalcemia (Resolved) * Corrected calcium 10.9 on initial labs 08/28 Plan: * Will continue to monitor #Chronic Back Pain * Patient does have a history of chronic back pain and has received surgery to his spine twice. Plan: * Acetaminophen 650 mg as needed for pain 1-3 * If patient's pain becomes intolerable, we will consider stronger analgesics, will avoid tramadol given allergy noted on EMR #KWABENA, likely prerenal (Resolved) * Patient noted to have creatinine of 1.5 on admission on 08/28, noted that his baseline creatinine is 0.7 * Patient was given 3 L LR in ED * Patient's creatinine is back to baseline Plan: * Continue to monitor with daily labs #Anemia, chronic, normocytic * Hemoglobin on admission 08/28 noted to be 12.0, which appears to be baseline for the patient * MCV on admission noted to be 92 * Hemoglobin 10.7 on downgrade Plan: * Will continue to monitor with daily labs * Will transfuse if hemoglobin less than 7 per protocol * Patient to follow-up outpatient after resolution of acute illness #Prostatic injury * Patient reports that he takes tamsulosin daily at home, however he does not endorse any difficulty with urination and states that he has never had his prostate examined. * Patient mentioned that an unspecific event occurred during a surgical procedure on his back involving his prostate that requires him to now take tamsulosin Plan: * Tamsulosin 0.4 mg daily * CT chest/abdomen/pelvis on 08/26 showed urinary bladder intact without abnormalities of prostate noted #Acute encephalopathy secondary to opiates, (Resolved) * Patient's mentation noted to be altered and poorly responsive compared to his baseline as per stepfather. * Likely secondary to opiate given in ED as per patient seemed drowsy, but consider possible contributions from DKA and alcohol withdrawal. Plan: * Will continue to monitor, plan to intubate if GCS less than 8 and/or if significant respiratory distress with impending respiratory fatigue * Encephalopathy resolved 08/29 in the AM after opiate dose minimized Hospital Maintenance: DVT ppx: Heparin GI ppx: Protonix Diet: Carb consistent with snacks IV lines: Peripheral Code status: Full code Dispo: Downgraded to floors on 08/29/2025. MRCP today. Will continue to monitor for alcohol withdrawal. Lactic acidosis resolved. Continuing current insulin regimen. Patient was seen and discussed with my attending physician Dr. Cady HENRY and my senior resident Dr. Burke STALLINGS PGY-2. James Funez DO PGY-1. Attending Provider Attestation/Addendum Hilaria, Maria Lazar DO, attest that I was physically present for the gillette portions of the service and evaluated the patient with the resident and I reviewed and discussed the case with the resident and agree with the resident's findings and plans of care as documented above Patient seen and evaluated this afternoon. Patient states he is feeling well. Patient states he has had numbness in his feet due to his work injury. Back pain has been unchanged. He denies any saddle anesthesia or bowel/bladder incontinence otherwise. BG is well controlled. Patient states he used to weight 200+ lbs and had required 20units of basaglar with sliding scale. However, patient has been noncompliant with his home insulin. He states he is feeling well otherwise. Patient was able to ambulate out his door without issue. However, physical therapist had recommended SNF, which patient's family wishes for him to go to. Patient is otherwise pending MRCP at this time due to hyperbilirubinemia and dilated CBD noted on abdominal US. He denies any pain in his abdomen otherwise.
[2025-08-30] MEDS: HYDROcodone/APAP 5/325 TABLET 1 TAB PO (19:35)
[2025-08-30 22:00] VITALS: BP 100/67; PULSE 98; RESP 18; TEMP 37; O2SAT 97
[2025-08-31] MEDS: HYDROcodone/APAP 5/325 TABLET 1 TAB PO (03:07)
[2025-08-31 05:42] LABS: Basophils # (Auto) 0.0 Thou/mm3 (0.0-0.2); Basophils % (Auto) 0 % (0-2.5); Eosinophils # (Auto) 0.1 Thou/mm3 (0.0-0.5); Eosinophils % (Auto) 1 % (0-10); Hematocrit 26.5 % (41.0-53.0); Hemoglobin 9.2 g/dL (13.5-16.0); Immature Granulocytes Auto 0.04 Thou/mm3 (0.00-0.00); Lymphocytes # (Auto) 1.3 Thou/mm3 (1.0-4.8); Lymphocytes % (Auto) 20 % (10-50); Mean Corpuscular HGB Conc 34.7 g/dl (31.0-37.0); Mean Corpuscular Hemoglobin 31.2 pg (25.0-35.0); Mean Corpuscular Volume 90 fL (80-100); Monocytes # (Auto) 1.3 Thou/mm3 (0.0-0.8); Monocytes % (Auto) 20 % (0-12); Neutrophils # (Auto) 3.8 Thou/mm3 (1.8-7.7); Neutrophils % (Auto) 58 % (37-80); Nucleated Red Blood Cell # 0.03 Thou/mm3 (0.00-0.00); Nucleated Red Blood Cell % 1 /100 WBC (0); Platelet Count 132 Thou/mm3 (140-440); RDW Standard Deviation 44.5 fL (35.1-43.9); Red Blood Count 2.95 Miln/mm3 (4.50-5.90); White Blood Count 6.5 Thou/mm3 (3.8-10.6)
[2025-08-31 06:00] VITALS: BP 113/84; PULSE 85; RESP 20; TEMP 36.7; O2SAT 98
[2025-08-31 06:14] LABS: Alanine Aminotransferase 48 U/L (10-49); Albumin, Serum 4.2 gm/dL (3.5-5.0); Albumin/Globulin Ratio 1.9 (1.2-2.2); Alkaline Phosphatase 92 U/L (46-116); Anion Gap 12 (7-16); Aspartate Amino Transferase 136 U/L (0-34); BUN/Creatinine Ratio 12 Ratio (12-20); Bilirubin,Total 4.2 mg/dL (0.3-1.2); Blood Urea Nitrogen 7 mg/dL (9-23); Calcium 9.6 mg/dL (8.3-10.6); Calcium (Corrected) 9.6 mg/dL (8.5-10.1); Carbon Dioxide 26.6 mMol/L (20.0-31.0); Chloride 93 mMol/L (98-107); Creatinine (Component) 0.6 mg/dL (0.6-1.3); Estimated Creatinine Clearance 144.3 mL/min (>60); Globulin 2.2 gm/dL (2.3-3.5); Glucose 182 mg/dL (74-106); Osmolality,Calculated 267 (275-295); Potassium 3.9 mMol/L (3.4-5.1); Sodium 132 mMol/L (136-145); Total Protein 6.4 gm/dL (5.7-8.2); eGFR > 60 See Note
[2025-08-31] MEDS: TAMSULOSIN HCL 0.4 MG CAPSULE PO (08:37)
[2025-08-31] MEDS: INSULIN DEGLUDEC 5 UNIT/0.05 ML (PER 5 UNITS) 10 UNIT SC (08:37)
[2025-08-31] MEDS: FOLIC ACID 1 MG TABLET PO (08:37)
[2025-08-31] MEDS: HEPARIN SOD INJ 5000 UNIT/ML VIAL SC (08:38)
[2025-08-31] MEDS: INSULIN LISPRO (AdmeLOG) 1 UNIT/0.01 ML UNIT SC ×2 (08:38→12:12)
[2025-08-31] MEDS: INSULIN LISPRO (AdmeLOG) 1 UNIT/0.01 ML UNIT 2 UNIT SC ×2 (08:39→12:12)
[2025-08-31] MEDS: THIAMINE 100 MG TABLET PO (08:41)
[2025-08-31 11:05] VITALS: PULSE 82; RESP 19; RESP 98
--- NOTE | 2025-08-31 11:48 | PC.SS ---
SS follow up note; PT evaluated patient and reported patient is cleared from PT on their stand point. Patient is independently with all ADL's. Patient will discharge home with HH. SS was informed by PT
[2025-08-31 11:51] VITALS: BP 109/73; PULSE 92; RESP 16; TEMP 36.6; O2SAT 98
--- NOTE | 2025-08-31 11:54 | PC.SS ---
SS follow up note; PT evaluated patient and reported patient is cleared from PT on their stand point. Patient is independently with all ADL's. Patient will discharge home with HH. SS was informed by PT if patient could have a Rollator walker. SS submitted DME referral for Rollator walker through [facility]. SS will assist patient with transportation.
--- NOTE | 2025-08-31 13:26 | PC.PT ---
Patient will be D/C from PT services 11/29 patient is now xI and at his PLOF. Patient is safe to ambulate to the bathroom and in the halls with no staff and no AD. RN made aware.
--- NOTE | 2025-08-31 14:35 | ESDS_ITS ---
<Statement entered by Maria Lazar DO - 08/31/25 17:28> I, Maria Lazar DO, attest that I was physically present for the gillette portions of the service and evaluated the patient with the resident and I reviewed and discussed the case with the resident and agree with the resident's findings and plans of care as documented above Planned Discharge Date 08/31/25 DS: Providers Provider Date of admission: 08/28/25 17:53 Primary care physician: Physician No Primary/Family Admitting Provider: Arnol Wood MD Attending Provider on Admission: Maria Lazar DO Consults: 08/28/25 13:45 Referral Registered Dietitian Routine Comment: 08/29/25 13:20 PT [Referral Physical Therapy] Routine Comment: Generalized weakness, multiple falls at home x1mo Physician Instructions: Attending Provider on DC: Maria Lazar DO Discharging Provider: James Funez DO DS: Diagnosis Discharge Diagnosis (1) Withdrawal symptoms, alcohol: Status: Acute (2) Diabetic ketoacidosis: Status: Acute (3) Chronic low back pain: Status: Acute Problem List Completed Was Problem List Reviewed/Reconciled?: Yes Hospital Course Hospital Course Hospital course: Hospital Course: Mr. Shook is a 34 year old male with a history of insulin-dependent T2DM, chronic back pain s/p back surgery x2, cannabis induced hyperemesis, opiate dependence, depression, anxiety, and alcohol use disorder who presented to [facility] ED on 08/28 for generalized weakness and nausea/vomiting. Patient was admitted to ICU for management of DKA and alcohol withdrawal. A CIWA protocol was put in place. In the ED, patient initially had an anion gap of 25 and glucose of 333. AST 220 ALT 86. Beta hydroxybutyrate was over 6.4. ABG showed a pH of 7.19 pCO2 19, pO2 31, and bicarb 7. The patient had a CIWA score of 18 and was given lorazepam. He received a 3 L LR bolus and was started on DKA protocol with a regular insulin drip at 0.1 units/kg/h. The patient's anion gap closed and his lactic acidosis resolved. He was downgraded to floors. He did have elevated bilirubin and a liver ultrasound showed an enlarged common bile duct. MRCP was performed and showed severe hepatic steatosis, a distended gallbladder with stones not obstructing the cystic duct, chronic pancreatitis sequelae, and trace Mike cholecystic fluid. A follow-up MRCP was recommended in a year to follow-up. The patient worked with PT and was able to ambulate on his own. Sugars were brought under control with degludec and insulin sliding scale, which he will be discharged on. Vitals are stable upon discharge. Problem List: #Acute Alcohol withdrawal #Enlarged common bile duct #Fatty Liver likely secondary to alcohol use #Hyperbilirubinemia #Transaminitis (Improving) #HAGMA, likely 2/2 DKA (Resolved) and #Lactic acidosis, likely 2/2 starvation ketoacidosis vs. Thiamine deficiency #Pseudohyponatremia, likely 2/2 hyperglycemic hyperosmolarity #DKA, (Resolved) #Insulin dependent T2DM #Hypercalcemia (Resolved) #Chronic Back Pain #KWABENA, likely prerenal (Resolved) #Anemia, chronic, normocytic #Prostatic injury #Acute encephalopathy secondary to opiates, (Resolved) Discharge Instructions: - Take your insulin as follows for the indicated blood glucose levels * 150-200 mg/dL: 1 unit * 201-250 mg/dL: 2 units * 251-300 mg/dL: 3 units * Greater than 300 mg/dL: 4 units - Take your insulin degludec 10 units daily - Take your folic acid 1 mg tablet twice a day - Take your thiamine 100 mg tablet twice a day - Stop taking gabapentin - Continue taking all of your other home medications as prescribed - Follow-up with your PCP within 1 to 2 weeks of discharge - If you do not have a PCP then you can contact the [facility] - Return to the ER if you have any worsening symptoms. The patient was seen and discussed with my attending physician Dr. Cady HENRY and my senior resident Dr. Burke STALLINGS PGY-2. James Funez DO PGY-1 Time Spent with Patient Time attestation: Total time spent providing and/or coordinating discharge services: More than 50% Time spent: Greater than 30 minutes Exam Vital Signs Temp Pulse Resp BP Pulse Ox O2 Del Method 98 F 92 16 109/73 98 Room Air 08/31/25 11:51 08/31/25 11:51 08/31/25 11:51 08/31/25 11:51 08/31/25 11:51 08/31/25 11:51 Narrative Exam General: Awake and in no acute distress. Conversational and non-toxic appearing. Neurologic: GCS 15. Alert and oriented x3, no gross neurological deficit, and patient able to move all 4 extremities. HEENT: Normocephalic, atraumatic, mucous membranes moist. Pupils reactive to light. Heart: Regular rate and rhythm, normal S1 and S2, no murmurs. Lungs: Clear to auscultation bilaterally with no wheezing or crackles. Abdomen: Soft, nondistended, nontender, positive bowel sounds. No guarding or rebound tenderness. Extremities: No edema. 2+ radial and dorsalis pedis pulses bilaterally. Skin: Warm. Dry. No rash or ecchymoses. Discharge Plan Plan Patient Disposition: HOME (Self Care) Patient condition on transfer: Stable Care Plan Goals: - Take your insulin as follows for the indicated blood glucose levels * 150-200 mg/dL: 1 unit * 201-250 mg/dL: 2 units * 251-300 mg/dL: 3 units * Greater than 300 mg/dL: 4 units - Take your insulin degludec 10 units daily - Take your folic acid 1 mg tablet twice a day - Take your thiamine 100 mg tablet twice a day - Stop taking gabapentin - Continue taking all of your other home medications as prescribed - Follow-up with your PCP within 1 to 2 weeks of discharge - If you do not have a PCP then you can contact the [facility] - Return to the ER if you have any worsening symptoms. Prescriptions/Referrals Prescriptions/Med Rec: New (DME) Dexcom G7 Sensor Device See Rx Instructions .Route Qty: 3 0RF Rx Instructions: As directed (DME) Dexcom G[facility] See Rx Instructions .Route Qty: 1 0RF Rx Instructions: As directed folic acid 1 mg Tablet 1 mg PO BID 30 Days Qty: 60 0RF insulin lispro 100 unit/mL Solution 0 unit SCi AC 30 Days Qty: 3 0RF thiamine mononitrate (vit B1) 100 mg Tablet 100 mg PO BID 30 Days Qty: 60 0RF insulin degludec 100 unit/mL Solution 10 unit SCi QDAY 30 Days Qty: 3 0RF Continued insulin aspart U-100 [Novolog FlexPen U-100 Insulin] 100 unit/mL (3 mL) Insulin Pen See Rx Instructions .ROUTE .COMPLEX Rx Instructions: Flex pen fluoxetine 20 mg capsule 20 mg PO DAILY Patient Comments: TAKE 1 CAPSULE BY MOUTH EVERY DAY tamsulosin 0.4 mg capsule 0.4 mg PO Q24H Patient Comments: TAKE 1 CAPSULE BY MOUTH EVERY DAY lamotrigine 25 mg tablet 25 mg PO Q12H Patient Comments: TAKE 1 TABLET BY MOUTH DAILY FOR 14 DAYS, THEN 2 TABLETS BY MOUTH DAILY THEREAFTER. Discontinued insulin glargine [Basaglar KwikPen U-100 Insulin] 100 unit/mL (3 mL) insulin pen 20 unit SUBCUT BID Patient Comments: INJECT 30 UNITS SUBCUTANEOUSLY EVERY DAY AT BEDTIME gabapentin 600 mg tablet 600 mg PO TID Patient Comments: take 1 tablet by mouth three times a day Referrals: [facility] [Outside] No Primary/Family,Physician [Primary Care Provider] Patient/Caregiver Discharge Instructions Other Discharge Activity Instructions:: Please f/u with PCP within 1 week of discharge. Insulin regimen switched to 10 units of degludec. Please cover with sliding scale Education Materials: Diabetic Ketoacidosis Print Language: Arabic Stand Alone Forms: Colleen Award Info., Patient Portal Info Letter Discharge Order Discharge Orders: Discharge (Routine); Ordered 08/31/25 Ordered By: James Funez Quality Discharge Quality Measures none
[2025-08-31 15:25] VITALS: BP 96/64; PULSE 90; RESP 16; TEMP 37; O2SAT 97
[2025-09-06 06:38] LABS: Vitamin B1 (Thiamine)* 42 nmol/L (8-30)
== END 2025-08-31 15:19 | disposition home or self-care (01) | DRG 420 ==
LOC: SERX 14:09 → SERHOLD 08-30 05:41 → S2SX 08-30 05:41 → S3SX 08-30 05:41
PROVIDERS: Nurse Practitioner Family; Student in an Organized Health Care Education/Training Program; Admitting Provider Internal Medicine Critical Care Medicine; Emergency Provider Emergency Medicine; Visit Provider Internal Medicine
DX: E11.10 Type 2 diabetes mellitus with ketoacidosis without coma (principal); G89.29 Other chronic pain; M54.9 Dorsalgia, unspecified; F41.9 Anxiety disorder, unspecified; F32.A Depression, unspecified; F10.239 Alcohol dependence with withdrawal, unspecified; G92.8 Other toxic encephalopathy; T40.605A Adverse effect of unspecified narcotics, initial encounter; K80.20 Calculus of gallbladder without cholecystitis without obstruction; K70.10 Alcoholic hepatitis without ascites; D70.9 Neutropenia, unspecified; E83.52 Hypercalcemia; F10.229 Alcohol dependence with intoxication, unspecified; N17.9 Acute kidney failure, unspecified; E87.0 Hyperosmolality and hypernatremia; K82.8 Other specified diseases of gallbladder; D64.9 Anemia, unspecified; K76.0 Fatty (change of) liver, not elsewhere classified; Z79.4 Long term (current) use of insulin; R29.6 Repeated falls; Z91.148 Patient's other noncompliance with medication regimen for other reason; Z98.1 Arthrodesis status
CPT/HCPCS: 36415; 36600; 71045; 74181; 76705; 80053; 80069; 80076; 80320; 81001; 82010; 82803; 83036; 83605; 83690; 83735; 84100; 84425; 85025; 85610; 87040; 87081; 93005; 96361; 96365; 96366; 96372; 96374; 96375; 96376; 97162; 99284; A4216; J1644; J1815; J2060; J2250; J2270; J2405; J2470; J2560; J2765; J3475; J3480; J3490; J7060; J7120; J7121; J7999; A9270; G0480

== ENCOUNTER 2025-09-11 13:51 | Emergency (ER) | payer MEDICAID, SELFPAY ==
--- NOTE | 2025-09-11 13:53 | EKG_ITS ---
[facility] Test Date: 2025-09-11 Pat Name: KARIS SORENSON Department: Room: - Gender: Male Senior Engineering Tech: : [id number] Requested By: Fidel Iyer Order Number: [id number] Reading MD: Fidel Iyer Measurements Intervals Russell Rate: 96 P: 52 WY: 149 QRS: 56 QRSD: 77 T: 42 QT: 357 QTc: 451 Interpretive Statements SINUS RHYTHM Compared to ECG 09/17/2024 16:30:52 Sinus tachycardia no longer present T-wave abnormality no longer present /store/S0/[id number]/ecg/[id number].pdf
--- NOTE | 2025-09-11 13:53 | XR_ITS ---
Examination: Abdomen sonogram, Limited Date and time of exam: September 11, 2025, 1423 hours, comparison August 28, 2025 INDICATIONS: Right upper abdominal pain beginning 2 hours ago, diabetes diagnosis, history abnormally enlarged common bile duct 8 mm on gallbladder sonogram August 28, 2025, distended gallbladder, gallstones, chronic pancreatitis with pancreatic duct dilatation on MRI abdomen August 30, 2025 Technique: Real-time kay scale transabdominal sonographic images of the upper abdomen obtained. Findings: Multiple tiny gallstones Gallbladder wall 0.40 cm Common bile duct 0.5 cm no common bile duct stones noted Pancreatic head prominent 3.9 cm with calcifications throughout the pancreas Liver 20.2 cm fatty infiltration smooth contour no focal liver lesions Normal hepatopetal portal venous flow Patent IVC IMPRESSION: Cholelithiasis Borderline thickening gallbladder wall, consider HIDA scan or MRCP follow-up to exclude cholecystitis Prominent pancreatic head 3.9 cm with calcifications, MRCP follow-up would also exclude pancreatitis as clinically warranted Moderate hepatomegaly fatty infiltration no focal liver lesions
[2025-09-11 13:55] VITALS: BP 63/38; PULSE 97; RESP 18; TEMP 36.9; O2SAT 99
[2025-09-11 13:56] VITALS: BP 72/35
--- NOTE | 2025-09-11 13:56 | PD.EDABDPN ---
ED Abdominal Pain RME/HPI General Chief Complaint: Abdominal Pain Stated complaint: ABD PAIN Time seen by provider: 09/11/25 13:53 Arrival date/time: 09/11/25 13:51 34-year-old male patient with significant history of type 1 diabetes mellitus, chronic alcoholism, came in with EMS for evaluation regarding right upper quadrant pain, shaky, and very dry mouth. Patient told me that the last alcohol intake was 2 days ago. Patient feels anxious. Patient been taking his insulin with good compliance. Denies any homicidal or suicidal ideation. Patient was given fentanyl [address] Zofran on the way to the emergency room. Denies any fever. Denies any diarrhea or constipation. Related Data Home Medications ?Medication ?Instructions ?Recorded ?Confirmed insulin aspart U-100 100 unit/mL See Rx Instructions .Route .COMPLEX 05/23/23 08/29/25 (3 mL) subcutaneous pen (Novolog FlexPen U-100 Insulin aspart) fluoxetine 20 mg capsule 20 mg PO DAILY 08/29/25 08/29/25 lamotrigine 25 mg tablet 25 mg PO Q12H 08/29/25 08/29/25 tamsulosin 0.4 mg capsule 0.4 mg PO Q24H 08/29/25 08/29/25 Previous Rx's ?Medication ?Instructions ?Recorded blood-glucose sensor (Dexcom G7 #3 ea 08/31/25 Sensor device) blood-glucose,highway construction inspector,cont #1 ea 08/31/25 (Dexcom G7 Pyrometer Temperature Regulator) folic acid 1 mg tablet 1 mg PO BID 30 days #60 tabs 08/31/25 insulin degludec 100 unit/mL 10 unit (0.1 mL) SCi QDAY 30 days 08/31/25 subcutaneous solution #3 mL insulin lispro 100 unit/mL 0 unit (0 mL) SCi AC 30 days #3 mL 08/31/25 subcutaneous solution thiamine mononitrate (vit B1) 100 100 mg PO BID 30 days #60 tabs 08/31/25 mg tablet pen needle, diabetic 31 gauge x #100 ea 09/04/25/16 (Sure-Fine Pen Wyckoff) dicyclomine 20 mg tablet 20 mg PO QID PRN abdominal pain 09/11/25 #30 tabs famotidine 40 mg tablet (Pepcid) 40 mg PO BID #30 tabs 09/11/25 Allergies Allergy/AdvReac Type Severity Reaction Status Date / Time ketorolac (From Toradol) Allergy Verified 09/11/25 14:06 Review of Systems Review of Systems Narrative Review of Systems: Review of system reviewed and within normal limits except mentioned in HPI ED Exam Narrative Physical exam: VITAL SIGNS: Reviewed. GENERAL APPEARANCE: Alert and interactive, follows commands, no acute distress, anxious HEAD AND FACE: Non-traumatic. ENT: PERRL, pink conjunctivitis, eyelid no trauma, Mucous membrane moist. NECK: Supple, nontender, no nuchal rigidity. CHEST: No tenderness, no crepitus, no paradoxical movement, no retractions. LUNGS: Clear, well ventilated, symmetric, no rales, no wheezing, no ronchi, no stridor, good breath sounds bilaterally. HEART: Regular rate, regular rhythm, no murmur, no gallops. ABDOMEN: Soft, positive bowel sounds, nondistended, no guarding, nontender, no rebound, no masses, RECTAL: Deferred. GENITAL: Deferred. NEUROLOGICAL: Gross motor function intact sensory function intact, Appropriate for age. MUSCULOSKELETAL: low back nontender, full range of motion. EXTREMITIES: Nontender, full range of motion. SKIN: Color pink, dry, no rash, no lacerations, no abrasions, no contusions. LYMPHATICS: Deferred. Course Quality Measures none Orders Category Date Time Status Coloring Checker Q4H START 00 Care 09/11/25 14:18 Active EKG (ED ONLY) *Do not use* NOW Care 09/11/25 13:53 Completed IV [Insert IV] NOW Care 09/11/25 14:18 Active Seizure precautions NOW Care 09/11/25 14:18 Active EKG (ED Only) Stat Exams 09/11/25 13:53 Draft US gall bladder Stat Exams 09/11/25 13:53 Completed Acetone [Beta Hydroxybutyrate] Stat Lab 09/11/25 14:11 Completed Alcohol, Blood Medical Stat Lab 09/11/25 14:11 Completed CBC Stat Lab 09/11/25 14:11 Completed Comprehensive Metabolic Panel Stat Lab 09/11/25 14:11 Completed Lipase Stat Lab 09/11/25 14:11 Completed Partial Thromboplastin Time Stat Lab 09/11/25 14:11 Completed Prothrombin Time with INR Stat Lab 09/11/25 14:11 Completed VBG [Venous Blood Gas] Stat Lab 09/11/25 14:11 Completed Morphine* Inj Med 09/11/25 15:08 Discontinued 4 mg IVP X1 ONE Ondansetron Inj [Zofran Inj] Med 09/11/25 15:07 Discontinued 4 mg IVP X1 ONE Ringers Lactated 1000 ml [Lactated Ringers] 1,000 ml Med 09/11/25 13:54 Discontinued IV 999 mls/hr Vital Signs Vital signs: Vital Signs Temperature 98.5 F 09/11/25 13:55 Pulse Rate 97 09/11/25 13:55 Respiratory Rate 18 09/11/25 13:55 Blood Pressure 63/38 L 09/11/25 13:55 Pulse Oximetry (%) 99 09/11/25 13:55 Oxygen Delivery Method Room Air 09/11/25 13:55 Abdominal Pain MDM MDM Narrative MDM Narrative:: 09/11/25 13:51 34-year-old male patient with significant history of type 1 diabetes mellitus, chronic alcoholism, came in with EMS for evaluation regarding right upper quadrant pain, shaky, and very dry mouth. Patient told me that the last alcohol intake was 2 days ago. Patient feels anxious. Patient been taking his insulin with good compliance. Denies any homicidal or suicidal ideation. Patient was given fentanyl 50 mcg and Zofran on the way to the emergency room. Denies any fever. Denies any diarrhea or constipation. EKG as interpreted by me showed sinus rhythm, ventricular rate of 96 bpm, no ST segment elevation or depression noted. Patient's workup today all came back with blood sugar of 214 with no sign of diabetic acidosis. Patient slight leukocytosis noted of 12.8 patient total bili today is slightly better than 3 weeks ago. Alcohol level is still elevated 167. He was given IV fluids, morphine, and Zofran with complete resolution of biliary colic. Ultrasound of the gallbladder showed cholelithiasis with no sign of acute cholecystitis. Stable for discharge home Patient data External records reviewed:: None Clinical information provided by:: patient Social determinants that could affect healthcare access:: alcohol use Patient has the following chronic illnesses:: Diabetes mellitus type 1 How is presenting disease/condition affected by chronic disease/condition?: exacerbated by Evaluation data The following diagnostics were reviewed and interpreted by me:: lab results, radiology exam(s) and EKG tracing(s) Lab and/or radiology exams considered but not ordered:: None Interpretation Summary: See above Medications / Prescriptions Medications or Prescriptions considered but not ordered:: None Medication administrations:: Medication Administration History Discontinued Medications Lactated Ringer's (Lactated Ringers) 1,000 mls @ 999 mls/hr IV .Q1H1M ONE Stop: 09/11/25 14:54 Last Infusion: 09/11/25 15:18 Dose: Infused Documented By: Admin: 09/11/25 14:16 Dose: 999 mls/hr Documented By: KUNAL Morphine Sulfate (Morphine Sulf Inj 4 Mg/Ml Vial) 4 mg IVP X1 ONE Stop: 09/11/25 15:09 Last Admin: 09/11/25 15:17 Dose: 4 mg Documented By: KUNAL Ondansetron HCl (Ondansetron Inj 2 Mg/Ml Inj 2 Ml) 4 mg IVP X1 ONE; Protocol Stop: 09/11/25 15:08 Last Admin: 09/11/25 15:16 Dose: 4 mg Documented By: KUNAL IV fluids, morphine, Zofran Consultations Consultation(s) initiated? (list below): No Diagnosis Differential diagnosis abdominal pain: abdominal pain, calculus of kidney and other (Biliary colic, alcohol intoxication) Most likely diagnosis given after review of the tests above:: Biliary colic, Admission Indicated Admission indicated?: not indicated Admission Request Was there a request for admission?: No Disposition Plan Disposition Plan: Discharge Discharge Attestation Discharge Attestation: The patient was given an opportunity to ask questions and understood the discharge instructions. Discharge instructions specifically effects, indications for sooner follow up or return to the emergency department, and the expected course of current diagnosis. Patient condition: Stable Discharge Plan Plan Patient Disposition: HOME (Self Care) Discharge Disposition comment: stable Prescriptions/Referrals Prescriptions/Med Rec: New dicyclomine 20 mg tablet 20 mg PO QID PRN (Reason: abdominal pain) Qty: 30 0RF famotidine [Pepcid] 40 mg tablet 40 mg PO BID Qty: 30 0RF No Action insulin aspart U-100 [Novolog FlexPen U-100 Insulin] 100 unit/mL (3 mL) Insulin Pen See Rx Instructions .ROUTE .COMPLEX Rx Instructions: Flex pen fluoxetine 20 mg capsule 20 mg PO DAILY Patient Comments: TAKE 1 CAPSULE BY MOUTH EVERY DAY tamsulosin 0.4 mg capsule 0.4 mg PO Q24H Patient Comments: TAKE 1 CAPSULE BY MOUTH EVERY DAY lamotrigine 25 mg tablet 25 mg PO Q12H Patient Comments: TAKE 1 TABLET BY MOUTH DAILY FOR 14 DAYS, THEN 2 TABLETS BY MOUTH DAILY THEREAFTER. (DME) Dexcom G7 Sensor Device See Rx Instructions .Route Qty: 3 0RF Rx Instructions: As directed (DME) Dexcom G7 Pyrometer Temperature Regulator Misc See Rx Instructions .Route Qty: 1 0RF Rx Instructions: As directed folic acid 1 mg Tablet 1 mg PO BID 30 Days Qty: 60 0RF insulin lispro 100 unit/mL Solution 0 unit SCi AC 30 Days Qty: 3 0RF thiamine mononitrate (vit B1) 100 mg Tablet 100 mg PO BID 30 Days Qty: 60 0RF insulin degludec 100 unit/mL Solution 10 unit SCi QDAY 30 Days Qty: 3 0RF (DME) pen needle, diabetic [Sure-Fine Pen Wyckoff] 31 gauge x 5/16 needle See Rx Instructions .Route Qty: 100 0RF Rx Instructions: As directed Problem List Clinical Impression: Abdominal pain, Gallstone Patient/Caregiver Discharge Instructions Discharge Activity: activity as tolerated Education Materials: What Are Gallstones Additional Instructions: Thank you for the opportunity for serving you today. You are stable for discharged . You are advised to: Follow-up with your PCP in 1 to 2 days Return to ED for worsening of symptoms Increase oral fluids Take medication as prescribed Print Language: Brazilian Stand Alone Forms: Colleen Award Info., Patient Portal Info Letter PA/FLOOR WORKER TRANSFER BAY Supervising Physician SAMMY/FLOOR WORKER TRANSFER [employer]AY Supervising Physician: MD Cristina
[2025-09-11 14:01] VITALS: PULSE 112; RESP 19; O2SAT 98; BMI 19.3
[2025-09-11] MEDS: RINGERS LACTATED 1000 ML 1,000 ML 999 ML IV (14:16)
[2025-09-11 14:17] LABS: Base Excess, Venous 4 (-3-3); O2 Saturation, Venous 95 % (96-97); PCO2, Venous 30 mmHg (36-56); PO2, Venous 63 mmHg (15-58); pH, Venous 7.55 (7.33-7.66)
[2025-09-11 14:18] VITALS: PULSE 91
--- NOTE | 2025-09-11 14:19 | PC.NURSE ---
Patient to er from with c/o RUQ pain, n/vomiting x several days, provider requesting CIWA, patient states his last drink was at 6am, he had whisky and coke because he could not sleep and thought it would help, patient states he does not drink every day, patient CIWA 7 at this time. Patient placed in seizure precautions and ivf started per provider order, call light within reach.
[2025-09-11 14:20] LABS: Beta Hydroxybutyrate 0.3 mmol/L (<0.6)
[2025-09-11 14:30] LABS: Basophils # (Auto) 0.1 Thou/mm3 (0.0-0.2); Basophils % (Auto) 1 % (0-2.5); Eosinophils # (Auto) 0.2 Thou/mm3 (0.0-0.5); Eosinophils % (Auto) 1 % (0-10); Hematocrit 30.3 % (41.0-53.0); Hemoglobin 10.3 g/dL (13.5-16.0); Immature Granulocytes Auto 0.09 Thou/mm3 (0.00-0.00); Lymphocytes # (Auto) 3.1 Thou/mm3 (1.0-4.8); Lymphocytes % (Auto) 24 % (10-50); Mean Corpuscular HGB Conc 34.0 g/dl (31.0-37.0); Mean Corpuscular Hemoglobin 31.4 pg (25.0-35.0); Mean Corpuscular Volume 92 fL (80-100); Monocytes # (Auto) 0.8 Thou/mm3 (0.0-0.8); Monocytes % (Auto) 6 % (0-12); Neutrophils # (Auto) 8.5 Thou/mm3 (1.8-7.7); Neutrophils % (Auto) 67 % (37-80); Nucleated Red Blood Cell # 0.00 Thou/mm3 (0.00-0.00); Nucleated Red Blood Cell % 0 /100 WBC (0); Platelet Count 313 Thou/mm3 (140-440); RDW Standard Deviation 61.9 fL (35.1-43.9); Red Blood Count 3.28 Miln/mm3 (4.50-5.90); White Blood Count 12.8 Thou/mm3 (3.8-10.6)
[2025-09-11 14:38] LABS: Alanine Aminotransferase 57 U/L (10-49); Albumin, Serum 4.3 gm/dL (3.5-5.0); Albumin/Globulin Ratio 1.6 (1.2-2.2); Alcohol, Blood Medical 168.4 mg/dL (0-10.0); Alkaline Phosphatase 136 U/L (46-116); Anion Gap 14 (7-16); Aspartate Amino Transferase 170 U/L (0-34); BUN/Creatinine Ratio 11 Ratio (12-20); Bilirubin,Total 1.9 mg/dL (0.3-1.2); Blood Urea Nitrogen 8 mg/dL (9-23); Calcium 9.2 mg/dL (8.3-10.6); Calcium (Corrected) 9.2 mg/dL (8.5-10.1); Carbon Dioxide 25.1 mMol/L (20.0-31.0); Chloride 100 mMol/L (98-107); Creatinine (Component) 0.7 mg/dL (0.6-1.3); Estimated Creatinine Clearance 126.4 mL/min (>60); Globulin 2.7 gm/dL (2.3-3.5); Glucose 215 mg/dL (74-106); Lipase 37 U/L (12-53); Osmolality,Calculated 281 (275-295); Potassium 4.0 mMol/L (3.4-5.1); Sodium 139 mMol/L (136-145); Total Protein 7.0 gm/dL (5.7-8.2); eGFR > 60 See Note
[2025-09-11 14:39] LABS: INR 1.1 (0.9-1.3); Partial Thromboplastin Time 25.1 Seconds (22.0-36.0); Prothrombin Time 11.2 Seconds (9.0-12.2)
[2025-09-11 15:04] VITALS: BP 116/83; PULSE 92; PULSE 94; RESP 16; O2SAT 97
--- NOTE | 2025-09-11 15:05 | PC.NURSE ---
Patient requesting pain medication for 7/10 RUQ pain, will notify provider
[2025-09-11] MEDS: ONDANSETRON INJ 2 MG/ML INJ 2 ML 4 MG IVP (15:16)
[2025-09-11] MEDS: MORPHINE SULF INJ 4 MG/ML VIAL IVP (15:17)
--- NOTE | 2025-09-11 15:49 | PC.NURSE ---
Patient speaking with his father Don on the phone.
[2025-09-11 16:23] VITALS: BP 122/90; PULSE 91; RESP 16; O2SAT 95
== END 2025-09-11 16:23 | disposition home or self-care (01) ==
LOC: SERX 16:32
PROVIDERS: Nurse Practitioner Family; Emergency Provider Family Medicine
DX: K80.20 Calculus of gallbladder without cholecystitis without obstruction (principal); E10.9 Type 1 diabetes mellitus without complications; F10.20 Alcohol dependence, uncomplicated; Z79.4 Long term (current) use of insulin
CPT/HCPCS: 36415; 76705; 80053; 80320; 82010; 82803; 83690; 85025; 85610; 85730; 93005; 96361; 96374; 96375; 99284; J2270; J2405; J7120; G0480

== ENCOUNTER 2025-09-22 18:39 | Emergency (ER) | payer MEDICAID, SELFPAY ==
[2025-09-22 18:48] VITALS: BP 123/76; PULSE 108; RESP 20; TEMP 36.8; O2SAT 98
[2025-09-22 18:49] VITALS: PULSE 104; RESP 20; O2SAT 98
--- NOTE | 2025-09-22 18:59 | PD.EDWEAK ---
ED Weakness RME/HPI General Chief complaint: Abdominal Pain Stated complaint: ABD PAIN, NAUSEA/VOMITTING Time Seen by Provider: 09/22/25 18:58 Arrival date/time: 09/22/25 18:39 RME / HPI RME / HPI Narrative: See [facility] for Dr. Brantley's HPI Documentation. Related Data Home Medications ?Medication ?Instructions ?Recorded ?Confirmed insulin aspart U-100 100 unit/mL See Rx Instructions .Route .COMPLEX 05/23/23 08/29/25 (3 mL) subcutaneous pen (Novolog FlexPen U-100 Insulin aspart) fluoxetine 20 mg capsule 20 mg PO DAILY 08/29/25 08/29/25 lamotrigine 25 mg tablet 25 mg PO Q12H 08/29/25 08/29/25 tamsulosin 0.4 mg capsule 0.4 mg PO Q24H 08/29/25 08/29/25 Previous Rx's ?Medication ?Instructions ?Recorded blood-glucose sensor (Dexcom G7 #3 ea 08/31/25 Sensor device) blood-glucose,[employer],cont #1 ea 08/31/25 (Dexcom G7 Emergency Medical Tech) folic acid 1 mg tablet 1 mg PO BID 30 days #60 tabs 08/31/25 insulin degludec 100 unit/mL 10 unit (0.1 mL) SCi QDAY 30 days 08/31/25 subcutaneous solution #3 mL insulin lispro 100 unit/mL 0 unit (0 mL) SCi AC 30 days #3 mL 08/31/25 subcutaneous solution thiamine mononitrate (vit B1) 100 100 mg PO BID 30 days #60 tabs 08/31/25 mg tablet pen needle, diabetic 31 gauge x #100 ea 09/04/25 5/16 (Sure-Fine Pen [place]) dicyclomine 20 mg tablet 20 mg PO QID PRN abdominal pain 09/11/25 #30 tabs famotidine 40 mg tablet (Pepcid) 40 mg PO BID #30 tabs 09/11/25 acetaminophen 300 mg-codeine 30 mg 2 tab PO Q8H PRN pain #20 tabs 09/22/25 tablet ondansetron 4 mg disintegrating 4 mg PO TID PRN nausea and 09/22/25 tablet vomiting 30 days #10 tabs Allergies Allergy/AdvReac Type Severity Reaction Status Date / Time ketorolac (From Toradol) Allergy Verified 09/22/25 19:01 Review of Systems Review of Systems Systems Reviewed: All systems reviewed, normal except as documented Past Medical History Past Medical History NEUROLOGIC: Positive Seizures CARDIAC: Positive Hypertension GASTROINTESTINAL: Positive Pancreatitis ENDOCRINE: Positive Diabetes Mellitus Type 1 PSYCHO/SOCIAL: Positive Depression and Anxiety Surgical History SURGICAL: Positive Abdominal Surgery Social History SMOKING STATUS: Former smoker ALCOHOL: Current ED Exam Narrative Physical exam: See MDM for Dr. Brantley's Physical Exam Documentation. Course Quality Measures none Orders Category Date Time Status Saline [Insert IV] NOW Care 09/22/25 19:05 Completed Straight [In and Out Catheter] X1 Care 09/22/25 19:05 Completed US gall bladder Stat Exams 09/22/25 19:06 Completed ABG [Arterial Blood Gas] Stat Lab 09/22/25 19:44 Completed Alcohol, Blood Medical Stat Lab 09/22/25 19:00 Completed Amylase Stat Lab 09/22/25 19:00 Completed BNP [B-Type Natriuretic Peptide] Stat Lab 09/22/25 19:00 Completed Beta Hydroxybutyrate Stat Lab 09/22/25 19:00 Completed Bilirubin,Direct Stat Lab 09/22/25 19:00 Completed CBC Stat Lab 09/22/25 19:00 Completed CMP [Comprehensive Metabolic Panel] Stat Lab 09/22/25 19:00 Completed CRP [C-Reactive Protein] Stat Lab 09/22/25 19:00 Completed Drug Screen,Urine Stat Lab 09/22/25 21:05 Completed ESR [Sed Rate (ESR)] Stat Lab 09/22/25 19:00 Completed Hemoglobin A1C [Glycohemoglobin w (eAG)] Stat Lab 09/22/25 19:00 Completed Lactate (Lactic Acid) Stat Lab 09/22/25 19:00 Completed Lipase Stat Lab 09/22/25 19:00 Completed Magnesium Stat Lab 09/22/25 19:00 Completed PT [Prothrombin Time with INR] Stat Lab 09/22/25 19:00 Completed PTT [Partial Thromboplastin Time] Stat Lab 09/22/25 19:00 Completed Procalcitonin Stat Lab 09/22/25 19:00 Completed TSH [Thyroid Stimulating Hormone] Stat Lab 09/22/25 19:00 Completed Troponin I Stat Lab 09/22/25 19:00 Completed UA, C/S IF [Urinalysis, C/S if Indicated] Stat Lab 09/22/25 21:05 Completed LORazepam [Ativan Inj] Med 09/22/25 21:40 Discontinued 2 mg IVP X1 ONE Morphine* Inj Med 09/22/25 19:05 Discontinued 4 mg IV X1 ONE Ondansetron Inj [Zofran Inj] Med 09/22/25 19:05 Discontinued 4 mg IVP X1 ONE Ringers Lactated 1000 ml [Lactated Ringers] 1,000 ml Med 09/22/25 21:40 Discontinued IV 1,000 mls/hr Sodium Chloride 0.9% 1000 ml [Ns] 1,000 ml Med 09/22/25 19:05 Discontinued IV 999 mls/hr Thiamine Inj [Vitamin B-1 Inj] Med 09/22/25 21:45 Discontinued 100 mg IVP X1 ONE Vital Signs Vital signs: Vital Signs Temperature 98.2 F 09/22/25 18:48 Pulse Rate 108 H 09/22/25 18:48 Respiratory Rate 20 09/22/25 18:48 Blood Pressure 123/76 09/22/25 18:48 Pulse Oximetry (%) 98 09/22/25 18:48 Oxygen Delivery Method Room Air 09/22/25 18:48 Weakness MDM Narrative MDM Narrative:: This section includes all my notes and documentations, including HPI, PE, and ED course. Kush Brantley MD HPI: 34 y/o male with Hx of Alcohol Dependence, Seizures, HTN, Pancreatitis, Type I DM BIBA from home with about an hour of upper abdominal pain, nausea, and shaking with low blood sugar of 65. No other complaints. ROS: All negative except as documented in HPI. Physical Exam: General: Alert and oriented. No acute distress when remaining still. Eyes: Conjunctivae and lids clear. ENT: No nasal congestion. Neck: Supple. Heart: RRR. Lungs: No respiratory distress. Good air movement. No rhonchi, wheezing, rales. Abdomen: Soft with equivocal upper quadrant tenderness. Normal bowel sounds. No distension. No rebound or guarding. Back: No CVA tenderness. Skin: Warm and dry. Neuro: Alert and oriented X 3. I reviewed EMS notes. I reviewed all diagnostic test results: My review of the Gall Bladder US report is cholelithiasis. Blood tests and urine tests remarkable for serum alcohol 259.8. At this point, diagnoses include: Gallstones Alcohol Intoxication Treatment here included: IVF Zofran 4 mg IV Morphine 4 mg IV He felt better. Patient requested leaving prior to full evaluation and treatment and reevaluation. Discussed potential risks, including worsening and sudden . Patient understood the risks and is willing to take the risks. We couldn't change his mind. Based on my best medical judgment, made decision no further evaluation or treatment indicated at this time. Patient understands and agrees to the discharge instructions customized and printed, see below. Discharge Instructions from Dr. Brantley: 1. After evaluation, your abdominal pain is due to gallstone(s).? You need gallbladder to help digest fatty foods. 2. So to prevent future attacks, avoid all fatty and oily and greasy and buttery and dairy foods.? This usually means take out and fast food restaurants. 3. Zofran for nausea/vomiting.? Tylenol with codeine for severe pain.? Clear liquid diet for 24 hours then advance diet slowly as tolerated. For good hydration, increase oral fluid and maintain clear urine. If dark or yellow, increase oral fluid. 4.? To prevent serious and potentially fatal future injuries and illnesses, quit alcohol at all cost. 5.? Eat regular nutritious meals. Take multivitamin and folic acid 1 mg and thiamine 50 mg every day as prescribed. 6.? See a private doctor on 09/24/2025 for recheck and further care. Ask for help to quit alcohol without alcohol withdrawal. Ask to review all test results and official radiology reports, to make sure you receive all necessary follow-ups and monitoring. To make sure there is no other serious intra-abdominal condition, ask for help with more investigation not available here in the ER.? Such as EGD or scoping the stomach, colonoscopy or scoping the colon, and referral to see esl instructor. Ask for help seeing a general surgeon to discuss elective surgery. 7. Seek immediate medical care with intolerable pain, fever, or with any concerns. Kush Brantley MD Patient data External records reviewed:: [facility] previous records (Reviewed prior ED records from 09/11/25. Patient was seen for Abdominal pain.) and EMS form Clinical information provided by:: patient and EMS Social determinants that could affect healthcare access:: alcohol use Patient has the following chronic illnesses:: Seizures, Hypertension, Pancreatitis, Diabetes Mellitus Type 1, Depression and Anxiety How is presenting disease/condition affected by chronic disease/condition?: exacerbated by Evaluation data The following diagnostics were reviewed and interpreted by me:: lab results and radiology exam(s) Lab and/or radiology exams considered but not ordered:: None Interpretation Summary: I reviewed all diagnostic test results: My review of the Gall Bladder US report is cholelithiasis. Blood tests and urine tests remarkable for serum alcohol 259.8. Medications / Prescriptions Medications or Prescriptions considered but not ordered:: None Medication administrations:: Medication Administration History Discontinued Medications Sodium Chloride (Ns) 1,000 mls @ 999 mls/hr IV .Q1H1M ONE Stop: 09/22/25 20:05 Last Infusion: 09/22/25 21:09 Dose: Infused Documented By: Admin: 09/22/25 19:12 Dose: 999 mls/hr Documented By: DUNIA Lactated Ringer's (Lactated Ringers) 1,000 mls @ 1,000 mls/hr IV .Q1H ONE Stop: 09/22/25 22:39 Last Admin: 09/22/25 22:16 Dose: Not Given Documented By: DUNIA Non-Admin Reason: Patient Refused Lorazepam (Lorazepam 2 Mg/Ml Vial) 2 mg IVP X1 ONE Stop: 09/22/25 21:41 Last Admin: 09/22/25 22:08 Dose: Not Given Documented By: DUNIA Non-Admin Reason: Cancelled by Provider Morphine Sulfate (Morphine Sulf Inj 4 Mg/Ml Vial) 4 mg IV X1 ONE Stop: 09/22/25 19:06 Last Admin: 09/22/25 19:11 Dose: 4 mg Documented By: DUNIA Ondansetron HCl (Ondansetron Inj 2 Mg/Ml Inj 2 Ml) 4 mg IVP X1 ONE; Protocol Stop: 09/22/25 19:06 Last Admin: 09/22/25 19:11 Dose: 4 mg Documented By: DUNIA Thiamine HCl (Thiamine Inj 100 Mg/Ml Vial 2 Ml) 100 mg IVP X1 ONE Stop: 09/22/25 21:46 Last Admin: 09/22/25 22:16 Dose: Not Given Documented By: DUNIA Non-Admin Reason: Patient Refused Treatment here included: IVF Zofran 4 mg IV Morphine 4 mg IV Patient declined further treatment, including more IVF and Ativan and thiamine. Consultations Consultation(s) initiated? (list below): No Diagnosis Weakness Differential Diagnosis: hypoglycemia, hypothyroidism, rhabdomyolysis, sepsis, dehydration and other (Gastritis, Alcohol withdrawal, Pancreatitis) Most likely diagnosis given after review of the tests above:: Gall Stones Alcohol Intoxication Admission Indicated Admission indicated?: not indicated Explain why admission is indicated or not indicated:: Patient requested leaving prior to full evaluation and treatment and reevaluation. Discussed potential risks, including worsening and sudden . Patient understood the risks and is willing to take the risks. We couldn't change his mind. Admission Request Was there a request for admission?: No Disposition Plan Disposition Plan: Discharge Discharge Attestation Discharge Attestation: The patient and all family members were given an opportunity to ask questions and understood the discharge instructions. Discharge instructions specifically effects, indications for sooner follow up or return to the emergency department, and the expected course of current diagnosis. Patient condition: Stable Discharge Plan Plan Patient Disposition: HOME (Self Care) Prescriptions/Referrals Prescriptions/Med Rec: New acetaminophen-codeine 300-30 mg tablet 2 tab PO Q8H MDD 6 PRN (Reason: pain) Qty: 20 0RF ondansetron 4 mg tablet,disintegrating 4 mg PO TID PRN (Reason: nausea and vomiting) 30 Days Qty: 10 0RF No Action insulin aspart U-100 [Novolog FlexPen U-100 Insulin] 100 unit/mL (3 mL) Insulin Pen See Rx Instructions .ROUTE .COMPLEX Rx Instructions: Flex pen dicyclomine 20 mg tablet 20 mg PO QID PRN (Reason: abdominal pain) Qty: 30 0RF famotidine [Pepcid] 40 mg tablet 40 mg PO BID Qty: 30 0RF fluoxetine 20 mg capsule 20 mg PO DAILY Patient Comments: TAKE 1 CAPSULE BY MOUTH EVERY DAY tamsulosin 0.4 mg capsule 0.4 mg PO Q24H Patient Comments: TAKE 1 CAPSULE BY MOUTH EVERY DAY lamotrigine 25 mg tablet 25 mg PO Q12H Patient Comments: TAKE 1 TABLET BY MOUTH DAILY FOR 14 DAYS, THEN 2 TABLETS BY MOUTH DAILY THEREAFTER. (DME) Dexcom G7 Sensor Device See Rx Instructions .Route Qty: 3 0RF Rx Instructions: As directed (DME) Dexcom G7 Emergency Medical Tech Misc See Rx Instructions .Route Qty: 1 0RF Rx Instructions: As directed folic acid 1 mg Tablet 1 mg PO BID 30 Days Qty: 60 0RF insulin lispro 100 unit/mL Solution 0 unit SCi AC 30 Days Qty: 3 0RF thiamine mononitrate (vit B1) 100 mg Tablet 100 mg PO BID 30 Days Qty: 60 0RF insulin degludec 100 unit/mL Solution 10 unit SCi QDAY 30 Days Qty: 3 0RF (DME) pen needle, diabetic [Sure-Fine Pen [place]] 31 gauge x 5/16 needle See Rx Instructions .Route Qty: 100 0RF Rx Instructions: As directed Problem List Clinical Impression: Alcohol intoxication, Gallstones Patient/Caregiver Discharge Instructions Discharge Activity: activity as tolerated Education Materials: ED Alcohol Intoxication, ED Gallstones with Biliary Colic Additional Instructions: Discharge Instructions from Dr. Brantley: 1. After evaluation, your abdominal pain is due to gallstone(s).? You need gallbladder to help digest fatty foods. 2. So to prevent future attacks, avoid all fatty and oily and greasy and buttery and dairy foods.? This usually means take out and fast food restaurants. 3. Zofran for nausea/vomiting.? Tylenol with codeine for severe pain.? Clear liquid diet for 24 hours then advance diet slowly as tolerated. For good hydration, increase oral fluid and maintain clear urine. If dark or yellow, increase oral fluid. 4.? To prevent serious and potentially fatal future injuries and illnesses, quit alcohol at all cost. 5.? Eat regular nutritious meals. Take multivitamin and folic acid 1 mg and thiamine 50 mg every day as prescribed. 6.? See a private doctor on 09/24/2025 for recheck and further care. Ask for help to quit alcohol without alcohol withdrawal. Ask to review all test results and official radiology reports, to make sure you receive all necessary follow-ups and monitoring. To make sure there is no other serious intra-abdominal condition, ask for help with more investigation not available here in the ER.? Such as EGD or scoping the stomach, colonoscopy or scoping the colon, and referral to see esl instructor. Ask for help seeing a general surgeon to discuss elective surgery. 7. Seek immediate medical care with intolerable pain, fever, or with any concerns. Print Language: [place] Island[place] Stand Alone Forms: [employer]leen Award Info., Patient Portal Info Letter
--- NOTE | 2025-09-22 19:06 | XR_ITS ---
Examination: Abdomen sonogram, Limited Date and time of exam: September 21, 2025, 1925 hours INDICATIONS: Right upper abdominal pain and vomiting beginning 2 months ago abdominal pain Technique: Real-time kay scale transabdominal sonographic images of the upper abdomen obtained. Findings: 16 mm gallstone Normal gallbladder wall Normal common bile duct 0.4 cm Pancreatic head 3.3 cm Liver 20.0 cm fatty infiltration lobular contour Normal hepatopetal portal venous flow Patent IVC IMPRESSION: Cholelithiasis, negative for cholecystitis Moderate hepatomegaly, suspect primary hepatocellular disease
[2025-09-22] MEDS: ONDANSETRON INJ 2 MG/ML INJ 2 ML 4 MG IVP (19:11)
[2025-09-22] MEDS: MORPHINE SULF INJ 4 MG/ML VIAL IV (19:11)
[2025-09-22] MEDS: SODIUM CHLORIDE 0.9% 1000 ML 1,000 ML 999 ML IV (19:12)
[2025-09-22 19:22] LABS: Basophils # (Auto) 0.1 Thou/mm3 (0.0-0.2); Basophils % (Auto) 1 % (0-2.5); Eosinophils # (Auto) 0.3 Thou/mm3 (0.0-0.5); Eosinophils % (Auto) 3 % (0-10); Hematocrit 36.5 % (41.0-53.0); Hemoglobin 12.1 g/dL (13.5-16.0); Immature Granulocytes Auto 0.05 Thou/mm3 (0.00-0.00); Lymphocytes # (Auto) 4.2 Thou/mm3 (1.0-4.8); Lymphocytes % (Auto) 39 % (10-50); Mean Corpuscular HGB Conc 33.2 g/dl (31.0-37.0); Mean Corpuscular Hemoglobin 31.8 pg (25.0-35.0); Mean Corpuscular Volume 96 fL (80-100); Monocytes # (Auto) 0.7 Thou/mm3 (0.0-0.8); Monocytes % (Auto) 6 % (0-12); Neutrophils # (Auto) 5.6 Thou/mm3 (1.8-7.7); Neutrophils % (Auto) 51 % (37-80); Nucleated Red Blood Cell # 0.00 Thou/mm3 (0.00-0.00); Nucleated Red Blood Cell % 0 /100 WBC (0); Platelet Count 222 Thou/mm3 (140-440); RDW Standard Deviation 56.1 fL (35.1-43.9); Red Blood Count 3.80 Miln/mm3 (4.50-5.90); White Blood Count 11.0 Thou/mm3 (3.8-10.6)
[2025-09-22 19:35] LABS: Beta Hydroxybutyrate 0.2 mmol/L (<0.6); Lactate (Lactic Acid) 4.7 mMol/L (0.4-2.0)
[2025-09-22 19:38] LABS: INR 1.0 (0.9-1.3); Partial Thromboplastin Time 26.5 Seconds (22.0-36.0); Prothrombin Time 11.0 Seconds (9.0-12.2); Sed Rate (ESR) 65 mm/hr (0-15)
[2025-09-22 19:56] LABS: Base Excess 0 (-3-3); HCO3 25 mEq/L (20-26); Inspired Oxygen, FIO2 21 %; O2 Saturation 97 % (91-98); PCO2 43 mmHg (32.0-48.0); PO2 92 mmHg (83-108); pH, Arterial 7.38 (7.35-7.45)
[2025-09-22 19:57] LABS: Allen Test Performed/OK; Puncture Site Right Radial
[2025-09-22 20:28] LABS: Glucose Estimated Average 126 mg/dL (80-131); Hemoglobin A1C 6.0 % Hgb (4.8-6.0)
[2025-09-22 20:39] LABS: B-Type Natriuretic Peptide < 20 pg/mL (0-100)
[2025-09-22 20:59] LABS: Alanine Aminotransferase 46 U/L (10-49); Albumin, Serum 4.7 gm/dL (3.5-5.0); Albumin/Globulin Ratio 1.5 (1.2-2.2); Alkaline Phosphatase 162 U/L (46-116); Anion Gap 14 (7-16); Aspartate Amino Transferase 121 U/L (0-34); BUN/Creatinine Ratio 11 Ratio (12-20); Bilirubin,Direct 0.7 mg/dL (0.0-0.3); Bilirubin,Total 1.0 mg/dL (0.3-1.2); Blood Urea Nitrogen 8 mg/dL (9-23); C-Reactive Protein < 0.5 mg/dL (0.0-0.9); Calcium 9.7 mg/dL (8.3-10.6); Calcium (Corrected) 9.7 mg/dL (8.5-10.1); Carbon Dioxide 24.9 mMol/L (20.0-31.0); Chloride 101 mMol/L (98-107); Creatinine (Component) 0.7 mg/dL (0.6-1.3); Globulin 3.1 gm/dL (2.3-3.5); Glucose 156 mg/dL (74-106); Lipase 27 U/L (12-53); Magnesium 1.6 mg/dL (1.6-2.6); Osmolality,Calculated 280 (275-295); Potassium 3.8 mMol/L (3.4-5.1); Procalcitonin 0.48 ng/ml (0.0-0.49); Sodium 140 mMol/L (136-145); Thyroid Stimulating Hormone 2.78 uIU/mL (0.55-4.78); Total Protein 7.8 gm/dL (5.7-8.2); Troponin I < 0.002 ng/mL (0.0-0.045); eGFR > 60 See Note
[2025-09-22 21:09] VITALS: BP 133/99; PULSE 98; RESP 19; TEMP 36.9; O2SAT 98
[2025-09-22 21:11] LABS: Collection Type, Urine Clean Catch
[2025-09-22 21:14] LABS: Alcohol, Blood Medical 259.8 mg/dL (0-10.0); Amylase 61 U/L (30-118)
[2025-09-22 21:16] LABS: Bilirubin,Urine Negative (Negative); Blood,Urine Trace (Negative); Clarity,Urine Clear (Clear/Hazy); Color,Urine Yellow (Lt Yel-Yel); Culture Indicated,Urine Not Indicated; Glucose, Urine 4+ (Negative); Hyaline Casts,Urine 1 /hpf (0-1); Ketones,Urine Trace (Negative); Leukocyte Esterase,Urine Negative (Negative); Nitrite,Urine Negative (Negative); PH,Urine 6.0 (5.0-7.0); Protein,Urine 1+ (Neg - Trace); RBC,Urine 37 /hpf (0-3); Specific Gravity,Urine 1.038 (1.001-1.035); Squamous Epithelial Cell,Urine < 1 /hpf (0-5); Urobilinogen,Urine 2.0 mg/dL (0.0-1.0); WBC,Urine 3 /hpf (0-5)
[2025-09-22 21:27] LABS: Amphetamine/Methamp Scrn,U Negative (Negative); Barbiturate Screen,Urine Negative (Negative); Benzodiazepines Screen,Urine Negative (Negative); Benzoylecgonine Screen, Ur Negative (Negative); Fentanyl Screen,Urine Negative (Negative); Opiate Screen,Urine Positive (Negative); THC Screen,Urine Negative (Negative)
[2025-09-22 22:17] LABS: Reflex Lactate? Y
--- NOTE | 2025-09-22 22:21 | PC.NURSE ---
pt refused meds and is ready to leave. provider was made of aware of pts request
[2025-09-22 22:29] VITALS: BP 133/99; PULSE 89; RESP 18; O2SAT 99
== END 2025-09-22 22:30 | disposition home or self-care (01) ==
PROVIDERS: Emergency Provider Emergency Medicine; PCP Family Medicine
DX: K80.20 Calculus of gallbladder without cholecystitis without obstruction (principal); F10.929 Alcohol use, unspecified with intoxication, unspecified; Y90.8 Blood alcohol level of 240 mg/100 ml or more
CPT/HCPCS: 36415; 36600; 76705; 80053; 80307; 80320; 81001; 82010; 82150; 82248; 82803; 83036; 83605; 83690; 83735; 83880; 84145; 84443; 84484; 85025; 85610; 85652; 85730; 86140; 96361; 96374; 99284; J2270; J2405; J7030; G0480

== ENCOUNTER 2025-09-27 00:55 | Emergency (ER) | payer MEDICAID, SELFPAY ==
[2025-09-27 01:08] VITALS: BP 124/85; PULSE 91; RESP 18; TEMP 36.7; O2SAT 96
[2025-09-27 01:09] VITALS: PULSE 95; RESP 18; O2SAT 99
--- NOTE | 2025-09-27 01:18 | XR_ITS ---
Examination: CT brain head without contrast. 2-D sagittal coronal reconstructions Date and time of exam: September 27, 2025, 0155 hours INDICATIONS: Patient fell today with unconscious episode 4 hours CTDI: vol (mGy): 48 DLP: (mGycm): 948 Technique: Multiple CT axial sections of the brain have been obtained, 5 mm slice thickness. Contrast has not been administered. 2-D sagittal, coronal reconstructions have been obtained Low dose protocols were performed. One or more of the following dose reduction techniques were used; automated exposure control, adjustment of the mA and/or KV according to patient size, use of iterative reconstruction technique. Findings: No significant ventricular enlargement. Intra-axial or extra-axial hemorrhage density is not seen. No mass effect or midline shift Basal cisterns are not remarkable. Fourth ventricle is midline. Cranial vault intact. Impression: Negative for acute hemorrhage, mass effect or midline shift
--- NOTE | 2025-09-27 01:18 | XR_ITS ---
EXAMINATION: Lumbar spine 3 views TECHNIQUE: AP lateral: Lateral lower lumbar spine 3 views Date and time: September 27, 2025, 0123 hours INDICATIONS: Patient heard a pop in lower back standing up last night followed by pain COMPARISON: June 24, 2023 FINDINGS: Transpedicular lumbar fusion L4-S1 with anatomic alignment No lumbar fracture No significant lumbar disc narrowing above the fusion site IMPRESSION: Transpedicular lumbar fusion with anatomic alignment No lumbar fracture
--- NOTE | 2025-09-27 01:18 | EKG_ITS ---
[facility] Test Date: 2025-09-27 Pat Name: KARIS SORENSON Department: Room: - Gender: Male [employer]ler: : 1990 Requested By: Segundo Lilly Order Number: [id number] Reading MD: Segundo Lilly Measurements Intervals [place] Rate: 96 P: 64 FL: 188 QRS: 71 QRSD: 98 T: 26 QT: 346 QTc: 439 Interpretive Statements SINUS RHYTHM NONSPECIFIC T-WAVE ABNORMALITY Compared to ECG 09/11/2025 14:05:29 T-wave abnormality now present /store/S0/[id number].pdf
--- NOTE | 2025-09-27 01:19 | PD.EDRME ---
Rapid Medical Screening Exam RME Arrival date/time: 09/27/25 00:55 This is a case of 35-year-old male with no medical history brought by the ambulance due to syncopal episode patient hit his lower back started to have pain patient states that he has a multiple surgery on the lower BACK patient smells of ALCOHOL Chief Complaint: Back Pain/Injury Time Seen by Provider: 09/27/25 01:14 Vital signs: Vital Signs Temperature 98.1 F 09/27/25 01:08 Pulse Rate 91 09/27/25 01:08 Respiratory Rate 18 09/27/25 01:08 Blood Pressure 124/85 H 09/27/25 01:08 Pulse Oximetry (%) 96 09/27/25 01:08 Oxygen Delivery Method Room Air 09/27/25 01:08 Exam: Awake alert oriented x 4 no focal deficit GCS 15/15 steady gait mild tenderness of lumbar area Clinical Impression: Syncopal episode chronic low back pain
[2025-09-27 01:51] LABS: Basophils # (Auto) 0.1 Thou/mm3 (0.0-0.2); Basophils % (Auto) 1 % (0-2.5); Eosinophils # (Auto) 0.2 Thou/mm3 (0.0-0.5); Eosinophils % (Auto) 2 % (0-10); Hematocrit 35.7 % (41.0-53.0); Hemoglobin 12.2 g/dL (13.5-16.0); Immature Granulocytes Auto 0.04 Thou/mm3 (0.00-0.00); Lymphocytes # (Auto) 3.4 Thou/mm3 (1.0-4.8); Lymphocytes % (Auto) 41 % (10-50); Mean Corpuscular HGB Conc 34.2 g/dl (31.0-37.0); Mean Corpuscular Hemoglobin 32.6 pg (25.0-35.0); Mean Corpuscular Volume 96 fL (80-100); Monocytes # (Auto) 0.4 Thou/mm3 (0.0-0.8); Monocytes % (Auto) 4 % (0-12); Neutrophils # (Auto) 4.3 Thou/mm3 (1.8-7.7); Neutrophils % (Auto) 51 % (37-80); Nucleated Red Blood Cell # 0.00 Thou/mm3 (0.00-0.00); Nucleated Red Blood Cell % 0 /100 WBC (0); Platelet Count 241 Thou/mm3 (140-440); RDW Standard Deviation 54.4 fL (35.1-43.9); Red Blood Count 3.74 Miln/mm3 (4.50-5.90); White Blood Count 8.4 Thou/mm3 (3.8-10.6)
[2025-09-27 02:32] LABS: Alanine Aminotransferase 43 U/L (10-49); Albumin, Serum 5.1 gm/dL (3.5-5.0); Albumin/Globulin Ratio 1.5 (1.2-2.2); Alcohol, Blood Medical 336.6 mg/dL (0-10.0); Alkaline Phosphatase 151 U/L (46-116); Anion Gap 16 (7-16); Aspartate Amino Transferase 152 U/L (0-34); BUN/Creatinine Ratio 10 Ratio (12-20); Bilirubin,Total 0.9 mg/dL (0.3-1.2); Blood Urea Nitrogen 6 mg/dL (9-23); Calcium 9.2 mg/dL (8.3-10.6); Calcium (Corrected) 9.2 mg/dL (8.5-10.1); Carbon Dioxide 24.0 mMol/L (20.0-31.0); Chloride 103 mMol/L (98-107); Creatinine (Component) 0.6 mg/dL (0.6-1.3); Globulin 3.5 gm/dL (2.3-3.5); Glucose 175 mg/dL (74-106); Osmolality,Calculated 286 (275-295); Potassium 3.7 mMol/L (3.4-5.1); Sodium 143 mMol/L (136-145); Total Protein 8.6 gm/dL (5.7-8.2); Troponin I < 0.002 ng/mL (0.0-0.045); eGFR > 60 See Note
--- NOTE | 2025-09-27 02:44 | PRELIM_ITS ---
CT scan of the head without intravenous contrast (axial sections with sagittal and coronal reformats). September 27, 2025 0155 hours Clinical History: Injury. Comparison: No prior study is available for comparison. Findings: There is no evidence of intracranial hemorrhage, mass effect or midline shift. The ventricles, sulci and basal cisterns are normal. The mastoid air cells and visualized paranasal sinuses are clear. Impression: No evidence of intracranial hemorrhage, mass effect or calvarial fracture. Report Electronically Signed By: Dc Garcia 09/27/2025 2:44:20 AM [EST]
[2025-09-27 02:53] LABS: Amphetamine/Methamp Scrn,U Negative (Negative); Barbiturate Screen,Urine Negative (Negative); Benzodiazepines Screen,Urine Negative (Negative); Benzoylecgonine Screen, Ur Negative (Negative); Fentanyl Screen,Urine Negative (Negative); Opiate Screen,Urine Negative (Negative); THC Screen,Urine Negative (Negative)
[2025-09-27] MEDS: ACETAMINOPHEN 325 MG TABLET 650 MG PO (03:22)
--- NOTE | 2025-09-28 22:21 | PD.EDSYNC ---
ED Syncope RME/HPI General Chief Complaint: Back Pain/Injury Stated Complaint: BACK PAIN Time Seen by Provider: 09/27/25 01:14 Arrival date/time: 09/27/25 00:55 This is a case of 35-year-old male with history of diarrhea with DKA and alcohol intoxication came in in the emergency room syncopal episode possible due to EtOH patient states that he felt pain on the lower back and passed out patient denies any chest pain shortness of breath palpitation headache nausea vomiting dizziness but with mild lower back pain no head injury noted denies any neck chest or abdominal injury patient was brought by the and hence traferred here in ER Limitations: no limitations RME / HPI RME / HPI narrative: 09/27/25 00:55 This is a case of 35-year-old male with no medical history brought by the ambulance due to syncopal episode patient hit his lower back started to have pain patient states that he has a multiple surgery on the lower BACK patient smells of ALCOHOL Exam: Awake alert oriented x 4 no focal deficit GCS 15/15 steady gait mild tenderness of lumbar area Impression: Syncopal episode chronic low back pain Related Data Home Medications ?Medication ?Instructions ?Recorded ?Confirmed insulin aspart U-100 100 unit/mL See Rx Instructions .Route .COMPLEX 05/23/23 08/29/25 (3 mL) subcutaneous pen (Novolog FlexPen U-100 Insulin aspart) fluoxetine 20 mg capsule 20 mg PO DAILY 08/29/25 08/29/25 lamotrigine 25 mg tablet 25 mg PO Q12H 08/29/25 08/29/25 tamsulosin 0.4 mg capsule 0.4 mg PO Q24H 08/29/25 08/29/25 Previous Rx's ?Medication ?Instructions ?Recorded blood-glucose sensor (Dexcom G7 #3 ea 08/31/25 Sensor device) blood-glucose,acid strength inspector,cont #1 ea 08/31/25 (Dexcom G7 Gas Distribution Supervisor) folic acid 1 mg tablet 1 mg PO BID 30 days #60 tabs 08/31/25 insulin degludec 100 unit/mL 10 unit (0.1 mL) SCi QDAY 30 days 08/31/25 subcutaneous solution #3 mL insulin lispro 100 unit/mL 0 unit (0 mL) SCi AC 30 days #3 mL 08/31/25 subcutaneous solution thiamine mononitrate (vit B1) 100 100 mg PO BID 30 days #60 tabs 08/31/25 mg tablet pen needle, diabetic 31 gauge x #100 ea 09/04/25/16 (Sure-Fine Pen Whiteclay) dicyclomine 20 mg tablet 20 mg PO QID PRN abdominal pain 09/11/25 #30 tabs famotidine 40 mg tablet (Pepcid) 40 mg PO BID #30 tabs 09/11/25 acetaminophen 300 mg-codeine 30 mg 2 tab PO Q8H PRN pain #20 tabs 09/22/25 tablet ondansetron 4 mg disintegrating 4 mg PO TID PRN nausea and 09/22/25 tablet vomiting 30 days #10 tabs baclofen 10 mg tablet 10 mg PO BID PRN muscle spasm #10 09/27/25 tabs Allergies Allergy/AdvReac Type Severity Reaction Status Date / Time ketorolac (From Toradol) Allergy Verified 09/27/25 01:08 Review of Systems Review of Systems Systems Reviewed: All systems reviewed, normal except as documented Constitutional Constitutional: Reports system reviewed and no additional complaints, except as documented, Reports as per HPI, Denies frequent falls, Denies headache(s) and Denies weakness Eyes Eyes: Reports system reviewed and no additional complaints, except as documented, Reports as per HPI and Denies loss of vision ENT Ears, Nose, Mouth, and Throat: Denies abnormal hearing, Denies disequilibrium, Denies dizziness, Denies headache(s) and Denies vertigo Cardiovascular Cardiovascular: Reports system reviewed and no additional complaints, except as documented, Reports as per HPI and Reports syncope Respiratory Respiratory: Reports system reviewed and no additional complaints, except as documented and Reports as per HPI Gastrointestinal Gastrointestinal: Reports system reviewed and no additional complaints, except as documented and Reports as per HPI Musculoskeletal Musculoskeletal: Reports system reviewed and no additional complaints, except as documented, Reports as per HPI, Denies abnormal gait, Denies numbness and Denies tingling Neurologic Neurologic: Reports system reviewed and no additional complaints, except as documented, Reports as per HPI, Denies abnormal gait, Denies abnormal hearing, Denies abnormal movements, Denies abnormal speech, Denies behavioral changes, Denies burning sensations, Denies confusion, Denies convulsions, Denies disequilibrium, Denies dizziness, Denies localized weakness, Denies frequent falls, Denies headache(s), Denies lack of coordination, Denies loss of vision, Denies memory loss, Denies numbness, Denies other visual disturbances, Denies paresthesias, Denies radicular pain, Denies restless legs, Denies seizure-like activity, Denies sensory deficit, Reports syncope, Denies tingling, Denies vertigo and Denies weakness Psychiatric Psychiatric: Reports system reviewed and no additional complaints, except as documented, Reports as per HPI, Denies behavioral changes, Denies confusion and Denies memory loss Past Medical History Past Medical History NEUROLOGIC: Positive Seizures CARDIAC: Positive Cardiac Disorders and Hypertension; Negative Congestive Heart Failure RESPIRATORY: Negative Chronic Obstructive Pulmonary Disease (COPD) or Asthma GASTROINTESTINAL: Positive Gastrointestinal Disorders and Pancreatitis GENITOURINARY: Negative Renal Disease ENDOCRINE: Positive Diabetes Mellitus Type 1; Negative Diabetes Mellitus Type 2 HEMATOLOGIC: Negative Sickle Cell Disease PSYCHO/SOCIAL: Positive Depression and Anxiety OTHER HISTORY: Negative Blood Transfusions, Blood Transfusion Reaction or Anesthesia Reactions Family History FAMILY HISTORY: Negative Family Psychiatric Problems, Family Respiratory Disorders, Family Cardiac Disorders or Family Gastrointestinal Problems Surgical History SURGICAL: Positive Abdominal Surgery Social History SMOKING STATUS: Never smoker SUBSTANCE USE: does not use ED Exam General Limitations: Present no limitations General appearance: Present alert, in no apparent distress and other (Patient is awake alert oriented not in distress nontoxic looking well-hydrated well nourished) Head Head exam: Present atraumatic, normocephalic, normal inspection and other (No crepitation no contusion no hematoma no laceration no abrasion no deformity) Eye Eye exam: Present normal appearance, PERRL, EOMI and other (PERRL EOM intact normal conjunctiva no papilledema no hyphema) ENT ENT exam: Present normal exam, normal oropharynx, mucous membranes moist and other (HEENT exam is normal ) Neck Neck exam: Present normal inspection, full ROM, trachea midline and other (Negative for meningeal sign); Absent tenderness, meningismus, lymphadenopathy or thyromegaly Chest Chest inspection: Present normal inspection and symmetric chest wall rise; Absent tenderness Respiratory Respiratory exam: Present normal lung sounds bilaterally; Absent respiratory distress, wheezes, stridor, accessory muscle use or prolonged expiratory phase Cardiovascular Cardiovascular exam: Present regular rate, normal rhythm and normal heart sounds; Absent bradycardia, tachycardia, irregular rhythm, systolic murmur or diastolic murmur Abdominal Exam Abdominal exam: Present soft and normal bowel sounds; Absent distention, tenderness, guarding, rebound, rigidity, diminished bowel sounds, hyperactive bowel sounds, hypoactive bowel sounds or organomegaly Extremities Exam Extremities exam: Present normal inspection and full ROM Back Exam Back exam: Present normal inspection, full ROM and tenderness (Mild tenderness on the lumbar area but no crepitation no deformity leg raise exam is normal steady gait no swelling); Absent CVA tenderness (R), CVA tenderness (L), muscle spasm, paraspinal tenderness, vertebral tenderness, rashes, sciatic notch tenderness (R), sciatic notch tenderness (L), straight leg raise (R) or straight leg raise (L) Neurological Exam Neurological exam: Present alert, oriented X3, CN II-XII intact, normal gait, reflexes normal and other (Patient is awake alert oriented x 4 no focal deficit GCS 15/15 steady gait memory intact no facial droop no slurring speech negative Babinski Romberg is negative motor or sensory reflex were all normal in all extreme); Absent motor sensory deficit Psychiatric Psychiatric exam: Present normal affect, normal mood and other (No hallucination no agitation); Absent depressed, agitated, anxious, flat affect, manic, homicidal ideation or suicidal ideation Skin Skin exam: Present warm, dry, intact, normal color and other (Excellent skin turgor) Course Quality Measures none Orders Category Date Time Status EKG (ED ONLY) *Do not use* NOW Care 09/27/25 01:[address] head/brain wo con Stat Exams 09/27/25 01:18 Completed EKG (ED Only) Stat Exams 09/27/25 01:18 Draft XR lumbar spine 2-3V Stat Exams 09/27/25 01:18 Completed Alcohol, Blood Medical Stat Lab 09/27/25 01:41 Completed CBC Stat Lab 09/27/25 01:41 Completed CMP [Comprehensive Metabolic Panel] Stat Lab 09/27/25 01:41 Completed Drug Screen,Urine Stat Lab 09/27/25 02:35 Completed Troponin I Stat Lab 09/27/25 01:41 Completed Acetaminophen Tab [Tylenol Tab] Med 09/27/25 03:00 Discontinued 650 mg PO X1 ONE Sodium Chloride 0.9% 1000 ml [Ns] 1,000 ml Med 09/27/25 05:33 Discontinued IV 999 mls/hr Vital Signs Vital signs: Vital Signs Temperature 98.1 F 09/27/25 01:08 Pulse Rate 91 09/27/25 01:08 Respiratory Rate 18 09/27/25 01:08 Blood Pressure 124/85 H 09/27/25 01:08 Pulse Oximetry (%) 96 09/27/25 01:08 Oxygen Delivery Method Room Air 09/27/25 01:08 Oxygen saturation is 96% in room air Syncope MDM Narrative MDM Narrative:: This is a case of 35-year-old male with history of diarrhea with DKA and alcohol intoxication came in in the emergency room syncopal episode possible due to EtOH patient states that he felt pain on the lower back and passed out patient denies any chest pain shortness of breath palpitation headache nausea vomiting dizziness but with mild lower back pain no head injury noted denies any neck chest or abdominal injury patient was brought by the and hence traferred here in ER physical examination is awake alert oriented not in distress nontoxic looking well-hydrated well-nourished excellent skin turgor patient has negative meningeal sign neurological exam is normal awake alert oriented x 4 no focal deficit GCS 15/15 steady gait motor or sensory reflex are all normal in all extremities CN II to XII is normal memory intact no facial droop no slurring of speech negative lungs sound is clear equal no crackles no rales no retraction no stridor no wheezing heart normal rate regular rhythm no murmur abdominal exam is benign nonsurgical no guarding no rebound no rigidity heart normal rate regular rhythm no murmur patient noted to have mild tenderness on the L1-L5 but no crepitation no deformity leg raise exam is normal steady gait motor or sensory reflex were normal and unremarkable patient blood test showed no leukocytosis no anemia kidney and liver function is normal no electrolyte imbalance patient glucose 175 anion gap is normal thus the patient is not having DKA patient will continue his medication for blood sugar the high glucose is possibly due to recent alcohol intake the CIwA assessment is 0 no agitation no anxiety no auditory disturbances no clouding of sensorium no headache no nausea no vomiting no paroxysmal sweat no tactile disturbances no tremor no visual disturbance patient alcohol level is 336.6 troponin is negative EKG is normal sinus rhythm and CT scan of the head is normal and unremarkable patient x-ray of the lumbar is also normal no fracture based on my physical examination and history patient syncopal episode is due to EtOH patient refused further treatment here in the emergency room patient while waiting in the lobby he stated that the pain resolved he will follow-up with PCP in 2 days for reevaluation and to be referred to a neurologist for further evaluation and treatment of lower back pain to see a neurosurgeon and pain management doctor he also need to see a neurologist for syncopal episode and follow-up with the help for EtOH for any worsening symptoms or any emergent concern return precaution in the emergency room was advised no signs and symptoms of sepsis dehydration Patient was discharged with comfortable condition walking with stable gait. Patient verbalized no further complains explained diagnosis and answered patient question. Patient is comfortable with the proposed management plan including the need to follow up with his/her primary care physician and any specialist if applicable Discussed patient for any urgent condition or worsening sx, He/She needed to go to emergency room immediately or call 911. Patient acknowledge the responsibility to follow up as instructed and to monitor her/his symptoms. For any persistence of the symptoms for more than 3-5 days return precaution advised. Discussed the result of the test and was given printed discharge instruction Patient data External records reviewed:: [facility] previous records Clinical information provided by:: patient Social determinants that could affect healthcare access:: none Patient has the following chronic illnesses:: None How is presenting disease/condition affected by chronic disease/condition?: no chronic disease Evaluation data The following diagnostics were reviewed and interpreted by me:: lab results, radiology exam(s) and EKG tracing(s) Lab and/or radiology exams considered but not ordered:: reviewed Interpretation Summary: reviewed Medications / Prescriptions Medications or Prescriptions considered but not ordered:: given Medication administrations:: Medication Administration History Discontinued Medications Acetaminophen (Acetaminophen 325 Mg Tablet) 650 mg PO X1 ONE Stop: 09/27/25 03:01 Last Admin: 09/27/25 03:22 Dose: 650 mg Documented By: CVL Sodium Chloride (Ns) 1,000 mls @ 999 mls/hr IV .Q1H1M ONE Stop: 09/27/25 06:33 Last Admin: 09/27/25 05:40 Dose: Not Given Documented By: CVL Non-Admin Reason: Cancelled by Provider given Consultations Consultation(s) initiated? (list below): No Diagnosis Syncope Differential Diagnosis: syncope due to orthostatic hypotension, vasovagal syncope, dehydration and other (etoh) Most likely diagnosis given after review of the tests above:: syncope due to etoh Admission Indicated Admission indicated?: not indicated Explain why admission is indicated or not indicated:: not indicated Admission Request Was there a request for admission?: No Admission Attestation Admission request attestation: not indicated Disposition Plan Disposition Plan: Discharge Discharge Attestation Discharge Attestation: The patient and all family members were given an opportunity to ask questions and understood the discharge instructions. Discharge instructions specifically effects, indications for sooner follow up or return to the emergency department, and the expected course of current diagnosis. Patient condition: Stable Discharge Plan Plan Patient Disposition: HOME (Self Care) Patient condition on transfer: Stable Prescriptions/Referrals Prescriptions/Med Rec: New baclofen 10 mg tablet 10 mg PO BID PRN (Reason: muscle spasm) Qty: 10 0RF No Action insulin aspart U-100 [Novolog FlexPen U-100 Insulin] 100 unit/mL (3 mL) Insulin Pen See Rx Instructions .ROUTE .COMPLEX Rx Instructions: Flex pen dicyclomine 20 mg tablet 20 mg PO QID PRN (Reason: abdominal pain) Qty: 30 0RF famotidine [Pepcid] 40 mg tablet 40 mg PO BID Qty: 30 0RF acetaminophen-codeine 300-30 mg tablet 2 tab PO Q8H MDD 6 PRN (Reason: pain) Qty: 20 0RF ondansetron 4 mg tablet,disintegrating 4 mg PO TID PRN (Reason: nausea and vomiting) 30 Days Qty: 10 0RF fluoxetine 20 mg capsule 20 mg PO DAILY Patient Comments: TAKE 1 CAPSULE BY MOUTH EVERY DAY tamsulosin 0.4 mg capsule 0.4 mg PO Q24H Patient Comments: TAKE 1 CAPSULE BY MOUTH EVERY DAY lamotrigine 25 mg tablet 25 mg PO Q12H Patient Comments: TAKE 1 TABLET BY MOUTH DAILY FOR 14 DAYS, THEN 2 TABLETS BY MOUTH DAILY THEREAFTER. (DME) Dexcom G7 Sensor Device See Rx Instructions .Route Qty: 3 0RF Rx Instructions: As directed (DME) Dexcom G7 Gas Distribution Supervisor Misc See Rx Instructions .Route Qty: 1 0RF Rx Instructions: As directed folic acid 1 mg Tablet 1 mg PO BID 30 Days Qty: 60 0RF insulin lispro 100 unit/mL Solution 0 unit SCi AC 30 Days Qty: 3 0RF thiamine mononitrate (vit B1) 100 mg Tablet 100 mg PO BID 30 Days Qty: 60 0RF insulin degludec 100 unit/mL Solution 10 unit SCi QDAY 30 Days Qty: 3 0RF (DME) pen needle, diabetic [Sure-Fine Pen Whiteclay] 31 gauge x 5/16 needle See Rx Instructions .Route Qty: 100 0RF Rx Instructions: As directed Referrals: Peter Gottlieb MD [Primary Care Provider, Family Practice] - In 1 week Problem List Clinical Impression: Syncope, ETOH abuse, Lumbar sprain Patient/Caregiver Discharge Instructions Education Materials: ED Back Sprain/Strain, ED Drug Abuse, ED Fainting, Uncertain Cause Additional Instructions: Follow-up with your primary care physician in 2 days for reevaluation and to be referred to a neurologist for your syncopal episode follow-up also with your primary care physician for EtOH help recurrence persistent worsening symptoms or any emergent concern call 911 or go to the nearest emergency room he also need to see your neurosurgeon for your chronic low back pain and pain management doctor for pain control continue your medication for pain and started take baclofen for muscle spasm ice pack and warm compress as needed for pain keep hydrated stop drinking Eugene GRAVES Print Language: Danish Stand Alone Forms: Colleen Award Info., Patient Portal Info Letter PA/ROCIO Supervising Physician SAMMY/ROCIO Supervising Physician: DR ELY ARCEO
== END 2025-09-27 06:12 | disposition home or self-care (01) ==
PROVIDERS: Nurse Practitioner Family; Emergency Provider Emergency Medicine; PCP Family Medicine
DX: S33.5XXA Sprain of ligaments of lumbar spine, initial encounter (principal); F10.10 Alcohol abuse, uncomplicated; R94.31 Abnormal electrocardiogram [ECG] [EKG]; Y90.8 Blood alcohol level of 240 mg/100 ml or more
CPT/HCPCS: 36415; 70450; 72100; 80053; 80307; 80320; 84484; 85025; 93005; 99283; A9270; G0480

== ENCOUNTER 2025-09-30 23:58 | Emergency (ER) | payer MEDICAID, SELFPAY ==
[2025-10-01 00:21] VITALS: PULSE 110; O2SAT 98
--- NOTE | 2025-10-01 01:30 | PC.NURSE ---
PATIENT CAME TO TRIAGE DESK AND STATED HE NO LONGER WANTED TO WAIT AND LEFT. ELOPED AT 0130.
== END 2025-10-01 01:31 | disposition left against medical advice (07) ==
PROVIDERS: Emergency Provider Emergency Medicine
DX: Z53.21 Procedure and treatment not carried out due to patient leaving prior to being seen by health care provider (principal)
CPT/HCPCS: 99281

== ENCOUNTER 2025-10-18 23:24 | Emergency (ER) | payer MEDICAID, SELFPAY ==
[2025-10-18 23:25] VITALS: BMI 23.0
--- NOTE | 2025-10-18 23:25 | PD.EDABDPN ---
ED Abdominal Pain RME/HPI General Chief Complaint: Abdominal Pain Stated complaint: ABD PAIN Time seen by provider: 10/18/25 23:37 Arrival date/time: 10/18/25 23:24 RME / HPI RME / HPI narrative: See MDM for Dr. Brantley's HPI documentation. Related Data Home Medications ?Medication ?Instructions ?Recorded ?Confirmed insulin aspart U-100 100 unit/mL See Rx Instructions .Route .COMPLEX 05/23/23 08/29/25 (3 mL) subcutaneous pen (Novolog FlexPen U-100 Insulin aspart) fluoxetine 20 mg capsule 20 mg PO DAILY 08/29/25 08/29/25 lamotrigine 25 mg tablet 25 mg PO Q12H 08/29/25 08/29/25 tamsulosin 0.4 mg capsule 0.4 mg PO Q24H 08/29/25 08/29/25 Previous Rx's ?Medication ?Instructions ?Recorded blood-glucose sensor (Dexcom G7 #3 ea 08/31/25 Sensor device) blood-glucose,configuration management consultant,cont #1 ea 08/31/25 (Dexcom G7 [employer] Worker Foreman) pen needle, diabetic 31 gauge x #100 ea 09/04/25 5/16 (Sure-Fine [place]) dicyclomine 20 mg tablet 20 mg PO QID PRN abdominal pain 09/11/25 #30 tabs famotidine 40 mg tablet (Pepcid) 40 mg PO BID #30 tabs 09/11/25 acetaminophen 300 mg-codeine 30 mg 2 tab PO Q8H PRN pain #20 tabs 09/22/25 tablet ondansetron 4 mg disintegrating 4 mg PO TID PRN nausea and 09/22/25 tablet vomiting 30 days #10 tabs baclofen 10 mg tablet 10 mg PO BID PRN muscle spasm #10 09/27/25 tabs Allergies Allergy/AdvReac Type Severity Reaction Status Date / Time ketorolac (From Toradol) Allergy Verified 10/01/25 00:20 Review of Systems Review of Systems Systems Reviewed: All systems reviewed, normal except as documented Past Medical History Past Medical History NEUROLOGIC: Positive Seizures CARDIAC: Positive Cardiac Disorders and Hypertension; Negative Congestive Heart Failure RESPIRATORY: Negative Chronic Obstructive Pulmonary Disease (COPD) or Asthma GASTROINTESTINAL: Positive Gastrointestinal Disorders and Pancreatitis GENITOURINARY: Negative Renal Disease ENDOCRINE: Positive Diabetes Mellitus Type 1; Negative Diabetes Mellitus Type 2 HEMATOLOGIC: Negative Sickle Cell Disease PSYCHO/SOCIAL: Positive Depression and Anxiety OTHER HISTORY: Negative Blood Transfusions, Blood Transfusion Reaction or Anesthesia Reactions Family History FAMILY HISTORY: Negative Family Psychiatric Problems, Family Respiratory Disorders, Family Cardiac Disorders or Family Gastrointestinal Problems Surgical History SURGICAL: Positive Abdominal Surgery Social History SMOKING STATUS: Former smoker SUBSTANCE USE: does not use ED Exam Narrative Physical exam: See [facility] for Dr. Brantley's physical exam documentation. Course Quality Measures none Orders Category Date Time Status CT Screening NOW Care 10/18/25 23:30 Completed Saline [Insert IV] NOW Care 10/18/25 23:[address] abdomen pelvis w con Stat Exams 10/18/25 23:30 Completed Alcohol, Blood Medical Stat Lab 10/18/25 23:46 Completed Amylase Stat Lab 10/18/25 23:46 Completed Bilirubin,Direct Stat Lab 10/18/25 23:46 Completed Blood Culture (Lab) Stat Lab 10/18/25 23:46 Results CBC Stat Lab 10/18/25 23:46 Completed CMP [Comprehensive Metabolic Panel] Stat Lab 10/18/25 23:46 Completed CRP [C-Reactive Protein] Stat Lab 10/18/25 23:46 Completed Drug Screen,Urine Stat Lab 10/19/25 00:45 Completed ESR [Sed Rate (ESR)] Stat Lab 10/18/25 23:46 Completed Lactate (Lactic Acid) Stat Lab 10/18/25 23:46 Completed Lactic Acid, 3 HR Stat Lab 10/19/25 03:30 Completed Lipase Stat Lab 10/18/25 23:46 Completed Magnesium Stat Lab 10/18/25 23:46 Completed Procalcitonin Stat Lab 10/18/25 23:46 Completed UA, C/S IF [Urinalysis, C/S if Indicated] Stat Lab 10/19/25 00:45 Completed Morphine* Inj Med 10/19/25 01:01 Discontinued 2 mg IV X1 ONE Ondansetron Inj [Zofran Inj] Med 10/18/25 23:28 Discontinued 4 mg IVP X1 ONE Ringers Lactated 1000 ml [Lactated Ringers] 1,000 ml Med 10/19/25 03:19 Discontinued IV 1,000 mls/hr Sodium Chloride 0.9% 1000 ml [Ns] 1,000 ml Med 10/18/25 23:28 Discontinued IV 999 mls/hr Thiamine Inj [Vitamin B-1 Inj] 100 mg Med 10/19/25 00:43 Discontinued Sodium Chloride 0.9% [Ns] 100 ml IV X1 Vital Signs Vital signs: Vital Signs Temperature 97.9 F 10/18/25 23:26 Pulse Rate 97 10/18/25 23:26 Respiratory Rate 19 10/18/25 23:26 Blood Pressure 141/74 H 10/18/25 23:26 Pulse Oximetry (%) 96 10/18/25 23:26 Oxygen Delivery Method Room Air 10/18/25 23:26 Abdominal Pain MDM MDM Narrative MDM Narrative:: This section includes all my notes and documentations, including HPI, PE, and ED course. Kush Brantley MD HPI: 35-year-old male BIBA from home with abdominal pain. Patient had cholecystectomy on 10/06/25, about 10 days ago. Ever since, he continues to have abdominal pain. With nausea. No fever. Has history of alcohol abuse. Reports no alcohol consumption currently. No other complaints. ROS: All negative except as documented in HPI. Physical Exam: General: Alert and oriented. No acute distress when remaining still. Eyes: Conjunctivae and lids clear. ENT: No nasal congestion. Neck: Supple. Heart: RRR. Lungs: No respiratory distress. Good air movement. No rhonchi, wheezing, rales. Abdomen: Soft and nontender. Normal bowel sounds. No distension. No rebound or guarding. Back: No CVA tenderness. Skin: Warm and dry. Neuro: Alert and oriented X 3. I reviewed EMS notes. I reviewed all diagnostic test results. My review of the CT abdomen pelvis report is chronic pancreatitis (our teleradiology report). Blood/urine tests remarkable for serum alcohol 430.8. At this point, diagnoses include: Alcohol intoxication Chronic pancreatitis Treatment here included: IVF Zofran 4 mg IV Morphine 2 mg IV Thiamine 100 mg IV He felt much better. Patient requested leaving. Mom is here to pick him up. Discussed potential risks, including worsening and sudden without full treatment. Patient understood the risks and is willing to take the risks. We couldn't change his mind. Recommended more outpatient care. Based on my best medical judgment, made decision no further evaluation or treatment indicated at this time. Patient understands and agrees to the discharge instructions customized and printed, see below. Discharge Instructions from Dr. Brantley printed for you: 1. After extensive evaluation, there is no evidence of intra-abdominal complication from your recent cholecystectomy. Your abdominal pain is related to alcohol intoxication and chronic pancreatitis and cirrhosis. See attached handouts. 2. To prevent serious and potentially fatal future injuries and illnesses, quit alcohol at all cost. 3. Eat regular nutritious meals. For good hydration, increase oral fluid and maintain clear urine. If dark or yellow, increase oral fluid. 4. Take multivitamin and folic acid 1 mg and thiamine 50 mg every day. 5. Take [id number] omeprazole every morning and famotidine every evening to prevent alcohol induced gastric conditions. 6. See a private doctor on 10/20/2025 for recheck and further care. Ask for help to quit alcohol without alcohol withdrawal. Ask to review all test results and official radiology reports, to make sure you receive all necessary follow-ups and monitoring. To make sure there is no serious intra-abdominal condition, ask for help with more investigation not available here in the ER. Such as EGD or scoping the stomach, colonoscopy or scoping the colon, and referral to see incoming inspector. 7. Seek immediate medical care with worsening or with any concerns. Kush Brantley MD Patient data External records reviewed:: [facility] previous records (Per chart review, patient was seen here on 09/27/25 for alcohol abuse.) and EMS form Clinical information provided by:: patient Social determinants that could affect healthcare access:: alcohol use Patient has the following chronic illnesses:: DM, HTN, seizures How is presenting disease/condition affected by chronic disease/condition?: uneffected by Evaluation data The following diagnostics were reviewed and interpreted by me:: lab results and radiology exam(s) Lab and/or radiology exams considered but not ordered:: none Interpretation Summary: I reviewed all diagnostic test results. My review of the CT abdomen pelvis report is chronic pancreatitis (our teleradiology report). Blood/urine tests remarkable for serum alcohol 430.8. Medications / Prescriptions Medications or Prescriptions considered but not ordered:: none Medication administrations:: Medication Administration History Discontinued Medications Sodium Chloride (Ns) 1,000 mls @ 999 mls/hr IV .Q1H1M ONE Stop: 10/19/25 00:28 Last Infusion: 10/19/25 01:56 Dose: Infused Documented By: Admin: 10/19/25 00:56 Dose: 999 mls/hr Documented By: STEPHANIE Thiamine HCl 100 mg/ Sodium (Chloride) 101 mls @ 202 mls/hr IV X1 ONE Stop: 10/19/25 01:12 Last Infusion: 10/19/25 01:56 Dose: Infused Documented By: Admin: 10/19/25 01:16 Dose: 202 mls/hr Documented By: STEPHANIE Lactated Ringer's (Lactated Ringers) 1,000 mls @ 1,000 mls/hr IV .Q1H ONE Stop: 10/19/25 04:18 Last Infusion: 10/19/25 04:41 Dose: Infused Documented By: Admin: 10/19/25 03:46 Dose: 1,000 mls/hr Documented By: ARIAN Morphine Sulfate (Morphine Sulf Inj 4 Mg/Ml Vial) 2 mg IV X1 ONE Stop: 10/19/25 01:02 Last Admin: 10/19/25 01:11 Dose: 2 mg Documented By: STEPHANIE Ondansetron HCl (Ondansetron Inj 2 Mg/Ml Inj 2 Ml) 4 mg IVP X1 ONE; Protocol Stop: 10/18/25 23:29 Last Admin: 10/19/25 00:59 Dose: 4 mg Documented By: STEPHANIE Treatment here included: IVF Zofran 4 mg IV Morphine 2 mg IV Thiamine 100 mg IV Consultations Consultation(s) initiated? (list below): No Diagnosis Differential diagnosis abdominal pain: acute appendicitis, calculus of kidney, constipation, diverticulitis, gastroenteritis, pancreatitis and small bowel obstruction Most likely diagnosis given after review of the tests above:: Alcohol intoxication Chronic pancreatitis Cirrhosis Admission Indicated Admission indicated?: not indicated Explain why admission is indicated or not indicated:: Patient requested leaving. Mom is here to pick him up. Discussed potential risks, including worsening and sudden without full treatment. Patient understood the risks and is willing to take the risks. We couldn't change his mind. Admission Request Was there a request for admission?: No Disposition Plan Disposition Plan: Discharge Discharge Attestation Discharge Attestation: The patient and all family members were given an opportunity to ask questions and understood the discharge instructions. Discharge instructions specifically effects, indications for sooner follow up or return to the emergency department, and the expected course of current diagnosis. Patient condition: Stable Discharge Plan Plan Patient Disposition: HOME (Self Care) Prescriptions/Referrals Prescriptions/Med Rec: No Action insulin aspart U-100 [Novolog FlexPen U-100 Insulin] 100 unit/mL (3 mL) Insulin Pen See Rx Instructions .ROUTE .COMPLEX Rx Instructions: Flex pen dicyclomine 20 mg tablet 20 mg PO QID PRN (Reason: abdominal pain) Qty: 30 0RF famotidine [Pepcid] 40 mg tablet 40 mg PO BID Qty: 30 0RF acetaminophen-codeine 300-30 mg tablet 2 tab PO Q8H MDD 6 PRN (Reason: pain) Qty: 20 0RF ondansetron 4 mg tablet,disintegrating 4 mg PO TID PRN (Reason: nausea and vomiting) 30 Days Qty: 10 0RF fluoxetine 20 mg capsule 20 mg PO DAILY Patient Comments: TAKE 1 CAPSULE BY MOUTH EVERY DAY tamsulosin 0.4 mg capsule 0.4 mg PO Q24H Patient Comments: TAKE 1 CAPSULE BY MOUTH EVERY DAY lamotrigine 25 mg tablet 25 mg PO Q12H Patient Comments: TAKE 1 TABLET BY MOUTH DAILY FOR 14 DAYS, THEN 2 TABLETS BY MOUTH DAILY THEREAFTER. (DME) Dexcom G7 Sensor Device See Rx Instructions .Route Qty: 3 0RF Rx Instructions: As directed (DME) Dexcom G7 [employer] Worker Foreman Misc See Rx Instructions .Route Qty: 1 0RF Rx Instructions: As directed (DME) pen needle, diabetic [Sure-Fine [employer] [place]] 31 gauge x 5/16 needle See Rx Instructions .Route Qty: 100 0RF Rx Instructions: As directed baclofen 10 mg tablet 10 mg PO BID PRN (Reason: muscle spasm) Qty: 10 0RF Referrals: Peter Gottlieb MD [Primary Care Provider, Family Practice] - In 1 week Problem List Clinical Impression: Alcohol intoxication, Chronic pancreatitis, Cirrhosis Patient/Caregiver Discharge Instructions Discharge Activity: activity as tolerated Education Materials: ED Cirrhosis, ED Alcohol Intoxication, ED Pancreatitis Additional Instructions: Discharge Instructions from Dr. Brantley printed for you: 1.? After extensive evaluation, there is no evidence of intra-abdominal complication from your recent cholecystectomy. Your abdominal pain is related to alcohol intoxication and chronic pancreatitis and cirrhosis. See attached handouts. 2.? To prevent serious and potentially fatal future injuries and illnesses, quit alcohol at all cost. 3.? Eat regular nutritious meals. For good hydration, increase oral fluid and maintain clear urine.? If dark or yellow, increase oral fluid. 4.? Take multivitamin and folic acid 1 mg and thiamine 50 mg every day. 5.? Take [id number] omeprazole every morning and famotidine every evening to prevent alcohol induced gastric conditions. 6.? See a private doctor on 10/20/2025 for recheck and further care. Ask for help to quit alcohol without alcohol withdrawal. Ask to review all test results and official radiology reports, to make sure you receive all necessary follow-ups and monitoring. To make sure there is no serious intra-abdominal condition, ask for help with more investigation not available here in the ER.? Such as EGD or scoping the stomach, colonoscopy or scoping the colon, and referral to see incoming inspector. 7.? Seek immediate medical care with worsening or with any concerns. Print Language: Danish Stand Alone Forms: [employer] Award Info., Patient Portal Info Letter
[2025-10-18 23:26] VITALS: BP 141/74; PULSE 97; RESP 19; TEMP 36.6; O2SAT 96
--- NOTE | 2025-10-18 23:30 | XR_ITS ---
Examination: CT abdomen with intravenous contrast CT pelvis with intravenous contrast 2-D coronal reconstructions 2-D sagittal reconstructions Date and time of exam: October 19, 2025, 0206 hours INDICATIONS: Cholecystectomy October 05, 2025 followed by abdominal pain 2 weeks. CTDI: vol (mGy) 11.24 DLP: (mGycm) 651 Technique: Multiple axial sections of the abdomen and pelvis have been obtained. 64 slice high-resolution scanner used. 3 mm axial sections have been obtained, post intravenous injection 60 cc [id number] 2-D sagittal, coronal reconstructions obtained. Low dose protocols were performed. One or more of the following dose reduction techniques were used; automated exposure control, adjustment of the mA and/or KV according to patient size, use of iterative reconstruction technique. Findings: Soft tissue density upper anterior abdominal wall, image 46, measuring 20 x 20 mm extending to the skin surface This is not evident on the CT abdomen study August 26, 2025 Hepatomegaly 23 cm liver irregular in contour with fatty infiltration Absent gallbladder No extrahepatic biliary tract dilatation Abundant pancreatic calcifications Dilated small bowel loops Aorta normal size No hydronephrosis No pericecal inflammatory change No significant prostatomegaly Contracted urinary bladder Lumbar fusion L4-S1 IMPRESSION: Hepatomegaly 23 cm, liver irregular in contour, consider cirrhosis Findings chronic pancreatitis, negative for acute pancreatitis 20 x 20 mm soft tissue mass upper anterior abdominal wall extending to the skin surface, not seen on the August 26, 2025 exam, differential would include soft tissue tumor, abscess, recommend ultrasound soft tissue of this mass
[2025-10-18 23:52] VITALS: PULSE 104; RESP 18; O2SAT 98
[2025-10-18 23:56] LABS: Lactate (Lactic Acid) 3.4 mMol/L (0.4-2.0)
[2025-10-19 00:01] LABS: Basophils # (Auto) 0.2 Thou/mm3 (0.0-0.2); Basophils % (Auto) 2 % (0-2.5); Eosinophils # (Auto) 0.1 Thou/mm3 (0.0-0.5); Eosinophils % (Auto) 2 % (0-10); Hematocrit 35.8 % (41.0-53.0); Hemoglobin 12.4 g/dL (13.5-16.0); Immature Granulocytes Auto 0.01 Thou/mm3 (0.00-0.00); Lymphocytes # (Auto) 3.0 Thou/mm3 (1.0-4.8); Lymphocytes % (Auto) 42 % (10-50); Mean Corpuscular HGB Conc 34.6 g/dl (31.0-37.0); Mean Corpuscular Hemoglobin 32.7 pg (25.0-35.0); Mean Corpuscular Volume 95 fL (80-100); Monocytes # (Auto) 0.4 Thou/mm3 (0.0-0.8); Monocytes % (Auto) 6 % (0-12); Neutrophils # (Auto) 3.4 Thou/mm3 (1.8-7.7); Neutrophils % (Auto) 49 % (37-80); Nucleated Red Blood Cell # 0.00 Thou/mm3 (0.00-0.00); Nucleated Red Blood Cell % 0 /100 WBC (0); Platelet Count 304 Thou/mm3 (140-440); RDW Standard Deviation 44.9 fL (35.1-43.9); Red Blood Count 3.79 Miln/mm3 (4.50-5.90); White Blood Count 7.1 Thou/mm3 (3.8-10.6)
[2025-10-19 00:08] LABS: Sed Rate (ESR) 28 mm/hr (0-15)
[2025-10-19 00:35] LABS: Alanine Aminotransferase 45 U/L (10-49); Albumin, Serum 4.9 gm/dL (3.5-5.0); Albumin/Globulin Ratio 1.5 (1.2-2.2); Alkaline Phosphatase 131 U/L (46-116); Amylase 53 U/L (30-118); Anion Gap 17 (7-16); Aspartate Amino Transferase 187 U/L (0-34); BUN/Creatinine Ratio 11 Ratio (12-20); Bilirubin,Direct 0.4 mg/dL (0.0-0.3); Bilirubin,Total 0.6 mg/dL (0.3-1.2); Blood Urea Nitrogen 8 mg/dL (9-23); Calcium 9.2 mg/dL (8.3-10.6); Calcium (Corrected) 9.2 mg/dL (8.5-10.1); Carbon Dioxide 24.3 mMol/L (20.0-31.0); Chloride 100 mMol/L (98-107); Creatinine (Component) 0.7 mg/dL (0.6-1.3); Estimated Creatinine Clearance 153.0 mL/min (>60); Globulin 3.3 gm/dL (2.3-3.5); Glucose 255 mg/dL (74-106); Lipase 26 U/L (12-53); Magnesium 1.8 mg/dL (1.6-2.6); Osmolality,Calculated 288 (275-295); Potassium 3.8 mMol/L (3.4-5.1); Procalcitonin 0.15 ng/ml (0.0-0.49); Sodium 141 mMol/L (136-145); Total Protein 8.2 gm/dL (5.7-8.2); eGFR > 60 See Note
[2025-10-19 00:36] LABS: C-Reactive Protein < 0.5 mg/dL (0.0-0.9)
[2025-10-19 00:42] LABS: Alcohol, Blood Medical 430.8 mg/dL (0-10.0)
--- NOTE | 2025-10-19 00:46 | PC.NURSE ---
lab called to report critical alcohol level 430.8
[2025-10-19] MEDS: SODIUM CHLORIDE 0.9% 1000 ML 1,000 ML 999 ML IV (00:56)
[2025-10-19] MEDS: ONDANSETRON INJ 2 MG/ML INJ 2 ML 4 MG IVP (00:59)
[2025-10-19 01:10] LABS: Collection Type, Urine Clean Catch; Squamous Epithelial Cell,Urine 0 /hpf (0-5)
[2025-10-19] MEDS: MORPHINE SULF INJ 4 MG/ML VIAL 2 MG IV (01:11)
[2025-10-19] MEDS: THIAMINE INJ 100 MG in SODIUM CHLORIDE 0.9% 100 ML 202 MG IV (01:16)
[2025-10-19 01:25] LABS: Amphetamine/Methamp Scrn,U Negative (Negative); Barbiturate Screen,Urine Positive (Negative); Benzodiazepines Screen,Urine Negative (Negative); Benzoylecgonine Screen, Ur Negative (Negative); Fentanyl Screen,Urine Negative (Negative); Opiate Screen,Urine Negative (Negative); THC Screen,Urine Negative (Negative)
[2025-10-19 01:37] LABS: Bilirubin,Urine Negative (Negative); Blood,Urine Negative (Negative); Clarity,Urine Clear (Clear/Hazy); Color,Urine Lt-Yellow (Lt Yel-Yel); Culture Indicated,Urine Not Indicated; Glucose, Urine 4+ (Negative); Ketones,Urine 2+ (Negative); Leukocyte Esterase,Urine Negative (Negative); Nitrite,Urine Negative (Negative); PH,Urine 6.5 (5.0-7.0); Protein,Urine Trace (Neg - Trace); RBC,Urine 1 /hpf (0-3); Specific Gravity,Urine 1.021 (1.001-1.035); Urobilinogen,Urine Negative mg/dL (0.0-1.0); WBC,Urine 1 /hpf (0-5)
[2025-10-19 02:30] VITALS: BP 129/77; PULSE 94; RESP 16; TEMP 36.8; O2SAT 99
[2025-10-19 02:52] LABS: Reflex Lactate? Y
--- NOTE | 2025-10-19 03:13 | PRELIM_ITS ---
CT scan of the abdomen and pelvis with intravenous contrast (axial sections with sagittal and coronal reformats). October 19, 2025 at 0206 hours Clinical History: Abdominal pain after cholecystectomy. Comparison: None available at the time of this report. Findings: The lung bases are clear. The kidneys and adrenals are unremarkable. 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 Pancreatic calcifications consistent with chronic pancreatitis. No pancreatic duct dilation. No evidence of acute pancreatitis. Status postcholecystectomy. No biliary duct dilation. Irregular liver margins. The portal vein is patent. No evidence of bowel obstruction. No evidence of appendicitis. There is no mesenteric or retroperitoneal adenopathy. The urinary bladder is unremarkable. There is no free fluid or free air. The osseous structures are unremarkable. Impression: Cirrhosis. Chronic pancreatitis without evidence of acute pancreatitis. Report Electronically Signed By: Jamari Bai 10/19/2025 3:12:45 AM [EST]
[2025-10-19 03:35] LABS: Lactic Acid, 3 HR 2.7 mMol/L (0.4-2.0)
[2025-10-19] MEDS: RINGERS LACTATED 1000 ML 1,000 ML IV (03:46)
[2025-10-19 04:35] VITALS: BP 124/84; PULSE 87; RESP 18; TEMP 37; O2SAT 97
[2025-10-19 04:47] VITALS: BP 124/84; PULSE 92; RESP 18; O2SAT 98
== END 2025-10-19 04:49 | disposition home or self-care (01) ==
PROVIDERS: Emergency Provider Emergency Medicine; PCP Family Medicine
DX: K86.0 Alcohol-induced chronic pancreatitis (principal); K70.30 Alcoholic cirrhosis of liver without ascites; F10.129 Alcohol abuse with intoxication, unspecified; Y90.8 Blood alcohol level of 240 mg/100 ml or more
CPT/HCPCS: 36415; 74177; 80053; 80307; 80320; 81001; 82150; 82248; 83605; 83690; 83735; 84145; 85025; 85652; 86140; 87040; 96361; 96365; 96375; 99284; A4649; J2270; J2405; J3411; J7030; J7050; J7120; Q9967; G0480